=== PATIENT | male | born 1945 | race Caucasian/White ===

== ENCOUNTER 2016-05-22 10:10 | Outpatient (RCR) | payer MEDICARE, OTHER ==
--- OUTSIDE RECORDS SUMMARY | 2016-03-20 09:48 | XMS REPORT | Continuity of Care Document ---
Author Author [facility] Organization [facility] Address Unknown Phone Unavailable Care Team Providers Care Candy Feeder Name Role Phone CARLY NUÑEZ DO PCP Insurance Providers Payer Name Policy Number Subscriber Name Relationship Wps Medicare [id number] Soham Meza 18 Self / Same As Patient [employer] [id number] Soham Meza 18 Self / Same As Patient Advance Directives Directive Response Recorded Date/Time Advance Directives Yes 09/20/15 9:58am Health Care Power of Supervisor Compressed Yeast Y - Janelle Meza 09/20/15 9:58am Organ Donor Yes 09/20/15 9:58am Problems No problem information available. Medications Current Home Medications Medication Dose Units Route Directions Days/Qty Instructions Start Date Cholecalciferol (Vitamin D3) 4,000 Unit 4,000 Unit Oral Daily Furosemide (Lasix) 20 Mg 20 Mg Oral Daily 07/07/12 Omeprazole 40 Mg 40 Mg Oral Bedtime 07/07/12 Chromium Amino Acid Chelate 400 Mcg 400 Mcg Oral Daily 07/07/12 [Vitamin C 1000MG] 1,000 Mg Oral Daily 12/26/12 Potassium Chloride 10 Meq 10 Meq Oral Daily 12/26/12 Budesonide/Formoterol Fumarate 10.2 Gm 2 Puff Inhalation Twice A Day 12/26/12 Cyanocobalamin (Vitamin B 12 Injecting) 1,000 Mcg/Ml 1,000 Mcg Injection Monthly 12/26/12 [place]-3/Dha/Epa/Fish Oil 1 Each 4,200 Mg Oral Daily TAKES 3 (1400MG) CAPSULES EVERY MORNING 12/26/12 Testosterone Cypionate 200 Mg/1 Ml 200 Mg Intramusc Monthly One The 12/26/12 Anastrozole 1 Mg 0.5 Mg Oral The TAKES 1/2 (1MG) TABLET WITH TESTOSTERONE INJECTION MONTHLY AROUND THE 1ST OF THE MONTH 12/26/12 [Sea-[place] 1000MCG] 1,000 Mcg Oral Daily 12/26/12 [Xolair] Injection Once Monthly FOR ASTHMA 12/26/12 Metformin Hcl 1,000 Mg 1,000 Mg Oral Twice A Day 03/05/14 [Garlic 3000MG] 3,000 Mg Oral Daily 03/05/14 Gabapentin 300 Mg 300 Mg Oral Bedtime 03/05/14 Benazepril Hcl 40 Mg 40 Mg Oral Bedtime 03/05/14 Terazosin Hcl 10 Mg 10 Mg Oral Bedtime 03/05/14 Metoprolol Succinate 50 Mg 50 Mg Oral Daily 03/05/14 Amlodipine Besylate 10 Mg 10 Mg Oral Daily 03/05/14 Donepezil Hcl 10 Mg 10 Mg Oral Daily 03/05/14 Glimepiride 2 Mg 2 Mg Oral Daily 03/05/14 Montelukast Sodium 10 Mg 10 Mg Oral Daily 03/05/14 Atorvastatin Calcium 20 Mg 10 Mg Oral Daily @ 1200 TAKES 1/2 (20MG) TABLET 03/05/14 Losartan Potassium 100 Mg 100 Mg Oral Daily @ 1200 03/05/14 Hydrochlorothiazide 25 Mg 25 Mg Oral Daily @ 1200 03/05/14 Cyclobenzaprine Hcl (Flexeril) 10 Mg 10 Mg Oral Bedtime as needed for Muscle Spasms 03/05/14 [Coconut Oil 1000MG] 1,000 Mg Oral Daily 03/05/14 Albuterol 8.5 Gm 2 Puff Inhalation Every 6 Hours as needed for Shortness Of Breath 03/05/14 Tramadol Hcl 50 Mg 50 Mg Oral Every 8HRS as needed for Pain 07/07/14 Cetirizine Hcl 10 Mg 10 Mg Oral Daily 07/07/14 Oxycodone Hcl/Acetaminophen 1 Tab 1-2 Tab Oral Every 4HRS as needed for Pain 60 07/22/14 Past Home Medications Medication Directions Ordered Status Amlodipine Besylate (Norvasc 10 Mg) 10 Mg Tablet, 10 Mg Oral Daily 07/07/12 Discontinued Benazepril Hcl 40 Mg Tablet, 40 Mg Oral Every Evening 07/07/12 Discontinued Nebivolol Hcl 20 Mg Tablet, 20 Mg Oral Daily 07/07/12 Discontinued Aspirin 81 Mg Tabec, 81 Mg Oral Daily 07/07/12 Discontinued Donepezil Hcl 10 Mg Tablet, 10 Mg Oral Daily 07/07/12 Discontinued Terazosin Hcl 10 Mg Capsule, 10 Mg Oral Every Evening 07/07/12 Discontinued Metformin Hcl (Glucophage) 1,000 Mg Tablet, 1000 Mg Oral Twice A Day Discontinued Ascorbic Acid 500 Mg Tablet, 500 Mg Oral Three Times A Day 07/07/12 Discontinued Garlic 5,000 Mcg Tablet, 3000 Mcg Oral Daily 07/07/12 Discontinued [Kdur] , 10 Mcg Oral Daily 07/07/12 Discontinued Acetaminophen 500 Mg Tablet, 500 Mg Oral As Needed 07/07/12 Discontinued [Arimidex] , 0.5 Mg Oral Month 07/07/12 Discontinued Budesonide/Formoterol Fumarate 10.2 Gm Hfa.aer.ad, 10.2 Gm Inhalation Twice A Day 07/07/12 Discontinued Atorvastatin Calcium 20 Mg Tablet, 20 Mg Oral Daily @ 1200 07/07/12 Discontinued Telmisartan 80 Mg Tablet, 1 Each Oral Daily 07/07/12 Discontinued Hydrochlorothiazide 25 Mg Tab, 25 Mg Oral Daily @ 1200 07/07/12 Discontinued [Vitamin B-12] , 07/07/12 Discontinued [place]-3/[place]-6/[place]-9 Fatty Acids (Lovaza) 1 Each Capsule, 1 Each Oral Daily 07/07/12 Discontinued [Cetrizine] , 10 Mg Oral Daily 07/07/12 Discontinued Glimepiride 2 Mg Tab, 2 Mg Oral Daily 07/07/12 Discontinued Gabapentin 300 Mg Cap, 300 Mg Oral Bedtime 07/07/12 Discontinued Losartan Potassium 100 Mg Tablet, 100 Mg Oral Daily @ 1200 07/07/12 Discontinued [Garlic 3000MCG] , 3000 Mcg Oral Daily 12/26/12 Discontinued Cetirizine Hcl (Zyrtec) 10 Mg Tablet, 10 Mg Oral Daily 12/26/12 Discontinued Montelukast Sodium 10 Mg Tablet, 10 Mg Oral Daily 12/26/12 Discontinued Celecoxib 200 Mg Capsule, 200 Mg Oral Daily @ 1200 12/26/12 Discontinued Magnesium Oxide 400 Mg Capsule, 400 Mg Oral Daily 12/26/12 Discontinued Celecoxib 200 Mg Capsule, 200 Mg Oral Daily @ 1200 03/05/14 Discontinued Fluticasone Propionate 16 Gm Naspr, 2 Sprays Nasal Daily as needed for Allergies 03/05/14 Discontinued Loratadine 10 Mg Tablet, 5 Mg Oral Daily 03/05/14 Discontinued Cefprozil 500 Mg Tablet, 1 Each Oral Twice A Day 03/08/14 Discontinued Azithromycin 250 Mg Tablet, 1 Tab Oral Daily 03/08/14 Discontinued Guaifenesin 600 Mg Tab, 600 Mg Oral Twice A Day 03/08/14 Discontinued Social History Social History Problem Response Recorded Date/Time Alcohol Use Denies Use 07/19/2014 11:07am Recreational Drug Use No 07/19/2014 11:07am Do you dip or chew tobacco? No 08/23/2015 10:20am Hospital Discharge Instructions No hospital discharge instructions. Plan of Care Discharge Date 11/03/15 6:10am Prescriptions See Medication Section Functional Status No functional status results. Allergies, Adverse Reactions, Alerts Allergen Type Severity Reaction Status Last Updated adhesive ([id number]) Allergy Unknown Active 07/07/14 pravastatin ([id number]) Adverse Reaction Unknown weakness Active 07/07/14 telmisartan ([id number]) Adverse Reaction Mild diarrhea Active 07/07/12 Immunizations Name Given Type Date of Pneumonia Vaccine 01/19/12 Historical Date of Influenza Vaccine 03/20/14 Historical Tetanus Booster (TDap) Unknown Historical Vital Signs Acute Vital Signs Vital Response Date/Time Temperature (Fahrenheit) 98.9 degrees F (97.6 - 99.5) 10/25/2015 10:23am Temperature (Calculated Celsius) 37.16721 degrees C (36.4 - 37.5) 10/25/2015 10:23am Temperature Source Temporal 10/25/2015 10:23am Pulse Rate (adult) 86 bpm (60 - 90) 10/25/2015 10:23am Respiratory Rate 16 bpm (12 - 24) 10/25/2015 10:23am Blood Pressure 141/88 mm Hg 10/25/2015 10:23am Pain Pain Intensity 0 10/25/2015 10:23am Height (Feet) 5 feet 10/25/2015 10:23am Height (Inches) 7.00 inches 10/25/2015 10:23am Height (Calculated Centimeters) 170.441758 cm 10/25/2015 10:23am Weight (Pounds) 244 pounds 10/25/2015 10:23am Weight (Ounces) 14.9 oz 10/25/2015 10:23am Weight (Calculated Grams) 079664.947 gm 10/25/2015 10:23am Weight (Calculated Kilograms) 111.789327 kilograms 10/25/2015 10:23am Results No known relevant diagnostic tests, laboratory data and/or discharge summary. Procedures No known history of procedures. Encounters Encounter Location Arrival/Admit Date Discharge/Depart Date Attending Provider Departed Clinic [facility] 11/02/15 8:13pm 11/03/15 6: 10am MANAV CORDOBA MD Registered Recurring [facility] 10/25/15 9:27am DAVIDE CASTRO DO
[2016-03-20 09:54] VITALS: BP 134/85
[2016-03-20] MEDS: OMALIZUMAB SUB-Q 150 MG (XOLAIR) VIAL SQ SCH (10:37)
[2016-04-24] MEDS: OMALIZUMAB SUB-Q 150 MG (XOLAIR) VIAL SQ SCH (12:13)
[2016-04-24 16:08] VITALS: BP 133/88
[~2016-05-22] VITALS: Ht 170.2 cm; Wt 111.1 kg
[~2016-05-22 10:10] MED LIST: AC500T PO; ALBU8.5H2 IH; AMLO10TA PO; AMLO10TA2 PO; AMLO10TA82 PO; ANAS1TAB44 PO; ANAS1TAB7 PO; ASCO10006 PO; ASCO500T20 PO; ASP81TEC PO; ASPI-586 PO; ATOR20TA66 PO; ATR20T PO; AZTH250C PO; BNZ40T PO; BUDE10.2 IH; BUDE10.22 IH; BUDE6HFA IH; CART1TAB4 PO; CEFP500T4 PO; CELE200C PO; CETI10TA17 PO; CETI10TA57 PO; CHOL40002 PO; CHRO400T10 PO; CLCX200C PO; CNC1KV INJ; COCONUT OIL 1000 MG PO; CYAN100053 IJ; CYCL10TA9 PO; DNPZ10T PO; DOCO1CAP3 PO; DONE10TA41 PO; ESCI10TA55 PO; FLUT16SP22 NS; FURO20TA4 PO; GABA-488 PO; GARL5000 PO; GARLIC PO; GBPN300C PO; GFN600TCR PO; GLIM2TAB PO; GLMP2T PO; HCT25T PO; HYDR25TA4 PO; INDO50CA PO; KCL10CCR PO; LORA10TA7 PO; LOSA100T16 PO; LOSA100T28 PO; LOSA100T7 PO; MAGN400C PO; METF-380 PO; METF1000 PO; METO-272 PO; MNTL10T PO; MONT10TA24 PO; NEBI20TA2 PO; OMAL150V SQ; OMEG-9 PO; OMEG1CAP58 PO; OMEP40CA36 PO; OXYC-272 PO; POTA10CA43 PO; ROSU5TAB PO; TELM80TA3 PO; TERA10CA15 PO; TERA10CA3 PO; TEST200V21 INJ; TEST200V3 IM; TRAM50TA2 PO; VITAMIN C 1000MG PO; XOLAIR INJ; [UNRECOGNIZED DRUG - CODE] PO; [UNRECOGNIZED DRUG - OTHER] PO; arimidex PO; cetrizine PO; kdur PO; vitamin b-12
[2016-05-22] MEDS: OMALIZUMAB SUB-Q 150 MG (XOLAIR) VIAL SQ SCH (10:40)
[2016-05-22 11:00] VITALS: BP 137/78
== END 2016-06-18 | disposition home or self-care (01) ==
LOC: SDC 10:10
PROVIDERS: ATTEND Internal Medicine Critical Care Medicine
DX: J45.40 Moderate persistent asthma, uncomplicated (principal); R06.00 Dyspnea, unspecified; I10 Essential (primary) hypertension; E78.5 Hyperlipidemia, unspecified; I65.29 Occlusion and stenosis of unspecified carotid artery; E66.9 Obesity, unspecified
CPT/HCPCS: 96372

== ENCOUNTER → 2016-05-25 | Outpatient (CLI) | payer MEDICARE, OTHER ==
--- OUTSIDE RECORDS SUMMARY | 2016-05-25 11:53 | XMS REPORT | Continuity of Care Document ---
Author Author [facility] Organization [facility] Address Unknown Phone Unavailable Care Team Providers Care Internal Review And Audit Compliance Name Role Phone CARLY NUÑEZ DO PCP Insurance Providers Payer Name Policy Number Subscriber Name Relationship Wps Medicare [id number] Soham Meza 18 Self / Same As Patient [employer] [id number] Soham Meza 18 Self / Same As Patient Advance Directives Directive Response Recorded Date/Time Advance Directives Yes 09/20/15 9:58am Health Care Power of Nursing Home Assistant Administrator Y - Janelle Meza 09/20/15 9:58am Organ [...] 1,000 Mcg/Ml 1,000 Mcg Injection Monthly 12/26/12 [place]-3/Dha/Epa/Fish Oil 1 Each 4,200 Mg Oral Daily [...] 07/07/12 Discontinued [Vitamin B-12] , 07/07/12 Discontinued [place]-3/[place]-6/[place]-9 Fatty Acids (Lovaza) 1 Each Capsule, 1 [...] Type Severity Reaction Status Last Updated adhesive ([id number]) Allergy Unknown Active 07/07/14 pravastatin ([id number]) Adverse Reaction Unknown weakness Active 07/07/14 telmisartan ([id number]) Adverse Reaction Mild diarrhea Active 07/07/12 Immunizations Name Given Type Date of Pneumonia Vaccine 01/19/12 Historical Date of Influenza Vaccine 03/20/14 Historical Tetanus Booster (TDap) Unknown Historical Vital Signs Acute Vital Signs Vital Response Date/Time Temperature (Fahrenheit) 98.9 degrees F (97.6 - 99.5) 10/25/2015 10:23am Temperature (Calculated Celsius) 37.67166 degrees C (36.4 - 37.5) 10/25/2015 10:23am Temperature Source Temporal 10/25/2015 10:23am Pulse Rate (adult) 86 bpm (60 - 90) 10/25/2015 10:23am Respiratory Rate 16 bpm (12 - 24) 10/25/2015 10:23am Blood Pressure 141/88 mm Hg 10/25/2015 10:23am Pain Pain Intensity 0 10/25/2015 10:23am Height (Feet) 5 feet 10/25/2015 10:23am Height (Inches) 7.00 inches 10/25/2015 10:23am Height (Calculated Centimeters) 170.811357 cm 10/25/2015 10:23am Weight (Pounds) 244 pounds 10/25/2015 10:23am Weight (Ounces) 14.9 oz 10/25/2015 10:23am Weight (Calculated Grams) 045165.947 gm 10/25/2015 10:23am Weight (Calculated Kilograms) 111.164487 kilograms 10/25/2015 10:23am Results No known relevant diagnostic tests, laboratory data and/or discharge summary. Procedures No known history of procedures. Encounters Encounter Location Arrival/Admit Date Discharge/Depart Date Attending Provider Departed Clinic [facility] 11/02/15 8:13pm 11/03/15 6: 10am MANAV CORDOBA MD Registered Recurring [facility] 10/25/15 9:27am DAVIDE CASTRO DO
--- NOTE | 2016-05-25 12:44 | Diagnostic Imaging Report ---
EXAMINATION: Bilateral lower extremity duplex venous ultrasound. TECHNIQUE: DVT protocol. Multiple sonographic images with color Doppler and waveform interrogation were performed of the lower extremity veins, bilaterally, with compression and augmentation maneuvers. INDICATION: Pulmonary embolism. FINDINGS: The lower extremity veins from the common femoral veins to below the knee veins were examined with normal color-flow, compressibility and normal waveform demonstrated. The great saphenous vein bilaterally is patent. IMPRESSION: No evidence of DVT in either lower extremity. Dictated by: Dictated on workstation # [id number]
[2016-05-25 12:49] LABS: BASOPHILS % (AUTO) 1 % (0-10); EOSINOPHILS # (AUTO) 0.2 10^3/uL (0.0-0.3); EOSINOPHILS % (AUTO) 3 % (0-10); LYMPHOCYTES % (AUTO) 30 % (12-44); MEAN CORPUSCULAR HEMOGLOBIN 29 PG (25-34); MEAN CORPUSCULAR HGB CONC 34 G/DL (32-36); MEAN CORPUSCULAR VOLUME 86 FL (80-99); MEAN PLATELET VOLUME 9.4 FL (7.4-10.4); MONOCYTES # (AUTO) 0.6 X 10^3 (0.0-1.0); MONOCYTES % (AUTO) 9 % (0-12); NEUTROPHILS # (AUTO) 3.8 X 10^3 (1.8-7.8); NEUTROPHILS % (AUTO) 58 % (42-75); PLATELET COUNT 201 10^3/uL (130-400); RED BLOOD COUNT 5.52 10^6/uL (4.35-5.85); RED CELL DISTRIBUTION WIDTH 14.5 % (10.0-14.5); WHITE BLOOD COUNT 6.5 10^3/uL (4.3-11.0)
[2016-05-25 13:11] LABS: ALANINE AMINOTRANSFERASE 29 U/L (0-55); ALBUMIN 4.2 G/DL (3.2-4.5); ANION GAP 13 MMOL/L (5-14); ASPARTATE AMINO TRANSFERASE 20 U/L (5-34); BILIRUBIN,TOTAL 0.3 MG/DL (0.1-1.0); BLOOD UREA NITROGEN 19 MG/DL (7-18); BUN/CREATININE RATIO 16; CALCIUM 9.3 MG/DL (8.5-10.1); CARBON DIOXIDE 24 MMOL/L (21-32); CHLORIDE 102 MMOL/L (98-107); CREATININE SERUM 1.16 MG/DL (0.60-1.30); GFR ESTIMATED > 60; GLUCOSE 179 MG/DL (70-105); POTASSIUM 3.5 MMOL/L (3.6-5.0); SODIUM 139 MMOL/L (135-145); TOTAL PROTEIN 7.3 G/DL (6.4-8.2)
== END ==
LOC: RAD 11:50
PROVIDERS: ATTEND Nurse Practitioner Family
DX: I26.99 Other pulmonary embolism without acute cor pulmonale (principal)
CPT/HCPCS: 36415; 80053; 85025; 93970

== ENCOUNTER → 2016-05-25 | Outpatient (CLI) | payer MEDICARE, OTHER ==
[~2016-05-25] MED LIST changes: +CATHETER FLUSH 10 ML SYR IV PRN; +IOHEXOL 350 MG/ML 150 ML (OMNIPAQUE 350) VIAL IV ONE; +NS 100 ML (IVPB) BAG IV ONE
--- OUTSIDE RECORDS SUMMARY | 2016-05-25 08:02 | XMS REPORT | Continuity of Care Document ---
Author Author [facility] Organization [facility] Address Unknown Phone Unavailable Care Team Providers Care School Bus Technician Name Role Phone CARLY NUÑEZ DO PCP Insurance Providers Payer Name Policy Number Subscriber Name Relationship Wps Medicare [id number] Soham Meza 18 Self / Same As Patient [employer] [id number] Soham Meza 18 Self / Same As Patient Advance Directives Directive Response Recorded Date/Time Advance Directives Yes 09/20/15 9:58am Health Care Power of Supervisor Frame Sample And Pattern Y - Janelle Meza 09/20/15 9:58am Organ [...] 1,000 Mcg/Ml 1,000 Mcg Injection Monthly 12/26/12 [place]-3/Dha/Epa/Fish Oil 1 Each 4,200 Mg Oral Daily [...] 07/07/12 Discontinued [Vitamin B-12] , 07/07/12 Discontinued [place]-3/[place]-6/[place]-9 Fatty Acids (Lovaza) 1 Each Capsule, 1 [...] Type Severity Reaction Status Last Updated adhesive ([id number]) Allergy Unknown Active 07/07/14 pravastatin ([id number]) Adverse Reaction Unknown weakness Active 07/07/14 telmisartan ([id number]) Adverse Reaction Mild diarrhea Active 07/07/12 Immunizations Name Given Type Date of Pneumonia Vaccine 01/19/12 Historical Date of Influenza Vaccine 03/20/14 Historical Tetanus Booster (TDap) Unknown Historical Vital Signs Acute Vital Signs Vital Response Date/Time Temperature (Fahrenheit) 98.9 degrees F (97.6 - 99.5) 10/25/2015 10:23am Temperature (Calculated Celsius) 37.03412 degrees C (36.4 - 37.5) 10/25/2015 10:23am Temperature Source Temporal 10/25/2015 10:23am Pulse Rate (adult) 86 bpm (60 - 90) 10/25/2015 10:23am Respiratory Rate 16 bpm (12 - 24) 10/25/2015 10:23am Blood Pressure 141/88 mm Hg 10/25/2015 10:23am Pain Pain Intensity 0 10/25/2015 10:23am Height (Feet) 5 feet 10/25/2015 10:23am Height (Inches) 7.00 inches 10/25/2015 10:23am Height (Calculated Centimeters) 170.020096 cm 10/25/2015 10:23am Weight (Pounds) 244 pounds 10/25/2015 10:23am Weight (Ounces) 14.9 oz 10/25/2015 10:23am Weight (Calculated Grams) 376262.947 gm 10/25/2015 10:23am Weight (Calculated Kilograms) 111.012221 kilograms 10/25/2015 10:23am Results No known relevant diagnostic tests, laboratory data and/or discharge summary. Procedures No known history of procedures. Encounters Encounter Location Arrival/Admit Date Discharge/Depart Date Attending Provider Departed Clinic [facility] 11/02/15 8:13pm 11/03/15 6: 10am MANAV CORDOBA MD Registered Recurring [facility] 10/25/15 9:27am DAVIDE CASTRO DO
[2016-05-25 08:39] LABS: BLOOD UREA NITROGEN 20 MG/DL (7-18); BUN/CREATININE RATIO 19; CREATININE SERUM 1.07 MG/DL (0.60-1.30); GFR ESTIMATED > 60
--- NOTE | 2016-05-25 12:48 | Diagnostic Imaging Report ---
PROCEDURE: CT angiography of the chest with contrast. TECHNIQUE: Multiple contiguous axial images were obtained through the chest after uneventful bolus administration of intravenous contrast. Reconstructed CTA MIP acquisitions were also performed. INDICATION: Asthma. 125 mL of Omnipaque 350 is administered intravenously. FINDINGS: Pulmonary arteries are well opacified. There are emboli seen within the left lower lobe lobar branch point and multiple segmental branches mostly nonocclusive. The posterior segmental branch of the right lower lobe also demonstrates a PE. The other branches in the right lung are spared. The heart size is mildly enlarged. No pericardial effusion. The thoracic aorta is normal in caliber. No aortic dissection. The lungs demonstrate minimal atelectasis, more prominent in the bases with no significant consolidation or lung mass seen otherwise. No suspicious nodule. No mediastinal mass. There is a nonspecific 1 cm right paratracheal lymph node and nonspecific 1.3 cm right hilar mildly enlarged lymph node. No axillary lymphadenopathy. No pericardial or pleural effusion. The sections of the upper abdomen demonstrate mild diffuse hepatic steatosis. There is partially visualized simple-appearing cyst in the right kidney. The osseous structures demonstrate degenerative changes in the thoracic spine. IMPRESSION: Relatively low burden of pulmonary embolism involving mostly the segmental branches of the left lower lobe and the posterior segment of the right lower lobe arteries. The findings on this exam were discussed with Dr. Hewitt by Dr. Brandt at time of dictation by phone. Dictated by: Dictated on workstation # [id number]
--- NOTE | 2016-05-25 14:10 | Diagnostic Imaging Report ---
PROCEDURE: CT neck soft tissue with contrast. TECHNIQUE: Multiple contiguous axial images were obtained through the neck after the administration of contrast. INDICATION: Globus sensation. 50 mL of Omnipaque 350 is administered intravenously. FINDINGS: The parotid and submandibular glands are symmetric. The thyroid gland demonstrates a nonspecific hypodense nodule measuring 1.2 cm in the left lobe. There is asymmetric fullness in the lingual and oropharyngeal tonsils on the left side. There is no soft tissue mass evident in the larynx. The vascular enhancement in the jugular veins and carotid arteries appears grossly unremarkable. There is no significantly enlarged lymph node or soft tissue mass along the cervical chain bilaterally. The visualized portions of the paranasal sinuses and orbits appear grossly unremarkable. IMPRESSION: There is asymmetric soft tissue fullness in the left side of the oropharynx. Clinical examination is recommended to rule out a mass. Dictated by: Dictated on workstation # [id number]
== END ==
LOC: RAD 07:58
PROVIDERS: ATTEND Nurse Practitioner Family
DX: R06.00 Dyspnea, unspecified (principal); J45.909 Unspecified asthma, uncomplicated; G47.34 Idiopathic sleep related nonobstructive alveolar hypoventilation; F45.8 Other somatoform disorders; R13.19 Other dysphagia
CPT/HCPCS: 36415; 70491; 71275; 82565; 84520

== ENCOUNTER → 2016-06-26 | Outpatient (CLI) | payer MEDICARE, OTHER ==
[~2016-06-26] MED LIST changes: -CATHETER FLUSH 10 ML SYR IV PRN; -IOHEXOL 350 MG/ML 150 ML (OMNIPAQUE 350) VIAL IV ONE; -NS 100 ML (IVPB) BAG IV ONE
--- OUTSIDE RECORDS SUMMARY | 2016-06-26 08:52 | XMS REPORT | Continuity of Care Document ---
Author Author [facility] Organization [facility] Address Unknown Phone Unavailable Care Team Providers Care Conventions Reservationist Name Role Phone CARLY NUÑEZ DO PCP Insurance Providers Payer Name Policy Number Subscriber Name Relationship Wps Medicare [id number] Soham Meza 18 Self / Same As Patient [employer] [id number] Soham Meza 18 Self / Same As Patient Advance Directives Directive Response Recorded Date/Time Advance Directives Yes 09/20/15 9:58am Health Care Power of Ultrasound Tester Y - Janelle Meza 09/20/15 9:58am Organ [...] 1,000 Mcg/Ml 1,000 Mcg Injection Monthly 12/26/12 [place]-3/Dha/Epa/Fish Oil 1 Each 4,200 Mg Oral Daily [...] 07/07/12 Discontinued [Vitamin B-12] , 07/07/12 Discontinued [place]-3/[place]-6/[place]-9 Fatty Acids (Lovaza) 1 Each Capsule, 1 [...] Type Severity Reaction Status Last Updated adhesive ([id number]) Allergy Unknown Active 07/07/14 pravastatin ([id number]) Adverse Reaction Unknown weakness Active 07/07/14 telmisartan ([id number]) Adverse Reaction Mild diarrhea Active 07/07/12 Immunizations Name Given Type Date of Pneumonia Vaccine 01/19/12 Historical Date of Influenza Vaccine 03/20/14 Historical Tetanus Booster (TDap) Unknown Historical Vital Signs Acute Vital Signs Vital Response Date/Time Temperature (Fahrenheit) 98.9 degrees F (97.6 - 99.5) 10/25/2015 10:23am Temperature (Calculated Celsius) 37.96792 degrees C (36.4 - 37.5) 10/25/2015 10:23am Temperature Source Temporal 10/25/2015 10:23am Pulse Rate (adult) 86 bpm (60 - 90) 10/25/2015 10:23am Respiratory Rate 16 bpm (12 - 24) 10/25/2015 10:23am Blood Pressure 141/88 mm Hg 10/25/2015 10:23am Pain Pain Intensity 0 10/25/2015 10:23am Height (Feet) 5 feet 10/25/2015 10:23am Height (Inches) 7.00 inches 10/25/2015 10:23am Height (Calculated Centimeters) 170.653475 cm 10/25/2015 10:23am Weight (Pounds) 244 pounds 10/25/2015 10:23am Weight (Ounces) 14.9 oz 10/25/2015 10:23am Weight (Calculated Grams) 404219.947 gm 10/25/2015 10:23am Weight (Calculated Kilograms) 111.123238 kilograms 10/25/2015 10:23am Results No known relevant diagnostic tests, laboratory data and/or discharge summary. Procedures No known history of procedures. Encounters Encounter Location Arrival/Admit Date Discharge/Depart Date Attending Provider Departed Clinic [facility] 11/02/15 8:13pm 11/03/15 6: 10am MANAV CORDOBA MD Registered Recurring [facility] 10/25/15 9:27am DAVIDE CASTRO DO
--- NOTE | 2016-06-28 09:03 | ECHOCARDIOGRAPHY REPORT ---
PROCEDURE PHYSICIAN: RAMIRO CRUZ DATE OF PROCEDURE: 06/26/2016 TWO DIMENSIONAL ECHOCARDIOGRAM REPORT PRIMARY PHYSICIAN: OTHER PHYSICIAN: REFERRING PHYSICIAN: Dr. Gutierrez ORDERING PHYSICIAN: INDICATION FOR THE PROCEDURE: Carotid stenosis. MEASUREMENTS DERIVED VALUES LV DIAMETER (LAX) NORMALS NORMALS Diastolic 4.8 (3.6-5.2) Eject. Fract. 60% (60%+/-6%) Systolic (2.3-3.9) Diastolic Vol. % Shortening (0.22-0.42) Systolic Vol. Aortic Root IVS THICKNESS Diastolic 1.2 (0.6-1.1) LVPW THICKNESS Diastolic 1.2 (0.6-1.1) LA DIAMETER Systolic 4.2 (2.1-3.7) FINDINGS: 1. Technical quality is good. 2. The left ventricle is normal in size with mild to moderate left ventricular hypertrophy noted diffusely. Systolic function appeared to be normal. Estimated ejection fraction 60%. Diastolic dysfunction is suggested by Doppler. 3. The left atrium is dilated. No clot or thrombus were seen within the left atrium. 4. The right atrium and right ventricle are normal in size. No clot or thrombus were seen within the right side. 5. Mitral valve is normal in morphology with mild mitral regurgitation noted by color Doppler flow. No mitral valve prolapse. No mitral valve stenosis. 6. Aortic valve is trileaflet with normal opening and closing pattern. No significant aortic stenosis or regurgitation was seen. 7. Tricuspid valve is normal in morphology with mild tricuspid regurgitation noted by color Doppler flow. Doppler across tricuspid valve estimated pulmonary artery pressure of 20+ right atrial pressure. 8. Pulmonic valve is functioning normally. 9. No pericardial effusion. IN CONCLUSION: 1. Mild to moderate left ventricular hypertrophy noted diffusely. Systolic function is normal. Estimated ejection fraction 60%. Diastolic dysfunction is suggested by Doppler. 2. Left atrial dilatation. 3. Mild mitral and tricuspid regurgitation. 4. Estimated pulmonary artery pressure of 30 mmHg. Job ID: [id number] Dictated Date: 06/27/2016 16:48:05 Event Set Up Specialist Date: 06/28/2016 09:00:34 / tierra
== END ==
LOC: CARD 08:48
PROVIDERS: ATTEND Physician Assistant
DX: I65.23 Occlusion and stenosis of bilateral carotid arteries (principal); I11.0 Hypertensive heart disease with heart failure; E78.2 Mixed hyperlipidemia; I51.7 Cardiomegaly
CPT/HCPCS: 93306

== ENCOUNTER 2016-09-18 10:52 | Outpatient (RCR) | payer MEDICARE, OTHER ==
--- OUTSIDE RECORDS SUMMARY | 2016-06-25 08:03 | XMS REPORT | Continuity of Care Document ---
Author Author [facility] Organization [facility] Address Unknown Phone Unavailable Care Team Providers Care Sas Statistical Programmer Name Role Phone CARLY NUÑEZ DO PCP Insurance Providers Payer Name Policy Number Subscriber Name Relationship Wps Medicare [id number] Soham Meza 18 Self / Same As Patient [employer] [id number] Soham Meza 18 Self / Same As Patient Advance Directives Directive Response Recorded Date/Time Advance Directives Yes 09/20/15 9:58am Health Care Power of Tree Killer Y - Janelle Meza 09/20/15 9:58am Organ [...] 1,000 Mcg/Ml 1,000 Mcg Injection Monthly 12/26/12 [place]-3/Dha/Epa/Fish Oil 1 Each 4,200 Mg Oral Daily [...] 07/07/12 Discontinued [Vitamin B-12] , 07/07/12 Discontinued [place]-3/Echo-6/Echo-9 Fatty Acids (Lovaza) 1 Each Capsule, 1 [...] Type Severity Reaction Status Last Updated adhesive ([id number]) Allergy Unknown Active 07/07/14 pravastatin ([id number]) Adverse Reaction Unknown weakness Active 07/07/14 telmisartan ([id number]) Adverse Reaction Mild diarrhea Active 07/07/12 Immunizations Name Given Type Date of Pneumonia Vaccine 01/19/12 Historical Date of Influenza Vaccine 03/20/14 Historical Tetanus Booster (TDap) Unknown Historical Vital Signs Acute Vital Signs Vital Response Date/Time Temperature (Fahrenheit) 98.9 degrees F (97.6 - 99.5) 10/25/2015 10:23am Temperature (Calculated Celsius) 37.32336 degrees C (36.4 - 37.5) 10/25/2015 10:23am Temperature Source Temporal 10/25/2015 10:23am Pulse Rate (adult) 86 bpm (60 - 90) 10/25/2015 10:23am Respiratory Rate 16 bpm (12 - 24) 10/25/2015 10:23am Blood Pressure 141/88 mm Hg 10/25/2015 10:23am Pain Pain Intensity 0 10/25/2015 10:23am Height (Feet) 5 feet 10/25/2015 10:23am Height (Inches) 7.00 inches 10/25/2015 10:23am Height (Calculated Centimeters) 170.594490 cm 10/25/2015 10:23am Weight (Pounds) 244 pounds 10/25/2015 10:23am Weight (Ounces) 14.9 oz 10/25/2015 10:23am Weight (Calculated Grams) 881349.947 gm 10/25/2015 10:23am Weight (Calculated Kilograms) 111.155574 kilograms 10/25/2015 10:23am Results No known relevant diagnostic tests, laboratory data and/or discharge summary. Procedures No known history of procedures. Encounters Encounter Location Arrival/Admit Date Discharge/Depart Date Attending Provider Departed Clinic [facility] 11/02/15 8:13pm 11/03/15 6: 10am MANAV CORDOBA MD Registered Recurring [facility] 10/25/15 9:27am DAVIDE CASTRO DO
[2016-06-25] MEDS: OMALIZUMAB SUB-Q 150 MG (XOLAIR) VIAL SQ SCH (08:40)
[2016-06-25 10:23] VITALS: BP 111/84
[2016-07-24] MEDS: OMALIZUMAB SUB-Q 150 MG (XOLAIR) VIAL SQ SCH (10:33)
[2016-07-24 10:42] VITALS: BP 121/74
--- NOTE | 2016-07-24 17:42 | Physician Query-Final Dx ---
MANOLO LAST 07/24/16 1741: Clinic Account Progress/Dx Physician Query: Please give diagnosis J45.998, other asthma is not a covered dx for Xolair. Does patient have: 1. J45.40 moderate persistant asthma 2. J45.50 severe persistant asthma 3. Neither of the above, and Xolair will remain noncovered Date of Service Jul 24, 2016 at 09:46 DAVIDE CASTRO DO 08/22/16 1208: Clinic Account Progress/Dx DIAGNOSIS: Diagnosis moderate persistent asthma MANOLO LAST Jul 24, 2016 17:41 DAVIDE CASTRO DO Aug 22, 2016 12:08
[2016-08-21 10:15] VITALS: BP 139/75
[2016-08-21] MEDS: OMALIZUMAB SUB-Q 150 MG (XOLAIR) VIAL SQ SCH (10:16)
[~2016-09-18] VITALS: Ht 170.2 cm; Wt 111.1 kg
[2016-09-18] MEDS: OMALIZUMAB SUB-Q 150 MG (XOLAIR) VIAL SQ SCH (11:30)
[2016-09-18 12:11] VITALS: BP 121/71
== END 2016-09-23 | disposition still patient (30) ==
LOC: SDC 10:52
PROVIDERS: ATTEND Internal Medicine Critical Care Medicine
DX: J45.40 Moderate persistent asthma, uncomplicated (principal); E66.9 Obesity, unspecified; Z68.38 Body mass index [BMI] 38.0-38.9, adult
CPT/HCPCS: 96372

== ENCOUNTER 2016-09-19 20:30 | Outpatient (CLI) | payer MEDICARE, OTHER | END 2016-09-20 06:15 | disposition home or self-care (01) | LOC: SLEEP 20:30 | PROVIDERS: ATTEND Internal Medicine Critical Care Medicine | DX: G47.33 Obstructive sleep apnea (adult) (pediatric) (principal) | CPT/HCPCS: 95811 ==

== ENCOUNTER → 2016-09-20 | Outpatient (CLI) | payer MEDICARE, OTHER | LOC: RT 07:09 | PROVIDERS: ATTEND Nurse Practitioner Family | DX: J45.909 Unspecified asthma, uncomplicated (principal); I26.99 Other pulmonary embolism without acute cor pulmonale ==

== ENCOUNTER → 2016-09-20 | Outpatient (CLI) | payer MEDICARE, OTHER ==
[~2016-09-20] MED LIST changes: +CATHETER FLUSH 10 ML SYR IV PRN; +IOHEXOL 350 MG/ML 150 ML (OMNIPAQUE 350) VIAL IV ONE; +NS 100 ML (IVPB) BAG IV ONE
[2016-09-20 09:17] LABS: BLOOD UREA NITROGEN 18 MG/DL (7-18); BUN/CREATININE RATIO 15; CREATININE SERUM 1.17 MG/DL (0.60-1.30); GFR ESTIMATED > 60
--- NOTE | 2016-09-20 10:54 | Diagnostic Imaging Report ---
PROCEDURE: CT angiography of the chest with contrast. TECHNIQUE: Multiple contiguous axial images were obtained through the chest after uneventful bolus administration of intravenous contrast. Reconstructed CTA MIP acquisitions were also performed. INDICATION: Hypoxia. FINDINGS: The pulmonary arterial branches are widely patent. No filling defect or PE. The thoracic aorta is patent and nonaneurysmal. The pleura and pericardium are unremarkable. Trace atelectatic changes are present. No effusion or pneumothorax. A large exophytic cyst off the upper pole of the right kidney is oriented posterolaterally and incompletely visualized; however, it measures at least 9.2 cm in diameter. IMPRESSION: Negative for PE or acute aortic pathology. Zones of partial atelectasis. No thoracic effusion. Partial visualization of a large right renal cortical cyst. Dictated by: Dictated on workstation # [id number]
== END ==
LOC: RAD 08:43
PROVIDERS: ATTEND Nurse Practitioner Family
DX: J98.11 Atelectasis (principal); N28.1 Cyst of kidney, acquired; R09.02 Hypoxemia; R06.00 Dyspnea, unspecified
CPT/HCPCS: 36415; 71275; 82565; 84520

== ENCOUNTER → 2016-11-27 | Outpatient (CLI) | payer MEDICARE, OTHER ==
[~2016-11-27] MED LIST changes: +BARIUM SUSPENSION 105% (LIQUID POLIBAR PLUS) 240 ML/DOSE PO ONE; +BARIUM SUSPENSION 60% (LIQUID EZ PAQUE) 240 ML DOSE PO ONE; -CATHETER FLUSH 10 ML SYR IV PRN; -IOHEXOL 350 MG/ML 150 ML (OMNIPAQUE 350) VIAL IV ONE; -NS 100 ML (IVPB) BAG IV ONE
--- NOTE | 2016-11-27 12:44 | Diagnostic Imaging Report ---
EXAMINATION: Barium swallow double-contrast. INDICATION: Dysphagia Fluoroscopy time: One minute and 28 seconds TECHNIQUE: Central Supply Nurse image of the chest was performed. Subsequently, the patient was given gas forming granules for oral ingestion followed by thick and thin barium to drink. Swallowing through the esophagus was observed with fluoroscopy and overhead images, as well as multiple spot images in the upright and prone positions, were taken. FINDINGS: Central Supply Nurse image of the chest demonstrate mild cardiomegaly and minimal right basilar atelectasis or scarring. No significant reflux is seen during the study. Occasional tertiary contractions are from seen with the otherwise no significant motility dysfunction seen. The esophagus is normal in caliber and contour. There is no mucosal abnormality, diverticulum or filling defect to suggest a mass. There is a small sliding hiatal hernia demonstrated. IMPRESSION: Tiny sliding hiatal hernia. Dictated by: Dictated on workstation # [id number]
== END ==
LOC: RAD 10:33
PROVIDERS: ATTEND Otolaryngology Otolaryngology/Facial Plastic Surgery
DX: K44.9 Diaphragmatic hernia without obstruction or gangrene (principal); K21.9 Gastro-esophageal reflux disease without esophagitis; R13.10 Dysphagia, unspecified
CPT/HCPCS: 74220

== ENCOUNTER → 2016-11-29 | Outpatient (CLI) | payer MEDICARE, OTHER ==
[~2016-11-29] MED LIST changes: -BARIUM SUSPENSION 105% (LIQUID POLIBAR PLUS) 240 ML/DOSE PO ONE; -BARIUM SUSPENSION 60% (LIQUID EZ PAQUE) 240 ML DOSE PO ONE; +CATHETER FLUSH 10 ML SYR IV PRN; +IOHEXOL 350 MG/ML 100 ML (OMNIPAQUE 350) VIAL IV ONE; +NS 100 ML (IVPB) BAG IV ONE
[2016-11-29 08:41] LABS: CREATININE SERUM 1.22 MG/DL (0.60-1.30)
--- NOTE | 2016-11-29 10:07 | Diagnostic Imaging Report ---
CLINICAL INDICATION: Patient with fullness at base of tongue and reflux. EXAM: CT scan of the neck soft tissue performed with 75 cc of Omnipaque 350 IV contrast. Coronal and reformatted images are created. COMPARISON: CT scan of the neck soft tissue with IV contrast dated 05/25/2016. Barium esophagram/swallow study dated 11/27/2016. FINDINGS: Dental streak artifact obscures portions of the oral cavity and tongue limiting evaluation. There is stable appearance of bony asymmetry of the posterior nasal septum and pterygoid regions. There is also stable slight asymmetry of the nasopharyngeal soft tissue at the left side more prominent than the right with no definite measurable mass seen. There is stable prominence of the soft palate and stable asymmetry of the oropharyngeal soft tissue at the left side more prominent than the right. Again, there is no measurable mass seen. Stable roughly 12 mm low-density nodule in the left thyroid gland. Otherwise, thyroid gland is are unremarkable. The bilateral salivary glands are stable and unremarkable. There is no significant neck lymphadenopathy. The neck vascular structures are grossly unremarkable. The remainder of the neck soft tissue structures show no significant abnormality. Visualized upper lung irby are clear. There is interval development of a small amount of fluid in the right mastoid region. The paranasal sinuses and remainder of the temporal bone structures are unremarkable. There is degenerative disease of the cervical spine. IMPRESSION: 1: There is relatively stable appearance of the neck soft tissue with no definite developing mass or lymphadenopathy. 2: There is stable asymmetry of the nasopharyngeal and oropharyngeal soft tissue with the left side more prominent than the right. There is no measurable mass seen. Direct visualization would better evaluate. If there is continued concern for neck soft tissue abnormality, then MRI of the neck soft tissue with and without IV contrast may help better evaluate. 3: Interval development of small amount of fluid in the right mastoid region. Dictated by: Dictated on workstation # [id number]
== END ==
LOC: RAD 08:08
PROVIDERS: ATTEND Otolaryngology Otolaryngology/Facial Plastic Surgery
DX: J39.2 Other diseases of pharynx (principal); H74.90 Unspecified disorder of middle ear and mastoid, unspecified ear; R13.10 Dysphagia, unspecified; K21.9 Gastro-esophageal reflux disease without esophagitis
CPT/HCPCS: 36415; 70491; 82565; 84520

== ENCOUNTER 2016-12-18 11:38 | Outpatient (RCR) | payer MEDICARE, OTHER ==
[2016-10-23] MEDS: OMALIZUMAB SUB-Q 150 MG (XOLAIR) VIAL SQ SCH (11:35)
[2016-10-23 11:45] VITALS: BP 143/86
[2016-11-27] MEDS: OMALIZUMAB SUB-Q 150 MG (XOLAIR) VIAL SQ SCH (13:18)
[2016-11-27 13:49] VITALS: BP 135/77
[~2016-12-18] VITALS: Ht 170.2 cm; Wt 111.1 kg
[~2016-12-18 11:38] MED LIST changes: -CATHETER FLUSH 10 ML SYR IV PRN; -IOHEXOL 350 MG/ML 100 ML (OMNIPAQUE 350) VIAL IV ONE; -NS 100 ML (IVPB) BAG IV ONE
[2016-12-18] MEDS: OMALIZUMAB SUB-Q 150 MG (XOLAIR) VIAL SQ SCH (12:25)
[2016-12-18 12:28] VITALS: BP 137/77
== END 2017-01-21 | disposition home or self-care (01) ==
LOC: SDC 11:38
PROVIDERS: ATTEND Internal Medicine Critical Care Medicine
DX: J45.998 Other asthma (principal); E66.9 Obesity, unspecified; Z68.38 Body mass index [BMI] 38.0-38.9, adult
CPT/HCPCS: 96372

== ENCOUNTER 2017-01-22 11:18 | Outpatient (RCR) | payer MEDICARE, OTHER ==
[~2017-01-22] VITALS: Ht 170.2 cm; Wt 111.1 kg
[2017-01-22] MEDS ORDERED: OMALIZUMAB SUB-Q 150 MG (XOLAIR) VIAL SQ SCH (11:45)
[2017-01-22 12:37] VITALS: BP 130/72
== END 2017-02-16 | disposition home or self-care (01) ==
LOC: SDC 11:18
PROVIDERS: ATTEND Nurse Practitioner Family
DX: J45.998 Other asthma (principal); E66.9 Obesity, unspecified; Z68.38 Body mass index [BMI] 38.0-38.9, adult
CPT/HCPCS: 96372

== ENCOUNTER 2017-03-14 21:00 | Outpatient (CLI) | payer MEDICARE, OTHER | END 2017-03-15 06:05 | disposition home or self-care (01) | LOC: SLEEP 21:00 | PROVIDERS: ATTEND Nurse Practitioner Family | DX: G47.33 Obstructive sleep apnea (adult) (pediatric) (principal); G47.34 Idiopathic sleep related nonobstructive alveolar hypoventilation | CPT/HCPCS: 95811 ==

== ENCOUNTER → 2017-04-15 | Outpatient (CLI) | payer MEDICARE, OTHER ==
[~2017-04-15] MED LIST changes: +IOHEXOL 350 MG/ML 100 ML (OMNIPAQUE 350) VIAL IV ONE; +METO-370 PO; +NS 100 ML (IVPB) BAG IV ONE
[2017-04-15 10:27] LABS: CREATININE SERUM 1.33 MG/DL (0.60-1.30)
--- NOTE | 2017-04-15 18:01 | Diagnostic Imaging Report ---
PROCEDURE: CT neck soft tissue with contrast. TECHNIQUE: Multiple contiguous axial images were obtained through the neck after the administration of contrast. INDICATION: Soft tissue growth along the base of the tongue. FINDINGS: There is soft tissue fullness seen in the oropharynx more prominent on the left side. This is similar compared to 11/29/2016 exam. No measurable discrete mass however is identified. Please note that there is beam hardening artifacts from left shoulder replacement and from dental fillings which partially degrades the evaluation of this exam. Also, the nasopharynx and the adenoids area appear to be slightly thickened without significant change. The parotid glands appear symmetric. The submandibular glands appear symmetric. There is a 1.3 cm thyroid nodule in the left lobe similar to 11/29/2016. The lung apices demonstrate no significant abnormality. No cervical chain lymphadenopathy of significance is identified. The osseous structures demonstrate degenerative changes in the mid cervical spine. The visualized portions of the paranasal sinuses appear grossly unremarkable. IMPRESSION: Continued soft tissue fullness within the oropharynx without discrete mass identified. There are beam hardening artifacts from left shoulder prosthesis and dental fillings as described which could obscure subtle abnormality. Correlate clinically and with MRI of the neck if there is high index of suspicion. Dictated by: Dictated on workstation # [id number]
== END ==
LOC: RAD 09:55
PROVIDERS: ATTEND Otolaryngology Otolaryngology/Facial Plastic Surgery
DX: M79.89 Other specified soft tissue disorders (principal); K21.9 Gastro-esophageal reflux disease without esophagitis; R13.19 Other dysphagia
CPT/HCPCS: 36415; 70491; 82565; 84520

== ENCOUNTER 2017-04-23 12:25 | Outpatient (RCR) | payer MEDICARE, OTHER ==
[2017-02-19] MEDS: OMALIZUMAB SUB-Q 150 MG (XOLAIR) VIAL SQ SCH (11:20)
[2017-02-19 11:26] VITALS: BP 130/89
[2017-03-21] MEDS: OMALIZUMAB SUB-Q 150 MG (XOLAIR) VIAL SQ SCH (11:48)
[2017-03-21 12:59] VITALS: BP 140/78
[~2017-04-23] VITALS: Ht 170.2 cm; Wt 111.1 kg
[~2017-04-23 12:25] MED LIST changes: -IOHEXOL 350 MG/ML 100 ML (OMNIPAQUE 350) VIAL IV ONE; -NS 100 ML (IVPB) BAG IV ONE
[2017-04-23] MEDS: OMALIZUMAB SUB-Q 150 MG (XOLAIR) VIAL SQ SCH (13:28)
[2017-04-23 13:29] VITALS: BP 165/80
== END 2017-05-20 | disposition home or self-care (01) ==
LOC: SDC 12:25
PROVIDERS: ATTEND Nurse Practitioner Family
DX: J45.998 Other asthma (principal); J45.40 Moderate persistent asthma, uncomplicated; E66.9 Obesity, unspecified; Z68.38 Body mass index [BMI] 38.0-38.9, adult
CPT/HCPCS: 96372

== ENCOUNTER 2017-07-23 11:06 | Outpatient (RCR) | payer MEDICARE, OTHER ==
[2017-05-21] MEDS: OMALIZUMAB SUB-Q 150 MG (XOLAIR) VIAL SQ SCH (14:05)
[2017-05-21 14:10] VITALS: BP 149/89
[2017-06-25 11:55] VITALS: BP 139/94
[2017-06-25] MEDS: OMALIZUMAB SUB-Q 150 MG (XOLAIR) VIAL SQ SCH (11:55)
[~2017-07-23] VITALS: Ht 170.2 cm; Wt 111.1 kg
[2017-07-23] MEDS: OMALIZUMAB SUB-Q 150 MG (XOLAIR) VIAL SQ SCH (11:40)
[2017-07-23 12:00] VITALS: BP 135/90
== END 2017-08-19 | disposition home or self-care (01) ==
LOC: SDC 11:06
PROVIDERS: ATTEND Nurse Practitioner Family
DX: J45.998 Other asthma (principal); J45.40 Moderate persistent asthma, uncomplicated; E66.9 Obesity, unspecified; Z68.38 Body mass index [BMI] 38.0-38.9, adult
CPT/HCPCS: 96372

== ENCOUNTER 2017-07-23 13:00 | Outpatient (RCR) | payer MEDICARE, OTHER | END 2017-07-23 13:50 | disposition home or self-care (01) | LOC: SDC 13:00 | PROVIDERS: ATTEND Nurse Practitioner Family | DX: J45.909 Unspecified asthma, uncomplicated (principal); R06.00 Dyspnea, unspecified | CPT/HCPCS: 96372 ==

== ENCOUNTER 2017-10-22 12:05 | Outpatient (RCR) | payer MEDICARE, OTHER ==
[2017-08-20] MEDS: OMALIZUMAB SUB-Q 150 MG (XOLAIR) VIAL SQ SCH (13:27)
[2017-08-20 13:35] VITALS: BP 135/74
[2017-09-17 09:45] VITALS: BP 111/67
[2017-09-17] MEDS: OMALIZUMAB SUB-Q 150 MG (XOLAIR) VIAL SQ SCH (10:12)
[~2017-10-22] VITALS: Ht 170.2 cm; Wt 111.1 kg
[~2017-10-22 12:05] MED LIST changes: +BENA40TA5 PO; -INDO50CA PO; +INDO50CA11 PO; +METF10002 PO
[2017-10-22] MEDS: OMALIZUMAB SUB-Q 150 MG (XOLAIR) VIAL SQ SCH (12:30)
[2017-10-22 12:35] VITALS: BP 116/72
[2017-11-12] MEDS ORDERED: PRAM0.12 PO ×2 (13:24)
[2017-11-12] MEDS ORDERED: TRAM50TA2 PO ×2 (13:25)
== END 2017-11-18 | disposition home or self-care (01) ==
LOC: SDC 12:05
PROVIDERS: ATTEND Internal Medicine Critical Care Medicine
DX: J45.909 Unspecified asthma, uncomplicated (principal); R06.00 Dyspnea, unspecified
CPT/HCPCS: 96372

== ENCOUNTER 2017-11-15 06:30 | Day surgery (SDC) | payer MEDICARE, OTHER ==
[~2017-11-15] VITALS: Ht 170.2 cm; Wt 112.5 kg
[~2017-11-15 06:30] MED LIST changes: +PRAM0.12 PO
[2017-11-15] MEDS ORDERED: FAMOTIDINE 20MG/2ML IV (PEPCID) IV ONE (07:00)
[2017-11-15] MEDS ORDERED: ONDANSETRON 4 MG/2 ML (SDV) Z0FRAN IV ONE (07:00)
[2017-11-15] MEDS ORDERED: LACTATED RINGERS 1,000 ML IV PRN (07:20)
[2017-11-15 07:25] VITALS: BP 130/81
[2017-11-15] MEDS ORDERED: LIDOCAINE/EPI 1%-1:200,000 (XYLOCAINE) 10 ML VIAL ONE (07:58)
[2017-11-15] MEDS ORDERED: SEVOFLURANE (ULTANE) 15 ML INHAL SOLN ONE ×4 (08:02→09:55)
[2017-11-15] MEDS ORDERED: ONDANSETRON 4 MG/2 ML (SDV) Z0FRAN ONE (08:02)
[2017-11-15] MEDS ORDERED: DEXAMETHASONE 10 MG/ML (DECADRON) 1 ML VIAL ONE ×2 (08:02→08:06)
[2017-11-15] MEDS ORDERED: LIDOCAINE PF 2% 5 ML (XYLOCAINE) VIAL ONE (08:02)
[2017-11-15] MEDS ORDERED: LIDOCAINE JELLY 2% (XYLOCAINE) 5 ML TUBE ONE (08:02)
[2017-11-15] MEDS ORDERED: proPOfol 200 MG/20 ML (DIPRIVAN) VIAL IV ONE (08:02)
[2017-11-15] MEDS ORDERED: MIDAZOLAM 2 MG/2 ML (VERSED) VIAL ONE (08:02)
[2017-11-15] MEDS ORDERED: fentaNYL INJECTION 100 MCG/2 ML AMP ONE (08:02)
[2017-11-15] MEDS ORDERED: SUCCINYLCHOLINE INJ 100 MG/5 ML SYR ONE (08:02)
--- NOTE | 2017-11-15 08:32 | Progress Note-Pre Operative ---
Pre-Operative Progress Note H&P Reviewed The H&P was reviewed, patient examined and no changes noted. Date Seen by Provider: Nov 15, 2017 Time Seen by Provider: 08:00 Date H&P Reviewed: Nov 15, 2017 Time H&P Reviewed: 08:00 Pre-Operative Diagnosis: Left Pharyngeal Mass MANAV CORDOBA MD Nov 15, 2017 8:32 am
[2017-11-15] MEDS ORDERED: ATROPINE 0.4 MG/ML 20 ML VIAL ONE (09:02)
[2017-11-15] MEDS ORDERED: ROCURONIUM 10 MG/ML 5 ML SYRINGE IV ONE (09:03)
--- NOTE | 2017-11-15 09:24 | Progress Note-Post Operative ---
Post-Operative Progess Note Surgeon (s)/Bridge Repairer (s) Surgeon MANAV CORDOBA MD Bridge Repairer n/a Pre-Operative Diagnosis Left Pharyngeal Mass Post-Operative Diagnosis same Post-Op Procedure Note Date of Procedure: Nov 15, 2017 Name of Procedure Performed: Direct Laryngoscopy with Biopsies of Base of Tongue and valleculae on left side Description & Findings Description and Findings: n/a Anesthesia Type get Estimated Blood Loss minimal Packing none. Specimen(s) collected/removed multiple biopsies-for frozen-diag deferred to permanents MANAV CORDOBA MD Nov 15, 2017 9:24 am
[2017-11-15] MEDS ORDERED: ACETAMINOPHEN 325 MG TABLET PO PRN (09:30)
[2017-11-15] MEDS ORDERED: HYDROcodone/APAP 5 MG/325 MG (LORTAB) TAB PO PRN (09:30)
[2017-11-15] MEDS ORDERED: PROMETHAZINE INJ 25 MG/ML (PHENERGAN) AMP IV PRN (09:30)
[2017-11-15] MEDS ORDERED: ONDANSETRON 4 MG/2 ML (SDV) Z0FRAN IVP PRN (09:45)
[2017-11-15] MEDS ORDERED: MEPERIDINE (DEMEROL) INJ 50 MG/ML IVP PRN (09:45)
[2017-11-15] MEDS ORDERED: morphine INJ 10 MG/ML 1ML (SYR OR VIAL) IVP PRN (09:45)
[2017-11-15 10:35] VITALS: BP 149/86
--- NOTE | 2017-11-15 10:47 | Anesthesia-General Post-Op ---
General Patient Condition Mental Status/LOC: Same as Preop Cardiovascular: Satisfactory Nausea/Vomiting: Absent Respiratory: Satisfactory Pain: Controlled Complications: Absent Post Op Complications Complications None Follow Up Care/Instructions Patient Instructions None needed. Anesthesia/Patient Condition Patient Condition Patient is doing well, no complaints, stable vital signs, no apparent adverse anesthesia problems. No complications reported per nursing. NERISSA MORENO CRNA Nov 15, 2017 10:47
[2017-11-15 11:05] VITALS: BP 151/87
[2017-11-15 11:35] VITALS: BP 142/81
[2017-11-15 11:45] VITALS: BP 142/81
== END 2017-11-15 11:45 | disposition home or self-care (01) ==
LOC: SDC 06:30
PROVIDERS: ATTEND Otolaryngology Otolaryngology/Facial Plastic Surgery
DX: K13.29 Other disturbances of oral epithelium, including tongue (principal); J39.2 Other diseases of pharynx; E11.40 Type 2 diabetes mellitus with diabetic neuropathy, unspecified; I10 Essential (primary) hypertension; J44.9 Chronic obstructive pulmonary disease, unspecified; J45.909 Unspecified asthma, uncomplicated; G47.33 Obstructive sleep apnea (adult) (pediatric); E66.01 Morbid (severe) obesity due to excess calories; Z68.39 Body mass index [BMI] 39.0-39.9, adult; Z79.82 Long term (current) use of aspirin; Z79.84 Long term (current) use of oral hypoglycemic drugs; Z79.899 Other long term (current) drug therapy
CPT/HCPCS: 82962; 88305; 88331

== ENCOUNTER 2018-01-21 10:31 | Outpatient (RCR) | payer MEDICARE, OTHER ==
[2017-11-19 10:05] VITALS: BP 122/76
[2017-11-19] MEDS: OMALIZUMAB SUB-Q 150 MG (XOLAIR) VIAL SQ SCH (10:43)
[2017-12-24] MEDS: OMALIZUMAB SUB-Q 150 MG (XOLAIR) VIAL SQ SCH (10:25)
[2017-12-24 10:30] VITALS: BP 121/73
[~2018-01-21] VITALS: Ht 170.2 cm; Wt 112.5 kg
[~2018-01-21 10:31] MED LIST changes: -AMLO10TA2 PO; +AMLO10TA6 PO; -LOSA100T28 PO; +LOSA100T8 PO; +METF-399 PO; -METF10002 PO
[2018-01-21] MEDS: OMALIZUMAB SUB-Q 150 MG (XOLAIR) VIAL SQ SCH (10:59)
[2018-01-21 11:00] VITALS: BP 138/65
[2018-01-22] MEDS ORDERED: RESTFUL LEGS PO (07:39)
[2018-01-22] MEDS ORDERED: OMAL150V SQ (15:21)
[2018-01-23] MEDS ORDERED: TICA90TA PO (07:30)
== END 2018-02-17 | disposition home or self-care (01) ==
LOC: SDC 10:31
PROVIDERS: ATTEND Internal Medicine Critical Care Medicine
DX: J45.909 Unspecified asthma, uncomplicated (principal); R06.00 Dyspnea, unspecified
CPT/HCPCS: 96372

== ENCOUNTER 2018-01-22 06:38 | Day surgery (SDC) | payer MEDICARE, OTHER ==
[~2018-01-22] VITALS: Ht 170.2 cm; Wt 111.1 kg
[2018-01-22] VITALS (13 sets, daily range): BP systolic 108–139; BP diastolic 60–78
--- OUTSIDE RECORDS SUMMARY | 2018-01-22 06:42 | XMS REPORT | Clinical Summary ---
Author Author [facility] Organization [facility] Address Unknown Phone Unavailable Care Team Providers Care Casing Blower Name Role Phone Alexander Gutierrez MD PCP Source Comments Some departments are not documenting in the electronic medical record. If you do not see the information that you expected, contact Release of Information in the Health Information Management department at [phone] for further assistance in locating additional records.[facility] Allergies No Known Allergies Current Medications Prescription Sig. Disp. Refills Start End Date Status Date amLODIPine (NORVASC) 10 Take 1 tablet by mouth 3 12/01/19 Active mg tablet daily. 18 anastrozole (ARIMIDEX) 1 Take 1 tablet by mouth Active mg tablet daily. ascorbic acid(+) 1,000 mg Take 1 tablet by mouth as Active tablet Needed. aspirin-calcium carbonate Take 1 tablet by mouth Active 81 mg-300 mg calcium(777 daily. mg) tab rosuvastatin (CRESTOR) 5 Take 1 tablet by mouth 0 11/13/19 Active mg tablet daily. 18 benazepril (LOTENSIN) 40 Take 1 tablet by mouth 4 11/24/19 Active mg tablet daily. 18 budesonide/formoterol Inhale 2 puffs by mouth Active (SYMBICORT HFA) 160/4.5 into the lungs twice mcg inhalation daily. cetirizine (ZYRTEC) 10 mg Take 1 tablet by mouth Active tablet daily. cholecalciferol (vitamin Take 1 tablet by mouth Active D3) 4,000 unit cap daily. chromic chloride Take 1 Dose by mouth Active (CHROMIUM) daily. Cyanocobalamin 1,000 Injection once a month Active mcg/15 mL liqd cyclobenzaprine Take 10 mg by mouth every 05/04/20 Active (FLEXERIL) 10 mg tablet 8 hours as needed. 13 donepezil (ARICEPT) 10 mg Take 10 mg by mouth. Active tablet escitalopram oxalate TK 1 T PO DAILY 2 11/24/19 Active (LEXAPRO) 10 mg tablet 18 furosemide (LASIX) 20 mg TK 1 T PO DAILY 1 11/24/19 Active tablet 18 glimepiride (AMARYL) 2 mg TK 1 T PO ONCE D 3 09/03/19 Active tablet 18 hydroCHLOROthiazide TK 1 T PO DAILY 2 08/30/19 Active (HYDRODIURIL) 25 mg 18 tablet losartan(+) (COZAAR) 100 TK 1 T PO DAILY 1 09/04/19 Active mg tablet 18 metFORMIN (GLUCOPHAGE) TAKE 1 TABLET BY MOUTH 3 10/18/19 Active 1,000 mg tablet BID 18 metoprolol XL (TOPROL XL) TK 1 T PO DAILY 3 11/24/19 Active 50 mg extended release 18 tablet OMALIZUMAB SC Inject 300 mg under the Active skin. omeprazole DR(+) TK 1 C PO DAILY 3 11/24/19 Active (PRILOSEC) 40 mg capsule 18 potassium chloride TK 1 T PO DAILY 2 08/28/19 Active (K-DUR) 10 mEq tablet 18 pramipexole (MIRAPEX) TK 1 T PO HS Q DAY 1 11/13/19 Active 0.125 mg tablet 18 terazosin(+) (HYTRIN) 10 TK 1 C PO DAILY 1 11/24/19 Active mg capsule 18 testosterone cypionate INJECT 1ML IM Q MONTH 1 09/04/19 Active (DEPO-TESTOSTERONE) 200 18 mg/mL injection traMADol (ULTRAM) 50 mg 1 10/18/19 Active tablet 18 Active Problems Problem Noted Date Lingual tonsil hypertrophy 12/16/2017 Oropharyngeal dysphagia 12/16/2017 Encounters Date Type Specialty Care Team Description 12/16/2017 Office Visit Otolaryngology Geeta Recinos MD Lingual tonsil hypertrophy; Oropharyngeal dysphagia 12/14/2017 Telephone Oncology Geeta Recinos MD Navigation Assessment 12/13/2017 Ancillary Radiology Outpatient, Radiologist Diagnosis unknown Orders 11/04/2017 Hospital Radiology Encounter 10/28/2017 Hospital Radiology Encounter from Last 3 Months Family History Medical History Relation Name Comments Allergy-severe Father Blood Clots Father Dizziness Father Heart Attack Father High Cholesterol Father Hypertension Father Stroke Father Diabetes Mother High Cholesterol Mother Hypertension Mother Relation Name Status Comments Father (Age 86) Mother (Age 94) Social History Tobacco Use Types Packs/Day Years Used Date Never Smoker Smokeless Tobacco: Never Used Sex Assigned at Date Recorded Not on file Last Filed Vital Signs Vital Sign Reading Time Taken Blood Pressure 112/71 12/16/2017 9:03 AM CDT Pulse 65 12/16/2017 9:03 AM CDT Temperature - - Respiratory Rate 18 12/16/2017 9:03 AM CDT Oxygen Saturation - - Inhaled Oxygen - - Concentration Weight 111.2 kg (245 lb 3.2 oz) 12/16/2017 9:03 AM CDT Height 170.2 cm (5' 7") 12/16/2017 9:03 AM CDT Body Mass Index 38.4 12/16/2017 9:03 AM CDT Plan of Treatment Health Maintenance Due Date Last Done Comments PHYSICAL (COMPREHENSIVE) 1952 EXAM PERTUSSIS VACCINE 1955 TETANUS VACCINE 1961 COLORECTAL CANCER 1994 SCREENING SHINGLES RECOMBINANT 1994 VACCINE (1 of 2) PNEUMONIA (PCV13/PPSV23) 2009 VACCINES (1 of 2 - PCV13) INFLUENZA VACCINE 02/17/2018 Results * MRI NECK EXTERNAL IMAGING (11/04/2017) Narrative Performed At This order has been auto finalized and does not contain a result. * CT NECK EXTERNAL IMAGING (10/28/2017) Narrative Performed At This order has been auto finalized and does not contain a result. from Last 3 Months
--- OUTSIDE RECORDS SUMMARY | 2018-01-22 06:43 | XMS REPORT | Encounter Summary ---
Author Author [facility] Organization [facility] Address Unknown Phone Unavailable Care Team Providers Care Molding Supervisor Name Role Phone Alexander Gutierrez MD PCP Encounter Details Date Type Department Care Team Description 12/13/2017 Ancillary Rad Outpatient, Radiologist Diagnosis unknown Orders [address] [place] [address] Social History Tobacco Use Types Packs/Day Years Used Date Never Assessed Sex Assigned at Date Recorded Not on file as of this encounter Plan of Treatment Not on fileas of this encounter Results * MRI NECK EXTERNAL IMAGING (11/04/2017) Narrative Performed At This order has been auto finalized and does not contain a result. * CT NECK EXTERNAL IMAGING (10/28/2017) Narrative Performed At This order has been auto finalized and does not contain a result. * GENERAL RAD CHEST EXTERNAL IMAGING (04/15/2017 12:15 AM) Narrative Performed At This order has been auto finalized and does not contain a result. * CT NECK EXTERNAL IMAGING (04/15/2017) Narrative Performed At This order has been auto finalized and does not contain a result. * CT NECK EXTERNAL IMAGING (11/29/2016) Narrative Performed At This order has been auto finalized and does not contain a result. in this encounter Visit Diagnoses Diagnosis Diagnosis unknown Other unknown and unspecified cause of morbidity or mortality
--- OUTSIDE RECORDS SUMMARY | 2018-01-22 06:43 | XMS REPORT | Encounter Summary ---
Author Author [facility] Organization [facility] Address Unknown Phone Unavailable Care Team Providers Care Any Commodity Buyer Name Role Phone PCP Unavailable Encounter Details Date Type Department Care Team Description 11/04/2017 Hospital [facility] Encounter Hospital Radiology [facility] [address] [place] [address] Social History Tobacco Use Types Packs/Day Years Used Date Never Assessed Sex Assigned at Date Recorded Not on file as of this encounter Medications at Time of Discharge Medication Sig. Disp. Refills Start Date End Date cyclobenzaprine Take 10 mg by mouth every 05/04/2013 (FLEXERIL) 10 mg tablet 8 hours as needed. glimepiride (AMARYL) 2 mg TK 1 T PO ONCE D 3 09/02/2017 tablet hydroCHLOROthiazide TK 1 T PO DAILY 2 08/29/2017 (HYDRODIURIL) 25 mg tablet losartan(+) (COZAAR) 100 TK 1 T PO DAILY 1 09/03/2017 mg tablet metFORMIN (GLUCOPHAGE) TAKE 1 TABLET BY MOUTH 3 10/17/2017 1,000 mg tablet BID potassium chloride TK 1 T PO DAILY 2 08/27/2017 (K-DUR) 10 mEq tablet testosterone cypionate INJECT 1ML IM Q MONTH 1 09/03/2017 (DEPO-TESTOSTERONE) 200 mg/mL injection traMADol (ULTRAM) 50 mg 1 10/17/2017 tablet as of this encounter Plan of Treatment Not on fileas of this encounter Results * MRI NECK EXTERNAL IMAGING (11/04/2017) Narrative Performed At This order has been auto finalized and does not contain a result. in this encounter Visit Diagnoses Diagnosis Diagnosis unknown Other unknown and unspecified cause of morbidity or mortality
--- OUTSIDE RECORDS SUMMARY | 2018-01-22 06:43 | XMS REPORT | Encounter Summary ---
Author Author [facility] Organization [facility] Address Unknown Phone Unavailable Care Team Providers Care Seaman Officer Name Role Phone Alexander Gutierrez MD PCP Reason for Visit * Reason Comments Mass * Consult, Test & Treat (Routine) Status Reason Specialty Diagnoses / Referred By Referred To Procedures Contact Contact No Auth Needed Otolaryngology Diagnoses Mihai Harrington Shnayder, Lisa, MD NEW, neck MD hector [address] seeking [address] [facility] [address] opinion, cwa [address] [place], [place] [address] rocedures [id number] Phone: NEW PATIENT [phone] Encounter Details Date Type Department Care Team Description 12/16/2017 Office Visit [facility] Geeta Recinos MD Lingual tonsil Physicians - ENT [address] hypertrophy; Ortho and Medical [address] Oropharyngeal dysphagia [address] [place] [address] [phone] [place] [address] Social History Tobacco Use Types Packs/Day Years Used Date Never Smoker Smokeless Tobacco: Never Used Sex Assigned at Date Recorded Not on file as of this encounter Last Filed Vital Signs Vital Sign Reading [...] Mass Index 38.4 12/16/2017 9:03 AM CDT in this encounter Progress Notes * Geeta Recinos MD - 12/16/2017 9:00 AM CDT Formatting of this note may be different from the original. Date of Service: 12/16/2017 Subjective: Soham Meza is a 72 y.o. male. History of Present Illness Chief Complaint Patient presents with Mass History of Present Illness: Soham Meza is a 72 y.o. year old male evaluated on 12/16/2017, in the Otolaryngology-Head and Neck Surgery Clinic at the [facility]. The patient was referred by Dr. Harrington for evaluation of neck mass. He has been following with Dr. Harrington for several years regarding globus sensation and pharyngeal fullness which has been observed and monitored by several scans. CT neck in October shown to have a soft tissue mass in the left pharyngeal mucosal space. MRI done showed thickening of the pharynx and hypopharynx concerning for primary malignancy of the pharynx. He underwent DL biopsy at the end of October, of the left base of tongue left vallecula and left tongue which is negative for malignancy. He is here for second opinion. He reports that belching causes him to have some discomfort/pressure. He wears BIPAP at night which causes his throat to dry out and increases his sore throat. He denies dysphagia or odynophagia with PO, choking with PO, otalgia, hemoptysis , hoarseness, masses or lesions in the oral cavity, neck masses, unintentional weight loss. He was previously on xarelto for a PE (Jan 2016). He has never smoked. 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 His has a past surgical history that includes adenoidectomy and tonsillectomy. Past Family/Social History His family history includes Allergy-severe in his father; Blood Clots in his father; Diabetes in his mother; Dizziness in his father; Heart Attack in his father; High Cholesterol in his father and mother; Hypertension in his father and mother; Stroke in his father. He reports that he has never smoked. He has never used smokeless tobacco. Medications/Allergies/Immunizations His current medication(s) include: Current Outpatient Prescriptions Medication Sig Dispense Refill amLODIPine (NORVASC) 10 mg tablet Take 1 tablet by mouth daily. 3 anastrozole (ARIMIDEX) 1 mg tablet Take 1 tablet by mouth daily. ascorbic acid(+) 1,000 mg tablet Take 1 tablet by mouth as Needed. aspirin-calcium carbonate 81 mg-300 mg calcium(777 mg) tab Take 1 tablet by mouth daily. benazepril (LOTENSIN) 40 mg tablet Take 1 tablet by mouth daily. 4 budesonide/formoterol (SYMBICORT HFA) 160/4.5 mcg inhalation Inhale 2 puffs by mouth into the lungs twice daily. cetirizine (ZYRTEC) 10 mg tablet Take 1 tablet by mouth daily. cholecalciferol (vitamin D3) 4,000 unit cap Take 1 tablet by mouth daily. chromic chloride (CHROMIUM) Take 1 Dose by mouth daily. Cyanocobalamin 1,000 mcg/15 mL liqd Injection once a month cyclobenzaprine (FLEXERIL) 10 mg tablet Take 10 mg by mouth every 8 hours as needed. donepezil (ARICEPT) 10 mg tablet Take 10 mg by mouth. escitalopram oxalate (LEXAPRO) 10 mg tablet TK 1 T PO DAILY 2 furosemide (LASIX) 20 mg tablet TK 1 T PO DAILY 1 glimepiride (AMARYL) 2 mg tablet TK 1 T PO ONCE D 3 hydroCHLOROthiazide (HYDRODIURIL) 25 mg tablet TK 1 T PO DAILY 2 losartan(+) (COZAAR) 100 mg tablet TK 1 T PO DAILY 1 metFORMIN (GLUCOPHAGE) 1,000 mg tablet TAKE 1 TABLET BY MOUTH BID 3 metoprolol XL (TOPROL XL) 50 mg extended release tablet TK 1 T PO DAILY 3 OMALIZUMAB SC Inject 300 mg under the skin. omeprazole DR(+) (PRILOSEC) 40 mg capsule TK 1 C PO DAILY 3 potassium chloride (K-DUR) 10 mEq tablet TK 1 T PO DAILY 2 pramipexole (MIRAPEX) 0.125 mg tablet TK 1 T PO HS Q DAY 1 rosuvastatin (CRESTOR) 5 mg tablet Take 1 tablet by mouth daily. 0 terazosin(+) (HYTRIN) 10 mg capsule TK 1 C PO DAILY 1 testosterone cypionate (DEPO-TESTOSTERONE) 200 mg/mL injection INJECT 1ML IM Q MONTH 1 traMADol (ULTRAM) 50 mg tablet 1 No current facility-administered medications for this visit. Allergies: Patient has no known allergies. Review of Systems Constitutional: Positive for diaphoresis and fatigue. HENT: Positive for congestion, ear discharge, ear pain, hearing loss, postnasal drip, rhinorrhea, sore throat, tinnitus, trouble swallowing and voice change. Eyes: Positive for photophobia and visual disturbance. Respiratory: Positive for apnea and shortness of breath. Cardiovascular: Positive for leg swelling. Gastrointestinal: Positive for abdominal pain, constipation and diarrhea. Genitourinary: Positive for frequency. Musculoskeletal: Positive for arthralgias, back pain, gait problem, joint swelling, myalgias, neck pain and neck stiffness. Neurological: Positive for dizziness, weakness, numbness and headaches. Hematological: Bruises/bleeds easily. Psychiatric/Behavioral: Positive for sleep disturbance. The patient is nervous/ anxious. Objective: amLODIPine (NORVASC) 10 mg tablet Take 1 tablet by mouth daily. anastrozole (ARIMIDEX) 1 mg tablet Take 1 tablet by mouth daily. ascorbic acid(+) 1,000 mg tablet Take 1 tablet by mouth as Needed. aspirin-calcium carbonate 81 mg-300 mg calcium(777 mg) tab Take 1 tablet by mouth daily. benazepril (LOTENSIN) 40 mg tablet Take 1 tablet by mouth daily. budesonide/formoterol (SYMBICORT HFA) 160/4.5 mcg inhalation Inhale 2 puffs by mouth into the lungs twice daily. cetirizine (ZYRTEC) 10 mg tablet Take 1 tablet by mouth daily. cholecalciferol (vitamin D3) 4,000 unit cap Take 1 tablet by mouth daily. chromic chloride (CHROMIUM) Take 1 Dose by mouth daily. Cyanocobalamin 1,000 mcg/15 mL liqd Injection once a month cyclobenzaprine (FLEXERIL) 10 mg tablet Take 10 mg by mouth every 8 hours as needed. donepezil (ARICEPT) 10 mg tablet Take 10 mg by mouth. escitalopram oxalate (LEXAPRO) 10 mg tablet TK 1 T PO DAILY furosemide (LASIX) 20 mg tablet TK 1 T PO DAILY glimepiride (AMARYL) 2 mg tablet TK 1 T PO ONCE D hydroCHLOROthiazide (HYDRODIURIL) 25 mg tablet TK 1 T PO DAILY losartan(+) (COZAAR) 100 mg tablet TK 1 T PO DAILY metFORMIN (GLUCOPHAGE) 1,000 mg tablet TAKE 1 TABLET BY MOUTH BID metoprolol XL (TOPROL XL) 50 mg extended release tablet TK 1 T PO DAILY OMALIZUMAB SC Inject 300 mg under the skin. omeprazole DR(+) (PRILOSEC) 40 mg capsule TK 1 C PO DAILY potassium chloride (K-DUR) 10 mEq tablet TK 1 T PO DAILY pramipexole (MIRAPEX) 0.125 mg tablet TK 1 T PO HS Q DAY rosuvastatin (CRESTOR) 5 mg tablet Take 1 tablet by mouth daily. terazosin(+) (HYTRIN) 10 mg capsule TK 1 C PO DAILY testosterone cypionate (DEPO-TESTOSTERONE) 200 mg/mL injection INJECT 1ML IM Q MONTH traMADol (ULTRAM) 50 mg tablet Vitals: 12/16/17 0903 BP: 112/71 Pulse: 65 Resp: 18 Weight: 111.2 kg (245 lb 3.2 oz) Height: 170.2 cm (67") Body mass index is 38.4 kg/m. Physical Exam Vital Signs: BP 112/71 (BP Source: Arm, Right Upper, Patient Position: Sitting ) | Pulse 65 | Resp 18 | Ht 170.2 cm (67") | Wt 111.2 kg (245 lb 3.2 oz) | BMI 38.40 kg/m General: Well-developed, well-nourished, obese Communication and Voice: Clear pitch and clarity Hearing: Hearing adequate for verbal communication bilaterally Inspection: Normocephalic and atraumatic without mass or lesion Palpation: Facial skeleton intact without bony stepoffs Parotid Glands: No mass or tenderness Facial Strength: Facial motility symmetric and full bilaterally Pinna: External ear intact and fully developed. Hearing aids in place External canal: Canal is patent with intact skin.Left with cerumen Tympanic Membrane: Clear and mobile on right. Unable to visualize left. External nose: No scar or anatomic deformity Internal Nose: Septum intact and midline. No edema, polyp, or rhinorrhea. Bilateral inferior turbinate hypertrophy TMJ: No pain to palpation with full mobility Oral cavity, Lips, Teeth, and Gums: Mucosa and teeth intact and viable, No lesions, masses or ulcers. Prominent base of tongue. Oropharynx: No erythema or exudate, no masses or ulcerations, absent tonsils Nasopharynx: No mass or lesion with intact mucosa Hypopharynx: No masses or ulcerations, normal mucosa without pooling of secretions Larynx: Normal supraglottic and glottic structures without masses or ulcerations, normal vocal fold mobility Neck, Trachea, Lymphatics: Midline trachea without mass or lesion, no lymphadenopathy Thyroid: No mass or nodularity Eyes: No nystagmus with equal extraocular motion bilaterally Neuro/Psych/Balance: Patient oriented and appropriate in interaction; Appropriate mood and affect; Gait is intact with no imbalance; Cranial nerves I -XII are intact Respiratory effort: Equal inspiration and expiration without stridor Peripheral Vascular: Warm extremities with equal pulses Procedure: Flexible fiberoptic nasopharyngoscopy/laryngoscopy: Indications: Need for detailed exam, hyperactive gag reflex, inadequate mirror visualization. Surgeon: Geeta Recinos MD Procedure note/findings: After informed discussion of the risks, benefits, and alternatives after indications as noted above, a fiberoptic nasopharyngoscopy and laryngoscopy was recommended for above indications, and the patient consented to this. Nasal cavities were topically anesthetized and decongested with 4% lidocaine solution mixed with Afrin after which a flexible scope was easily advanced without difficulty into the left and right nasal cavities as well as into the nasopharynx. Nasal cavities were intact without gross mass or lesion. Nasopharynx, similarly, revealed no mass lesion or granularity. There was no ulceration. There was no gross asymmetry. Fossa of Rosenmueller was intact bilaterally. The eustachian tube orifices were intact bilaterally and patent. Posterior and lateral nasal pharyngeal villalobos were intact and symmetric without ulceration, mass, or granularity. Scope was now advanced distally. Visible oropharynx including lateral villalobos and tongue base was clear without lesion. Very prominent lingual tonsils, L more prominent than right. But no ulceration or lesions. Larynx and hypopharynx were examined. Larynx was intact with normal true vocal cord mobility bilaterally. No discrete masses or lesions in any location. Hypopharynx was clear without asymmetry. Airway was patent. The scope was then withdrawn and removed. He tolerated this well. PATHOLOGY REVIEW: 11/15/17 Surgical pathology: A. Tongue, left base: Lymphoid tissue with mild reactive lymphoid hyperplasia B. Vallecula, left : mild edema, no evidence of malignancy C. Tongue, left : Lymphoid tissue with mild reactive lymphoid hyperplasia, overlying squamous mucosa with reactive changes. D. Vallecula, left: Fragments of reactive appearing squamous mucosa, minor salivary gland tissue and skeletal muscle, abundant bacteria , no malignancy identified. RADIOLOGIC REVIEW: 10/28/17 CT Neck: IMPRESSION: Soft tissue mass in the left pharyngeal mucosal space. 11/04/17 MRI: IMPRESSION: Diffuse soft tissue thickening pharynx/hypopharynx reproduced from the CT Scan, same location. 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 Mild narrowing of the left parasagittal airway. Thickening of the uvula. Minimal flattening of the left true VC. Assessment and Plan: IMPRESSION: My impression is that Mr. Meza has no signs of obvious oropharyngeal masses or lesions. He does have prominent lingual tonsils, left > right however these have no suspicious signs PLAN: - No intervention at this time. Recommend he continue to follow up with Dr. Harrington. If he becomes symptomatic from an airway standpoint, could offer lingual tonsillectomy' - f/u prn ATTESTATION I personally performed the haines portions of the E/M visit, discussed case with resident and concur with resident documentation of history, physical exam, assessment, and treatment plan unless otherwise noted. HPI: A pleasant 72 y/o M with multiple medical co-morbidities, with a long history of dysphagia. CT neck in 2017 and recently described a left oropharyngeal soft tissue mass. Recent DL/biopsy by Dr. Harrington negative for malignancy. Exam including flexible laryngoscopy: a prominent left tongue base lingual tonsil. No suspicious masses or lesions. Assessment: Lingual tonsil hypertrophy Plan: I recommend observation, continue following with Dr. Harrington. May need a repeat CT or biopsy if symptoms get worse Will see him here as needed Staff name: Geeta Recinos MD Date: 12/16/2017 in this encounter Plan of Treatment Not on fileas of this encounter Visit Diagnoses Diagnosis Lingual tonsil hypertrophy Hypertrophy of tonsils alone Oropharyngeal dysphagia Dysphagia, oropharyngeal phase
--- OUTSIDE RECORDS SUMMARY | 2018-01-22 06:43 | XMS REPORT | Encounter Summary ---
Author Author [facility] Organization [facility] Address Unknown Phone Unavailable Care Team Providers Care Brazer Crawler Torch Name Role Phone PCP Unavailable Reason for Visit * Reason Comments Navigation Assessment Encounter Details Date Type Department Care Team Description 12/14/2017 Telephone [facility] Geeta Recinos MD Navigation Assessment [facility] Exam [address] [facility] [address] [place] [address] [place] [address] [phone] Social History Tobacco Use Types Packs/Day Years Used Date Never Assessed Sex Assigned at Date Recorded Not on file as of this encounter Miscellaneous Notes * Telephone Encounter - Georgina Rodriguez RN - 12/14/2017 7:07 PM CDT Navigation Intake Assessment Document Patient Name: Soham Meza : 1945 Insurance: Medicare Appointment Info: December [address] Recinos Diagnosis & Reason for Visit: Neck mass Physician Info: Referring Physician: Dr Mihai Harrington, ENT Contact Name & Number: Kamilla [phone] Location of Films: PACS Location of Pathology: Biopsy negative for malignancy. History of Present Illness: 72 year old male who had been followed since May 2016 with serial scans of the neck due to a globous sensation. He denies dysphagia or throat pain. No sign of wt loss. PE by Dr Harrington unremarkable except that pt has a large tongue with difficulty visualizing throat. 10/28/17 CT Neck: IMPRESSION: Soft tissue mass in the left pharyngeal mucosal space. 11/04/17 MRI: IMPRESSION: Diffuse soft tissue thickening pharynx/ hypopharynx reproduced from the CT Scan, same location. 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 Mild narrowing of the left parasagittal airway. Thickening of the uvula. Minimal flattening of the left true VC. 11/15/17 Surgical pathology: A. Tongue, left base: Lymphoid tissue with mild reactive lymphoid hyperplasia B. Vallecula, left : mild edema, no evidence of malignancy C. Tongue, left : Lymphoid tissue with mild reactive lymphoid hyperplasia, overlying squamous mucosa with reactive changes. D. Vallecula, left: Fragments of reactive appearing squamous mucosa, minor salivary gland tissue and skeletal muscle, abundant bacteria, no malignancy identified. Prior Treatment (XRT, Surgery, Chemotherapy): None Comments: PMH: DM2, HTN, Recent PE recently discontinued blood thinners, Severe allergies with monthly injection of Xolair, CPAP at hs, O2 prn, CVA 1997 NEEDS Assessment: Genetic Counseling: Not Applicable Nutrition: Denies difficulty swallowing or chewing. No wt loss. Social Work/Financial: Recently . unexpectantly in May. Pt [place]. Daughter in law assists with medical details. Daughter in law will accompany to initial consultation. Spiritual & Emotional: No needs identified Physical: Occassionally uses cane. O2 PRN. Communication: Hard of hearing. Wears hearing aids bilaterally. Oncofertility - Females age 40 and under; Males age 50 and under : Not applicable in this encounter Plan of Treatment Not on fileas of this encounter Visit Diagnoses Not on filein this encounter
--- OUTSIDE RECORDS SUMMARY | 2018-01-22 06:43 | XMS REPORT | Encounter Summary ---
Author Author [facility] Organization [facility] Address Unknown Phone Unavailable Care Team Providers Care Bowling Pin Setters Installer Name Role Phone PCP Unavailable Encounter Details Date Type Department Care Team Description 10/28/2017 Hospital [facility] Encounter Hospital Radiology [facility] [address] [place] [address] Social History Tobacco Use Types [...] on fileas of this encounter Results * CT NECK EXTERNAL IMAGING (10/28/2017) Narrative Performed At This order has been auto finalized and does not contain a result. in this encounter Visit Diagnoses Diagnosis Diagnosis unknown Other unknown and unspecified cause of morbidity or mortality
[2018-01-22] MEDS ORDERED: LIDOCAINE 1% INJ 20 ML 20 ML VIAL ONE (06:49)
--- OUTSIDE RECORDS SUMMARY | 2018-01-22 06:49 | XMS REPORT | Continuity of Care Document ---
Author Author [facility] Organization [facility] Address Unknown Phone Unavailable Allergies Active Description Code Type Severity Reaction Onset Reported/Identified Relationship to Patient Clinical Status Yes telmisartan [id number] Drug Allergy Mild diarrhea 01/26/2016 Yes adhesive [id number] Drug Allergy Unknown N/A 01/26/2016 Yes fish oil [id number] Drug Allergy Unknown N/A 01/26/2016 Yes pravastatin [id number] Drug Allergy Unknown weakness 01/26/2016 Medications There is no data. Problems Date Dx Coded Attending Type Code Diagnosis Diagnosed By 09/26/2011 Ot 327.23 OBSTRUCTIVE SLEEP APNEA (ADULT) (PEDIATR 03/17/2013 BRIAN SANTAMARIA, WAYNE Pardo Ot 493.00 EXTRINSIC ASTHMA, NOS 05/12/2013 BRIAN SANTAMARIA, WAYNE Pardo Ot 493.00 EXTRINSIC ASTHMA, NOS 03/08/2014 CARLY NUÑEZ DO Ot 038.9 SEPTICEMIA NOS 03/08/2014 CARLY NUÑEZ DO Ot 250.00 DIAB BINH WO COMPL, TYPE II OR UNSPEC TY 03/08/2014 CARLY NUÑEZ DO Ot 266.2 B-COMPLEX DEFIC NEC 03/08/2014 CARLY NUÑEZ DO Ot 268.9 VITAMIN D DEFICIENCY NOS 03/08/2014 CARLY NUÑEZ DO Ot 272.4 HYPERLIPIDEMIA NEC/NOS 03/08/2014 CARLY NUÑEZ DO Ot 278.01 MORBID OBESITY 03/08/2014 CARLY NUÑEZ DO Ot 327.23 OBSTRUCTIVE SLEEP APNEA (ADULT) (PEDIATR 03/08/2014 CARLY NUÑEZ DO Ot 401.9 HYPERTENSION NOS 03/08/2014 CARLY NUÑEZ DO Ot 429.3 CARDIOMEGALY 03/08/2014 CARLY NUÑEZ DO Ot 433.10 CAROTID ARTERY OCCLUSION W O CEREBRAL IN 03/08/2014 CARLY NUÑEZ DO Ot 486 PNEUMONIA, ORGANISM NOS 03/08/2014 CARLY NUÑEZ DO Ot 491.21 OBSTR CHRONIC BRONCHITIS, W (ACUTE) EXAC 03/08/2014 CARLY NUÑEZ DO Ot 721.3 LUMBOSACRAL SPONDYLOSIS 03/08/2014 CARLY NUÑEZ DO Ot 787.91 DIARRHEA 03/08/2014 CARLY NUÑEZ DO Ot 799.02 HYPOXEMIA 03/08/2014 CARLY NUÑEZ DO Ot 995.91 SEPSIS 03/08/2014 CARLY NUÑEZ DO Ot E930.9 ADV EFF ANTIBIOTIC NOS 03/08/2014 CARLY NUÑEZ DO Ot V85.38 BODY MASS INDEX 38.0-38.9, ADULT 06/11/2014 Ot 397.0 06/11/2014 Ot 401.9 06/11/2014 Ot 424.0 06/11/2014 Ot 429.3 06/11/2014 Ot 723.1 06/11/2014 Ot 401.9 06/11/2014 Ot 786.05 06/11/2014 Ot 397.0 06/11/2014 Ot 401.9 06/11/2014 Ot 424.0 06/11/2014 Ot 429.3 06/11/2014 Ot 272.4 06/11/2014 Ot 401.9 06/11/2014 Ot 426.9 06/11/2014 Ot 250.00 06/11/2014 Ot 268.9 06/11/2014 Ot 272.4 06/11/2014 Ot 401.9 06/11/2014 Ot 401.0 06/11/2014 Ot 786.09 06/11/2014 Ot 397.0 06/11/2014 Ot 401.0 06/11/2014 Ot 424.0 06/11/2014 Ot 429.3 06/11/2014 Ot 786.09 06/11/2014 Ot 401.0 06/11/2014 JOJO ZUÑIGA MD Ot 562.10 06/11/2014 JOJO ZUÑIGA MD Ot V76.51 06/11/2014 JOJO ZUÑIGA MD Ot V72.84 06/11/2014 Ot 493.00 06/11/2014 Ot 493.00 06/11/2014 ABDOUL OAKLEY MD Ot 722.10 06/11/2014 ABDOUL OAKLEY MD Ot 722.52 06/11/2014 ABDOUL OAKLEY MD Ot V45.4 07/07/2014 Ot 493.00 07/07/2014 Ot 493.00 07/14/2014 RAMIRO CRUZ MD Ot 272.4 07/14/2014 RAMIRO CRUZ MD Ot 397.0 07/14/2014 RAMIRO CRUZ MD Ot 401.9 07/14/2014 RAMIRO CRUZ MD Ot 424.0 07/14/2014 RAMIRO CRUZ MD Ot 429.3 07/14/2014 RAMIRO CRUZ MD Ot 433.10 07/14/2014 RAMIRO CRUZ MD Ot 272.4 07/14/2014 RAMIRO CRUZ MD Ot 401.9 07/14/2014 RAMIRO CRUZ MD Ot 429.3 07/14/2014 RAMIRO CRUZ MD Ot 433.10 07/22/2014 ABDOUL OAKLEY MD Ot 250.00 DIAB BINH WO COMPL, TYPE II OR UNSPEC TY 07/22/2014 ABDOUL OAKLEY MD Ot 266.2 B-COMPLEX DEFIC NEC 07/22/2014 ABDUOL OAKLEY MD Ot 268.9 VITAMIN D DEFICIENCY NOS 07/22/2014 ABDOUL OAKLEY MD Ot 272.4 HYPERLIPIDEMIA NEC/NOS 07/22/2014 ABDOUL OAKLEY MD Ot 278.01 MORBID OBESITY 07/22/2014 ABDOUL OAKLEY MD Ot 327.23 OBSTRUCTIVE SLEEP APNEA (ADULT) (PEDIATR 07/22/2014 ABDOUL OAKLEY MD Ot 401.9 HYPERTENSION NOS 07/22/2014 ABDOUL OAKLEY MD Ot 429.3 CARDIOMEGALY 07/22/2014 ABDOUL OAKLEY MD Ot 433.10 CAROTID ARTERY OCCLUSION W O CEREBRAL IN 07/22/2014 ABDOUL OAKLEY MD Ot 433.30 MULT BILTRAL ARTERY OCCLUSION WO CEREBRA 07/22/2014 ABDOUL OAKLEY MD Ot 496 CHR AIRWAY OBSTRUCT NEC 07/22/2014 ABDOUL OAKLEY MD Ot 715.90 OSTEOARTHROS NOS-UNSPEC 07/22/2014 ABDOUL OAKLEY MD Ot 722.52 LUMB/LUMBOSAC DISC DEGEN 07/22/2014 ABDOUL OAKLEY MD Ot 722.83 POSTLAMINECT SYND-LUMBAR 07/22/2014 ABDOUL OAKLEY MD Ot 738.4 ACQ SPONDYLOLISTHESIS 07/22/2014 ADIN SANTAMARIA, ABDOUL Rodriguez Ot V85.38 BODY MASS INDEX 38.0-38.9, ADULT 10/05/2014 MATTHEW DO, DAVIDE M Ot 272.4 10/05/2014 MATTHEW DO, DAVIDE M Ot 401.9 10/05/2014 MATTHEW DO, DAVIDE M Ot 433.10 10/05/2014 MATTHEW DO, DAVIDE M Ot 786.09 11/01/2014 MATTHEW DO, DAVIDE M Ot 272.4 11/01/2014 MATTHEW DO, DAVIDE M Ot 401.9 11/01/2014 MATTHEW DO, DAVIDE M Ot 433.10 11/01/2014 MATTHEW DO, DAVIDE M Ot 786.09 11/17/2014 MATTHEW DO, DAVIDE M Ot 272.4 11/17/2014 MATTHEW DO, DAVIDE M Ot 401.9 11/17/2014 MATTHEW DO, DAVIDE M Ot 433.10 11/17/2014 MATTHEW DO, DAVIDE M Ot 786.09 11/17/2014 MATTHEW DO, DAVIDE M Ot 272.4 11/17/2014 MATTHEW DO, DAVIDE M Ot 401.9 11/17/2014 MATTHEW DO, DAVIDE M Ot 433.10 11/17/2014 MATTHEW DO, DAVIDE M Ot 786.09 11/17/2014 MATTHEW DO, DAVIDE M Ot 272.4 11/17/2014 MATTHEW DO, DAVIDE M Ot 401.9 11/17/2014 MATTHEW DO, DAVIDE M Ot 433.10 11/17/2014 MATTHEW DO, DAVIDE M Ot 786.09 12/21/2014 MATTHEW DO, DAVIDE M Ot 272.4 12/21/2014 MATTHEW DO, DAVIDE M Ot 401.9 12/21/2014 MATTHEW DO, DAVIDE M Ot 433.10 12/21/2014 MATTHEW DO, DAVIDE M Ot 786.09 12/21/2014 MATTHEW DO, DAVIDE M Ot 272.4 12/21/2014 MATTHEW DO, DAVIDE M Ot 401.9 12/21/2014 MATTHEW DO, DAVIDE M Ot 433.10 12/21/2014 MATTHEW DO, DAVIDE M Ot 786.09 01/02/2015 MATTHEW DO, DAVIDE M Ot 272.4 HYPERLIPIDEMIA NEC/NOS 01/02/2015 MATTHEW DO, DAVIDE M Ot 401.9 HYPERTENSION NOS 01/02/2015 MATTHEW DO, DAVIDE M Ot 433.10 CAROTID ARTERY OCCLUSION W O CEREBRAL IN 01/02/2015 MATTHEW DO DAVIDE M Ot 786.09 RESPIRATORY ABNORM NEC 01/10/2015 MATTHEW DO, DAVIDE M Ot 272.4 01/10/2015 MATTHEW DO, DAVIDE M Ot 401.9 01/10/2015 MATTHEW JOSEPH DAVIDE M Ot 433.10 01/10/2015 MATTHEW DO DAVIDE M Ot 786.09 01/10/2015 MATTHEW DO, DAVIDE M Ot 272.4 01/10/2015 MATTHEW DO DAVIDE M Ot 401.9 01/10/2015 MATTHEW JOSEPH DAVIDE M Ot 433.10 01/10/2015 MATTHEW JOSEPH DAVIDE M Ot 786.09 01/11/2015 MATTHEW DO DAVIDE M Ot 272.4 01/11/2015 MATTHEW JOSEPH DAVIDE M Ot 401.9 01/11/2015 MATTHEW JOSEPH DAVIDE M Ot 433.10 01/11/2015 MATTHEW JOSEPH DAVIDE M Ot 786.09 01/18/2015 MATTHEW DO DAVIDE M Ot 272.4 01/18/2015 MATTHEW DO DAVIDE M Ot 401.9 01/18/2015 MATTHEW JOSEPH DAVIDE M Ot 433.10 01/18/2015 MATTHEW JOSEPH, DAVIDE M Ot 786.09 02/16/2015 MATTHEW DO DAVIDE M Ot 272.4 HYPERLIPIDEMIA NEC/NOS 02/16/2015 DAVIDE CASTRO DO M Ot 401.9 HYPERTENSION NOS 02/16/2015 DAVIDE CASTRO DO M Ot 433.10 CAROTID ARTERY OCCLUSION W O CEREBRAL IN 02/16/2015 MATTHEW JOSEPH DAVIDE M Ot 786.09 RESPIRATORY ABNORM NEC 02/22/2015 MATTHEW DO, DAVIDE M Ot 272.4 02/22/2015 MATTHEW JOSEPH DAVIDE M Ot 401.9 02/22/2015 MATTHEW DO DAVIDE M Ot 433.10 02/22/2015 MATTHEW DO DAVIDE M Ot 786.09 02/23/2015 ABDOUL OAKLEY MD Ot V45.4 02/23/2015 ABDOUL OAKLEY MD Ot V67.09 03/17/2015 RYAN CASTRO DOSON M Ot 272.4 03/17/2015 DAVIDE CASTRO DO Ot 401.9 03/17/2015 DAVIDE CASTRO DO Ot 433.10 03/17/2015 MATTHEWDAVIDE LOTT DO Ot 786.09 03/22/2015 DAVIDE CASTRO DO Ot E78.5 03/22/2015 DAVIDE CASTRO DO Ot I10 03/22/2015 DAVIDE CASTRO DO Ot I65.29 03/22/2015 MATTHEW DAVIDE JOSEPH Ot R06.00 04/11/2015 MATTHEW DAVIDE JOSEPH Ot E78.5 04/11/2015 DAVIDE CASTRO DO Ot I10 04/11/2015 MATTHEWDAVIDE LOTT DO Ot I65.29 04/11/2015 MATTHEW DAVIDE JOSEPH Ot R06.00 04/19/2015 MATTHEW DAVIDE JOSEPH Ot E78.5 04/19/2015 MATTHEW DAVIDE JOSEPH Ot I10 04/19/2015 MATTHEW DAVIDE JOSEPH Ot I65.29 04/19/2015 MATTHEW DAVIDE JOSEPH Ot R06.00 05/23/2015 MATTHEW DAVIDE JOSEPH Ot E78.5 HYPERLIPIDEMIA, UNSPECIFIED 05/23/2015 MATTHEW JOSEPHDAVIDE Ot I10 ESSENTIAL (PRIMARY) HYPERTENSION 05/23/2015 MATTHEW JOSEPH DAVIDE Huber Ot I65.29 OCCLUSION AND STENOSIS OF UNSPECIFIED CA 05/23/2015 MATTHEW JOSEPH DAVIDE Huber Ot J45.909 UNSPECIFIED ASTHMA, UNCOMPLICATED 05/23/2015 MATTHEW JOSEPH DAVIDE Huber Ot R06.00 DYSPNEA, UNSPECIFIED 05/24/2015 Ot 723.1 05/24/2015 Ot 401.9 05/24/2015 Ot 786.05 05/24/2015 Ot 397.0 05/24/2015 Ot 401.9 05/24/2015 Ot 424.0 05/24/2015 Ot 429.3 05/24/2015 Ot 272.4 05/24/2015 Ot 401.9 05/24/2015 Ot 426.9 05/24/2015 Ot 250.00 05/24/2015 Ot 268.9 05/24/2015 Ot 272.4 05/24/2015 Ot 401.9 05/24/2015 Ot 401.0 05/24/2015 Ot 786.09 05/24/2015 Ot 397.0 05/24/2015 Ot 401.0 05/24/2015 Ot 424.0 05/24/2015 Ot 429.3 05/24/2015 Ot 786.09 05/24/2015 Ot 401.0 05/24/2015 YOGESH SANTAMARIA, JOJO Leon Ot 562.10 05/24/2015 YOGESH SANTAMARIA, JOJO Leon Ot V76.51 05/24/2015 JOJO ZUÑIGA MD Ot V72.84 05/24/2015 Ot 493.00 05/24/2015 Ot 493.00 05/24/2015 ADIN SANTAMARIA, ABDOUL Rodriguez Ot 722.10 05/24/2015 ADIN SANTAMARIA, ABDOUL Rodriguez Ot 722.52 05/24/2015 ADIN SANTAMARIA, ABDOUL Rodriguez Ot V45.4 05/24/2015 NANCY SANTAMARIA, RAMIRO J Ot 272.4 05/24/2015 NANCY SANTAMARIA, RAMIRO J Ot 401.9 05/24/2015 NANCY SANTAMARIA, RAMIRO Rodriguez Ot 429.3 05/24/2015 NANCY SANTAMARIA, RAMIRO Rodriguez Ot 433.10 05/24/2015 NANCY SANTAMARIA, RAMIRO J Ot 272.4 05/24/2015 NANCY SANTAMARIA, RAMIRO J Ot 397.0 05/24/2015 NANCY SANTAMARIA, RAMIRO J Ot 401.9 05/24/2015 NANCY SANTAMARIA, RAMIRO J Ot 424.0 05/24/2015 NANCY SANTAMARIA, RAMIRO J Ot 429.3 05/24/2015 NANCY SANTAMARIA, RAMIRO J Ot 433.10 05/24/2015 ADIN SANTAMARIA, ABDOUL Rodriguez Ot 724.02 05/24/2015 ADIN SANTAMARIA, ABDOUL Rodriguez Ot V72.63 05/24/2015 ADIN SANTAMARIA, ABDOUL Rodriguez Ot V72.81 05/24/2015 ADIN SANTAMARIA, ABDOUL Rodriguez Ot V74.8 05/24/2015 ADIN SANTAMARIA, ABDOUL Rodriguez Ot V45.4 05/24/2015 ADIN SANTAMARIA, ABDOUL Rodriguez Ot V67.09 05/24/2015 DAVIDE CASTRO DO Ot E78.5 05/24/2015 DAVIDE CASTRO DO Ot I10 05/24/2015 DAVIDE CASTRO DO Ot I65.29 05/24/2015 DAVIDE CASTRO DO Ot R06.00 05/24/2015 MATTHEW DO, DAVIDE M Ot E78.5 05/24/2015 MATTHEW DO, DAVIDE M Ot I10 05/24/2015 MATTHEW DO, DAVIDE M Ot I65.29 05/24/2015 MATTHEW DO, DAVIDE M Ot R06.00 05/24/2015 MATTHEW DO, DAVIDE M Ot E78.5 05/24/2015 MATTHEW DO, DAVIDE M Ot I10 05/24/2015 MATTHEW DO, DAVIDE M Ot I65.29 05/24/2015 MATTHEW DO, DAVIDE M Ot R06.00 05/25/2015 MATTHEW DO, DAVIDE M Ot 272.4 05/25/2015 MATTHEW DO, DAVIDE M Ot 401.9 05/25/2015 MATTHEW DO, DAVIDE M Ot 433.10 05/25/2015 MATTHEW DO, DAVIDE M Ot 786.09 05/25/2015 MATTHEW DO, DAVIDE M Ot E78.5 05/25/2015 MATTHEW DO, DAVIDE M Ot I10 05/25/2015 MATTHEW DO, DAVIDE M Ot I65.29 05/25/2015 MATTHEW DO, DAVIDE M Ot R06.00 05/27/2015 MATTHEW DO, DAVIDE M Ot E78.5 05/27/2015 MATTHEW DO, DAVIDE M Ot I10 05/27/2015 MATTHEW DO, DAVIDE M Ot I65.29 05/27/2015 MATTHEW DO, DAVIDE M Ot R06.00 05/27/2015 MATTHEW DO, DAVIDE M Ot E78.5 05/27/2015 MATTHEW DO, DAVIDE M Ot I10 05/27/2015 MATTHEW DO, DAVIDE M Ot I65.29 05/27/2015 MATTHEW DO, DAVIDE M Ot R06.00 06/01/2015 MATTHEW DO, DAVIDE M Ot E78.5 06/01/2015 MATTHEW DO, DAVIDE M Ot I10 06/01/2015 MATTHEW DO, DAVIDE M Ot I65.29 06/01/2015 MATTHEW DO, DAVIDE M Ot R06.00 06/21/2015 MATTHEW DO, DAVIDE M Ot E78.5 06/21/2015 MATTHEW DO, DAVIDE M Ot I10 06/21/2015 DAVIDE CASTRO DO Ot I65.29 06/21/2015 DAVIDE CASTRO DO Ot R06.00 07/15/2015 DAVIDE CASTRO DO Ot E78.5 07/15/2015 DAVIDE CASTRO DO Ot I10 07/15/2015 DAVIDE CASTRO DO Ot I65.29 07/15/2015 DAVIDE CASTRO DO Ot R06.00 07/15/2015 DAVIDE CASTRO DO Ot E78.5 07/15/2015 DAVIDE CASTRO DO Ot I10 07/15/2015 DAVIDE CASTRO DO Ot I65.29 07/15/2015 DAVIDE CASTRO DO Ot R06.00 07/19/2015 DAVIDE CASTRO DO Ot E78.5 07/19/2015 DAVIDE CASTRO DO Ot I10 07/19/2015 DAVIDE CASTRO DO Ot I65.29 07/19/2015 DAVIDE CASTRO DO Ot R06.00 07/19/2015 DAVIDE CASTRO DO Ot E78.5 07/19/2015 DAVIDE CASTRO DO Ot I10 07/19/2015 ADVIDE CASTRO DO Ot I65.29 07/19/2015 DAVIDE CASTRO DO Ot R06.00 08/22/2015 DAVIDE CASTRO DO Ot E78.5 HYPERLIPIDEMIA, UNSPECIFIED 08/22/2015 DAVIDE CASTRO DO Ot I10 ESSENTIAL (PRIMARY) HYPERTENSION 08/22/2015 DAVIDE CASTRO DO Ot I65.29 OCCLUSION AND STENOSIS OF UNSPECIFIED CA 08/22/2015 DAVIDE CASTRO DO Ot J45.909 UNSPECIFIED ASTHMA, UNCOMPLICATED 08/22/2015 DAVIDE CASTRO DO Ot R06.00 DYSPNEA, UNSPECIFIED 08/23/2015 DAVIDE CASTRO DO Ot E78.5 08/23/2015 DAVIDE CASTRO DO Ot I10 08/23/2015 DAVIDE CASTRO DO Ot I65.29 08/23/2015 DAVIDE CASTRO DO Ot R06.00 08/23/2015 DAVIDE CASTRO DO Ot E78.5 08/23/2015 DAVIDE CASTRO DO Ot I10 08/23/2015 MATTHEW DO, DAVIDE M Ot I65.29 08/23/2015 MATTHEW DO, DAVIDE M Ot R06.00 08/23/2015 MATTHEW DO, DAVIDE M Ot E78.5 08/23/2015 MATTHEW DO, DAVIDE M Ot I10 08/23/2015 MATTHEW DO, DAVIDE M Ot I65.29 08/23/2015 MATTHEW DO, DAVIDE M Ot R06.00 08/23/2015 MATTHEW DO, DAVIDE M Ot E78.5 08/23/2015 MATTHEW DO, DAVIDE M Ot I10 08/23/2015 MATTHEW DO, DAVIDE M Ot I65.29 08/23/2015 MATTHEW DO, DAVIDE M Ot R06.00 08/24/2015 MATTHEW DO, DAVIDE M Ot E78.5 08/24/2015 MATTHEW DO, DAVIDE M Ot I10 08/24/2015 MATTHEW DO, DAVIDE M Ot I65.29 08/24/2015 MATTHEW DO, DAVIDE M Ot R06.00 09/20/2015 MATTHEW DO, DAVIDE M Ot E78.5 HYPERLIPIDEMIA, UNSPECIFIED 09/20/2015 MATTHEW DO, DAVIDE M Ot I10 ESSENTIAL (PRIMARY) HYPERTENSION 09/20/2015 MATTHEW DO, DAVIDE M Ot I65.29 OCCLUSION AND STENOSIS OF UNSPECIFIED CA 09/20/2015 MATTHEW DO, DAVIDE M Ot R06.00 DYSPNEA, UNSPECIFIED 10/10/2015 MATTHEW DO, DAVIDE M Ot E78.5 HYPERLIPIDEMIA, UNSPECIFIED 10/10/2015 MATTHEW DO, DAVIDE M Ot I10 ESSENTIAL (PRIMARY) HYPERTENSION 10/10/2015 MATTHEW DO, DAVIDE M Ot I65.29 OCCLUSION AND STENOSIS OF UNSPECIFIED CA 10/10/2015 MATTHEW DO, DAVIDE M Ot R06.00 DYSPNEA, UNSPECIFIED 10/25/2015 MATTHEW DO, DAVIDE M Ot E78.5 HYPERLIPIDEMIA, UNSPECIFIED 10/25/2015 MATTHEW DO, DAVIDE M Ot I10 ESSENTIAL (PRIMARY) HYPERTENSION 10/25/2015 MATTHEW DO, DAVIDE M Ot I65.29 OCCLUSION AND STENOSIS OF UNSPECIFIED CA 10/25/2015 MATTHEW DO DAVIDE M Ot R06.00 DYSPNEA, UNSPECIFIED 11/03/2015 BERYL SANTAMARIA, MANAV Cortez Ot G47.33 OBSTRUCTIVE SLEEP APNEA (ADULT) (PEDIATR 11/15/2015 MATTHEW DODAVIDE M Ot E78.5 HYPERLIPIDEMIA, UNSPECIFIED 11/15/2015 MATTHEW DODAVIDE M Ot I10 ESSENTIAL (PRIMARY) HYPERTENSION 11/15/2015 MATTHEW DODAVIDE M Ot I65.29 OCCLUSION AND STENOSIS OF UNSPECIFIED CA 11/15/2015 DAVIDE CASTRO DO M Ot R06.00 DYSPNEA, UNSPECIFIED 11/16/2015 BERYL SANTAMARIA, MANAV Cortez Ot G47.33 OBSTRUCTIVE SLEEP APNEA (ADULT) (PEDIATR 11/18/2015 MATTHEW DODAVIDE M Ot E78.5 HYPERLIPIDEMIA, UNSPECIFIED 11/18/2015 MATTHEW DORYANDAVIDE M Ot I10 ESSENTIAL (PRIMARY) HYPERTENSION 11/18/2015 MATTHEW DODAVIDE M Ot I65.29 OCCLUSION AND STENOSIS OF UNSPECIFIED CA 11/18/2015 MATTHEW DODAVIDE M Ot R06.00 DYSPNEA, UNSPECIFIED 11/18/2015 DAVIDE CASTRO DO M Ot E78.5 HYPERLIPIDEMIA, UNSPECIFIED 11/18/2015 MATTHEW DORYANDAVIDE M Ot I10 ESSENTIAL (PRIMARY) HYPERTENSION 11/18/2015 MATTHEW DORYANDAVIDE M Ot I65.29 OCCLUSION AND STENOSIS OF UNSPECIFIED CA 11/18/2015 MATTHEW DODAVIDE M Ot R06.00 DYSPNEA, UNSPECIFIED 11/21/2015 MATTHEW DODAVIDE M Ot E78.5 HYPERLIPIDEMIA, UNSPECIFIED 11/21/2015 MATTHEW DORYANDAVIDE M Ot I10 ESSENTIAL (PRIMARY) HYPERTENSION 11/21/2015 DAVIDE CASTRO DO M Ot I65.29 OCCLUSION AND STENOSIS OF UNSPECIFIED CA 11/21/2015 DAVIDE CASTRO DO M Ot J45.909 UNSPECIFIED ASTHMA, UNCOMPLICATED 11/21/2015 MATTHEW DORYANDAVIDE M Ot R06.00 DYSPNEA, UNSPECIFIED 11/24/2015 MATTHEW DODAVIDE M Ot E78.5 HYPERLIPIDEMIA, UNSPECIFIED 11/24/2015 MATTHEW DORYANDAVIDE M Ot I10 ESSENTIAL (PRIMARY) HYPERTENSION 11/24/2015 RYAN CASTRO DOSON M Ot I65.29 OCCLUSION AND STENOSIS OF UNSPECIFIED CA 11/24/2015 DAVIDE CASTRO DO M Ot R06.00 DYSPNEA, UNSPECIFIED 11/27/2015 DAVIDE CASTRO DO M Ot E78.5 HYPERLIPIDEMIA, UNSPECIFIED 11/27/2015 DAVIDE CASTRO DO M Ot I10 ESSENTIAL (PRIMARY) HYPERTENSION 11/27/2015 DAVIDE CASTRO DO M Ot I65.29 OCCLUSION AND STENOSIS OF UNSPECIFIED CA 11/27/2015 DAVIDE CASTRO DO M Ot R06.00 DYSPNEA, UNSPECIFIED 11/30/2015 DAVIDE CASTRO DO M Ot E78.5 HYPERLIPIDEMIA, UNSPECIFIED 11/30/2015 DAVIDE CASTRO DO M Ot I10 ESSENTIAL (PRIMARY) HYPERTENSION 11/30/2015 DAVIDE CASTRO DO M Ot I65.29 OCCLUSION AND STENOSIS OF UNSPECIFIED CA 11/30/2015 DAVIDE CASTRO DO M Ot J45.909 UNSPECIFIED ASTHMA, UNCOMPLICATED 11/30/2015 DAVIDE CASTRO DO Ot R06.00 DYSPNEA, UNSPECIFIED 11/30/2015 DAVIDE CASTRO DO M Ot E78.5 HYPERLIPIDEMIA, UNSPECIFIED 11/30/2015 DAVIDE CASTRO DO M Ot I10 ESSENTIAL (PRIMARY) HYPERTENSION 11/30/2015 DAVIDE CASTRO DO Ot I65.29 OCCLUSION AND STENOSIS OF UNSPECIFIED CA 11/30/2015 DAVIDE CASTRO DO M Ot J45.909 UNSPECIFIED ASTHMA, UNCOMPLICATED 11/30/2015 DAVIDE CASTRO DO Ot R06.00 DYSPNEA, UNSPECIFIED 11/30/2015 DAVIDE CASTRO DO M Ot E78.5 HYPERLIPIDEMIA, UNSPECIFIED 11/30/2015 DAVIDE CASTRO DO M Ot I10 ESSENTIAL (PRIMARY) HYPERTENSION 11/30/2015 DAVIDE CASTRO DO M Ot I65.29 OCCLUSION AND STENOSIS OF UNSPECIFIED CA 11/30/2015 DAVIDE CASTRO DO M Ot J45.909 UNSPECIFIED ASTHMA, UNCOMPLICATED 11/30/2015 DAVIDE CASTRO DO M Ot R06.00 DYSPNEA, UNSPECIFIED 12/19/2015 DAVIDE CASTRO DO M Ot E78.5 HYPERLIPIDEMIA, UNSPECIFIED 12/19/2015 DAVIDE CASTRO DO M Ot I10 ESSENTIAL (PRIMARY) HYPERTENSION 12/19/2015 DAVIDE CASTRO DO M Ot I65.29 OCCLUSION AND STENOSIS OF UNSPECIFIED CA 12/19/2015 DAVIDE CASTRO DO M Ot R06.00 DYSPNEA, UNSPECIFIED 12/19/2015 DAVIDE CASTRO DO M Ot E78.5 HYPERLIPIDEMIA, UNSPECIFIED 12/19/2015 MATTHEW DODAVIDE Ot I10 ESSENTIAL (PRIMARY) HYPERTENSION 12/19/2015 DAVIDE CASTRO DO Ot I65.29 OCCLUSION AND STENOSIS OF UNSPECIFIED CA 12/19/2015 DAVIDE CASTRO DO Ot R06.00 DYSPNEA, UNSPECIFIED 12/19/2015 DAVIDE CASTRO DO Ot E78.5 HYPERLIPIDEMIA, UNSPECIFIED 12/19/2015 DAVIDE CASTRO DO Ot I10 ESSENTIAL (PRIMARY) HYPERTENSION 12/19/2015 DAVIDE CASTRO DO Ot I65.29 OCCLUSION AND STENOSIS OF UNSPECIFIED CA 12/19/2015 DAVIDE CASTRO DO Ot R06.00 DYSPNEA, UNSPECIFIED 12/19/2015 DAVIDE CASTRO DO Ot E78.5 HYPERLIPIDEMIA, UNSPECIFIED 12/19/2015 DAVIDE CASTRO DO Ot I10 ESSENTIAL (PRIMARY) HYPERTENSION 12/19/2015 DAVIDE CASTRO DO Ot I65.29 OCCLUSION AND STENOSIS OF UNSPECIFIED CA 12/19/2015 DAVIDE CASTRO DO Ot R06.00 DYSPNEA, UNSPECIFIED 12/20/2015 DAVIDE CASTRO DO Ot E78.5 HYPERLIPIDEMIA, UNSPECIFIED 12/20/2015 DAVIDE CASTRO DO Ot I10 ESSENTIAL (PRIMARY) HYPERTENSION 12/20/2015 DAVIDE CASTRO DO Ot I65.29 OCCLUSION AND STENOSIS OF UNSPECIFIED CA 12/20/2015 DAVIDE CASTRO DO Ot R06.00 DYSPNEA, UNSPECIFIED 01/05/2016 DAVIDE CASTRO DO Ot E78.5 HYPERLIPIDEMIA, UNSPECIFIED 01/05/2016 DAVIDE CASTRO DO Ot I10 ESSENTIAL (PRIMARY) HYPERTENSION 01/05/2016 DAVIDE CASTRO DO Ot I65.29 OCCLUSION AND STENOSIS OF UNSPECIFIED CA 01/05/2016 DAVIDE CASTRO DO Ot R06.00 DYSPNEA, UNSPECIFIED 01/11/2016 Ot 397.0 TRICUSPID VALVE DISEASE 01/11/2016 Ot 401.9 HYPERTENSION NOS 01/11/2016 Ot 424.0 MITRAL VALVE DISORDER 01/11/2016 Ot 429.3 CARDIOMEGALY 01/11/2016 Ot 272.4 HYPERLIPIDEMIA NEC/NOS 01/11/2016 Ot 401.9 HYPERTENSION NOS 01/11/2016 Ot 426.9 CONDUCTION DISORDER NOS 01/11/2016 Ot 250.00 DIAB BINH WO COMPL, TYPE II OR UNSPEC TY 01/11/2016 Ot 268.9 VITAMIN D DEFICIENCY NOS 01/11/2016 Ot 272.4 HYPERLIPIDEMIA NEC/NOS 01/11/2016 Ot 401.9 HYPERTENSION NOS 01/11/2016 Ot 401.0 MALIGNANT HYPERTENSION 01/11/2016 Ot 786.09 RESPIRATORY ABNORM NEC 01/11/2016 Ot 397.0 TRICUSPID VALVE DISEASE 01/11/2016 Ot 401.0 MALIGNANT HYPERTENSION 01/11/2016 Ot 424.0 MITRAL VALVE DISORDER 01/11/2016 Ot 429.3 CARDIOMEGALY 01/11/2016 Ot 786.09 RESPIRATORY ABNORM NEC 01/11/2016 Ot 401.0 MALIGNANT HYPERTENSION 01/11/2016 YOGESH SANTAMARIA, JOJO Leon Ot 562.10 DIVERTICULOSIS COLON (W/O MENT OF HEMORR 01/11/2016 YOGESH SANTAMARIA, JOJO Leon Ot V76.51 SCREEN MAL NEOP-COLON 01/11/2016 JOJO ZUÑIGA MD Ot V72.84 EXAM PRE-OPERATIVE NOS 01/11/2016 Ot 493.00 EXTRINSIC ASTHMA, NOS 01/11/2016 Ot 493.00 EXTRINSIC ASTHMA, NOS 01/11/2016 ADIN SANTAMARIA, ABDOUL Rodriguez Ot 722.10 LUMBAR DISC DISPLACEMENT 01/11/2016 ADIN SANTAMARIA, ABDOUL Rodriguez Ot 722.52 LUMB/LUMBOSAC DISC DEGEN 01/11/2016 ABDOUL OAKLEY MD Ot V45.4 ARTHRODESIS STATUS 01/11/2016 RAMIRO CRUZ MD Ot 272.4 HYPERLIPIDEMIA NEC/NOS 01/11/2016 RAMIRO CRUZ MD Ot 401.9 HYPERTENSION NOS 01/11/2016 RAMIRO CRUZ MD Ot 429.3 CARDIOMEGALY 01/11/2016 RAMIRO CRUZ MD Ot 433.10 CAROTID ARTERY OCCLUSION W O CEREBRAL IN 01/11/2016 RAMIRO CRUZ MD Ot 272.4 HYPERLIPIDEMIA NEC/NOS 01/11/2016 RAMIRO CRUZ MD Ot 397.0 TRICUSPID VALVE DISEASE 01/11/2016 RAMIRO CRUZ MD Ot 401.9 HYPERTENSION NOS 01/11/2016 RAMIRO CRUZ MD Ot 424.0 MITRAL VALVE DISORDER 01/11/2016 RAMIRO CRUZ MD Ot 429.3 CARDIOMEGALY 01/11/2016 RAMIRO CRUZ MD Ot 433.10 CAROTID ARTERY OCCLUSION W O CEREBRAL IN 01/11/2016 ABDOUL OAKLEY MD Ot 724.02 SPINAL STENOSIS, LUMBAR REG, W/OUT NEURO 01/11/2016 ABDOUL OAKLEY MD Ot V72.63 PRE-PROCEDURAL LABORATORY EXAMINATION 01/11/2016 ABDOUL OAKLEY MD Ot V72.81 [id number]-YZH-[id number] CARDIOVASCULAR 01/11/2016 ABDOUL OAKLEY MD Ot V74.8 SCREEN-BACTERIAL DIS NEC 01/11/2016 ABDOUL OAKLEY MD, Ot V45.4 ARTHRODESIS STATUS 01/11/2016 ABDOUL OAKLEY MD, Ot V67.09 SURGERY FOLLOW-UP, OTHER SURGERY 01/11/2016 DAVIDE CASTRO DO Ot E78.5 HYPERLIPIDEMIA, UNSPECIFIED 01/11/2016 DAVIDE CASTRO DO Ot I10 ESSENTIAL (PRIMARY) HYPERTENSION 01/11/2016 DAVIDE CASTRO DO Ot I65.29 OCCLUSION AND STENOSIS OF UNSPECIFIED CA 01/11/2016 DAVIDE CASTRO DO Ot R06.00 DYSPNEA, UNSPECIFIED 01/11/2016 JEWELL ARAUZ MD Ot I10 ESSENTIAL (PRIMARY) HYPERTENSION 01/11/2016 JEWELL ARAUZ MD Ot M19.012 PRIMARY OSTEOARTHRITIS, LEFT SHOULDER 01/11/2016 JEWELL ARAUZ MD Ot Z01.810 ENCOUNTER FOR PREPROCEDURAL CARDIOVASCUL 01/11/2016 JEWELL ARAUZ MD Ot Z01.811 ENCOUNTER FOR PREPROCEDURAL RESPIRATORY 01/11/2016 JEWELL ARAUZ MD Ot Z01.812 ENCOUNTER FOR PREPROCEDURAL LABORATORY E 01/11/2016 JEWELL ARAUZ MD Ot Z11.2 ENCOUNTER FOR SCREENING FOR OTHER BACTER 01/12/2016 JEWELL ARAUZ MD Ot Z01.812 ENCOUNTER FOR PREPROCEDURAL LABORATORY E 01/13/2016 JEWELL ARAUZ MD Ot I10 ESSENTIAL (PRIMARY) HYPERTENSION 01/13/2016 JEWELL ARAUZ MD Ot M19.012 PRIMARY OSTEOARTHRITIS, LEFT SHOULDER 01/13/2016 JEWELL ARAUZ MD Ot Z01.810 ENCOUNTER FOR PREPROCEDURAL CARDIOVASCUL 01/13/2016 JEWELL ARAUZ MD Ot Z01.811 ENCOUNTER FOR PREPROCEDURAL RESPIRATORY 01/13/2016 JEWELL ARAUZ MD T Ot Z01.812 ENCOUNTER FOR PREPROCEDURAL LABORATORY E 01/13/2016 JEWELL ARAUZ MD Ot Z11.2 ENCOUNTER FOR SCREENING FOR OTHER BACTER 01/24/2016 DAVIDE CASTRO DO, Ot E78.5 HYPERLIPIDEMIA, UNSPECIFIED 01/24/2016 DAVIDE CASTRO DO Ot I10 ESSENTIAL (PRIMARY) HYPERTENSION 01/24/2016 DAVIDE CASTRO DO Ot I65.29 OCCLUSION AND STENOSIS OF UNSPECIFIED CA 01/24/2016 DAVIDE CASTRO DO Ot R06.00 DYSPNEA, UNSPECIFIED 01/26/2016 Ot 493.00 EXTRINSIC ASTHMA, NOS 01/26/2016 Ot 493.00 EXTRINSIC ASTHMA, NOS 01/26/2016 Ot 493.00 EXTRINSIC ASTHMA, NOS 01/26/2016 Ot 493.00 EXTRINSIC ASTHMA, NOS 01/28/2016 JEWELL ARAUZ MD Ot E11.9 TYPE 2 DIABETES MELLITUS WITHOUT COMPLIC 01/28/2016 JEWELL ARAUZ MD Ot E66.01 MORBID (SEVERE) OBESITY DUE TO EXCESS CA 01/28/2016 JEWELL ARAUZ MD Ot G47.33 OBSTRUCTIVE SLEEP APNEA (ADULT) (PEDIATR 01/28/2016 REGLA SANTAMARIA, JEWELL Gal[place] Ot I10 ESSENTIAL (PRIMARY) HYPERTENSION 01/28/2016 JEWELL ARAUZ MD Ot I73.9 PERIPHERAL VASCULAR DISEASE, UNSPECIFIED 01/28/2016 JEWELL ARAUZ MD Ot J44.9 CHRONIC OBSTRUCTIVE PULMONARY DISEASE, U 01/28/2016 JEWELL ARAUZ MD Ot K21.9 GASTRO-ESOPHAGEAL REFLUX DISEASE WITHOUT 01/28/2016 JEWELL ARAUZ MD Ot M19.012 PRIMARY OSTEOARTHRITIS, LEFT SHOULDER 01/28/2016 REGLA SANTAMARIA, JEWELL [place] Ot Z68.38 BODY MASS INDEX (BMI) 38.0-38.9, ADULT 02/07/2016 DAVIDE CASTRO DO Ot E78.5 HYPERLIPIDEMIA, UNSPECIFIED 02/07/2016 DAVIDE CASTRO DO Ot I10 ESSENTIAL (PRIMARY) HYPERTENSION 02/07/2016 DAVIDE CASTRO DO Ot I65.29 OCCLUSION AND STENOSIS OF UNSPECIFIED CA 02/07/2016 DAVIDE CASTRO DO Ot R06.00 DYSPNEA, UNSPECIFIED 02/09/2016 DAVIDE CASTRO DO, Ot E78.5 HYPERLIPIDEMIA, UNSPECIFIED 02/09/2016 RYAN CASTRO DOSON M Ot I10 ESSENTIAL (PRIMARY) HYPERTENSION 02/09/2016 MATTHEW DORYANDAVIDE M Ot I65.29 OCCLUSION AND STENOSIS OF UNSPECIFIED CA 02/09/2016 MATTHEW DORYANDAVIDE M Ot R06.00 DYSPNEA, UNSPECIFIED 02/21/2016 MATTHEW DODAVIDE M Ot E78.5 HYPERLIPIDEMIA, UNSPECIFIED 02/21/2016 MATTHEW DORYANDAVIDE M Ot I10 ESSENTIAL (PRIMARY) HYPERTENSION 02/21/2016 MATTHEW DORYANDAVIDE M Ot I65.29 OCCLUSION AND STENOSIS OF UNSPECIFIED CA 02/21/2016 MATTHEW DORYANDAVIDE M Ot R06.00 DYSPNEA, UNSPECIFIED 02/21/2016 MATTHEW DORYANDAVIDE M Ot E78.5 HYPERLIPIDEMIA, UNSPECIFIED 02/21/2016 MATTHEW DORYANDAVIDE M Ot I10 ESSENTIAL (PRIMARY) HYPERTENSION 02/21/2016 MATTHEW DORYANDAVIDE M Ot I65.29 OCCLUSION AND STENOSIS OF UNSPECIFIED CA 02/21/2016 MATTHEW DORYANDAVIDE M Ot R06.00 DYSPNEA, UNSPECIFIED 02/21/2016 MATTHEW DORYANDAVIDE M Ot E78.5 HYPERLIPIDEMIA, UNSPECIFIED 02/21/2016 MATTHEW DO DAVIDE M Ot I10 ESSENTIAL (PRIMARY) HYPERTENSION 02/21/2016 MATTHEW DORYANDAVIDE M Ot I65.29 OCCLUSION AND STENOSIS OF UNSPECIFIED CA 02/21/2016 MATTHEW DORYANDAVIDE M Ot R06.00 DYSPNEA, UNSPECIFIED 03/18/2016 MATTHEW DORYANDAVIDE M Ot E78.5 HYPERLIPIDEMIA, UNSPECIFIED 03/18/2016 MATTHEW DORYANDAVIDE M Ot I10 ESSENTIAL (PRIMARY) HYPERTENSION 03/18/2016 MATTHEW DORYANDAVIDE M Ot I65.29 OCCLUSION AND STENOSIS OF UNSPECIFIED CA 03/18/2016 MATTHEW DO, DAVIDE M Ot R06.00 DYSPNEA, UNSPECIFIED 03/19/2016 MATTHEW DORYANADVIDE M Ot E78.5 HYPERLIPIDEMIA, UNSPECIFIED 03/19/2016 MATTHEW DO, DAVIDE M Ot I10 ESSENTIAL (PRIMARY) HYPERTENSION 03/19/2016 MATTHEW DORYANDAVIDE M Ot I65.29 OCCLUSION AND STENOSIS OF UNSPECIFIED CA 03/19/2016 MATTHEW DORYANDAVIDE M Ot R06.00 DYSPNEA, UNSPECIFIED 03/20/2016 MATTHEW DO, DAVIDE M Ot E78.5 HYPERLIPIDEMIA, UNSPECIFIED 03/20/2016 MATTHEW DODAVIDE M Ot I10 ESSENTIAL (PRIMARY) HYPERTENSION 03/20/2016 MATTHEW DODAVIDE Ot I65.29 OCCLUSION AND STENOSIS OF UNSPECIFIED CA 03/20/2016 MATTHEW DODAVIDE M Ot R06.00 DYSPNEA, UNSPECIFIED 03/20/2016 DAVIDE CASTRO DO Ot E78.5 HYPERLIPIDEMIA, UNSPECIFIED 03/20/2016 DAVIDE CASTRO DO M Ot I10 ESSENTIAL (PRIMARY) HYPERTENSION 03/20/2016 MATTHEW DODAVIDE M Ot I65.29 OCCLUSION AND STENOSIS OF UNSPECIFIED CA 03/20/2016 MATTHEW DODAVIDE M Ot R06.00 DYSPNEA, UNSPECIFIED 03/20/2016 MATTHEW DODAVIDE Ot E78.5 HYPERLIPIDEMIA, UNSPECIFIED 03/20/2016 MATTHEW DODAVIDE M Ot I10 ESSENTIAL (PRIMARY) HYPERTENSION 03/20/2016 DAVIDE CASTRO DO M Ot I65.29 OCCLUSION AND STENOSIS OF UNSPECIFIED CA 03/20/2016 MATTHEW DODAVIDE M Ot R06.00 DYSPNEA, UNSPECIFIED 03/21/2016 DAVIDE CASTRO DO Ot E78.5 HYPERLIPIDEMIA, UNSPECIFIED 03/21/2016 DAVIDE CASTRO DO M Ot I10 ESSENTIAL (PRIMARY) HYPERTENSION 03/21/2016 DAVIDE CASTRO DO M Ot I65.29 OCCLUSION AND STENOSIS OF UNSPECIFIED CA 03/21/2016 MATTHEW DODAVIDE M Ot R06.00 DYSPNEA, UNSPECIFIED 04/24/2016 DAVIDE CASTRO DO Ot E78.5 HYPERLIPIDEMIA, UNSPECIFIED 04/24/2016 DAVIDE CASTRO DO M Ot I10 ESSENTIAL (PRIMARY) HYPERTENSION 04/24/2016 DAVIDE CASTRO DO Ot I65.29 OCCLUSION AND STENOSIS OF UNSPECIFIED CA 04/24/2016 MATTHEW DODAVIDE Ot R06.00 DYSPNEA, UNSPECIFIED 05/01/2016 CARLY NUÑEZ DO Ot R06.09 OTHER FORMS OF DYSPNEA 05/01/2016 CARLY NUÑEZ DO Ot R06.09 OTHER FORMS OF DYSPNEA 05/17/2016 DAVIDE CASTRO DO Ot E78.5 HYPERLIPIDEMIA, UNSPECIFIED 05/17/2016 DAVIDE CASTRO DO Ot I10 ESSENTIAL (PRIMARY) HYPERTENSION 05/17/2016 DAVIDE CASTRO DO Ot I65.29 OCCLUSION AND STENOSIS OF UNSPECIFIED CA 05/17/2016 MATTHEW DODAVIDE Ot R06.00 DYSPNEA, UNSPECIFIED 05/21/2016 SHAWNA BRO APRN Ot R06.00 DYSPNEA, UNSPECIFIED 05/22/2016 DAVIDE CASTRO DO Ot E78.5 HYPERLIPIDEMIA, UNSPECIFIED 05/22/2016 DAVIDE CASTRO DO Ot I10 ESSENTIAL (PRIMARY) HYPERTENSION 05/22/2016 DAVIDE CASTRO DO Ot I65.29 OCCLUSION AND STENOSIS OF UNSPECIFIED CA 05/22/2016 DAVIDE CASTRO DO Ot R06.00 DYSPNEA, UNSPECIFIED 05/29/2016 CARLY NUÑEZ DO Ot R06.09 OTHER FORMS OF DYSPNEA 05/29/2016 SHAWNA BRO APRN Ot I26.99 OTHER PULMONARY EMBOLISM WITHOUT ACUTE C 05/29/2016 SHAWNA BRO APRN Ot I26.99 OTHER PULMONARY EMBOLISM WITHOUT ACUTE C 06/11/2016 SHAWNA BRO APRN Ot R06.00 DYSPNEA, UNSPECIFIED 06/18/2016 DAVIDE CASTRO DO Ot E66.9 OBESITY, UNSPECIFIED 06/18/2016 DAVIDE CASTRO DO Ot E78.5 HYPERLIPIDEMIA, UNSPECIFIED 06/18/2016 DAVIDE CASTRO DO Ot I10 ESSENTIAL (PRIMARY) HYPERTENSION 06/18/2016 DAVIDE CASTRO DO Ot I65.29 OCCLUSION AND STENOSIS OF UNSPECIFIED CA 06/18/2016 DAVIDE CASTRO DO Ot J45.40 MODERATE PERSISTENT ASTHMA, UNCOMPLICATE 06/18/2016 DAVIDE CASTRO DO Ot R06.00 DYSPNEA, UNSPECIFIED 06/19/2016 DAVIDE CASTRO DO Ot E78.5 HYPERLIPIDEMIA, UNSPECIFIED 06/19/2016 DAVIDE CASTRO DO Ot I10 ESSENTIAL (PRIMARY) HYPERTENSION 06/19/2016 DAVIDE CASTRO DO Ot I65.29 OCCLUSION AND STENOSIS OF UNSPECIFIED CA 06/19/2016 MATTHEW DODAVIDE Ot R06.00 DYSPNEA, UNSPECIFIED 06/25/2016 SHAWNA BRO APRN Ot I26.99 OTHER PULMONARY EMBOLISM WITHOUT ACUTE C 06/27/2016 TIMOTHY OLVERA Ot E78.2 MIXED HYPERLIPIDEMIA 06/27/2016 TIMOTHY OLVERA Ot I11.0 HYPERTENSIVE HEART DISEASE WITH HEART FA 06/27/2016 TIMOTHY OLVERA Ot I51.7 CARDIOMEGALY 06/27/2016 TIMOTHY OLVERA Ot 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 07/05/2016 ANDRIA, JAY J CERTIFIED MIDWIFE Ot F45.8 OTHER SOMATOFORM DISORDERS 07/05/2016 ANDRIA, JAY J CERTIFIED MIDWIFE Ot G47.34 IDIO SLEEP RELATED NONOBSTRUCTIVE ALVEOL 07/05/2016 ANDRIA, JAY J CERTIFIED MIDWIFE Ot J45.909 UNSPECIFIED ASTHMA, UNCOMPLICATED 07/05/2016 ANDRIA, JAY J CERTIFIED MIDWIFE Ot R06.00 DYSPNEA, UNSPECIFIED 07/05/2016 ANDRIA, JAY J CERTIFIED MIDWIFE Ot R13.19 OTHER DYSPHAGIA 07/08/2016 ANDRIA, JAY J CERTIFIED MIDWIFE Ot F45.8 OTHER SOMATOFORM DISORDERS 07/08/2016 ANDRIA, JAY J CERTIFIED MIDWIFE Ot G47.34 IDIO SLEEP RELATED NONOBSTRUCTIVE ALVEOL 07/08/2016 ANDRIA, JAY J CERTIFIED MIDWIFE Ot J45.909 UNSPECIFIED ASTHMA, UNCOMPLICATED 07/08/2016 ANDRIA, JAY J CERTIFIED MIDWIFE Ot R06.00 DYSPNEA, UNSPECIFIED 07/08/2016 ANDRIA, JAY J CERTIFIED MIDWIFE Ot R13.19 OTHER DYSPHAGIA 07/09/2016 ANDRIA, JAY J CERTIFIED MIDWIFE Ot F45.8 OTHER SOMATOFORM DISORDERS 07/09/2016 ANDRIA, JAY J CERTIFIED MIDWIFE Ot G47.34 IDIO SLEEP RELATED NONOBSTRUCTIVE ALVEOL 07/09/2016 ANDRIA, JAY J CERTIFIED MIDWIFE Ot J45.909 UNSPECIFIED ASTHMA, UNCOMPLICATED 07/09/2016 ANDRIA, JAY J CERTIFIED MIDWIFE Ot R06.00 DYSPNEA, UNSPECIFIED 07/09/2016 ANDRIA, JAY J CERTIFIED MIDWIFE Ot R13.19 OTHER DYSPHAGIA 07/17/2016 TIMOTHY OLVERA Ot E78.2 MIXED HYPERLIPIDEMIA 07/17/2016 TIMOTHY OLVERA Ot I11.0 HYPERTENSIVE HEART DISEASE WITH HEART FA 07/17/2016 TIMOTHY OLVERA Ot I51.7 CARDIOMEGALY 07/17/2016 TIMOTHY OLVERA Ot 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 07/24/2016 DAVIDE CASTRO DO Ot E66.9 OBESITY, UNSPECIFIED 07/24/2016 DAVIDE CASTRO DO Ot J45.998 OTHER ASTHMA 07/24/2016 DAVIDE CASTRO DO Ot Z68.38 BODY MASS INDEX (BMI) 38.0-38.9, ADULT 07/24/2016 DAVIDE CASTRO DO Ot E66.9 OBESITY, UNSPECIFIED 07/24/2016 DAVIDE CASTRO DO Ot J45.998 OTHER ASTHMA 07/24/2016 DAVIDE CASTRO DO Ot Z68.38 BODY MASS INDEX (BMI) 38.0-38.9, ADULT 07/24/2016 DAVIDE CASTRO DO Ot E66.9 OBESITY, UNSPECIFIED 07/24/2016 DAVIDE CASTRO DO Ot E78.5 HYPERLIPIDEMIA, UNSPECIFIED 07/24/2016 DAVIDE CASTRO DO Ot I10 ESSENTIAL (PRIMARY) HYPERTENSION 07/24/2016 DAVIDE CASTRO DO Ot I65.29 OCCLUSION AND STENOSIS OF UNSPECIFIED CA 07/24/2016 DAVIDE CASTRO DO Ot J45.998 OTHER ASTHMA 07/24/2016 DAVIDE CASTRO DO Ot R06.00 DYSPNEA, UNSPECIFIED 08/21/2016 DAVIDE CASTRO DO Ot E66.9 OBESITY, UNSPECIFIED 08/21/2016 DAVIDE CASTRO DO Ot J45.998 OTHER ASTHMA 08/21/2016 DAVIDE CASTRO DO Ot Z68.38 BODY MASS INDEX (BMI) 38.0-38.9, ADULT 08/21/2016 DAVIDE CASTRO DO Ot E66.9 OBESITY, UNSPECIFIED 08/21/2016 DAVIDE CASTRO DO Ot J45.998 OTHER ASTHMA 08/21/2016 DAVIDE CASTRO DO Ot Z68.38 BODY MASS INDEX (BMI) 38.0-38.9, ADULT 09/18/2016 DAVIDE CASTRO DO Ot E66.9 OBESITY, UNSPECIFIED 09/18/2016 DAVIDE CASTRO DO Ot J45.40 MODERATE PERSISTENT ASTHMA, UNCOMPLICATE 09/18/2016 DAVIDE CASTRO DO Ot Z68.38 BODY MASS INDEX (BMI) 38.0-38.9, ADULT 09/18/2016 DAVIDE CASTRO DO Ot E66.9 OBESITY, UNSPECIFIED 09/18/2016 DAVIDE CASTRO DO Ot J45.40 MODERATE PERSISTENT ASTHMA, UNCOMPLICATE 09/18/2016 DAVIDE CASTRO DO Ot Z68.38 BODY MASS INDEX (BMI) 38.0-38.9, ADULT 09/18/2016 DAVIDE CASTRO DO Ot G47.33 OBSTRUCTIVE SLEEP APNEA (ADULT) (PEDIATR 09/20/2016 DAVIDE CASTRO DO Ot G47.33 OBSTRUCTIVE SLEEP APNEA (ADULT) (PEDIATR 09/20/2016 DAVIDE CASTRO DO Ot E66.9 OBESITY, UNSPECIFIED 09/20/2016 DAVIDE CASTRO DO Ot J45.40 MODERATE PERSISTENT ASTHMA, UNCOMPLICATE 09/20/2016 DAVIDE CASTRO DO Ot Z68.38 BODY MASS INDEX (BMI) 38.0-38.9, ADULT 09/20/2016 SHAWNA BRO APRN Ot J98.11 ATELECTASIS 09/20/2016 SHAWNA BRO APRN Ot N28.1 CYST OF KIDNEY, ACQUIRED 09/20/2016 SHAWNA BRO INTELLIGENCE AGENT Ot R06.00 DYSPNEA, UNSPECIFIED 09/20/2016 SHAWNA BRO INTELLIGENCE AGENT Ot R09.02 HYPOXEMIA 09/20/2016 SHAWNA BRO INTELLIGENCE AGENT Ot I26.99 OTHER PULMONARY EMBOLISM WITHOUT ACUTE C 09/20/2016 SHAWNA BRO APRN Ot J45.909 UNSPECIFIED ASTHMA, UNCOMPLICATED 09/21/2016 SHAWNA BRO INTELLIGENCE AGENT Ot J98.11 ATELECTASIS 09/21/2016 SHAWNA BRO INTELLIGENCE AGENT Ot N28.1 CYST OF KIDNEY, ACQUIRED 09/21/2016 SHAWNA BRO APRN Ot R06.00 DYSPNEA, UNSPECIFIED 09/21/2016 SHAWNA BRO INTELLIGENCE AGENT Ot R09.02 HYPOXEMIA 09/23/2016 DAVIDE CASTRO DO Ot E66.9 OBESITY, UNSPECIFIED 09/23/2016 DAVIDE CASTRO DO Ot J45.40 MODERATE PERSISTENT ASTHMA, UNCOMPLICATE 09/23/2016 DAVIDE CASTRO DO Ot Z68.38 BODY MASS INDEX (BMI) 38.0-38.9, ADULT 09/24/2016 SHAWNA BRO APRN Ot J98.11 ATELECTASIS 09/24/2016 SHAWNA BRO APRN Ot N28.1 CYST OF KIDNEY, ACQUIRED 09/24/2016 SHAWNA BRO APRN Ot R06.00 DYSPNEA, UNSPECIFIED 09/24/2016 SHAWNA BRO APRN Ot R09.02 HYPOXEMIA 09/24/2016 DAVIDE CASTRO DO Ot E66.9 OBESITY, UNSPECIFIED 09/24/2016 DAVIDE CASTRO DO Ot J45.40 MODERATE PERSISTENT ASTHMA, UNCOMPLICATE 09/24/2016 DAVIDE CASTRO DO Ot Z68.38 BODY MASS INDEX (BMI) 38.0-38.9, ADULT 09/25/2016 DAVIDE CASTRO DO Ot E66.9 OBESITY, UNSPECIFIED 09/25/2016 DAVIDE CASTRO DO Ot J45.40 MODERATE PERSISTENT ASTHMA, UNCOMPLICATE 09/25/2016 DAVIDE CASTRO DO Ot Z68.38 BODY MASS INDEX (BMI) 38.0-38.9, ADULT 10/12/2016 SHAWNA BRO APRN Ot J98.11 ATELECTASIS 10/12/2016 SHAWNA BRO APRN Ot N28.1 CYST OF KIDNEY, ACQUIRED 10/12/2016 SHAWNA BRO APRN Ot R06.00 DYSPNEA, UNSPECIFIED 10/12/2016 SHAWNA BRO APRN Ot R09.02 HYPOXEMIA 10/23/2016 DAVIDE CASTRO DO M Ot E66.9 OBESITY, UNSPECIFIED 10/23/2016 DAVIDE CASTRO DO Ot J45.40 MODERATE PERSISTENT ASTHMA, UNCOMPLICATE 10/23/2016 DAVIDE CASTRO DO M Ot Z68.38 BODY MASS INDEX (BMI) 38.0-38.9, ADULT 10/23/2016 DAVIDE CASTRO DO M Ot E66.9 OBESITY, UNSPECIFIED 10/23/2016 DAVIDE CASTRO DO M Ot J45.40 MODERATE PERSISTENT ASTHMA, UNCOMPLICATE 10/23/2016 DAVIDE CASTRO DO Ot Z68.38 BODY MASS INDEX (BMI) 38.0-38.9, ADULT 10/23/2016 DAVIDE CASTRO DO Ot E66.9 OBESITY, UNSPECIFIED 10/23/2016 DAVIDE CASTRO DO Ot J45.40 MODERATE PERSISTENT ASTHMA, UNCOMPLICATE 10/23/2016 DAVIDE CASTRO DO Ot Z68.38 BODY MASS INDEX (BMI) 38.0-38.9, ADULT 11/23/2016 DAVIDE CASTRO DO Ot E66.9 OBESITY, UNSPECIFIED 11/23/2016 DAVIDE CASTRO DO Ot J45.998 OTHER ASTHMA 11/23/2016 DAVIDE CASTRO DO Ot Z68.38 BODY MASS INDEX (BMI) 38.0-38.9, ADULT 11/27/2016 DAVIDE CASTRO DO Ot E66.9 OBESITY, UNSPECIFIED 11/27/2016 DAVIDE CASTRO DO Ot J45.998 OTHER ASTHMA 11/27/2016 DAVIDE CASTRO DO Ot Z68.38 BODY MASS INDEX (BMI) 38.0-38.9, ADULT 11/27/2016 DAVIDE CASTRO DO Ot E66.9 OBESITY, UNSPECIFIED 11/27/2016 DAVIDE CASTRO DO Ot J45.998 OTHER ASTHMA 11/27/2016 DAVIDE CASTOR DO Ot Z68.38 BODY MASS INDEX (BMI) 38.0-38.9, ADULT 11/30/2016 MANAV CORDOBA MD Ot 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, 11/30/2016 MANAV CORDOBA MD Ot J39.2 OTHER DISEASES OF PHARYNX 11/30/2016 MANAV CORDOBA MD Ot K21.9 GASTRO-ESOPHAGEAL REFLUX DISEASE WITHOUT 11/30/2016 MANAV CORDOBA MD Ot R13.10 DYSPHAGIA, UNSPECIFIED 12/11/2016 DAVIDE CASTRO DO Ot E66.9 OBESITY, UNSPECIFIED 12/11/2016 DAVIDE CASTRO DO Ot J45.998 OTHER ASTHMA 12/11/2016 DAVIDE CASTRO DO Ot Z68.38 BODY MASS INDEX (BMI) 38.0-38.9, ADULT 12/18/2016 MANAV CORDOBA MD Ot K21.9 GASTRO-ESOPHAGEAL REFLUX DISEASE WITHOUT 12/18/2016 MANAV CORDOBA MD Ot K44.9 DIAPHRAGMATIC HERNIA WITHOUT OBSTRUCTION 12/18/2016 MANAV CORDOBA MD Ot R13.10 DYSPHAGIA, UNSPECIFIED 12/18/2016 DAVIDE CASTRO DO Ot E66.9 OBESITY, UNSPECIFIED 12/18/2016 DAVIDE CASTRO DO Ot J45.998 OTHER ASTHMA 12/18/2016 DAVIDE CASTRO DO Ot Z68.38 BODY MASS INDEX (BMI) 38.0-38.9, ADULT 12/18/2016 DAVIDE CASTRO DO Ot E66.9 OBESITY, UNSPECIFIED 12/18/2016 DAVIDE CASTRO DO, Ot J45.998 OTHER ASTHMA 12/18/2016 DAVIDE CASTRO DO, Ot Z68.38 BODY MASS INDEX (BMI) 38.0-38.9, ADULT 12/21/2016 MANAV CORDOBA MD Ot 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, 12/21/2016 MANAV CORDOBA MD Ot J39.2 OTHER DISEASES OF PHARYNX 12/21/2016 MANAV CORDOBA MD Ot K21.9 GASTRO-ESOPHAGEAL REFLUX DISEASE WITHOUT 12/21/2016 MANAV CORDOBA MD Ot R13.10 DYSPHAGIA, UNSPECIFIED 01/21/2017 DAVIDE CASTRO DO Ot E66.9 OBESITY, UNSPECIFIED 01/21/2017 DAVIDE CASTRO DO Ot J45.40 MODERATE PERSISTENT ASTHMA, UNCOMPLICATE 01/21/2017 DAVIDE CASTRO DO Ot J45.998 OTHER ASTHMA 01/21/2017 DAVIDE CASTRO DO Ot Z68.38 BODY MASS INDEX (BMI) 38.0-38.9, ADULT 01/22/2017 SHAWNA BRO APRN Ot E66.9 OBESITY, UNSPECIFIED 01/22/2017 SHAWNA BRO INTELLIGENCE AGENT Ot J45.998 OTHER ASTHMA 01/22/2017 SHAWNA BRO INTELLIGENCE AGENT Ot Z68.38 BODY MASS INDEX (BMI) 38.0-38.9, ADULT 01/22/2017 SHAWNA BRO INTELLIGENCE AGENT Ot E66.9 OBESITY, UNSPECIFIED 01/22/2017 SHAWNA BRO INTELLIGENCE AGENT Ot J45.998 OTHER ASTHMA 01/22/2017 SHAWNA BRO INTELLIGENCE AGENT Ot Z68.38 BODY MASS INDEX (BMI) 38.0-38.9, ADULT 01/23/2017 DIEUDONNE, SHAWNA E INTELLIGENCE AGENT Ot E66.9 OBESITY, UNSPECIFIED 01/23/2017 DIEUDONNE, SHAWNA E INTELLIGENCE AGENT Ot J45.998 OTHER ASTHMA 01/23/2017 DIEUDONNE, SHAWNA E INTELLIGENCE AGENT Ot Z68.38 BODY MASS INDEX (BMI) 38.0-38.9, ADULT 02/16/2017 DIEUDONNE, SHAWNA E INTELLIGENCE AGENT Ot E66.9 OBESITY, UNSPECIFIED 02/16/2017 DIEUDONNE, SHAWNA E INTELLIGENCE AGENT Ot J45.40 MODERATE PERSISTENT ASTHMA, UNCOMPLICATE 02/16/2017 DIEUDONNE, SHAWNA E INTELLIGENCE AGENT Ot J45.998 OTHER ASTHMA 02/16/2017 DIEUDONNE, SHAWNA E INTELLIGENCE AGENT Ot Z68.38 BODY MASS INDEX (BMI) 38.0-38.9, ADULT 02/18/2017 DIEUDONNE, SHAWNA E INTELLIGENCE AGENT Ot E66.9 OBESITY, UNSPECIFIED 02/18/2017 DIEUDONNE, SHAWNA E INTELLIGENCE AGENT Ot J45.998 OTHER ASTHMA 02/18/2017 DIEUDONNE, SHAWNA E INTELLIGENCE AGENT Ot Z68.38 BODY MASS INDEX (BMI) 38.0-38.9, ADULT 02/19/2017 DIEUDONNE, SHAWNA E INTELLIGENCE AGENT Ot E66.9 OBESITY, UNSPECIFIED 02/19/2017 DIEUDONNE, SHAWNA E INTELLIGENCE AGENT Ot J45.998 OTHER ASTHMA 02/19/2017 DIEUDONNE, SHAWNA E INTELLIGENCE AGENT Ot Z68.38 BODY MASS INDEX (BMI) 38.0-38.9, ADULT 02/19/2017 DIEUDONNE, SHAWNA E INTELLIGENCE AGENT Ot E66.9 OBESITY, UNSPECIFIED 02/19/2017 DIEUDONNE, SHAWNA E INTELLIGENCE AGENT Ot J45.998 OTHER ASTHMA 02/19/2017 DIEUDONNE, SHAWNA E INTELLIGENCE AGENT Ot Z68.38 BODY MASS INDEX (BMI) 38.0-38.9, ADULT 02/20/2017 DIEUDONNE, SHAWNA E INTELLIGENCE AGENT Ot E66.9 OBESITY, UNSPECIFIED 02/20/2017 DIEUDONNE, SHAWNA E INTELLIGENCE AGENT Ot J45.998 OTHER ASTHMA 02/20/2017 DIEUDONNE, SHAWNA E INTELLIGENCE AGENT Ot Z68.38 BODY MASS INDEX (BMI) 38.0-38.9, ADULT 02/21/2017 DAVIDE CASTRO DO Ot E66.9 OBESITY, UNSPECIFIED 02/21/2017 DAVIDE CASTRO DO Ot J45.909 UNSPECIFIED ASTHMA, UNCOMPLICATED 02/21/2017 DAVIDE CASTRO DO Ot Z68.38 BODY MASS INDEX (BMI) 38.0-38.9, ADULT 03/05/2017 TIFFANIE BROINE Bg INTELLIGENCE AGENT Ot G47.33 OBSTRUCTIVE SLEEP APNEA (ADULT) (PEDIATR 03/13/2017 TIFFANIE BROINE E INTELLIGENCE AGENT Ot G47.33 OBSTRUCTIVE SLEEP APNEA (ADULT) (PEDIATR 03/15/2017 DIEUDONNE, SHAWNA E INTELLIGENCE AGENT Ot G47.33 OBSTRUCTIVE SLEEP APNEA (ADULT) (PEDIATR 03/15/2017 DIEUDONNETIFFANIE CORCORANINE E INTELLIGENCE AGENT Ot G47.34 IDIO SLEEP RELATED NONOBSTRUCTIVE ALVEOL 03/21/2017 SHAWNA BRO INTELLIGENCE AGENT Ot E66.9 OBESITY, UNSPECIFIED 03/21/2017 TIFFANIE BROINE Bg INTELLIGENCE AGENT Ot J45.998 OTHER ASTHMA 03/21/2017 TIFFANIE BROINE Bg INTELLIGENCE AGENT Ot Z68.38 BODY MASS INDEX (BMI) 38.0-38.9, ADULT 03/21/2017 SHAWNA BRO INTELLIGENCE AGENT Ot E66.9 OBESITY, UNSPECIFIED 03/21/2017 DIEUDONNETIFFANIE CORCORANINE Bg INTELLIGENCE AGENT Ot J45.998 OTHER ASTHMA 03/21/2017 SHAWNA BRO INTELLIGENCE AGENT Ot Z68.38 BODY MASS INDEX (BMI) 38.0-38.9, ADULT 04/16/2017 SHAWNA BRO INTELLIGENCE AGENT Ot E66.9 OBESITY, UNSPECIFIED 04/16/2017 SHAWNA BRO INTELLIGENCE AGENT Ot J45.40 MODERATE PERSISTENT ASTHMA, UNCOMPLICATE 04/16/2017 TIFFANIE BROINE Bg INTELLIGENCE AGENT Ot J45.998 OTHER ASTHMA 04/16/2017 TIFFANIE BROINE Bg INTELLIGENCE AGENT Ot Z68.38 BODY MASS INDEX (BMI) 38.0-38.9, ADULT 04/22/2017 SHAWNA BRO INTELLIGENCE AGENT Ot E66.9 OBESITY, UNSPECIFIED 04/22/2017 TIFFANIE BROINE Bg INTELLIGENCE AGENT Ot J45.40 MODERATE PERSISTENT ASTHMA, UNCOMPLICATE 04/22/2017 TIFFANIE BROINE Bg INTELLIGENCE AGENT Ot J45.998 OTHER ASTHMA 04/22/2017 SHAWNA BRO INTELLIGENCE AGENT Ot Z68.38 BODY MASS INDEX (BMI) 38.0-38.9, ADULT 04/23/2017 SHAWNA BRO INTELLIGENCE AGENT Ot E66.9 OBESITY, UNSPECIFIED 04/23/2017 SHAWNA BRO INTELLIGENCE AGENT Ot J45.40 MODERATE PERSISTENT ASTHMA, UNCOMPLICATE 04/23/2017 TIFFANIE BROINE Bg INTELLIGENCE AGENT Ot J45.998 OTHER ASTHMA 04/23/2017 SHAWNA BRO INTELLIGENCE AGENT Ot Z68.38 BODY MASS INDEX (BMI) 38.0-38.9, ADULT 05/07/2017 BERYL SANTAMARIA, MANAV P Ot K21.9 GASTRO-ESOPHAGEAL REFLUX DISEASE WITHOUT 05/07/2017 BERYL SANTAMARIA, MANAV Cortez Ot M79.89 OTHER SPECIFIED SOFT TISSUE DISORDERS 05/07/2017 BERYL SANTAMARIA, MANAV Cortez Ot R13.19 OTHER DYSPHAGIA 05/20/2017 SHAWNA BRO INTELLIGENCE AGENT Ot E66.9 OBESITY, UNSPECIFIED 05/20/2017 SHAWNA BRO INTELLIGENCE AGENT Ot J45.40 MODERATE PERSISTENT ASTHMA, UNCOMPLICATE 05/20/2017 TIFAFNIE BROINE Bg INTELLIGENCE AGENT Ot J45.998 OTHER ASTHMA 05/20/2017 SHAWNA BRO INTELLIGENCE AGENT Ot Z68.38 BODY MASS INDEX (BMI) 38.0-38.9, ADULT 05/21/2017 SHAWNA BRO INTELLIGENCE AGENT Ot E66.9 OBESITY, UNSPECIFIED 05/21/2017 TIFFANIE BROINE Bg INTELLIGENCE AGENT Ot J45.40 MODERATE PERSISTENT ASTHMA, UNCOMPLICATE 05/21/2017 SHAWNA BRO INTELLIGENCE AGENT Ot J45.998 OTHER ASTHMA 05/21/2017 SHAWNA BRO INTELLIGENCE AGENT Ot Z68.38 BODY MASS INDEX (BMI) 38.0-38.9, ADULT 05/21/2017 TIFFANIE BROINE Bg INTELLIGENCE AGENT Ot E66.9 OBESITY, UNSPECIFIED 05/21/2017 TIFFANIE BROINE Bg INTELLIGENCE AGENT Ot J45.40 MODERATE PERSISTENT ASTHMA, UNCOMPLICATE 05/21/2017 TIFFANIE BROINE Bg INTELLIGENCE AGENT Ot J45.998 OTHER ASTHMA 05/21/2017 TIFFANIE BROINE Bg INTELLIGENCE AGENT Ot Z68.38 BODY MASS INDEX (BMI) 38.0-38.9, ADULT 05/21/2017 SHAWNA BRO INTELLIGENCE AGENT Ot E66.9 OBESITY, UNSPECIFIED 05/21/2017 DIEUDONNE, SHAWNA E INTELLIGENCE AGENT Ot J45.40 MODERATE PERSISTENT ASTHMA, UNCOMPLICATE 05/21/2017 DIEUDONNE, SHAWNA E INTELLIGENCE AGENT Ot J45.998 OTHER ASTHMA 05/21/2017 DIEUDONNE, SHAWNA E INTELLIGENCE AGENT Ot Z68.38 BODY MASS INDEX (BMI) 38.0-38.9, ADULT 05/22/2017 DIEUDONNE, SHAWNA E INTELLIGENCE AGENT Ot E66.9 OBESITY, UNSPECIFIED 05/22/2017 DIEUDONNE, SHAWNA E INTELLIGENCE AGENT Ot J45.40 MODERATE PERSISTENT ASTHMA, UNCOMPLICATE 05/22/2017 DIEUDONNE, SHAWNA E INTELLIGENCE AGENT Ot J45.998 OTHER ASTHMA 05/22/2017 DIEUDONNE, SHAWNA E INTELLIGENCE AGENT Ot Z68.38 BODY MASS INDEX (BMI) 38.0-38.9, ADULT 05/27/2017 DIEUDONNE, SHAWNA E INTELLIGENCE AGENT Ot E66.9 OBESITY, UNSPECIFIED 05/27/2017 DIEUDONNE, SHAWNA E INTELLIGENCE AGENT Ot J45.40 MODERATE PERSISTENT ASTHMA, UNCOMPLICATE 05/27/2017 DIEUDONNE, SHAWNA E INTELLIGENCE AGENT Ot J45.998 OTHER ASTHMA 05/27/2017 DIEUDONNE, SHAWNA E INTELLIGENCE AGENT Ot Z68.38 BODY MASS INDEX (BMI) 38.0-38.9, ADULT 06/25/2017 DIEUDONNE, SHAWNA E INTELLIGENCE AGENT Ot E66.9 OBESITY, UNSPECIFIED 06/25/2017 DIEUDONNE, SHAWNA E INTELLIGENCE AGENT Ot J45.40 MODERATE PERSISTENT ASTHMA, UNCOMPLICATE 06/25/2017 DIEUDONNETIFFANIESHAWNA E INTELLIGENCE AGENT Ot J45.998 OTHER ASTHMA 06/25/2017 DIEUDONNE, SHAWNA E INTELLIGENCE AGENT Ot Z68.38 BODY MASS INDEX (BMI) 38.0-38.9, ADULT 06/25/2017 DIEUDONNE, SHAWNA E INTELLIGENCE AGENT Ot E66.9 OBESITY, UNSPECIFIED 06/25/2017 DIEUDONNE, SHAWNA E INTELLIGENCE AGENT Ot J45.40 MODERATE PERSISTENT ASTHMA, UNCOMPLICATE 06/25/2017 DIEUDONNE, SHAWNA E INTELLIGENCE AGENT Ot J45.998 OTHER ASTHMA 06/25/2017 DIEUDONNE, SHAWNA E INTELLIGENCE AGENT Ot Z68.38 BODY MASS INDEX (BMI) 38.0-38.9, ADULT 06/25/2017 DIEUDONNE, SHAWNA E INTELLIGENCE AGENT Ot E66.9 OBESITY, UNSPECIFIED 06/25/2017 SHAWNA BRO APRN Ot J45.40 MODERATE PERSISTENT ASTHMA, UNCOMPLICATE 06/25/2017 SHAWNA BRO APRN Ot J45.998 OTHER ASTHMA 06/25/2017 SHAWNA BRO APRN Ot Z68.38 BODY MASS INDEX (BMI) 38.0-38.9, ADULT 06/25/2017 Ot 272.4 HYPERLIPIDEMIA NEC/NOS 06/25/2017 Ot 401.9 HYPERTENSION NOS 06/25/2017 Ot 426.9 CONDUCTION DISORDER NOS 06/25/2017 Ot 250.00 DIAB BINH WO COMPL, TYPE II OR UNSPEC TY 06/25/2017 Ot 268.9 VITAMIN D DEFICIENCY NOS 06/25/2017 Ot 272.4 HYPERLIPIDEMIA NEC/NOS 06/25/2017 Ot 401.9 HYPERTENSION NOS 06/25/2017 Ot 401.0 MALIGNANT HYPERTENSION 06/25/2017 Ot 786.09 RESPIRATORY ABNORM NEC 06/25/2017 Ot 397.0 TRICUSPID VALVE DISEASE 06/25/2017 Ot 401.0 MALIGNANT HYPERTENSION 06/25/2017 Ot 424.0 MITRAL VALVE DISORDER 06/25/2017 Ot 429.3 CARDIOMEGALY 06/25/2017 Ot 786.09 RESPIRATORY ABNORM NEC 06/25/2017 Ot 401.0 MALIGNANT HYPERTENSION 06/25/2017 YOGESH SANTAMARIA, JOJO Leon Ot 562.10 DIVERTICULOSIS COLON (W/O MENT OF HEMORR 06/25/2017 JOJO ZUÑIGA MD Ot V76.51 SCREEN MAL NEOP-COLON 06/25/2017 JOJO ZUÑIGA MD Ot V72.84 EXAM PRE-OPERATIVE NOS 06/25/2017 Ot 493.00 EXTRINSIC ASTHMA, NOS 06/25/2017 Ot 493.00 EXTRINSIC ASTHMA, NOS 06/25/2017 ADIN SANTAMARIA, ABDOUL Rodriguez Ot 722.10 LUMBAR DISC DISPLACEMENT 06/25/2017 ABDOUL OAKLEY MD Ot 722.52 LUMB/LUMBOSAC DISC DEGEN 06/25/2017 ABDOUL OAKLEY MD Ot V45.4 ARTHRODESIS STATUS 06/25/2017 RAMIRO CRUZ MD Ot 272.4 HYPERLIPIDEMIA NEC/NOS 06/25/2017 RAMIRO CRUZ MD Ot 401.9 HYPERTENSION NOS 06/25/2017 RAMIRO CRUZ MD Ot 429.3 CARDIOMEGALY 06/25/2017 RAMIRO CRUZ MD Ot 433.10 CAROTID ARTERY OCCLUSION W O CEREBRAL IN 06/25/2017 RAMIRO CRUZ MD Ot 272.4 HYPERLIPIDEMIA NEC/NOS 06/25/2017 RAMIRO CRUZ MD Ot 397.0 TRICUSPID VALVE DISEASE 06/25/2017 RAMIRO CRUZ MD Ot 401.9 HYPERTENSION NOS 06/25/2017 RAMIRO CRUZ MD Ot 424.0 MITRAL VALVE DISORDER 06/25/2017 RAMIRO CRUZ MD Ot 429.3 CARDIOMEGALY 06/25/2017 RAMIRO CRUZ MD Ot 433.10 CAROTID ARTERY OCCLUSION W O CEREBRAL IN 06/25/2017 ABDOUL OAKLEY MD, Ot 724.02 SPINAL STENOSIS, LUMBAR REG, W/OUT NEURO 06/25/2017 ABDOUL OAKLEY MD, Ot V72.63 PRE-PROCEDURAL LABORATORY EXAMINATION 06/25/2017 ABDOUL OAKLEY MD, Ot V72.81 [id number] CARDIOVASCULAR 06/25/2017 ABDOUL OAKLEY MD, Ot V74.8 SCREEN-BACTERIAL DIS NEC 06/25/2017 ABDOUL OAKLEY MD, Ot V45.4 ARTHRODESIS STATUS 06/25/2017 ABDOUL OAKLEY MD, Ot V67.09 SURGERY FOLLOW-UP, OTHER SURGERY 06/25/2017 CARLY NUÑEZ DO Ot R06.09 OTHER FORMS OF DYSPNEA 06/25/2017 JAY AYERS CERTIFIED MIDWIFE Ot F45.8 OTHER SOMATOFORM DISORDERS 06/25/2017 ANDRIA JAY Jennifer CERTIFIED MIDWIFE Ot G47.34 IDIO SLEEP RELATED NONOBSTRUCTIVE ALVEOL 06/25/2017 ANDRIA JAY Jennifer CERTIFIED MIDWIFE Ot J45.909 UNSPECIFIED ASTHMA, UNCOMPLICATED 06/25/2017 ANDRIA JAY Jennifer CERTIFIED MIDWIFE Ot R06.00 DYSPNEA, UNSPECIFIED 06/25/2017 ANDRIA JAY Jennifer CERTIFIED MIDWIFE Ot R13.19 OTHER DYSPHAGIA 06/25/2017 SHAWNA BRO APRN Ot R06.00 DYSPNEA, UNSPECIFIED 06/25/2017 SHAWNA BRO APRN Ot I26.99 OTHER PULMONARY EMBOLISM WITHOUT ACUTE C 06/25/2017 DAVIDE CASTRO DO Ot E78.5 HYPERLIPIDEMIA, UNSPECIFIED 06/25/2017 DAVIDE CASTRO DO Ot I10 ESSENTIAL (PRIMARY) HYPERTENSION 06/25/2017 DAVIDE CASTRO DO Ot I65.29 OCCLUSION AND STENOSIS OF UNSPECIFIED CA 06/25/2017 DAVIDE CASTRO DO Ot R06.00 DYSPNEA, UNSPECIFIED 06/25/2017 TIMOTHY OLVERA Ot E78.2 MIXED HYPERLIPIDEMIA 06/25/2017 TIMOTHY OLVERA Ot I11.0 HYPERTENSIVE HEART DISEASE WITH HEART FA 06/25/2017 TIMOTHY OLVERA Ot I51.7 CARDIOMEGALY 06/25/2017 TIMOTHY OLVERA Ot 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 06/25/2017 SHAWNA BRO APRN Ot I26.99 OTHER PULMONARY EMBOLISM WITHOUT ACUTE C 06/25/2017 SHAWNA BRO APRN Ot J45.909 UNSPECIFIED ASTHMA, UNCOMPLICATED 06/25/2017 SHAWNA BRO APRN Ot J98.11 ATELECTASIS 06/25/2017 SHAWNA BRO APRN Ot N28.1 CYST OF KIDNEY, ACQUIRED 06/25/2017 SHAWNA BRO APRN Ot R06.00 DYSPNEA, UNSPECIFIED 06/25/2017 SHAWNA BRO APRN Ot R09.02 HYPOXEMIA 06/25/2017 MANAV CORDOBA MD Ot 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, 06/25/2017 MANAV CORDOBA MD Ot J39.2 OTHER DISEASES OF PHARYNX 06/25/2017 MANAV CORDOBA MD Ot K21.9 GASTRO-ESOPHAGEAL REFLUX DISEASE WITHOUT 06/25/2017 MANAV CORDOBA MD Ot R13.10 DYSPHAGIA, UNSPECIFIED 06/25/2017 MANAV CORDOBA MD Ot K21.9 GASTRO-ESOPHAGEAL REFLUX DISEASE WITHOUT 06/25/2017 MANAV CORDOBA MD Ot K44.9 DIAPHRAGMATIC HERNIA WITHOUT OBSTRUCTION 06/25/2017 MANAV CORDOBA MD Ot R13.10 DYSPHAGIA, UNSPECIFIED 06/25/2017 MANAV CORDOBA MD Ot K21.9 GASTRO-ESOPHAGEAL REFLUX DISEASE WITHOUT 06/25/2017 MANAV CORDOBA MD Ot M79.89 OTHER SPECIFIED SOFT TISSUE DISORDERS 06/25/2017 MANAV CORDOBA MD Ot R13.19 OTHER DYSPHAGIA 06/25/2017 SHAWNA BRO APRN Ot E66.9 OBESITY, UNSPECIFIED 06/25/2017 DIEUDONNETIFFANIE CORCORANINE Bg INTELLIGENCE AGENT Ot J45.40 MODERATE PERSISTENT ASTHMA, UNCOMPLICATE 06/25/2017 DIEUDONNETIFFANIE CORCORANINE E INTELLIGENCE AGENT Ot J45.998 OTHER ASTHMA 06/25/2017 DIEUDONNE, SHAWNA E INTELLIGENCE AGENT Ot Z68.38 BODY MASS INDEX (BMI) 38.0-38.9, ADULT 07/12/2017 DIEUDONNETIFFANIE CORCORANINE E INTELLIGENCE AGENT Ot E66.9 OBESITY, UNSPECIFIED 07/12/2017 DIEUDONNETIFFANIE CORCORANINE E INTELLIGENCE AGENT Ot J45.40 MODERATE PERSISTENT ASTHMA, UNCOMPLICATE 07/12/2017 DIEUDONNE, SHAWNA E INTELLIGENCE AGENT Ot J45.998 OTHER ASTHMA 07/12/2017 DIEUDONNETIFFANIE CORCORANINE E INTELLIGENCE AGENT Ot Z68.38 BODY MASS INDEX (BMI) 38.0-38.9, ADULT 07/23/2017 DIEUDONNETIFFANIE CORCORANINE E INTELLIGENCE AGENT Ot E66.9 OBESITY, UNSPECIFIED 07/23/2017 DIEUDONNETIFFANIE CORCORANINE Bg INTELLIGENCE AGENT Ot J45.40 MODERATE PERSISTENT ASTHMA, UNCOMPLICATE 07/23/2017 TIFFANIE BROINE E INTELLIGENCE AGENT Ot J45.998 OTHER ASTHMA 07/23/2017 DIEUDONNETIFFANIE CORCORANINE E INTELLIGENCE AGENT Ot Z68.38 BODY MASS INDEX (BMI) 38.0-38.9, ADULT 07/23/2017 TIFFANIE BROINE Bg INTELLIGENCE AGENT Ot J45.909 UNSPECIFIED ASTHMA, UNCOMPLICATED 07/23/2017 TIFFANIE BROINE E INTELLIGENCE AGENT Ot R06.00 DYSPNEA, UNSPECIFIED 07/23/2017 TIFFANIE BROINE Bg INTELLIGENCE AGENT Ot E66.9 OBESITY, UNSPECIFIED 07/23/2017 TIFFANIE BROINE E INTELLIGENCE AGENT Ot J45.40 MODERATE PERSISTENT ASTHMA, UNCOMPLICATE 07/23/2017 DIEUDONNETIFFANIE CORCORANINE E INTELLIGENCE AGENT Ot J45.998 OTHER ASTHMA 07/23/2017 DIEUDONNETIFFANIE CORCORANINE E INTELLIGENCE AGENT Ot Z68.38 BODY MASS INDEX (BMI) 38.0-38.9, ADULT 08/19/2017 TIFFANIE BROINE E INTELLIGENCE AGENT Ot E66.9 OBESITY, UNSPECIFIED 08/19/2017 DIEUDONNETIFFANIE CORCORANINE E INTELLIGENCE AGENT Ot J45.40 MODERATE PERSISTENT ASTHMA, UNCOMPLICATE 08/19/2017 TIFFANIE BROINE E INTELLIGENCE AGENT Ot J45.998 OTHER ASTHMA 08/19/2017 SHAWNA BRO INTELLIGENCE AGENT Ot Z68.38 BODY MASS INDEX (BMI) 38.0-38.9, ADULT 08/20/2017 SHAWNA BRO INTELLIGENCE AGENT Ot E66.9 OBESITY, UNSPECIFIED 08/20/2017 TIFFANIE BROINE Bg INTELLIGENCE AGENT Ot J45.40 MODERATE PERSISTENT ASTHMA, UNCOMPLICATE 08/20/2017 DIEUDONNETIFFANIE CORCORANINE Bg INTELLIGENCE AGENT Ot J45.998 OTHER ASTHMA 08/20/2017 TIFFANIE BROINE Bg INTELLIGENCE AGENT Ot Z68.38 BODY MASS INDEX (BMI) 38.0-38.9, ADULT 08/25/2017 DIEUDONNESHAWNA CORCORAN INTELLIGENCE AGENT Ot E66.9 OBESITY, UNSPECIFIED 08/25/2017 DIEUDONNESHAWNA CORCORAN INTELLIGENCE AGENT Ot J45.40 MODERATE PERSISTENT ASTHMA, UNCOMPLICATE 08/25/2017 DIEUDONNETIFFANIE CORCORANINE Bg INTELLIGENCE AGENT Ot J45.998 OTHER ASTHMA 08/25/2017 TIFFANIE BROINE Bg INTELLIGENCE AGENT Ot Z68.38 BODY MASS INDEX (BMI) 38.0-38.9, ADULT 09/17/2017 DAVIDE CASTRO DO Ot J45.909 UNSPECIFIED ASTHMA, UNCOMPLICATED 09/17/2017 DAVIDE CASTRO DO Ot R06.00 DYSPNEA, UNSPECIFIED 09/17/2017 DAVIDE CASTRO DO Ot J45.909 UNSPECIFIED ASTHMA, UNCOMPLICATED 09/17/2017 DAVIDE CASTRO DO M Ot R06.00 DYSPNEA, UNSPECIFIED 09/17/2017 DAVIDE CASTRO DO M Ot J45.909 UNSPECIFIED ASTHMA, UNCOMPLICATED 09/17/2017 DAVIDE CASTRO DO Ot R06.00 DYSPNEA, UNSPECIFIED 10/11/2017 DAVIDE CASTRO DO M Ot J45.909 UNSPECIFIED ASTHMA, UNCOMPLICATED 10/11/2017 DAVIDE CASTRO DO M Ot R06.00 DYSPNEA, UNSPECIFIED 10/22/2017 DAVIDE CASTRO DO Ot J45.909 UNSPECIFIED ASTHMA, UNCOMPLICATED 10/22/2017 DAVIDE CASTRO DO M Ot R06.00 DYSPNEA, UNSPECIFIED 10/25/2017 DAVIDE CASTRO DO Ot J45.909 UNSPECIFIED ASTHMA, UNCOMPLICATED 10/25/2017 DAVIDE CASTRO DO Ot R06.00 DYSPNEA, UNSPECIFIED 11/12/2017 MANAV CORDOBA MD Ot Z01.818 ENCOUNTER FOR OTHER PREPROCEDURAL EXAMIN 11/12/2017 MANAV CORDOBA MD, Ot Z01.818 ENCOUNTER FOR OTHER PREPROCEDURAL EXAMIN 11/13/2017 DAVIDE CASTRO DO, Ot J45.909 UNSPECIFIED ASTHMA, UNCOMPLICATED 11/13/2017 DAVIDE CASTRO DO, Ot R06.00 DYSPNEA, UNSPECIFIED 11/15/2017 MANAV CORDOBA MD Ot E11.40 TYPE 2 DIABETES MELLITUS WITH DIABETIC N 11/15/2017 MANAV CORDOBA MD Ot E66.01 MORBID (SEVERE) OBESITY DUE TO EXCESS CA 11/15/2017 MANAV CORDOBA MD Ot G47.33 OBSTRUCTIVE SLEEP APNEA (ADULT) (PEDIATR 11/15/2017 MANAV CORDOBA MD Ot I10 ESSENTIAL (PRIMARY) HYPERTENSION 11/15/2017 MANAV CORDOBA MD Ot J39.2 OTHER DISEASES OF PHARYNX 11/15/2017 MANAV CORDOBA MD Ot J44.9 CHRONIC OBSTRUCTIVE PULMONARY DISEASE, U 11/15/2017 MANAV CORDOBA MD, Ot J45.909 UNSPECIFIED ASTHMA, UNCOMPLICATED 11/15/2017 MANAV CORDOBA MD Ot K13.29 OTHER DISTURBANCES OF ORAL EPITHELIUM, I 11/15/2017 MANAV CORDOBA MD Ot Z68.39 BODY MASS INDEX (BMI) 39.0-39.9, ADULT 11/15/2017 MANAV CORDOBA MD Ot Z79.82 [facility] (CURRENT) USE OF ASPIRIN 11/15/2017 MANAV CORDOBA MD Ot Z79.84 HAND SIGN WRITER (CURRENT) USE OF ORAL HYPOGLYC 11/15/2017 MANAV CORDOBA MD Ot Z79.899 OTHER [facility] (CURRENT) DRUG THERAPY 11/18/2017 DAVIDE CASTRO DO Ot J45.909 UNSPECIFIED ASTHMA, UNCOMPLICATED 11/18/2017 DAVIDE CASTRO DO Ot R06.00 DYSPNEA, UNSPECIFIED 11/19/2017 DAVIDE CASTRO DO, Ot J45.909 UNSPECIFIED ASTHMA, UNCOMPLICATED 11/19/2017 DAVIDE CASTRO DO Ot R06.00 DYSPNEA, UNSPECIFIED 11/19/2017 DAVIDE CASTRO DO, Ot J45.909 UNSPECIFIED ASTHMA, UNCOMPLICATED 11/19/2017 DAVIDE CASTRO DO Ot R06.00 DYSPNEA, UNSPECIFIED 11/19/2017 DAVIDE CASTRO DO, Ot J45.909 UNSPECIFIED ASTHMA, UNCOMPLICATED 11/19/2017 DAVIDE CASTRO DO Ot R06.00 DYSPNEA, UNSPECIFIED 11/19/2017 MANAV CORDOBA MD Ot E11.40 TYPE 2 DIABETES MELLITUS WITH DIABETIC N 11/19/2017 MANAV CORDOBA MD Ot E66.01 MORBID (SEVERE) OBESITY DUE TO EXCESS CA 11/19/2017 MANAV CORDOBA MD Ot G47.33 OBSTRUCTIVE SLEEP APNEA (ADULT) (PEDIATR 11/19/2017 MANAV CORDOBA MD Ot I10 ESSENTIAL (PRIMARY) HYPERTENSION 11/19/2017 MANAV CORDOBA MD Ot J39.2 OTHER DISEASES OF PHARYNX 11/19/2017 MANAV CORDOBA MD Ot J44.9 CHRONIC OBSTRUCTIVE PULMONARY DISEASE, U 11/19/2017 MANAV CORDOBA MD Ot J45.909 UNSPECIFIED ASTHMA, UNCOMPLICATED 11/19/2017 MANAV CORDOBA MD Ot K13.29 OTHER DISTURBANCES OF ORAL EPITHELIUM, I 11/19/2017 MANAV CORDOBA MD Ot Z68.39 BODY MASS INDEX (BMI) 39.0-39.9, ADULT 11/19/2017 MANAV CORDOBA MD Ot Z79.82 [facility] (CURRENT) USE OF ASPIRIN 11/19/2017 MANAV CORDOBA MD Ot Z79.84 [facility] (CURRENT) USE OF ORAL HYPOGLYC 11/19/2017 MANAV CORDOBA MD Ot Z79.899 OTHER HAND SIGN WRITER (CURRENT) DRUG THERAPY 11/19/2017 DAVIDE CASTRO DO, Ot J45.909 UNSPECIFIED ASTHMA, UNCOMPLICATED 11/19/2017 DAVIDE CASTRO DO Ot R06.00 DYSPNEA, UNSPECIFIED 11/21/2017 DAVIDE CASTRO DO, Ot J45.909 UNSPECIFIED ASTHMA, UNCOMPLICATED 11/21/2017 DAVIDE CASTRO DO, Ot R06.00 DYSPNEA, UNSPECIFIED 11/27/2017 MANAV CORDOBA MD Ot E11.40 TYPE 2 DIABETES MELLITUS WITH DIABETIC N 11/27/2017 MANAV CORDOBA MD Ot E66.01 MORBID (SEVERE) OBESITY DUE TO EXCESS CA 11/27/2017 MANAV CORDOBA MD Ot G47.33 OBSTRUCTIVE SLEEP APNEA (ADULT) (PEDIATR 11/27/2017 MANAV CORDOBA MD Ot I10 ESSENTIAL (PRIMARY) HYPERTENSION 11/27/2017 MANAV CORDOBA MD Ot J39.2 OTHER DISEASES OF PHARYNX 11/27/2017 MANAV CORDOBA MD, Ot J44.9 CHRONIC OBSTRUCTIVE PULMONARY DISEASE, U 11/27/2017 MANAV CORDOBA MD, Ot J45.909 UNSPECIFIED ASTHMA, UNCOMPLICATED 11/27/2017 MANAV CORDOBA MD Ot K13.29 OTHER DISTURBANCES OF ORAL EPITHELIUM, I 11/27/2017 MANAV CORDOBA MD, Ot Z68.39 BODY MASS INDEX (BMI) 39.0-39.9, ADULT 11/27/2017 MANAV CORDOBA MD, Ot Z79.82 HAND SIGN WRITER (CURRENT) USE OF ASPIRIN 11/27/2017 MANAV CRODOBA MD, Ot Z79.84 [facility] (CURRENT) USE OF ORAL HYPOGLYC 11/27/2017 MANAV CORDOBA MD, Ot Z79.899 OTHER HAND SIGN WRITER (CURRENT) DRUG THERAPY 01/07/2018 Ot 401.0 MALIGNANT HYPERTENSION 01/07/2018 JOJO ZUÑIGA MD Ot 562.10 DIVERTICULOSIS COLON (W/O MENT OF HEMORR 01/07/2018 JOJO ZUÑIGA MD Ot V76.51 SCREEN MAL NEOP-COLON 01/07/2018 JOJO ZUÑIGA MD Ot V72.84 EXAM PRE-OPERATIVE NOS 01/07/2018 Ot 493.00 EXTRINSIC ASTHMA, NOS 01/07/2018 Ot 493.00 EXTRINSIC ASTHMA, NOS 01/07/2018 ABDOUL OAKLEY MD Ot 722.10 LUMBAR DISC DISPLACEMENT 01/07/2018 ABDOUL OAKLEY MD Ot 722.52 LUMB/LUMBOSAC DISC DEGEN 01/07/2018 ABDOUL OAKLEY MD Ot V45.4 ARTHRODESIS STATUS 01/07/2018 RAMIRO CRUZ MD Ot 272.4 HYPERLIPIDEMIA NEC/NOS 01/07/2018 RAMIRO CRUZ MD Ot 401.9 HYPERTENSION NOS 01/07/2018 RAMIRO CRUZ MD Ot 429.3 CARDIOMEGALY 01/07/2018 RAMIRO CRUZ MD Ot 433.10 CAROTID ARTERY OCCLUSION W O CEREBRAL IN 01/07/2018 RAMIRO CRUZ MD Ot 272.4 HYPERLIPIDEMIA NEC/NOS 01/07/2018 RAMIRO CRUZ MD Ot 397.0 TRICUSPID VALVE DISEASE 01/07/2018 RAMIRO CRUZ MD Ot 401.9 HYPERTENSION NOS 01/07/2018 RAMIRO CRUZ MD Ot 424.0 MITRAL VALVE DISORDER 01/07/2018 RAMIRO CRUZ MD Ot 429.3 CARDIOMEGALY 01/07/2018 RAMIRO CRUZ MD Ot 433.10 CAROTID ARTERY OCCLUSION W O CEREBRAL IN 01/07/2018 ABDOUL OAKLEY MD Ot 724.02 SPINAL STENOSIS, LUMBAR REG, W/OUT NEURO 01/07/2018 ABDOUL OAKLEY MD Ot V72.63 PRE-PROCEDURAL LABORATORY EXAMINATION 01/07/2018 ABDOUL OAKLEY MD Ot V72.81 HAGS-PBA-[id number] CARDIOVASCULAR 01/07/2018 ABDOUL OAKLEY MD, Ot V74.8 SCREEN-BACTERIAL DIS NEC 01/07/2018 ABDOUL OAKLEY MD, Ot V45.4 ARTHRODESIS STATUS 01/07/2018 ABDOUL OAKLEY MD, Ot V67.09 SURGERY FOLLOW-UP, OTHER SURGERY 01/07/2018 CARLY NUÑEZ DO Ot R06.09 OTHER FORMS OF DYSPNEA 01/07/2018 ANDRIA, JAY J CERTIFIED MIDWIFE Ot F45.8 OTHER SOMATOFORM DISORDERS 01/07/2018 ANDRIA, JAY J CERTIFIED MIDWIFE Ot G47.34 IDIO SLEEP RELATED NONOBSTRUCTIVE ALVEOL 01/07/2018 ANDRIA, JAY J CERTIFIED MIDWIFE Ot J45.909 UNSPECIFIED ASTHMA, UNCOMPLICATED 01/07/2018 ANDRIA, JAY J CERTIFIED MIDWIFE Ot R06.00 DYSPNEA, UNSPECIFIED 01/07/2018 ANDRIA, JAY J CERTIFIED MIDWIFE Ot R13.19 OTHER DYSPHAGIA 01/07/2018 SHAWNA BRO APRN Ot R06.00 DYSPNEA, UNSPECIFIED 01/07/2018 SHAWNA BRO APRN Ot I26.99 OTHER PULMONARY EMBOLISM WITHOUT ACUTE C 01/07/2018 DAVIDE CASTRO DO Ot E78.5 HYPERLIPIDEMIA, UNSPECIFIED 01/07/2018 DAVIDE CASTRO DO Ot I10 ESSENTIAL (PRIMARY) HYPERTENSION 01/07/2018 DAVIDE CASTRO DO Ot I65.29 OCCLUSION AND STENOSIS OF UNSPECIFIED CA 01/07/2018 DAVIDE CASTRO DO Ot R06.00 DYSPNEA, UNSPECIFIED 01/07/2018 TIMOTHY OLVERA Ot E78.2 MIXED HYPERLIPIDEMIA 01/07/2018 TIMOTHY OLVERA Ot I11.0 HYPERTENSIVE HEART DISEASE WITH HEART FA 01/07/2018 TIMOTHY OLVERA Ot I51.7 CARDIOMEGALY 01/07/2018 TIMOTHY OLVERA Ot 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 01/07/2018 SHAWNA BRO APRN Ot I26.99 OTHER PULMONARY EMBOLISM WITHOUT ACUTE C 01/07/2018 SHAWNA BRO APRN Ot J45.909 UNSPECIFIED ASTHMA, UNCOMPLICATED 01/07/2018 SHAWNA BRO APRN Ot J98.11 ATELECTASIS 01/07/2018 SHAWNA BRO APRN Ot N28.1 CYST OF KIDNEY, ACQUIRED 01/07/2018 SHAWNA BRO APRN Ot R06.00 DYSPNEA, UNSPECIFIED 01/07/2018 SHAWNA BRO APRN Ot R09.02 HYPOXEMIA 01/07/2018 MANAV CORDOBA MD Ot 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, 01/07/2018 MANAV CORDOBA MD Ot J39.2 OTHER DISEASES OF PHARYNX 01/07/2018 MANAV CORDOBA MD Ot K21.9 GASTRO-ESOPHAGEAL REFLUX DISEASE WITHOUT 01/07/2018 MANAV CORDOBA MD Ot R13.10 DYSPHAGIA, UNSPECIFIED 01/07/2018 MANAV CORDOBA MD Ot K21.9 GASTRO-ESOPHAGEAL REFLUX DISEASE WITHOUT 01/07/2018 MANAV CORDOBA MD Ot K44.9 DIAPHRAGMATIC HERNIA WITHOUT OBSTRUCTION 01/07/2018 MANAV CORDOBA MD Ot R13.10 DYSPHAGIA, UNSPECIFIED 01/07/2018 MANAV CORDOBA MD Ot K21.9 GASTRO-ESOPHAGEAL REFLUX DISEASE WITHOUT 01/07/2018 MANAV CORDOBA MD Ot M79.89 OTHER SPECIFIED SOFT TISSUE DISORDERS 01/07/2018 MANAV CORDOBA MD Ot R13.19 OTHER DYSPHAGIA 01/07/2018 SHAWNA BRO APRN Ot E66.9 OBESITY, UNSPECIFIED 01/07/2018 SHAWNA BRO APRN Ot J45.40 MODERATE PERSISTENT ASTHMA, UNCOMPLICATE 01/07/2018 SHAWNA BRO APRN Ot J45.998 OTHER ASTHMA 01/07/2018 SHAWNA BRO INTELLIGENCE AGENT Ot Z68.38 BODY MASS INDEX (BMI) 38.0-38.9, ADULT 01/07/2018 DAVIDE CASTRO DO Ot J45.909 UNSPECIFIED ASTHMA, UNCOMPLICATED 01/07/2018 DAVIDE CASTRO DO Ot R06.00 DYSPNEA, UNSPECIFIED Procedures Code Description Performed By Performed On 77.79 EXCISE BONE FOR GFT NEC 07/19/2014 78.69 REMOVE INT FIX DEVIC NEC 07/19/2014 81.08 LUMBAR LUMBOSACRAL FUSION OF ANTERIOR 07/19/2014 81.38 REFUSION OF LUMBAR LUMBOSACRAL SPINE, 07/19/2014 81.62 FUSION/REFUS OF 2-3 VERTEBRAE 07/19/2014 84.51 INSERTION OF INTERBODY SPINAL FUSION DEV 07/19/2014 [id number] REPLACE L SHOULDER JT W SYNTH SUB, HUMER 01/26/2016 [id number] REPLACE L SHOULDER JT W SYNTH SUB, GLENO 01/26/2016 Results Test Result Range Complete blood count (CBC) with automated white blood cell (WBC) differential - 01/11/16 12:30 Blood leukocytes automated count (number/volume) 6.8 10*3/uL 4.3-11.0 Blood erythrocytes automated count (number/volume) 5.39 10*6/uL 4.35-5.85 Venous blood hemoglobin measurement (mass/volume) 16.1 g/dL 13.3-17.7 Blood hematocrit (volume fraction) 47 % 40-54 Automated erythrocyte mean corpuscular volume 86 [foz_us] 80-99 Automated erythrocyte mean corpuscular hemoglobin (mass per erythrocyte) 30 pg 25-34 Automated erythrocyte mean corpuscular hemoglobin concentration measurement ( mass/volume) 35 g/dL 32-36 Automated erythrocyte distribution width ratio 13.7 % 10.0-14.5 Automated blood platelet count (count/volume) 202 10*3/uL 130-400 Automated blood platelet mean volume measurement 9.2 [foz_us] 7.4-10.4 Automated blood neutrophils/100 leukocytes 62 % 42-75 Automated blood lymphocytes/100 leukocytes 28 % 12-44 Blood monocytes/100 leukocytes 8 % 0-12 Automated blood eosinophils/100 leukocytes 2 % 0-10 Automated blood basophils/100 leukocytes 0 % 0-10 Blood neutrophils automated count (number/volume) 4.2 10*3 1.8-7.8 Blood lymphocytes automated count (number/volume) 1.9 10*3 1.0-4.0 Blood monocytes automated count (number/volume) 0.6 10*3 0.0-1.0 Automated eosinophil count 0.1 10*3/uL 0.0-0.3 Automated blood basophil count (count/volume) 0.0 10*3/uL 0.0-0.1 Complete urinalysis with reflex to culture - 01/11/16 12:30 Urine color determination YELLOW NRG Urine clarity determination CLEAR NRG Urine pH measurement by test strip 6 5-9 Specific gravity of urine by test strip 1.020 1.016- 1.022 Urine protein assay by test strip, semi-quantitative 2+ NEGATIVE Urine glucose detection by automated test strip NEGATIVE NEGATIVE Erythrocytes detection in urine sediment by light microscopy NEGATIVE NEGATIVE Urine ketones detection by automated test strip NEGATIVE NEGATIVE Urine nitrite detection by test strip NEGATIVE NEGATIVE Urine total bilirubin detection by test strip NEGATIVE NEGATIVE Urine urobilinogen measurement by automated test strip (mass/volume) 1 mg/dL NORMAL Urine leukocyte esterase detection by dipstick 1+ NEGATIVE Automated urine sediment erythrocyte count by microscopy (number/high power field) NONE NRG Automated urine sediment leukocyte count by microscopy (number/high power field ) [HPF] NRG Bacteria detection in urine sediment by light microscopy TRACE NRG Crystals detection in urine sediment by light microscopy NONE NRG Casts detection in urine sediment by light microscopy NONE NRG Mucus detection in urine sediment by light microscopy MODERATE NRG Complete urinalysis with reflex to culture NO NRG PT panel in platelet poor plasma by coagulation assay - 01/11/16 12:30 Prothrombin time (PT) in platelet poor plasma by coagulation assay 12.8 s 12.2-14.7 INR in platelet poor plasma or blood by coagulation assay 1.0 0.8-1.4 Whole blood basic metabolic panel - 01/11/16 12:30 Serum or plasma sodium measurement (moles/volume) 137 mmol/L 135-145 Serum or plasma potassium measurement (moles/volume) 3.6 mmol/L 3.6-5.0 Serum or plasma chloride measurement (moles/volume) 101 mmol/L 98-107 Carbon dioxide 27 mmol/L 21-32 Serum or plasma anion gap determination (moles/volume) 9 mmol/L 5-14 Serum or plasma urea nitrogen measurement (mass/volume) 24 mg/dL 7-18 Serum or plasma creatinine measurement (mass/volume) 1.07 mg/dL 0.60-1.30 Serum or plasma urea nitrogen/creatinine mass ratio 22 NRG Serum or plasma creatinine measurement with calculation of estimated glomerular filtration rate > NRG Serum or plasma glucose measurement (mass/volume) 109 mg/dL 70-105 Serum or plasma calcium measurement (mass/volume) 9.4 mg/dL 8.5-10.1 Blood type T Indirect antibody screen panel - 01/11/16 12:30 ABO+Rh group OP NRG Blood group antibody screen NEGATIVE NRG Methicillin resistant Staphylococcus aureus (MRSA) screening culture - 12:30 Methicillin resistant Staphylococcus aureus (MRSA) screening culture NEG NRG Blood type T Indirect antibody screen panel - 01/26/16 11:28 ABO+Rh group OP NRG Transfusion band number [id number] NRG Blood group antibody screen NEGATIVE NRG Whole blood hemoglobin and hematocrit panel - 01/27/16 05:59 Venous blood hemoglobin measurement (mass/volume) 15.1 g/dL 13.3-17.7 Blood hematocrit (volume fraction) 44 % 40-54 Whole blood basic metabolic panel - 01/27/16 05:59 Serum or plasma sodium measurement (moles/volume) 137 mmol/L 135-145 Serum or plasma potassium measurement (moles/volume) 3.5 mmol/L 3.6-5.0 Serum or plasma chloride measurement (moles/volume) 100 mmol/L 98-107 Carbon dioxide 22 mmol/L 21-32 Serum or plasma anion gap determination (moles/volume) 15 mmol/L 5-14 Serum or plasma urea nitrogen measurement (mass/volume) 13 mg/dL 7-18 Serum or plasma creatinine measurement (mass/volume) 1.21 mg/dL 0.60-1.30 Serum or plasma urea nitrogen/creatinine mass ratio 11 NRG Serum or plasma creatinine measurement with calculation of estimated glomerular filtration rate 59 NRG Serum or plasma glucose measurement (mass/volume) 184 mg/dL 70-105 Serum or plasma calcium measurement (mass/volume) 8.6 mg/dL 8.5-10.1 Capillary blood glucose measurement by glucometer (mass/volume) - 01/27/16 17: 02 Capillary blood glucose measurement by glucometer (mass/volume) 160 mg/dL 70-110 Capillary blood glucose measurement by glucometer (mass/volume) - 01/28/16 05: 20 Capillary blood glucose measurement by glucometer (mass/volume) 160 mg/dL 70-110 Arterial blood gas measurement - 05/18/16 11:38 Blood pCO2 40 mm[Hg] 35-45 Blood pO2 68 mm[Hg] 79-93 Arterial blood bicarbonate measurement (moles/volume) 28 mmol/L 23-27 Arterial blood base excess by calculation 3.6 mmol/L -2.5 -2.5 Arterial blood oxygen saturation measurement 96 % 94-100 * Inhaled oxygen flow rate ROOM AIR NRG Arterial blood pH measurement with patient temperature correction 7.46 7.37-7.43 Arterial blood carbon dioxide, total measurement (moles/volume) 28.8 mmol/L 21.0-31.0 Body site LT RADIAL NRG Assessment of wrist artery patency prior to arterial puncture YES- POS NRG Setting of ventilation mode NO NRG Measurement of body temperature 98.3 NRG [id number] - 05/25/16 08:20 Serum or plasma urea nitrogen measurement (mass/volume) 20 mg/dL 7-18 Serum or plasma creatinine measurement (mass/volume) 1.07 mg/dL 0.60-1.30 Serum or plasma urea nitrogen/creatinine mass ratio 19 NRG Serum or plasma creatinine measurement with calculation of estimated glomerular filtration rate > NRG Complete blood count (CBC) with automated white blood cell (WBC) differential - 05/25/16 12:40 Blood leukocytes automated count (number/volume) 6.5 10*3/uL 4.3-11.0 Blood erythrocytes automated count (number/volume) 5.52 10*6/uL 4.35-5.85 Venous blood hemoglobin measurement (mass/volume) 15.9 g/dL 13.3-17.7 Blood hematocrit (volume fraction) 47 % 40-54 Automated erythrocyte mean corpuscular volume 86 [foz_us] 80-99 Automated erythrocyte mean corpuscular hemoglobin (mass per erythrocyte) 29 pg 25-34 Automated erythrocyte mean corpuscular hemoglobin concentration measurement ( mass/volume) 34 g/dL 32-36 Automated erythrocyte distribution width ratio 14.5 % 10.0-14.5 Automated blood platelet count (count/volume) 201 10*3/uL 130-400 Automated blood platelet mean volume measurement 9.4 [foz_us] 7.4-10.4 Automated blood neutrophils/100 leukocytes 58 % 42-75 Automated blood lymphocytes/100 leukocytes 30 % 12-44 Blood monocytes/100 leukocytes 9 % 0-12 Automated blood eosinophils/100 leukocytes 3 % 0-10 Automated blood basophils/100 leukocytes 1 % 0-10 Blood neutrophils automated count (number/volume) 3.8 10*3 1.8-7.8 Blood lymphocytes automated count (number/volume) 2.0 10*3 1.0-4.0 Blood monocytes automated count (number/volume) 0.6 10*3 0.0-1.0 Automated eosinophil count 0.2 10*3/uL 0.0-0.3 Automated blood basophil count (count/volume) 0.0 10*3/uL 0.0-0.1 Comprehensive metabolic panel - 05/25/16 12:40 Serum or plasma sodium measurement (moles/volume) 139 mmol/L 135-145 Serum or plasma potassium measurement (moles/volume) 3.5 mmol/L 3.6-5.0 Serum or plasma chloride measurement (moles/volume) 102 mmol/L 98-107 Carbon dioxide 24 mmol/L 21-32 Serum or plasma anion gap determination (moles/volume) 13 mmol/L 5-14 Serum or plasma urea nitrogen measurement (mass/volume) 19 mg/dL 7-18 Serum or plasma creatinine measurement (mass/volume) 1.16 mg/dL 0.60-1.30 Serum or plasma urea nitrogen/creatinine mass ratio 16 NRG Serum or plasma creatinine measurement with calculation of estimated glomerular filtration rate > NRG Serum or plasma glucose measurement (mass/volume) 179 mg/dL 70-105 Serum or plasma calcium measurement (mass/volume) 9.3 mg/dL 8.5-10.1 Serum or plasma total bilirubin measurement (mass/volume) 0.3 mg/dL 0.1-1.0 Serum or plasma alkaline phosphatase measurement (enzymatic activity/volume) 80 U/L 40-136 Serum or plasma aspartate aminotransferase measurement (enzymatic activity/ volume) 20 U/L 5-34 Serum or plasma alanine aminotransferase measurement (enzymatic activity/volume ) 29 U/L 0-55 Serum or plasma protein measurement (mass/volume) 7.3 g/dL 6.4-8.2 Serum or plasma albumin measurement (mass/volume) 4.2 g/dL 3.2-4.5 [id number] - 09/20/16 08:53 Serum or plasma urea nitrogen measurement (mass/volume) 18 mg/dL 7-18 Serum or plasma creatinine measurement (mass/volume) 1.17 mg/dL 0.60-1.30 Serum or plasma urea nitrogen/creatinine mass ratio 15 NRG Serum or plasma creatinine measurement with calculation of estimated glomerular filtration rate > NRG [id number] - 11/29/16 08:21 Serum or plasma urea nitrogen measurement (mass/volume) 19 mg/dL 7-18 Serum or plasma creatinine measurement (mass/volume) 1.22 mg/dL 0.60-1.30 Serum or plasma urea nitrogen/creatinine mass ratio 16 NRG Serum or plasma creatinine measurement with calculation of estimated glomerular filtration rate 58 NRG [id number] - 04/15/17 10:05 Serum or plasma urea nitrogen measurement (mass/volume) 19 mg/dL 7-18 Serum or plasma creatinine measurement (mass/volume) 1.33 mg/dL 0.60-1.30 Serum or plasma urea nitrogen/creatinine mass ratio 14 NRG Serum or plasma creatinine measurement with calculation of estimated glomerular filtration rate 53 NRG Methicillin resistant Staphylococcus aureus (MRSA) screening culture - 12:41 Methicillin resistant Staphylococcus aureus (MRSA) screening culture NEG NRG Capillary blood glucose measurement by glucometer (mass/volume) - 11/15/17 07: 04 Capillary blood glucose measurement by glucometer (mass/volume) 133 mg/dL 70-110 Encounters ACCT No. Visit Date/Time Discharge Status Pt. Type Provider Facility Loc./Unit Complaint [id number] 01/20/2014 15:04:21 01/20/2014 23:59:59 CLS Outpatient Diego Ortega [id number] 11/19/2017 09:59:00 11/19/2017 23:59:59 CLS Outpatient DAVIDE CASTRO DO [facility] [id number] ASTHMA, R06.00 DYSPNEA [id number] 10/22/2017 12:05:00 11/18/2017 00:01:00 DIS Outpatient DAVIDE CASTRO DO [facility] [id number] ASTHMA, R06.00 DYSPNEA [id number] 11/15/2017 06:30:00 11/15/2017 11:45:00 DIS Outpatient BERYL SANTAMARIA, MANAV [facility] LEFT PHARYNGEAL MASS PER MRI [id number] 11/12/2017 12:19:00 11/12/2017 13:15:00 DIS Outpatient MANAV CORDOBA MD [facility] PREOP LEFT PHARANGEAL MASS [id number] 08/20/2017 13:00:00 08/20/2017 23:59:59 CLS Preadmit SHAWNA BRO APRN [facility] ASTHMA,DYSPNEA,HTN [id number] 07/23/2017 11:06:00 08/19/2017 00:01:00 DIS Outpatient SHAWNA BRO APRN [facility] ASTHMA,DYSPNEA,HTN [id number] 07/23/2017 13:00:00 07/23/2017 13:50:00 DIS Outpatient SHAWNA BRO APRN [facility] [id number] 04/23/2017 12:25:00 05/20/2017 00:01:00 DIS Outpatient SHAWNA BRO APRN [facility] ASTHMA,DYSPNEA,HTN [id number] 04/15/2017 09:55:00 04/15/2017 23:59:59 CLS Outpatient MANAV CORDOBA MD [facility] RAD K21.9,R13.19 [id number] 03/14/2017 21:00:00 03/15/2017 06:05:00 DIS Outpatient SHAWNA BRO APRN [facility] SLEEP NOCTURNAL HYPOXWMIA, FAUSTINO G47.33 [id number] 01/22/2017 11:18:00 02/16/2017 00:01:00 DIS Outpatient SHAWNA BRO APRN [facility] ASTHMA,DYSPNEA,HTN [id number] 12/18/2016 11:38:00 01/21/2017 00:01:00 DIS Outpatient DAVIDE CASTRO DO [facility] ASTHMA,DYSPNEA,HTN [id number] 11/29/2016 08:08:00 11/29/2016 23:59:59 CLS Outpatient MANAV CORDOBA MD [facility] RAD DYSPHAGIA,REFLUX, FULLNESS @ BASE OF TONGUE [id number] 11/27/2016 10:33:00 11/27/2016 23:59:59 CLS Outpatient MANAV CORDOBA MD [facility] RAD DYSPHAGIA [id number] 09/18/2016 10:52:00 09/23/2016 00:01:00 DIS Outpatient DAVIDE CATSRO DO [facility] ASTHMA,DYSPNEA,HTN [id number] 09/20/2016 08:43:00 09/20/2016 23:59:59 CLS Outpatient SHAWNA BRO APRN [facility] RAD R09.02 HYPOXIA [id number] 09/20/2016 07:09:00 09/20/2016 23:59:59 CLS Outpatient SHAWNA BRO APRN [facility] RT R06.00 J45.909 I26.99 [id number] 09/19/2016 20:30:00 09/20/2016 06:15:00 DIS Outpatient DAVIDE CASTRO DO [facility] SLEEP DYSPNEA [id number] 06/26/2016 08:48:00 06/26/2016 23:59:59 CLS Outpatient TIMOTHY OLVERA [facility] CARD CAROTID ARTERY STENOSIS [id number] 06/19/2016 13:30:00 06/19/2016 23:59:59 CLS Preadmit DAVIDE CASTRO DO [facility] ASTHMA,DYSPNEA,HTN [id number] 05/22/2016 10:10:00 06/18/2016 00:01:00 DIS Outpatient DAVIDE CASTRO DO [facility] ASTHMA,DYSPNEA,HTN [id number] 05/28/2016 11:00:00 05/28/2016 23:59:59 CLS Preadmit JAY AYERS [facility] RAD DSYPHAGIA OTHER [id number] 05/25/2016 11:50:00 05/25/2016 23:59:59 CLS Outpatient SHAWNA BRO APRN [facility] RAD ACUTE PULMONARY EMBOLISM [id number] 05/25/2016 07:58:00 05/25/2016 23:59:59 CLS Outpatient JAY AYERS CERTIFIED MIDWIFE [facility] RAD GLOBUS SENSATION [id number] 05/18/2016 10:58:00 05/18/2016 23:59:59 CLS Outpatient DIEUDONNESHAWNA CORCORAN APRN [facility] RT DYSPNEA [id number] 04/30/2016 06:50:00 04/30/2016 23:59:59 CLS Outpatient CARLY NUÑEZ DO [facility] CARD EXERTIONAL DYSPNEA [id number] 02/21/2016 11:05:00 03/18/2016 00:01:00 DIS Outpatient DAVIDE CASTRO DO [facility] ASTHMA,DYSPNEA,HTN [id number] 01/26/2016 11:09:00 01/28/2016 13:02:00 DIS Inpatient JEWELL ARAUZ MD [facility] 4TH LEFT SHOULDER SOA [id number] 01/11/2016 11:28:00 01/11/2016 14:30:00 DIS Outpatient JEWELL ARAUZ MD [facility] PREOP LEFT SHOULDER SOA [id number] 11/18/2015 11:05:00 11/21/2015 00:01:00 DIS Outpatient DAVIDE CASTRO DO [facility] ASTHMA,DYSPNEA,HTN [id number] 11/02/2015 20:13:00 11/03/2015 06:10:00 DIS Outpatient MANAV CORDOBA MD [facility] SLEEP OBSERVED APNEAS, NOCTURNAL HYPOXEMIA [id number] 07/19/2015 09:22:00 08/22/2015 00:01:00 DIS Outpatient DAVIDE CASTRO DO [facility] ASTHMA,DYSPNEA,HTN [id number] 04/19/2015 08:54:00 05/23/2015 00:01:00 DIS Outpatient DAVIDE CASTRO DO [facility] ASTHMA,DYSPNEA,HTN [id number] 01/18/2015 09:04:00 02/16/2015 00:01:00 DIS Outpatient DAVIDE CASTRO DO [facility] ASTHMA,DYSPNEA,HTN [id number] 02/01/2015 10:17:00 02/01/2015 23:59:59 CLS Outpatient ABDOUL OAKLEY MD [facility] RAD STATUS POST LUMBAR FUSION [id number] 12/21/2014 11:37:00 01/02/2015 00:01:00 DIS Outpatient DAVIDE CASRTO DO [facility] ASTHMA,DYSPNEA,HTN [id number] 07/19/2014 10:30:00 07/19/2014 23:59:59 CLS Inpatient ABDOUL OAKLEY MD [facility] SURGICAL STENOSIS [id number] 07/05/2014 12:00:00 07/05/2014 23:59:59 CLS Outpatient ABDOUL OAKLEY MD [facility] PREOP STENOSIS [id number] 06/22/2014 10:36:00 06/22/2014 23:59:59 CLS Outpatient RAMIRO CRUZ MD [facility] CARD HTN,HLP,LVH, [id number] 06/11/2014 10:39:00 06/11/2014 23:59:59 CLS Outpatient RAMIRO CRUZ MD [facility] CARD HTN,HLP,LVH, [id number] 03/05/2014 10:12:00 03/08/2014 10:50:00 DIS Inpatient CARLY NUÑEZ DO [facility] CSD PNUMONIA [id number] 10/13/2013 13:42:00 10/13/2013 23:59:59 CLS Outpatient ABDOUL OAKLEY MD [facility] RAD LUMBAR DDD [id number] 02/11/2013 10:50:00 05/12/2013 00:01:00 DIS Outpatient WAYNE TORRES MD [facility] ASTHMA [id number] 01/15/2013 10:30:00 03/17/2013 00:01:00 DIS Outpatient WAYNE TORRES MD [facility] ONC [id number] 12/26/2012 08:06:00 12/26/2012 23:59:59 CLS Outpatient JOJO ZUÑIGA MD [facility] SDC SCREENING [id number] 12/18/2012 07:15:00 12/18/2012 23:59:59 CLS Outpatient JOJO ZUÑIGA MD [facility] PREOP SCREENING [id number] 01/07/2018 15:50:00 Document Registration [id number] 01/07/2018 15:50:00 Document Registration [id number] 01/07/2018 15:49:00 Document Registration [id number] 05/13/2013 10:00:00 Document Registration [id number] 03/18/2013 00:00:00 Document Registration [id number] 07/23/2012 08:50:00 Document Registration [id number] 07/08/2012 11:54:00 Document Registration [id number] 07/03/2012 07:04:00 Document Registration [id number] 06/02/2012 14:15:00 Document Registration [id number] 04/14/2012 10:09:00 Document Registration [id number] 09/25/2011 21:20:00 Document Registration [id number] 12/18/2010 08:47:00 Document Registration [id number] 07/19/2010 07:14:00 Document Registration [id number] 03/27/2010 07:20:00 Document Registration [id number] 04/05/2009 13:11:00 Document Registration [id number] 02/22/2015 13:34:28 ACT Document Registration
[2018-01-22] MEDS ORDERED: HEParin 1000 UNIT/ML (10ML VIAL) FOR BOLUS ONE (06:50)
[2018-01-22 07:19] LABS: HEMOGLOBIN 14.5 G/DL (13.3-17.7); MEAN PLATELET VOLUME 8.8 FL (7.4-10.4); RED BLOOD COUNT 4.67 10^6/uL (4.35-5.85); RED CELL DISTRIBUTION WIDTH 13.4 % (10.0-14.5); WHITE BLOOD COUNT 7.1 10^3/uL (4.3-11.0)
[2018-01-22 07:22] LABS: BILIRUBIN,URINE NEGATIVE (NEGATIVE); CLARITY,URINE CLEAR; COLOR,URINE YELLOW; GLUCOSE, URINE (UA) NEGATIVE (NEGATIVE); KETONES,URINE NEGATIVE (NEGATIVE); LEUKOCYTE ESTERASE ,URINE 1+ (NEGATIVE); NITRITE,URINE NEGATIVE (NEGATIVE); PH,URINE 6 (5-9); PROTEIN,URINE 1+ (NEGATIVE); UROBILINOGEN,URINE NORMAL (NORMAL)
--- NOTE | 2018-01-22 07:22 | Diagnostic Imaging Report ---
INDICATION: Preop heart catheter. COMPARISON: 11/12/2017. FINDINGS: There is again noted bilateral basilar atelectasis consistent with Pickwickian appearance. There are no acute infiltrates. Heart is mildly enlarged. There is no pulmonary edema. The upper lungs are clear. IMPRESSION: Persistent basilar atelectasis without acute change. Dictated by: Dictated on workstation # [id number]
[2018-01-22 07:30] LABS: PROTHROMBIN TIME PATIENT 13.6 SEC (12.2-14.7)
[2018-01-22 07:36] LABS: BACTERIA,URINE NEGATIVE /HPF; SQUAMOUS EPITHELIAL CELL,UR RARE /HPF; WBC,URINE RARE /HPF
[2018-01-22 07:39] LABS: ALBUMIN 4.2 GM/DL (3.2-4.5); BILIRUBIN,TOTAL 0.6 MG/DL (0.1-1.0); CALCIUM 9.3 MG/DL (8.5-10.1); CREATININE SERUM 1.5 MG/DL (0.60-1.30); POTASSIUM 3.4 MMOL/L (3.6-5.0); TOTAL PROTEIN 7.4 GM/DL (6.4-8.2)
[2018-01-22] MEDS ORDERED: RESTFUL LEGS PO (07:39)
[2018-01-22] MEDS ORDERED: MIDAZOLAM 5 MG/5 ML (VERSED) VIAL ONE (08:06)
[2018-01-22] MEDS ORDERED: fentaNYL INJECTION 100 MCG/2 ML AMP ONE (08:06)
--- NOTE | 2018-01-22 08:24 | Cardiac Procedure Note-CS/ASA ---
Pre-Procedure Note Pre-Op Procedure Note H&P Reviewed The H&P was reviewed, patient examined and no changes noted. Date H&P Reviewed: Jan 22, 2018 Time H&P Reviewed: 08:24 Conscious Sedation Pre-Proced Time Reviewed: 08:24 ASA Class: 3 Airway Mallampati Classification: ([place] appropriate class) I. II. III, IV Lungs Heart ASA score ASA 1: a normal healthy patient ASA 2: a patient with a mild systemic disease (mid diabetes, controlled hypertension, obesity x ASA 3: a patient with a severe systemic disease that limits activity (angina , COPD, prior Myocardial infarction) ASA 4: a patient with an incapacitating disease that is a constant threat to life (CHF, renal failure) ASA 5: a moribund patient not expected to survive 24 hrs. (ruptured aneurysm) ASA 6: a declared brain patient whose organs are being harvested. For emergent operations, add the letter E after the classification Grade 3 Sedation Plan: Analgesia, Amnesia, Plan communicated to team members, Discussed options with patient/fam, Discussed risks with patient/fam Note The patient is an appropriate candidate to undergo the planned procedure, sedation, and anesthesia. The patient immediately re-assessed prior to indication. RAMIRO CRUZ MD Jan 22, 2018 08:24
[2018-01-22] MEDS ORDERED: NITRO DRIP 25000 MCG/D5W 250 ML IV ONE (08:40)
[2018-01-22] MEDS ORDERED: EPTIFIBATIDE BOLUS 20 ML IV ONE (08:52)
[2018-01-22] MEDS ORDERED: ASPIRIN 325 MG (5 GR) TABLET ONE (09:18)
[2018-01-22] MEDS ORDERED: TICAGRELOR 90 MG TABLET (BRILINTA) PO ONE (09:18)
[2018-01-22] MEDS ORDERED: ANASTROZOLE 1 MG PO SCH (09:30)
[2018-01-22] MEDS ORDERED: NON-FORMULARY MEDICATION 1 EA EA (Testosterone Cypionate 200 MG) INJ SCH (09:30)
[2018-01-22] MEDS ORDERED: [UNRECOGNIZED DRUG - OTHER] PO PRN (09:30)
[2018-01-22] MEDS ORDERED: PATIENT MAY USE OWN MEDS, ALL PO SCH (09:30)
--- NOTE | 2018-01-22 09:33 | Cardiac Cath Report ---
Cardiac Cath Report Physician (s)/Set Up And Charger (s) Physician RAMIRO CRUZ MD Pre-Procedure Diagnosis Pre-Procedure Diagnosis: Coronary artery disease Post-Procedure Note Procedure Start Date: Jan 22, 2018 Name of Procedure: Left heart catheterization Stent to the LAD Findings/Procedure Note PROCEDURE NOTE: After explaining the procedure to the patient, all pros and cons were explained , all questions were answered. The patient signed the consent and then he was placed on the cardiac catheterization laboratory. Groin was prepped SL fashion local anesthesia was used. Sheath placed in the right femoral artery. Alejandra right and left catheter were used to access the coronary system. Long J-wire was used, has tortuous iliac artery, pigtail catheter was not used, JR catheter was advanced to the left ventricular cavity, no left ventriculogram was done, pressure was measured, pullback LV to aorta was done. Patient has severe stenosis at the proximal LAD. Given 6000 units of heparin, double bolus Integrilin. I tried and Voda 3.5 guide without success in intubating the left main, used Voda 4.0 guide, BMW wire was advanced to the distal LAD, I proceeded with primary stenting using Xience Estrella 3 x 15 expanded under 14 karlene to 3.07, angiogram showed excellent results. Patient has mid LAD 50 percent stenosis that appeared to be nonobstructive disease. At the end of the procedure the sheath was removed. Closure device failed to deploy at the right groin, ACT was 200, manual pressure applied FINDINGS: Hemodynamics LV 107/7, end-diastolic pressure of 7 Aorta 114/49 mean of 72 ANATOMY: Left Main is heavily calcified with 40-50 percent ostial left main stenosis Left Anterior Descending calcified proximally, severe stenosis at the proximal portion with successful primary stenting using Xience Estrella 3 x 15 expanded to 3.07 with excellent results, mid LAD has 50 percent stenosis at a trifurcation point, decision to treat it medically Left Circumflex is moderate in size with moderate stenosis distally nonobstructive disease Right Coronory Artery is dominant artery, small to moderate in size with mild disease LV Gram was not done, pressure was measured Aorta angiogram was not done, there are tortuosity noted in the abdominal aorta and iliac artery that will be addressed at a later point CONCLUSION: 1. Severe stenosis at the proximal LAD successful primary stenting using Estrella 315 expanded to 3.07 2. Mild to moderate stenosis in the mid LAD at a trifurcation point that will be treated conservatively and monitor closely 3. Heavily calcified left main with ostial 40-50 percent stenosis 4. Mild to moderate disease in the circumflex artery, mild disease in the right coronary artery 5. Normal left ventricular end-diastolic pressure 6. Tortuous abdominal aorta and iliac artery, did not do angiogram to limit the contrast exposure DISCUSSION AND RECOMMENDATION: Continue to maximize medical therapy and monitor closely Anesthesia Type: Conscious Sedation Estimated blood loss (mL): 25 ml Contrast Amount: 209 ml Total Radiation Dose: 1683 mGy Post-Procedure Diagnosis Post-operative diagnosis: Coronary artery disease Malignant hypertension Hyperlipidemia Peripheral arterial disease RAMIRO CRUZ MD Jan 22, 2018 09:33
[2018-01-22] MEDS ORDERED: NON-FORMULARY MEDICATION 1 EA EA (Hydrochlorothiazide 25 MG) PO SCH (12:00)
[2018-01-22] MEDS ORDERED: LOSARTAN 100 MG (COZAAR) TABLET PO SCH ×2 (12:00→16:15)
[2018-01-22] MEDS: NS IV 1000 ML 1,000 ML IV SCH ×5 (13:15→23:27)
[2018-01-22] MEDS ORDERED: HYDROCHLOROTHIAZIDE 25 MG (HCTZ) TAB PO SCH ×2 (15:00→16:15)
[2018-01-22] MEDS ORDERED: OMAL150V SQ (15:21)
[2018-01-22] MEDS ORDERED: PATIENT MAY USE OWN MEDS, ALL MC SCH (15:30)
[2018-01-22] MEDS ORDERED: TERAZOSIN 10 MG CAPSULE PO SCH (18:30)
[2018-01-22] MEDS ORDERED: NON-FORMULARY MEDICATION 1 EA EA (Benazepril HCl 40 MG) PO SCH (18:30)
[2018-01-22] MEDS ORDERED: lisINopril 40 MG (PRINIVIL) TABLET PO SCH (18:30)
[2018-01-22] MEDS ORDERED: BENAZEPRIL 40 MG TABLET PO SCH (18:30)
[2018-01-22] MEDS ORDERED: TERAZOSIN 5 MG (HYTRIN) CAPSULE PO SCH (18:30)
[2018-01-22] MEDS ORDERED: NON-FORMULARY MEDICATION 1 EA EA (Terazosin HCl 10 MG) PO SCH (18:30)
[2018-01-22] MEDS: TICAGRELOR 90 MG TABLET (BRILINTA) PO SCH (19:59)
[2018-01-22] MEDS ORDERED: RT-ADVAIR HFA 115/21 MCG PER PUFF IH SCH (20:00)
[2018-01-22] MEDS ORDERED: NON-FORMULARY MEDICATION 1 EA EA (Omeprazole 40 MG) PO SCH (21:00)
[2018-01-22] MEDS ORDERED: PRAMIPEXOLE 0.125 MG (MIRAPEX) TABLET PO SCH (21:00)
[2018-01-22] MEDS ORDERED: PANTOPRAZOLE 40 MG (PROTONIX) TAB PO SCH (21:00)
[2018-01-22] MEDS ORDERED: NON-FORMULARY MEDICATION 1 EA EA (Budesonide/Formoterol Fumarate (Symbicort 160-4.5 Mcg In IH SCH (21:00)
[2018-01-22] MEDS ORDERED: OMEPRAZOLE 40 MG CAPSULE PO SCH (21:00)
[2018-01-23 00:08] VITALS: BP 118/66
[2018-01-23 04:45] VITALS: BP 123/60
[2018-01-23 05:38] LABS: HEMOGLOBIN 13.4 G/DL (13.3-17.7); RED BLOOD COUNT 4.29 10^6/uL (4.35-5.85); RED CELL DISTRIBUTION WIDTH 13.2 % (10.0-14.5); WHITE BLOOD COUNT 7.7 10^3/uL (4.3-11.0)
[2018-01-23 05:58] LABS: CREATININE SERUM 1.35 MG/DL (0.60-1.30); POTASSIUM 3.3 MMOL/L (3.6-5.0)
[2018-01-23] MEDS: NS IV 1000 ML 1,000 ML IV SCH (06:45)
[2018-01-23] MEDS ORDERED: KCL 10 MEQ TAB (MICRO K) PO SCH (07:00)
[2018-01-23] MEDS ORDERED: GLIMEPIRIDE 2 MG (AMARYL) TAB PO SCH (07:00)
[2018-01-23 07:29] VITALS: BP 135/77
[2018-01-23] MEDS ORDERED: TICA90TA PO (07:30)
--- NOTE | 2018-01-23 07:31 | Discharge Inst-Post CATH ---
Discharge Inst-CATH Post Cardiac Cath D/C Inst Follow Up/Plan Hold metformin for [address] Corona's office in 2-4 weeks CARDIAC CATH DISCHARGE INSTRUCTIONS *Hold Metformin for 48 hours post heart cath. ACTIVITY * Go Home directly and rest. * Limit activity of the leg (or wrist if it was used) for 7 days including aerobics, swimming, jogging, bicycling, etc. * Restrict stair-climbing for 7 days if possible, if not, climb up with your non -cath leg, then bring together on the same step. * Avoid lifting, pushing, pulling or excessive movement of the affected extremity for 7 days. * Customary sexual activity may be resumed after 2 days-use caution not to use a position that strains or causes pain to the affected extremity. * No driving for 24 hours. * NO SMOKING. * Avoid straining for bowel movements for 7 days. * Gentle walking on level ground is allowed. * Returning to work will depend on the type of procedure and the results. Your doctor will discuss this with you. CALL YOUR DOCTOR FOR ANY OF THE FOLLOWING: *If bleeding from the puncture site occurs- Apply gentle pressure to site with clean cloth and call your doctor or EMS. * If a knot or lump forms under the skin, increases in size, or causes pain. * If bruising appears to be worsening or moving further down your leg instead of disappearing. * Temperature above 101 F. CARE OF YOUR GROIN INCISION; * Bruising or purple discoloration of the skin near the puncture site is common. * You may shower only, no bathtub bathing for 5 days. Be careful to avoid slipping as your leg may feel stiff. * If a closure device was used on your femoral artery, please see the attached guide regarding care of the device and your leg. * REMOVE the dressing from your groin the next day after your procedure in the shower. CARE OF YOUR WRIST INCISION; * Bruising or purple discoloration of the skin near the puncture site is common. * You may shower. * DO NOT submerge wrist. * Remove dressing in 24 hours. RAMIRO CORONA MD Jan 23, 2018 07:31
--- NOTE | 2018-01-23 07:34 | Cardiology Progress Note ---
Subjective Date Seen by Provider: Jan 23, 2018 Time Seen by Provider: 07:32 Subjective/Events-last exam Patient is laying down in bed, having bruising on his right groin, denied any chest pain or shortness of breath. Review of Systems General: No Chills, No Night Sweats, No Fatigue, No Malaise, No Appetite, No Other HEENT: No Head Aches, No Visual Changes, No Eye Pain, No Ear Pain, No Dysphasia , No Sinus Congestion, No Post Nasal Drip, No Sore Throat, No Other Pulmonary: No Dyspnea, No Cough, No Pleuritic Chest Pain, No Other Cardiovascular: No: Chest Pain, Palpitations, Orthopnea, Paroxysmal Noc. Dyspnea, Edema, Lt Headedness, Other Objective-Cardiology Exam Last Set of Vital Signs Vital Signs 01/23/18 07:29 Temp 98.2 Pulse 80 Resp 18 B/P (MAP) 135/77 (96) Pulse Ox 94 O2 Delivery Nasal Cannula O2 Flow Rate 2.00 Capillary Refill : Less Than 3 Seconds I&O Intake and Output 01/23/18 00:00 Intake Total 2000 ml Output Total 1400 ml Balance 600 ml Intake Oral 1000 ml IV Total 1000 ml Output Urine Total 1400 ml # Bowel Movements 2 General: Alert, Oriented X3, Cooperative HEENT: Atraumatic, PERRLA Neck: Supple, No JVD, No Thyromegaly Lungs: Clear to Auscultation, Normal Air Movement Heart: Regular Rate, Normal S1, Normal S2, No Murmurs Abdomen: Normal Bowel Sounds, Soft, No Tenderness, No Hepatosplenomegaly, No Masses Extremities: No Clubbing, No Cyanosis, No Edema, Normal Pulses, No Tenderness/ Swelling Skin: No Rashes, No Breakdown, No Significant Lesion Neuro: Normal Gait, Normal Speech, Strength at 5/5 X4 Ext, Normal Tone, Sensation Intact Psych/Mental Status: Mental Status NL, Mood NL Results Lab Laboratory Tests 01/23/18 05:20 A/P-Cardiology Admission Diagnosis Coronary artery disease Hypertension Hyperlipidemia Diabetes mellitus Assessment/Plan Chest pain nonspecific etiology, no further episodes were reported Coronary artery disease status post cardiac catheterization and stenting 1. Severe stenosis at the proximal LAD successful primary stenting using Estrella 315 expanded to 3.07 2. Mild to moderate stenosis in the mid LAD at a trifurcation point that will be treated conservatively and monitor closely 3. Heavily calcified left main with ostial 40-50 percent stenosis 4. Mild to moderate disease in the circumflex artery, mild disease in the right coronary artery 5. Normal left ventricular end-diastolic pressure 6. Tortuous abdominal aorta and iliac artery, did not do angiogram to limit the contrast exposure Hypertension, restart home medication and monitor next Hyperlipidemia, monitor lipid Diabetes mellitus, hold metformin for 48 hours RMAIRO CRUZ MD Jan 23, 2018 07:33
[2018-01-23] MEDS: TICAGRELOR 90 MG TABLET (BRILINTA) PO SCH (08:41)
[2018-01-23] MEDS ORDERED: FUROSEMIDE 20 MG (LASIX) TAB PO SCH ×2 (09:00)
[2018-01-23] MEDS ORDERED: ROSUVASTATIN 5 MG (CRESTOR) TABLET PO SCH ×2 (09:00)
[2018-01-23] MEDS ORDERED: ASPIRIN E.C. 81 MG (ECOTRIN) TAB PO SCH (09:00)
[2018-01-23] MEDS ORDERED: ESCITALOPRAM 10 MG TAB PO SCH (09:00)
[2018-01-23] MEDS ORDERED: MONTELUKAST 10 MG (SINGULAIR) TAB PO SCH ×2 (09:00)
[2018-01-23] MEDS ORDERED: NON-FORMULARY MEDICATION 1 EA EA (Amlodipine Besylate 10 MG) PO SCH (09:00)
[2018-01-23] MEDS ORDERED: DONEPEZIL 10 MG (ARICEPT) TAB PO SCH ×2 (09:00)
[2018-01-23] MEDS ORDERED: NON-FORMULARY MEDICATION 1 EA EA (Donepezil HCl 10 MG) PO SCH (09:00)
[2018-01-23] MEDS ORDERED: meTOproloL SUCCINATE 50 MG (TOPROL XL) TAB PO SCH (09:00)
[2018-01-23] MEDS ORDERED: NON-FORMULARY MEDICATION 1 EA EA (Escitalopram Oxalate 10 MG) PO SCH (09:00)
[2018-01-23] MEDS ORDERED: NON-FORMULARY MEDICATION 1 EA EA (Potassium Chloride 10 MEQ) PO SCH (09:00)
[2018-01-23] MEDS ORDERED: amLODIPine 10 MG (NORVASC) TAB PO SCH ×2 (09:00)
== END 2018-01-23 11:20 | disposition home or self-care (01) ==
LOC: CATH 06:38 → SURG 09:55 → 4TH 13:52 → CATH 01-23 11:20
PROVIDERS: ATTEND Internal Medicine Cardiovascular Disease
DX: I25.10 Atherosclerotic heart disease of native coronary artery without angina pectoris (principal); I10 Essential (primary) hypertension; E78.5 Hyperlipidemia, unspecified; I73.9 Peripheral vascular disease, unspecified; I44.4 Left anterior fascicular block; I65.23 Occlusion and stenosis of bilateral carotid arteries; E11.9 Type 2 diabetes mellitus without complications; J44.9 Chronic obstructive pulmonary disease, unspecified; G47.33 Obstructive sleep apnea (adult) (pediatric); R06.09 Other forms of dyspnea; R60.0 Localized edema; E66.01 Morbid (severe) obesity due to excess calories; Z68.38 Body mass index [BMI] 38.0-38.9, adult; Z86.711 Personal history of pulmonary embolism; Z79.01 Long term (current) use of anticoagulants; Z79.82 Long term (current) use of aspirin; Z79.84 Long term (current) use of oral hypoglycemic drugs
CPT/HCPCS: 36415; 71045; 80048; 80053; 80061; 81000; 85027; 85610; 85730; 87081; 93005; 93458

== ENCOUNTER → 2018-03-10 | Outpatient (CLI) | payer MEDICARE, OTHER ==
[~2018-03-10] MED LIST changes: +RESTFUL LEGS PO; +TICA90TA PO
--- NOTE | 2018-03-10 12:38 | Diagnostic Imaging Report ---
PROCEDURE: US DOPPLER ABD/COMPLETE TECHNIQUE: Multiple real-time grayscale images were obtained over the kidneys in various projections. Duplex evaluation of renal arteries was also attempted. INDICATION: Renal insufficiency. FINDINGS: The right kidney measures 11.8 x 5.6 x 6.2 cm and the left kidney measures 11.3 x 4.8 x 4.2 cm. Cortical thickness and echogenicity is normal. There is a large cyst involving the upper pole of the right kidney measuring approximately 9 cm in diameter. No calculi or hydronephrosis is seen. Renal Doppler was attempted. Study is compromised due to overlying bowel gas. The proximal and mid right renal artery cannot be visualized. The distal right renal artery is unremarkable. The proximal left renal artery was not visualized. Mid and distal left renal artery are unremarkable. Waveforms are unremarkable. IMPRESSION: 1. Large simple right renal cyst. 2. No evidence of renal calculi or hydronephrosis. 3. Limited Doppler of the renal arteries, described above. No definite findings to suggest renal artery stenosis are seen. Dictated by: Dictated on workstation # [id number]
== END ==
LOC: RAD 08:56
PROVIDERS: ATTEND Urology
DX: N28.1 Cyst of kidney, acquired (principal)
CPT/HCPCS: 93975

== ENCOUNTER 2018-04-22 11:20 | Outpatient (RCR) | payer MEDICARE, OTHER ==
[2018-02-18] MEDS: OMALIZUMAB SUB-Q 150 MG (XOLAIR) VIAL SQ SCH (10:36)
[2018-02-18 10:37] VITALS: BP 119/72
[2018-03-25 10:05] VITALS: BP 107/66
[2018-03-25] MEDS: OMALIZUMAB SUB-Q 150 MG (XOLAIR) VIAL SQ SCH (11:05)
[~2018-04-22] VITALS: Ht 170.2 cm; Wt 111.1 kg
[2018-04-22] MEDS: OMALIZUMAB SUB-Q 150 MG (XOLAIR) VIAL SQ SCH (12:06)
[2018-04-22 12:15] VITALS: BP 124/72
== END 2018-05-19 | disposition home or self-care (01) ==
LOC: SDC 11:20
PROVIDERS: ATTEND Internal Medicine Critical Care Medicine
DX: J45.909 Unspecified asthma, uncomplicated (principal); R06.00 Dyspnea, unspecified
CPT/HCPCS: 96372

== ENCOUNTER → 2018-08-19 | Outpatient (RCR) | payer MEDICARE, OTHER ==
[2018-05-21 10:25] VITALS: BP 130/64
[2018-05-21] MEDS: OMALIZUMAB SUB-Q 150 MG (XOLAIR) VIAL SQ SCH (11:51)
[2018-06-24 11:15] VITALS: BP 135/76
[2018-06-24] MEDS: OMALIZUMAB SUB-Q 150 MG (XOLAIR) VIAL SQ SCH (11:17)
[2018-07-22] MEDS: OMALIZUMAB SUB-Q 150 MG (XOLAIR) VIAL SQ SCH (11:10)
[2018-07-22 11:15] VITALS: BP 130/69
[~2018-08-19] VITALS: Ht 170.2 cm; Wt 112.5 kg
[~2018-08-19] MED LIST changes: -AMLO10TA6 PO; +AMLO10TA7 PO; +LOSA100T57 PO; -LOSA100T8 PO; +OMALIZUMAB SUB-Q 150 MG (XOLAIR) VIAL SQ SCH
[2018-08-19 11:50] VITALS: BP 121/73
== END | disposition home or self-care (01) ==
LOC: SDC 05-21 10:20
PROVIDERS: ATTEND Nurse Practitioner Family
DX: J45.909 Unspecified asthma, uncomplicated (principal); R06.00 Dyspnea, unspecified
CPT/HCPCS: 96372

== ENCOUNTER → 2018-08-20 | Outpatient (CLI) | payer MEDICARE, OTHER ==
[~2018-08-20] MED LIST changes: +CATHETER FLUSH 10 ML SYR IV PRN; -OMALIZUMAB SUB-Q 150 MG (XOLAIR) VIAL SQ SCH; +REGADENOSON 0.4 MG/5 ML SYR (LEXISCAN) IV ONE
[2018-08-20 12:54] VITALS: BP 154/78
[2018-08-20 12:59] VITALS: BP 160/87
--- NOTE | 2018-08-20 15:19 | STRESS TEST ---
DATE OF SERVICE: 08/20/2018 LEXISCAN MYOVIEW STRESS TEST REPORT REFERRING PHYSICIAN: Dr. Gutierrez. Baseline heart rate is 63. Baseline blood pressure 154/78. Baseline EKG is sinus rhythm with no ischemic changes. In summary, the patient was injected with 10.96 mCi of technetium-99 Myoview and the resting images were obtained. Then, the patient received 0.4 mg of Lexiscan followed by 30.3 mCi of technetium-99 Myoview. Throughout the test, there were no EKG changes. The resting and stress images were reviewed and compared in the short axis, horizontal long axis, and vertical long axis views. Review of the images showed diaphragmatic attenuation with typical male pattern. There is no significant ischemia or infarction was seen. SSS is 4, SDS is 4, TID value 1.02. On the gated images, the left ventricle appeared to be normal size with normal contractility. Calculated ejection fraction 73%. CONCLUSION: 1. The patient tolerated Lexiscan well. 2. Diaphragmatic attenuation affecting the quality of the images with no significant ischemia or infarction on SPECT images. 3. Normal left ventricular size with normal contractility. Calculated ejection fraction 73%. Job ID: [id number] DocumentID: [id number] Dictated Date: 08/20/2018 14:59:54 Senior Applications Developer Date: 08/20/2018 15:19:05 Dictated By: RAMIRO CRUZ MD
== END ==
LOC: CARD 10:27
PROVIDERS: ATTEND Internal Medicine Cardiovascular Disease
DX: I25.10 Atherosclerotic heart disease of native coronary artery without angina pectoris (principal); I10 Essential (primary) hypertension; I44.4 Left anterior fascicular block; E78.5 Hyperlipidemia, unspecified; R06.09 Other forms of dyspnea
CPT/HCPCS: 78452; 93017

== ENCOUNTER 2018-11-18 10:12 | Outpatient (RCR) | payer MEDICARE, OTHER ==
[2018-09-23 10:50] VITALS: BP 138/77
[2018-09-23] MEDS: OMALIZUMAB SUB-Q 150 MG (XOLAIR) VIAL SQ SCH (11:15)
[2018-10-21 10:55] VITALS: BP 149/83
[2018-10-21] MEDS: OMALIZUMAB SUB-Q 150 MG (XOLAIR) VIAL SQ SCH (10:55)
[~2018-11-18] VITALS: Ht 170.2 cm; Wt 112.5 kg
[2018-11-18 10:10] VITALS: BP 130/77
[~2018-11-18 10:12] MED LIST changes: -CATHETER FLUSH 10 ML SYR IV PRN; -REGADENOSON 0.4 MG/5 ML SYR (LEXISCAN) IV ONE
[2018-11-18] MEDS: OMALIZUMAB SUB-Q 150 MG (XOLAIR) VIAL SQ SCH (10:45)
== END 2018-12-22 | disposition home or self-care (01) ==
LOC: SDC 10:12
PROVIDERS: ATTEND Nurse Practitioner Family
DX: J45.909 Unspecified asthma, uncomplicated (principal); R06.00 Dyspnea, unspecified
CPT/HCPCS: 96372

== ENCOUNTER 2019-02-17 12:02 | Outpatient (RCR) | payer MEDICARE, OTHER ==
[2018-12-23 11:45] VITALS: BP 141/84
[2018-12-23] MEDS: OMALIZUMAB SUB-Q 150 MG (XOLAIR) VIAL SQ SCH (12:05)
[2019-01-20] MEDS: OMALIZUMAB SUB-Q 150 MG (XOLAIR) VIAL SQ SCH (11:52)
[2019-01-20 11:57] VITALS: BP 159/95
[~2019-02-17] VITALS: Ht 170.2 cm; Wt 112.7 kg
[2019-02-17 12:02] VITALS: BP 132/81
[2019-02-17] MEDS ORDERED: OMALIZUMAB SUB-Q 150 MG (XOLAIR) VIAL SQ SCH (12:55)
[2019-02-17] MEDS: OMALIZUMAB SUB-Q 150 MG (XOLAIR) VIAL SQ SCH (13:15)
== END 2019-03-23 | disposition home or self-care (01) ==
LOC: SDC 12:02
PROVIDERS: ATTEND Internal Medicine Critical Care Medicine
DX: J45.909 Unspecified asthma, uncomplicated (principal)
CPT/HCPCS: 96372

== ENCOUNTER 2019-05-26 11:31 | Outpatient (RCR) | payer MEDICARE, OTHER ==
[2019-03-24] MEDS: OMALIZUMAB SUB-Q 150 MG (XOLAIR) VIAL SQ SCH (11:02)
[2019-03-24 11:05] VITALS: BP 136/84
[2019-04-21 10:55] VITALS: BP 148/85
[2019-04-21] MEDS: OMALIZUMAB SUB-Q 150 MG (XOLAIR) VIAL SQ SCH (11:11)
[~2019-05-26] VITALS: Ht 177.8 cm; Wt 112.7 kg
[2019-05-26 11:30] VITALS: BP 147/95
[~2019-05-26 11:31] MED LIST changes: +GLIM2TAB2 PO; -INDO50CA11 PO; +INDO50CA82 PO; -METO-370 PO; +METO50TA7 PO; +OMEP40CA27 PO; +TRM50T PO
[2019-05-26] MEDS: OMALIZUMAB SUB-Q 150 MG (XOLAIR) VIAL SQ SCH (12:00)
[2019-05-28] MEDS ORDERED: SCOPOLAMINE 1.5 MG (TRANSDERM-SCOP) PATCH ONE (06:42)
[2019-05-28] MEDS ORDERED: ONDANSETRON 4 MG/2 ML (SDV) Z0FRAN ONE (06:42)
== END 2019-06-22 | disposition home or self-care (01) ==
LOC: SDC 11:31
PROVIDERS: ATTEND Nurse Practitioner Family
DX: J45.909 Unspecified asthma, uncomplicated (principal)
CPT/HCPCS: 96372

== ENCOUNTER 2019-07-21 11:14 | Outpatient (RCR) | payer MEDICARE ==
[2019-06-23 11:25] VITALS: BP 160/87
[2019-07-21 11:13] VITALS: BP 147/87
[~2019-07-21 11:14] MED LIST changes: -GLIM2TAB2 PO; +GLIM2TAB4 PO; +MONT10TA26 PO; +OMALIZUMAB SUB-Q 150 MG (XOLAIR) VIAL SQ SCH
[2019-07-21] MEDS ORDERED: OMALIZUMAB SUB-Q 150 MG (XOLAIR) VIAL SQ SCH (11:30)
== END 2019-09-21 | disposition home or self-care (01) ==
LOC: SDC 11:14
PROVIDERS: ATTEND Nurse Practitioner Family
DX: J45.909 Unspecified asthma, uncomplicated (principal)
CPT/HCPCS: 96372

== ENCOUNTER → 2020-10-20 | Outpatient (CLI) | payer MEDICARE ==
[~2020-10-20] MED LIST changes: +AMLO-251 PO; -AMLO10TA7 PO; +ASCO100024 PO; -ASCO10006 PO; +CLOP75TA28; +EMPA10TA; +ESCI-2 PO; -ESCI10TA55 PO; -MONT10TA26 PO; +MONT10TA32 PO; -OMALIZUMAB SUB-Q 150 MG (XOLAIR) VIAL SQ SCH; +PANT40TA52; +POTA20TA15
== END ==
LOC: CARD 13:00
PROVIDERS: ATTEND Internal Medicine Cardiovascular Disease
DX: I11.9 Hypertensive heart disease without heart failure (principal); I34.0 Nonrheumatic mitral (valve) insufficiency; I25.10 Atherosclerotic heart disease of native coronary artery without angina pectoris
CPT/HCPCS: 93306

== ENCOUNTER → 2021-11-01 | Outpatient (CLI) | payer MEDICARE ==
[~2021-11-01] MED LIST changes: -BENA40TA5 PO; +BENA40TA84 PO; +CATHETER FLUSH 10 ML SYR IVP PRN; +CYCL10TA25 PO; +MONT-40 PO; -MONT10TA32 PO; -OMEP40CA27 PO; +OMEP40CA6 PO; +POTA-179; -POTA20TA15; +REGADENOSON 0.4 MG/5 ML SYR (LEXISCAN) IV ONE
[2021-11-01 09:32] VITALS: BP 195/95
--- NOTE | 2021-11-06 08:23 | Cardiology Stress Test Report ---
Stress Test Report Date of Procedure/Referring: Date of Procedure: Nov 01, 2021 PCP Carly Gutierrez DO Admitting Physician Admitting Physician: Attending Physician: Suzy Lebron Indications: HTN Baseline Heart Rate: 76 Baseline Blood Pressure: Blood Pressure Systolic: 195 Blood Pressure Diastolic: 95 Baseline Vitals Vital Signs Date Time Temp Pulse Resp B/P (MAP) Pulse Ox O2 Delivery O2 Flow Rate FiO2 11/01/21 09:32 69 195/95 (128) 97 Baseline EKG: Baseline EKG: NSR Summary After explaining the procedure to the patient, he signed a consent and then brought to the stress nuclear laboratory. Patient received 0.4 mg Lexiscan for stress test, ECG, heart rate and blood pressure were monitored continuously. Resting and stress dose of radio tracer were injected, imaging was acquired and reviewed in short axis, horizontal long axis and vertical long axis views. TID: 1.02 SSS: 4 SDS: 2 EF: 69 1. Patient tolerated Lexiscan well 2. Baseline hypertension persisted during test 3. No significant ischemia or infarction on SPECT images 4. Normal left ventricular size, ejection fraction 69% Copy Copies To 1: CARLY GUTIERREZ BASHAR J MD Nov 06, 2021 08:23
== END ==
LOC: CARD 08:00
PROVIDERS: ATTEND Physician Assistant
DX: I10 Essential (primary) hypertension (principal); I25.10 Atherosclerotic heart disease of native coronary artery without angina pectoris
CPT/HCPCS: 78452; 93017

== ENCOUNTER → 2022-05-03 | Outpatient (CLI) | payer MEDICARE ==
[~2022-05-03] MED LIST changes: -CATHETER FLUSH 10 ML SYR IVP PRN; -REGADENOSON 0.4 MG/5 ML SYR (LEXISCAN) IV ONE
== END ==
LOC: CARD 13:30
PROVIDERS: ATTEND Internal Medicine Cardiovascular Disease
DX: I25.10 Atherosclerotic heart disease of native coronary artery without angina pectoris (principal); I11.9 Hypertensive heart disease without heart failure
CPT/HCPCS: 93306

== ENCOUNTER 2023-01-19 07:08 | Inpatient (IN) | payer MEDICARE ==
[~2023-01-19] VITALS: Ht 170 cm; Wt 110.0 kg
[~2023-01-19 07:08] MED LIST changes: -CLOP75TA28; +CLOP75TA28 PO; -LOSA100T57 PO; +LOSA100T58 PO; -PANT40TA52; +PANT40TA52 PO; -POTA-179; +POTA-179 PO; -POTA10CA43 PO; +POTA10CA84 PO
--- NOTE | 2023-01-19 07:30 | ED General ---
General Chief Complaint: Trauma-Non Activation Stated Complaint: HEADACHE,FALLS,NAUSEA Nursing Triage Note: see triage History of Present Illness Date Seen by Provider: Jan 19, 2023 Time Seen by Provider: 07:09 Initial Comments 77-year-old male with PMH of HTN/DM/COPD, and is supposed to be on home oxygen and CPAP but patient does not use it/non-smoker, is accompanied by his branch mechanic who knows the patient well and has been with him, and sees him every day for the past 7 years. Patient is here with complaints of generalized weakness, recurrent falls for the past week. Patient also started getting a headache today and feeling nauseous. Patient has a cane at home but he never uses it. Patient is able to drive and drove himself to the's [facility] [employer] home today and said he needs help going to the ER because he was not feeling well. Patient had a couple falls yesterday evening but denies head strike or loss of consciousness. Patient has not taken his morning medications today. Denies fever and chills, URI symptoms, cough, shortness of breath, chest pain, diarrhea, vomiting, dizziness. Allergies and Home Medications Allergies Coded Allergies: adhesive (Verified Allergy, Unknown, 01/26/16) fish oil (Verified Allergy, Unknown, 01/26/16) telmisartan (Verified Adverse Reaction, Mild, diarrhea, 01/26/16) pravastatin (Verified Adverse Reaction, Unknown, weakness, 01/26/16) Patient Home Medication List Home Medication List Reviewed: Yes Amlodipine Besylate (Amlodipine Besylate) 10 Mg Tablet, 10 MG PO DAILY, (Reported) Entered as Reported by: PAULINE STRANGE on 01/26/16 1242 Anastrozole (Anastrozole) 1 Mg Tablet, 0.5 MG PO MONTHLY, (Reported) Entered as Reported by: PAULINE STRANGE on 01/26/16 1249 Aspirin (Aspir 81) 81 Mg Tablet.dr, 81 MG PO DAILY, (Reported) Entered as Reported by: JI DIAZ on 01/11/16 1204 Benazepril HCl (Benazepril HCl) 40 Mg Tab, 40 MG PO DAILY@1830, (Reported) Entered as Reported by: PAULINE STRANGE on 01/26/16 1242 Budesonide/Formoterol Fumarate (Symbicort 160-4.5 Mcg Inhaler) 10.2 Gm Hfa.aer.ad, 2 PUFF IH BID, (Reported) Entered as Reported by: PAULINE STRANGE on 01/26/16 124 Cartilage/Collagen/Bor/Hyalur (Move Free Ultra Tablet) 1 Each Tablet, 1 TAB PO DAILY, (Reported) Entered as Reported by: JI DIAZ on 01/11/16 1204 Clopidogrel Bisulfate (Clopidogrel) 75 Mg Tablet, (Reported) Entered as Reported by: CANDELARIO OLIVEIRA on 01/03/20 1105 Cyanocobalamin (Cyanocobalamin Injection) 1,000 Mcg/Ml Inj, 1,000 MCG INJ MONTHLY, (Reported) Entered as Reported by: PAULINE STRANGE on 01/26/16 124 Donepezil HCl (Donepezil HCl) 10 Mg Tablet, 10 MG PO DAILY, (Reported) Entered as Reported by: PAULINE STRANGE on 01/26/16 124 Empagliflozin (Jardiance) 10 Mg Tablet, (Reported) Entered as Reported by: CANDELARIO OLIVEIRA on 01/03/20 1105 Escitalopram Oxalate (Escitalopram Oxalate) 10 Mg Tablet, 10 MG PO DAILY, (Reported) Entered as Reported by: JI DIAZ on 01/11/16 1204 Furosemide (Furosemide) 20 Mg Tablet, 20 MG PO DAILY, (Reported) Entered as Reported by: PAULINE STRANGE on 01/26/16 124 Glimepiride (Glimepiride) 2 Mg Tablet, 2 MG PO DAILY, (Reported) Entered as Reported by: PAULINE STRANGE on 01/26/16 124 Losartan Potassium (Losartan Potassium) 100 Mg Tablet, 100 MG PO DAILY@1200, (Reported) Entered as Reported by: PAULINE STRANGE on 01/26/16 124 Metoprolol Succinate (Metoprolol Succinate) 50 Mg Tab.er.24h, 50 MG PO DAILY, (Reported) Entered as Reported by: PAULINE STRANGE on 01/26/16 124 Montelukast Sodium (Montelukast Sodium) 10 Mg Tablet, 10 MG PO DAILY, (Reported) Entered as Reported by: PAULINE STRANGE on 01/26/16 124 Omalizumab (Xolair) 150 Mg Susi, SQ MONTHLY, (Reported) Entered as Reported by: AMANDEEP LINARES on 01/22/18 1521 Omeprazole (Omeprazole) 40 Mg Capsule.dr, 40 MG PO HS, (Reported) Entered as Reported by: PAULINE STRANGE on 01/26/16 1242 Pantoprazole Sodium (Pantoprazole Sodium) 40 Mg Tablet.dr, (Reported) Entered as Reported by: CANDELARIO OLIVEIRA on 01/03/20 1105 Potassium Chloride (Potassium Chloride) 20 Meq Tab.er.prt, (Reported) Entered as Reported by: CANDELARIO OLIVEIRA on 01/03/20 1105 Pramipexole (Mirapex) 0.125 Mg Tablet, 0.125 MG PO HS, (Reported) Entered as Reported by: MAHI TRISTAN on 11/12/17 1324 Rosuvastatin Calcium (Crestor) 5 Mg Tablet, 5 MG PO DAILY, (Reported) Entered as Reported by: JI DIAZ on 01/11/16 1204 Terazosin HCl (Terazosin HCl) 10 Mg Capsule, 10 MG PO DAILY@1830, (Reported) Entered as Reported by: PAULINE STRANGE on 01/26/16 1242 Testosterone Cypionate (Testosterone Cypionate) 200 Mg/1 Ml Vial, 200 MG INJ MONTHLY, (Reported) Entered as Reported by: PAULINE STRANGE on 01/26/16 1242 Tramadol HCl (Tramadol HCl) 50 Mg Tablet, 50 MG PO QID PRN for PAIN-MILD TO MODERATE, (Reported) Entered as Reported by: MAHI TRISTAN on 11/12/17 1325 [Restful Legs] , 1 TAB PO PRN PRN for RESTLESS LEGS, (Reported) Entered as Reported by: JILLIAN LONG on 01/22/18 0739 Review of Systems Review of Systems Constitutional: malaise EENTM: no symptoms reported Respiratory: no symptoms reported Cardiovascular: no symptoms reported Gastrointestinal: no symptoms reported Genitourinary: no symptoms reported Musculoskeletal: no symptoms reported Skin: no symptoms reported Psychiatric/Neurological: Headache Hematologic/Lymphatic: No Symptoms Reported Immunological/Allergic: no symptoms reported Past Mgqikrr-Dzsguw-Ebzxyx Hx Patient Social History Tobacco Use?: No Substance use?: No Alcohol Use?: No Pt feels they are or have been: No Immunizations Up To Date Tetanus Booster (TDap): Unknown Seasonal Allergies Seasonal Allergies: Yes Past Medical History Surgery/Hospitalization HX: DM Surgeries: Yes (BACK x4, RIGHT CARPAL AND CUBITAL TUNNEL, KNEE SCOPE, LUMBAR SPINE, ) Adenoidectomy, Tonsillectomy Respiratory: Yes ("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") Asthma, Sleep Apnea, COPD Currently Using CPAP: Yes Cardiac: Yes High Cholesterol, Hypertension Neurological: Yes Neuropathy, TIA Reproductive Disorders: No Sexually Transmitted Disease: No HIV/AIDS: No Benign Prostatic Hyperpl Gastrointestinal: Yes Gastroesophageal Reflux Musculoskeletal: Yes (STENOSIS, OSTEOARTHRITIS) Arthritis, Chronic Back Pain Endocrine: Yes Diabetes, Non-Insulin dep HEENT: Yes Loss of Vision: Bilateral Hearing Impairment: Hard of Hearing, Bilateral Hearing Aide Cancer: No Psychosocial: No Integumentary: No Blood Disorders: No Adverse Reaction/Blood Tranf: No Family Medical History Cardiovascular disease 19 FATHER 19 MOTHER Dementia 19 MOTHER FH: pulmonary embolism 19 FATHER Hypertension 19 FATHER 19 MOTHER Kidney disease 19 FATHER Prostate cancer 19 FATHER Physical Exam Vital Signs Vital Signs - First Documented 01/19/23 07:15 Temp 37.2 Pulse 115 Resp 20 B/P (MAP) 187/112 (137) Pulse Ox 94 O2 Delivery Nasal Cannula Capillary Refill : Height, Weight, BMI Height: 5'7.00" Weight: 248lbs. 0.0oz. 112.873889ar; 37.00 BMI Method: General Appearance: No Apparent Distress, Obese, Other (Generalized weakness, tired) HEENT: Normal ENT Inspection Neck: Full Range of Motion, Normal Inspection, Non Tender, Supple Respiratory: Chest Non Tender, Lungs Clear, Normal Breath Sounds, No Accessory Muscle Use Cardiovascular: No Edema, No Murmur, Tachycardia Gastrointestinal: Normal Bowel Sounds, No Organomegaly, Non Tender, Soft Back: No CVA Tenderness Extremity: Normal Range of Motion Neurologic/Psychiatric: Alert, Oriented x3, No Motor/Sensory Deficits, Normal Mood/Affect, uniform designer II-XII Norm as Tested Skin: Normal Color Focused Exam Lactate Level 01/19/23 07:24: Lactic Acid Level 2.67*H Lactic Acid Level Laboratory Tests Test 01/19/23 07:24 Lactic Acid Level 2.67 MMOL/L (0.50-2.00) *H Progress/Results/Core Measures Suspected Sepsis SIRS Temperature: Pulse: Respiratory Rate: Laboratory Tests 01/19/23 07:24: White Blood Count 11.7H Blood Pressure / Mean: 01/19/23 07:24: Lactic Acid Level 2.67*H Laboratory Tests 01/19/23 07:24: Creatinine 1.27, INR Comment 0.9, Platelet Count 249, Total Bilirubin 0.5 Results/Orders Lab Results Laboratory Tests Test 01/19/23 07:14 01/19/23 07:24 01/19/23 07:37 01/19/23 08:00 Range/Units Glucometer 163 H 70-110 MG/DL White Blood Count 11.7 H 4.3-11.0 10^3/uL Red Blood Count 5.83 H 4.30-5.52 10^6/uL Hemoglobin 16.4 13.3-17.7 g/dL Hematocrit 50 40-54 % Mean Corpuscular Volume 85 80-99 fL Mean Corpuscular Hemoglobin 28 25-34 pg Mean Corpuscular Hemoglobin Concent 33 32-36 g/dL Red Cell Distribution Width 15.0 H 10.0-14.5 % Platelet Count 249 130-400 10^3/uL Mean Platelet Volume 9.1 9.0-12.2 fL Immature Granulocyte % (Auto) 1 % Neutrophils (%) (Auto) 78 H 42-75 % Lymphocytes (%) (Auto) 14 12-44 % Monocytes (%) (Auto) 5 0-12 % Eosinophils (%) (Auto) 1 0-10 % Basophils (%) (Auto) 1 0-10 % Neutrophils # (Auto) 9.2 H 1.8-7.8 10^3/uL Lymphocytes # (Auto) 1.6 1.0-4.0 10^3/uL Monocytes # (Auto) 0.6 0.0-1.0 10^3/uL Eosinophils # (Auto) 0.1 0.0-0.3 10^3/uL Basophils # (Auto) 0.1 0.0-0.1 10^3/uL Immature Granulocyte # (Auto) 0.1 0.0-0.1 10^3/uL Prothrombin Time 12.9 12.2-14.7 SEC INR Comment 0.9 0.8-1.4 Activated Partial Thromboplast Time 29 24-35 SEC Sodium Level 136 135-145 MMOL/L Potassium Level 3.5 L 3.6-5.0 MMOL/L Chloride Level 98 98-107 MMOL/L Carbon Dioxide Level 24 21-32 MMOL/L Anion Gap 14 5-14 MMOL/L Blood Urea Nitrogen 15 7-18 MG/DL Creatinine 1.27 0.60-1.30 MG/DL Estimat Glomerular Filtration Rate 58 BUN/Creatinine Ratio 12 Glucose Level 176 H 70-105 MG/DL Lactic Acid Level 2.67 *H 0.50-2.00 MMOL/L Calcium Level 9.7 8.5-10.1 MG/DL Corrected Calcium 9.5 8.5-10.1 MG/DL Magnesium Level 1.0 *L 1.6-2.4 MG/DL Total Bilirubin 0.5 0.1-1.0 MG/DL Aspartate Amino Transf (AST/SGOT) 22 5-34 U/L Alanine Aminotransferase (ALT/SGPT) 23 0-55 U/L Alkaline Phosphatase 85 40-136 U/L Troponin I < 0.30 <0.30 NG/ML Pro-B-Type Natriuretic Peptide 711.2 H <450.0 PG/ML Total Protein 7.5 6.4-8.2 GM/DL Albumin 4.2 3.2-4.5 GM/DL Influenza Type A (RT-PCR) Not Detected Not Detecte Influenza Type B (RT-PCR) Not Detected Not Detecte SARS-CoV-2 RNA (RT-PCR) Not Detected Not Detecte Urine Color YELLOW Urine Clarity CLEAR Urine pH 7.0 5-9 Urine Specific [place] 1.020 1.016-1.022 Urine Protein 2+ H NEGATIVE Urine Glucose (UA) NEGATIVE NEGATIVE Urine Ketones NEGATIVE NEGATIVE Urine Nitrite NEGATIVE NEGATIVE Urine Bilirubin NEGATIVE NEGATIVE Urine Urobilinogen 0.2 < = 1.0 MG/DL Urine Leukocyte Esterase NEGATIVE NEGATIVE Urine RBC (Auto) TRACE-I H NEGATIVE Urine RBC 2-5 H /HPF Urine WBC 5-10 H /HPF Urine Crystals NONE /LPF Urine Bacteria FEW H /HPF Urine Casts NONE /LPF Urine Mucus NEGATIVE /LPF Urine Culture Indicated YES My Orders Orders - MIRZA OWENS MD Continuous Ekg Monitoring (01/19/23 07:27) Ekg Tracing (01/19/23 07:27) Ct Head Wo (01/19/23 07:28) Chest 1 View Ap/Pa Only (01/19/23 07:28) Cbc With Automated Diff (01/19/23 07:28) Comprehensive Metabolic Panel (01/19/23 07:28) Lactic Acid Analyzer (01/19/23 07:28) Magnesium (01/19/23 07:28) Protime With Inr (01/19/23 07:28) Partial Thromboplastin Time (01/19/23 07:28) Ua Culture If Indicated (01/19/23 07:28) Influenza A And B By Pcr (01/19/23 07:28) Probnp Fs (01/19/23 07:28) Troponin I Fs (01/19/23 07:28) Covid 19 Inhouse Test (01/19/23 07:28) Straight Cath (Urinary) (01/19/23 07:53) Magnesium 1 Gm/100 Ml Ivpb (Magnesium 1 (01/19/23 08:15) Urine Culture (01/19/23 08:00) Labetalol Injection (Sdv) (Labetalol Inj (01/19/23 08:15) 1/2 Ns Iv Solution 1000 Ml (1/2 Ns Iv So (01/19/23 08:14) Potassium Cl 10meq/50ml Ivpb (Kcl 10 Meq (01/19/23 08:14) Labetalol Injection (Sdv) (Labetalol Inj (01/19/23 09:30) Hydralazine Injection (Hydralazine Injec (01/19/23 10:15) Insulin Aspart (Per Unit) (Insulin Aspar (01/19/23 10:30) Metoprolol Succinate (Xl) Tab (Metoprolo (01/19/23 10:30) Amlodipine Tablet (Amlodipine Tablet) (01/19/23 10:45) Furosemide Tablet (Furosemide Tablet) (01/19/23 10:45) Medications Given in ED Current Medications Medications Dose Ordered Sig/Nancy Route Start Time Stop Time Status Last Admin Dose Admin Amlodipine Besylate 10 mg ONCE ONCE PO 01/19/23 10:45 01/19/23 10:57 DC 01/19/23 11:09 10 MG Furosemide 20 mg ONCE ONCE PO 01/19/23 10:45 01/19/23 10:57 DC 01/19/23 11:09 20 MG Hydralazine HCl 10 mg ONCE ONCE IV 01/19/23 10:15 01/19/23 10:16 DC 01/19/23 10:19 10 MG Insulin Aspart 15 unit ONCE ONCE SC 01/19/23 10:30 01/19/23 10:31 DC 01/19/23 11:09 15 UNIT Labetalol HCl 20 mg ONCE ONCE IV 01/19/23 08:15 01/19/23 08:19 DC 01/19/23 08:29 20 MG Labetalol HCl 40 mg ONCE ONCE IV 01/19/23 09:30 01/19/23 09:31 DC 01/19/23 09:31 40 MG Magnesium Sulfate/ Dextrose 100 ml @ 100 mls/hr ONCE ONCE IV 01/19/23 08:15 01/19/23 09:14 DC 01/19/23 08:17 100 MLS/HR Vital Signs/I&O 01/19/23 07:15 Temp 37.2 Pulse 115 Resp 20 B/P (MAP) 187/112 (137) Pulse Ox 94 O2 Delivery Nasal Cannula Capillary Refill : Progress Note : Progress Note 1. GENERALIZED WEAKNESS: - CT HEAD: no acute findings - CXR:normal - CBC: WBC is 11.3, mildly elevated - Troponin undetected, and EKG non-ischemic -Nurse walked the patient in the hallway, and although he appears to be much better than when he first came to the ER, patient is still appearing tired, and his family is not comfortable with him going back home since he lives alone and does not really tell anyone if he is not well. -Discussed with hospitalist, Dr. Moreau, and accepted for admission to step down. (A) DEHYDRATION: - Lactic acid is elevated at 2.67, likely due to dehydration. Sepsis ruled out for now since WBC is only borderline and pt is afebrile, and obvious possible sources of infection such as urine and chest x-ray are normal. - 1/2 NS 500ml/hr for 1 L (B) HYPOMAGNESEMIA: - s. Mg is 1.0 - iv Magnesium 1gm iv given in ER - iv Potassium 20mEq iv in ER as well. 2. HEADACHE DUE TO HYPERTENSIVE URGENCY: - BP: 212/ 175 improved to 180/113 after several medications listed below - Labetalol 20mg iv in ER given twice total, Hydralazine 10mg iv. Then home medications of Amlodipine 10mg and Metoprolol succinate 50mg also given in ER. - Headache has improved after medications. - Pt did not take his morning medications. Diagnostic Imaging Diagonstic Imaging: Xray, CT Plain Films/CT/US/NM/MRI: chest, head Comments [facility] [employer] [place], [place] NAME: VANESSA YADAV [facility] REC#: [id number] PT STATUS: REG ER : 1945 PHYSICIAN: MIRZA OWENS MD ADMIT DATE: 01/19/23/ER FS Draft Date of Exam:01/19/23 CT HEAD WO EXAMINATION: CT head without contrast. TECHNIQUE: Multiple contiguous axial images were obtained through the brain without the use of intravenous contrast. All CT scans use one or more of the following dose optimizing techniques: automated exposure control, MA and/or KvP adjustment based on patient size and exam type or iterative reconstruction. HISTORY: Weakness and headache COMPARISON: None available. FINDINGS: Mild diffuse cerebral volume loss with proportional enlargement of the ventricles and sulci. Mild hypodensities throughout the supratentorial white matter of both cerebral hemispheres. No acute intracranial hemorrhage or abnormal extra-axial fluid collections are present. Calcification of the intracranial ICAs. No hyperdense vessel. The calvarium is intact. The mastoid air cells are clear. The visualized paranasal sinuses are clear. The orbits are normal. IMPRESSION: 1. No acute intracranial abnormality. 2. Chronic microangiopathy and volume loss. Dictated on workstation # [id number] Dict: 01/19/23 0757 Trans: 01/19/23 0800 ALANA [id number] Interpreted by: HANH METZ DO Electronically signed by: [facility] [employer] [place], [place] NAME: VANESSA YADAV [facility] REC#: [id number] PT STATUS: REG ER : 1945 PHYSICIAN: MIRZA OWENS MD ADMIT DATE: 01/19/23/ER FS Signed Date of Exam:01/19/23 CHEST 1 VIEW AP/PA ONLY Indication: Weakness, shortness of breath Portable chest 7:32 AM Heart size and pulmonary vascularity are normal. Lungs are clear. There are no effusions or pneumothoraces. IMPRESSION: Negative chest Dictated by: Dictated on workstation # [id number] Dict: 01/19/23 0756 Trans: 01/19/23 0757 TC [id number] Interpreted by: TURNER METZ MD Electronically signed by: TURNER METZ MD 01/19/23 0757 Departure Impression Primary Impression: Generalized weakness Additional Impressions: Hypomagnesemia Dehydration Hypertensive urgency Disposition: 30 STILL A PATIENT Condition: Stable Admissions Decision to Admit Reason: Admit from ER (General) Decision to Admit/Date: Jan 19, 2023 Time/Decision to Admit Time: 10:00 Transfer Method of Transfer: EMS Departure-Patient Inst. Referrals: CARLY NUÑEZ DO (PCP/Family) Primary Care Physician MIRZA OWENS MD Jan 19, 2023 07:30
[2023-01-19 07:33] LABS: BASOPHILS # (AUTO) 0.1 10^3/uL (0.0-0.1); BASOPHILS % (AUTO) 1 % (0-10); EOSINOPHILS # (AUTO) 0.1 10^3/uL (0.0-0.3); EOSINOPHILS % (AUTO) 1 % (0-10); HEMATOCRIT 50 % (40-54); HEMOGLOBIN 16.4 g/dL (13.3-17.7); LYMPHOCYTES # (AUTO) 1.6 10^3/uL (1.0-4.0); LYMPHOCYTES % (AUTO) 14 % (12-44); MEAN CORPUSCULAR HEMOGLOBIN 28 pg (25-34); MEAN CORPUSCULAR HGB CONC 33 g/dL (32-36); MEAN CORPUSCULAR VOLUME 85 fL (80-99); MEAN PLATELET VOLUME 9.1 fL (9.0-12.2); MONOCYTES # (AUTO) 0.6 10^3/uL (0.0-1.0); MONOCYTES % (AUTO) 5 % (0-12); NEUTROPHILS # (AUTO) 9.2 10^3/uL (1.8-7.8); NEUTROPHILS % (AUTO) 78 % (42-75); PLATELET COUNT 249 10^3/uL (130-400); WHITE BLOOD COUNT 11.7 10^3/uL (4.3-11.0)
[2023-01-19 07:50] LABS: INR 0.9 (0.8-1.4); PROTHROMBIN TIME PATIENT 12.9 SEC (12.2-14.7)
--- NOTE | 2023-01-19 07:58 | Diagnostic Imaging Report ---
Indication: Weakness, shortness of breath Portable chest 7:32 AM Heart size and pulmonary vascularity are normal. Lungs are clear. There are no effusions or pneumothoraces. IMPRESSION: Negative chest Dictated by: Dictated on workstation # [id number]
[2023-01-19 08:01] LABS: CARBON DIOXIDE 24 MMOL/L (21-32); CHLORIDE 98 MMOL/L (98-107); POTASSIUM 3.5 MMOL/L (3.6-5.0); SODIUM 136 MMOL/L (135-145)
--- NOTE | 2023-01-19 08:01 | Diagnostic Imaging Report ---
EXAMINATION: CT head without contrast. TECHNIQUE: Multiple contiguous axial images were obtained through the brain without the use of intravenous contrast. All CT scans use one or more of the following dose optimizing techniques: automated exposure control, MA and/or KvP adjustment based on patient size and exam type or iterative reconstruction. HISTORY: Weakness and headache COMPARISON: None available. FINDINGS: Mild diffuse cerebral volume loss with proportional enlargement of the ventricles and sulci. Mild hypodensities throughout the supratentorial white matter of both cerebral hemispheres. No acute intracranial hemorrhage or abnormal extra-axial fluid collections are present. Calcification of the intracranial ICAs. No hyperdense vessel. The calvarium is intact. The mastoid air cells are clear. The visualized paranasal sinuses are clear. The orbits are normal. IMPRESSION: 1. No acute intracranial abnormality. 2. Chronic microangiopathy and volume loss. Dictated by: Dictated on workstation # [id number]
[2023-01-19 08:02] LABS: ALANINE AMINOTRANSFERASE 23 U/L (0-55); ALBUMIN 4.2 GM/DL (3.2-4.5); ALKALINE PHOSPHATASE 85 U/L (40-136); BILIRUBIN,TOTAL 0.5 MG/DL (0.1-1.0); BUN/CREATININE RATIO 12; CALCIUM 9.7 MG/DL (8.5-10.1); CREATININE SERUM 1.27 MG/DL (0.60-1.30); GFR ESTIMATED 58; GLUCOSE 176 MG/DL (70-105); TOTAL PROTEIN 7.5 GM/DL (6.4-8.2)
[2023-01-19 08:06] LABS: BILIRUBIN,URINE NEGATIVE (NEGATIVE); CLARITY,URINE CLEAR; COLOR,URINE YELLOW; GLUCOSE, URINE (UA) NEGATIVE (NEGATIVE); KETONES,URINE NEGATIVE (NEGATIVE); LEUKOCYTE ESTERASE ,URINE NEGATIVE (NEGATIVE); NITRITE,URINE NEGATIVE (NEGATIVE); PROTEIN,URINE 2+ (NEGATIVE)
[2023-01-19 08:09] LABS: BACTERIA,URINE FEW /HPF
[2023-01-19] MEDS ORDERED: 1/2 NS IV SOLUTION 1000 ML 1,000 ML IV STA (08:14)
[2023-01-19] MEDS ORDERED: POTASSIUM CL 10MEQ/50ML IVPB 50 ML IV STA (08:14)
[2023-01-19] MEDS ORDERED: LABETALOL 5 mg/ml 4 ML SINGLE DOSE SYRINGE IV ONE ×2 (08:15→09:30)
[2023-01-19] MEDS ORDERED: MAGNESIUM 1 GM/100 ML IVPB 100 ML IV ONE (08:15)
[2023-01-19] MEDS ORDERED: hydrALAZINE INJECTION 20 MG/ML VIAL IV ONE (10:15)
[2023-01-19] MEDS ORDERED: inSUlin ASPART 1 UNIT/0.01 ML (PER UNIT) SC ONE ×2 (10:30)
[2023-01-19] MEDS ORDERED: amLODIPine 10 MG TABLET PO ONE (10:45)
[2023-01-19] MEDS ORDERED: FUROSEMIDE 20 MG TABLET PO ONE (10:45)
[2023-01-19] MEDS ORDERED: LACTATED RINGERS 1,000 ML 1,000 ML IV SCH (13:00)
[2023-01-19] MEDS ORDERED: BISACODYL 10 MG SUPPOSITORY PR PRN (13:00)
[2023-01-19] MEDS ORDERED: ONDANSETRON INJECTION 4 MG/2 ML (SDV) IV PRN (13:00)
[2023-01-19] MEDS ORDERED: ONDANSETRON 4 MG ORAL DISSOLVE TABLET PO PRN (13:00)
[2023-01-19] MEDS ORDERED: ANTACID SUSPENSION 30 ML UDC PO PRN (13:00)
[2023-01-19] MEDS ORDERED: MELATONIN 3 MG TABLET PO PRN (13:00)
[2023-01-19] MEDS ORDERED: LACTULOSE SYRUP 10GM/15ML 30ML UDC PO PRN (13:00)
--- NOTE | 2023-01-19 13:38 | Tele-ICU Consult ---
Progress Note 77 y/o male with hx of COPD, HTN, DM presents to ED with weakness and falls and SINGH BP 187/112 CT head neg WBC: 11.2 Glu 163 IMP: hypertensive urgency with SINGH PLAN: ICU admision BP control with cardene drip if necessary Focused Exam Lactate Level 01/19/23 07:24: Lactic Acid Level 2.67*H Height, Weight, BMI Height: 5'7.00" Weight: 248lbs. 0.0oz. 112.858295mr; 38.00 BMI Method: Labs Laboratory Tests 01/19/23 07:24 Results Results/Procedures Labs Laboratory Tests 01/19/23 07:24 Patient resulted labs reviewed. Results Labs Labs Laboratory Tests 01/19/23 07:14: Glucometer 163H 01/19/23 07:24: White Blood Count 11.7H, Red Blood Count 5.83H, Hemoglobin 16.4, Hematocrit 50, Mean Corpuscular Volume 85, Mean Corpuscular Hemoglobin 28, Mean Corpuscular Hemoglobin Concent 33, Red Cell Distribution Width 15.0H, Platelet Count 249, Mean Platelet Volume 9.1, Immature Granulocyte % (Auto) 1, Neutrophils (%) (Auto) 78H, Lymphocytes (%) (Auto) 14, Monocytes (%) (Auto) 5, Eosinophils (%) (Auto) 1, Basophils (%) (Auto) 1, Neutrophils # (Auto) 9.2H, Lymphocytes # (Auto) 1.6, Monocytes # (Auto) 0.6, Eosinophils # (Auto) 0.1, Basophils # (Auto) 0.1, Immature Granulocyte # (Auto) 0.1, Prothrombin Time 12.9, INR Comment 0.9, Activated Partial Thromboplast Time 29, Sodium Level 136, Potassium Level 3.5L, Chloride Level 98, Carbon Dioxide Level 24, Anion Gap 14, Blood Urea Nitrogen 15, Creatinine 1.27, Estimat Glomerular Filtration Rate 58, BUN/Creatinine Ratio 12, Glucose Level 176H, Lactic Acid Level 2.67*H, Calcium Level 9.7, Corrected Calcium 9.5, Magnesium Level 1.0*L, Total Bilirubin 0.5, Aspartate Amino Transf (AST/SGOT) 22, Alanine Aminotransferase (ALT/SGPT) 23, Alkaline Phosphatase 85, Troponin I < 0.30, Pro-B-Type Natriuretic Peptide 711.2H, Total Protein 7.5, Albumin 4.2 01/19/23 07:37: Influenza Type A (RT-PCR) Not Detected, Influenza Type B (RT-PCR) Not Detected, SARS-CoV-2 RNA (RT-PCR) Not Detected 01/19/23 08:00: Urine Color YELLOW, Urine Clarity CLEAR, Urine pH 7.0, Urine Specific [place] 1.020, Urine Protein 2+H, Urine Glucose (UA) NEGATIVE, Urine Ketones NEGATIVE, Urine Nitrite NEGATIVE, Urine Bilirubin NEGATIVE, Urine Urobilinogen 0.2, Urine Leukocyte Esterase NEGATIVE, Urine RBC (Auto) TRACE-IH, Urine RBC 2-5H, Urine WBC 5-10H, Urine Crystals NONE, Urine Bacteria FEWH, Urine Casts NONE, Urine Mucus NEGATIVE, Urine Culture Indicated YES SCARLETT FERRER MD Jan 19, 2023 13:38
[2023-01-19] MEDS: ENOXAPARIN 40 MG/0.4 ML SYRINGE SC SCH (13:46)
[2023-01-19] MEDS ORDERED: LIDOCAINE UROJET 2% GEL 10 ML PKG ONE ×2 (14:00→17:07)
[2023-01-19] MEDS: inSUlin ASPART 1 UNIT/0.01 ML (PER UNIT) SC SCH ×2 (16:41→21:32)
[2023-01-19] MEDS: MAGNESIUM 1 GM/100 ML IVPB 100 ML IV SCH ×4 (16:56→18:47)
[2023-01-19] MEDS ORDERED: NS IV 500 ML 500 ML IV PRN (17:00)
[2023-01-19] MEDS: PRAMIPEXOLE 0.125 MG TABLET PO SCH (17:51)
[2023-01-19] MEDS ORDERED: LIDOCAINE UROJET 2% GEL 10 ML PKG TOP ONE (19:30)
[2023-01-19] MEDS: ACETAMINOPHEN 325 MG TABLET PO PRN (19:41)
[2023-01-19] MEDS: TERAZOSIN 5 MG CAPSULE PO SCH (21:30)
[2023-01-19] MEDS: MONTELUKAST 10 MG TABLET PO SCH (21:30)
[2023-01-19] MEDS: DONEPEZIL 10 MG TABLET PO SCH (21:31)
[2023-01-19] MEDS: DOCUSATE SODIUM 100 MG CAPSULE PO SCH (21:31)
[2023-01-19] MEDS: MELATONIN 10 MG TABLET PO PRN (22:26)
[2023-01-19] MEDS ORDERED: HALOPERIDOL INJECTION 5 MG/ML VIAL ONE (22:43)
[2023-01-19] MEDS ORDERED: HALOPERIDOL INJECTION 5 MG/ML VIAL IM ONE (23:15)
[2023-01-20] MEDS: HALOPERIDOL INJECTION 5 MG/ML VIAL IM PRN ×2 (00:21→22:16)
--- NOTE | 2023-01-20 00:43 | Tele-ICU Progress Note ---
Subjective Date Seen by a Provider: Jan 20, 2023 Time Seen by a Provider: 00:42 Subjective/Events-last exam called for agitation, recently given IM Haldol, not helping, will start on IV Precedex, will avoid Ativan Sepsis Event Evaluation Height, Weight, BMI Height: 5'7.00" Weight: 248lbs. 0.0oz. 112.949811ud; 38.37 BMI Method: Focused Exam Lactate Level 01/19/23 07:24: Lactic Acid Level 2.67*H Exam Exam Patient acknowledged, consented, and participated in this virtual visit which was conducted using real time audio/video Vital Signs Date Time Temp Pulse Resp B/P (MAP) Pulse Ox O2 Delivery O2 Flow Rate FiO2 01/20/23 00:20 106 01/20/23 00:00 105 23 145/80 (101) 92 Nasal Cannula 2.00 01/19/23 23:00 116 20 152/94 (113) 90 Nasal Cannula 2.00 01/19/23 22:00 105 18 91 Nasal Cannula 2.00 01/19/23 21:00 100 20 158/96 (116) 93 Nasal Cannula 2.00 01/19/23 20:00 101 23 145/85 (105) 94 Nasal Cannula 2.00 01/19/23 20:00 Nasal Cannula 2.00 01/19/23 19:33 36.3 102 16 156/87 (110) 92 Nasal Cannula 2.00 01/19/23 19:00 101 01/19/23 16:00 Nasal Cannula 2.00 01/19/23 16:00 101 11 147/81 (108) 92 Nasal Cannula 2.00 01/19/23 13:50 Nasal Cannula 2.00 01/19/23 13:26 107 15 138/96 (110) 90 Nasal Cannula 2.00 01/19/23 13:17 112 01/19/23 11:57 115 28 161/93 95 Nasal Cannula 2.00 01/19/23 07:15 37.2 115 20 187/112 (137) 94 Nasal Cannula I & O 01/20/23 07:00 Intake Total 2300 ml Output Total 1550 ml Balance 750 ml Height & Weight Height: 5'7.00" Weight: 248lbs. 0.0oz. 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
[2023-01-20] MEDS: DexMEDEtomidine 1,000mcg/250ml 250 ML IV SCH ×2 (01:01→09:01)
[2023-01-20 04:02] LABS: BASOPHILS % (AUTO) 0 % (0-10); EOSINOPHILS % (AUTO) 0 % (0-10); HEMATOCRIT 44 % (40-54); HEMOGLOBIN 14.6 g/dL (13.3-17.7); LYMPHOCYTES # (AUTO) 1.4 10^3/uL (1.0-4.0); LYMPHOCYTES % (AUTO) 12 % (12-44); MEAN CORPUSCULAR HEMOGLOBIN 28 pg (25-34); MEAN CORPUSCULAR HGB CONC 33 g/dL (32-36); MEAN CORPUSCULAR VOLUME 84 fL (80-99); MEAN PLATELET VOLUME 9.3 fL (9.0-12.2); MONOCYTES % (AUTO) 8 % (0-12); NEUTROPHILS # (AUTO) 9.8 10^3/uL (1.8-7.8); NEUTROPHILS % (AUTO) 80 % (42-75); PLATELET COUNT 228 10^3/uL (130-400); WHITE BLOOD COUNT 12.4 10^3/uL (4.3-11.0)
[2023-01-20 04:17] LABS: CALCIUM 8.8 MG/DL (8.5-10.1); CREATININE SERUM 1.4 MG/DL (0.60-1.30); MAGNESIUM 1.8 MG/DL (1.6-2.4); POTASSIUM 3.1 MMOL/L (3.6-5.0)
[2023-01-20] MEDS: inSUlin ASPART 1 UNIT/0.01 ML (PER UNIT) SC SCH ×4 (06:18→20:57)
[2023-01-20] MEDS: POTASSIUM CL 10MEQ/50ML IVPB 50 ML IV SCH (06:25)
[2023-01-20] MEDS: POTASSIUM CHLORIDE 20 MEQ TABLET PO SCH (06:26)
[2023-01-20] MEDS: MAGNESIUM 1 GM/100 ML IVPB 100 ML IV SCH ×2 (06:26→06:38)
--- NOTE | 2023-01-20 06:26 | Tele-ICU Progress Note ---
Subjective Date Seen by a Provider: Jan 20, 2023 Time Seen by a Provider: 06:24 Subjective/Events-last exam called for low potassium and phosphate, will replace both 30 mmoles of KPO4, IV over four hours Sepsis Event Evaluation Height, Weight, BMI Height: 5'7.00" Weight: 248lbs. 0.0oz. 112.186278uv; 38.37 BMI Method: Focused Exam Lactate Level 01/19/23 07:24: Lactic Acid Level 2.67*H Exam Exam Patient acknowledged, consented, and participated in this virtual visit which was conducted using real time audio/video Vital Signs Date Time Temp Pulse Resp B/P (MAP) Pulse Ox O2 Delivery O2 Flow Rate FiO2 01/20/23 06:20 80 167/111 01/20/23 06:02 91 Nasal Cannula 2.00 01/20/23 06:00 83 24 160/97 (118) 96 Nasal Cannula 2.00 01/20/23 05:00 80 25 160/95 (116) 91 Nasal Cannula 2.00 01/20/23 05:00 80 162/106 01/20/23 05:00 80 160/95 01/20/23 04:15 84 148/109 01/20/23 04:00 90 17 139/72 (94) 93 Nasal Cannula 2.00 01/20/23 04:00 96 Nasal Cannula 3.00 01/20/23 03:31 112 139/72 01/20/23 03:01 101 138/89 01/20/23 03:00 101 25 138/89 (105) 92 Nasal Cannula 2.00 01/20/23 02:31 96 157/88 01/20/23 02:01 93 135/104 01/20/23 02:00 93 18 150/78 (102) 94 Nasal Cannula 2.00 01/20/23 01:31 93 155/82 01/20/23 01:01 115 145/80 01/20/23 01:00 112 18 155/106 (122) 92 Nasal Cannula 2.00 01/20/23 00:20 106 01/20/23 00:00 105 23 145/80 (101) 92 Nasal Cannula 2.00 01/20/23 00:00 Nasal Cannula 3.00 01/19/23 23:00 116 20 152/94 (113) 90 Nasal Cannula 2.00 01/19/23 22:00 105 18 91 Nasal Cannula 2.00 01/19/23 21:00 100 20 158/96 (116) 93 Nasal Cannula 2.00 01/19/23 20:00 101 23 145/85 (105) 94 Nasal Cannula 2.00 01/19/23 20:00 Nasal Cannula 2.00 01/19/23 19:33 36.3 102 16 156/87 (110) 92 Nasal Cannula 2.00 01/19/23 19:00 101 01/19/23 16:00 Nasal Cannula 2.00 01/19/23 16:00 101 11 147/81 (108) 92 Nasal Cannula 2.00 01/19/23 13:50 Nasal Cannula 2.00 01/19/23 13:26 107 15 138/96 (110) 90 Nasal Cannula 2.00 01/19/23 13:17 112 01/19/23 11:57 115 28 161/93 95 Nasal Cannula 2.00 01/19/23 07:15 37.2 115 20 187/112 (137) 94 Nasal Cannula I & O 01/20/23 07:00 Intake Total 2460 ml Output Total 1960 ml Balance 500 ml Height & Weight Height: 5'7.00" Weight: 248lbs. 0.0oz. 112.653537hs; 38.37 BMI Method: General Appearance: No Apparent Distress, Obese, Other (Generalized weakness, tired) HEENT: Normal ENT Inspection Neck: Full Range of Motion, Normal Inspection, Non Tender, Supple Respiratory: Chest Non Tender, Lungs Clear, Normal Breath Sounds, No Accessory Muscle Use Cardiovascular: No Edema, No Murmur, Tachycardia Capillary Refill: Less Than 3 Seconds Extremity: Normal Range of Motion Neurologic/Psychiatric: Alert, Oriented x3, No Motor/Sensory Deficits, Normal Mood/Affect, bread icer II-XII Norm as Tested Skin: Normal Color Results Lab Laboratory Tests 01/19/23 07:24 01/20/23 03:41 Assessment/Plan Assessment/Plan called for low potassium and phosphate, will replace both 30 mmoles of KPO4, IV over four hours Critical Care: Critically Ill Patient Time spent with patient (mins): 5 SCARLETT LINO MD Jan 20, 2023 06:26
[2023-01-20] MEDS ORDERED: POTASSIUM PHOSPHATE INJ 30 MM in NS (IVPB) 250 ML 250 ML IV ONE (06:30)
[2023-01-20] MEDS: inSUlin DETERMIR 1 UNIT/0.01 ML (CHARGE PER UNIT) SQ SCH (09:33)
--- NOTE | 2023-01-20 10:17 | Tele-ICU Progress Note ---
Subjective Date Seen by a Provider: Jan 20, 2023 Time Seen by a Provider: 10:17 Subjective/Events-last exam (Tele-ICU Physician , consultation as per request of PCP Service provided via interactive audio and video telecommunications E-CARE system to a patient admitted to ICU bed in [facility]. Available chart/ vitals / labs / Images reviewed H&P is from ER notes Patient's information available about PMH, Shx, Fhx allergy reviewed inEMR. ROS as per chart and RN report Now in ICU, hemodynamically stable Video assessment done using teleICU camera, rest of exam as per RN Discussed with RN. Hospital course: (01/19) 77y/o M admitted s/p falls with weakness, dehydration, hypomagnesemia & hypertensive urgency. (01/20) Upgraded to ICU for precedex gtt d/t severe agitation A/P Confusion / ? dlirium / ? ( CT head WNL 01/19 - on precedex - to wean - correnct metab abnormalities - check ABG Weaknes , recent falls - ? arrythmias ? weakness with lytes abnor / ? ortostatic / ? post circulation cva - follow closely , ? need MRI if not improving WES - start hydration - check CPK - replace lytes Reported h/o COPD FAUSTINO - ? on o2 [employer] - ?on CPAP [employer] DM - ISS Lines : peripf , (Central Line Necessity Reviewed) Orozco: + OG: Nutrition: Analgesia: Anxiety/ delirium VTE Prophylaxis: rosalind Stress Ulcer Prophylaxis: Plans in collaboration with bedside consultants and IM MDs. Discussed with RN to reach out if any questions or concerns A total of 20 minutes of critical care time was devoted to this patient today, required to treat and/or prevent further deterioration of critical care condition ( as above ) . I am remotely monitoring this patient from another state. I am unable to do the bedside exam, and history/physical and pertinent information is taken from other notes in the computer and bedside staff. . Sepsis Event Evaluation Height, Weight, BMI Height: 5'7.00" Weight: 248lbs. 0.0oz. 112.315175vf; 38.37 BMI Method: Focused Exam Lactate Level 01/19/23 07:24: Lactic Acid Level 2.67*H 01/20/23 06:32: Lactic Acid Level 1.24 Lactic Acid Level Laboratory Tests Test 01/20/23 06:32 Lactic Acid Level 1.24 MMOL/L (0.50-2.00) Exam Exam Patient acknowledged, consented, and participated in this virtual visit which was conducted using real time audio/video Vital Signs Date Time Temp Pulse Resp B/P (MAP) Pulse Ox O2 Delivery O2 Flow Rate FiO2 01/20/23 10:00 67 23 148/92 (104) 93 Nasal Cannula 6.00 01/20/23 09:01 75 119/83 01/20/23 09:00 74 19 144/101 (120) 92 Nasal Cannula 6.00 01/20/23 08:05 75 119/83 01/20/23 08:03 36.3 Nasal Cannula 6.00 01/20/23 08:00 76 33 119/83 (98) 95 Nasal Cannula 2.00 01/20/23 07:05 80 165/107 01/20/23 07:00 78 01/20/23 07:00 80 26 165/107 (132) 95 Nasal Cannula 2.00 01/20/23 06:20 80 167/111 01/20/23 06:02 91 Nasal Cannula 2.00 01/20/23 06:00 80 157/113 01/20/23 06:00 83 24 160/97 (118) 96 Nasal Cannula 2.00 01/20/23 05:30 80 168/104 01/20/23 05:00 80 25 160/95 (116) 91 Nasal Cannula 2.00 01/20/23 05:00 80 162/106 01/20/23 05:00 80 160/95 01/20/23 04:15 84 148/109 01/20/23 04:00 90 17 139/72 (94) 93 Nasal Cannula 2.00 01/20/23 04:00 96 Nasal Cannula 3.00 01/20/23 03:31 112 139/72 01/20/23 03:01 101 138/89 01/20/23 03:00 101 25 138/89 (105) 92 Nasal Cannula 2.00 01/20/23 02:31 96 157/88 01/20/23 02:01 93 135/104 01/20/23 02:00 93 18 150/78 (102) 94 Nasal Cannula 2.00 01/20/23 01:31 93 155/82 01/20/23 01:01 115 145/80 01/20/23 01:00 112 18 155/106 (122) 92 Nasal Cannula 2.00 01/20/23 00:20 106 01/20/23 00:00 105 23 145/80 (101) 92 Nasal Cannula 2.00 01/20/23 00:00 Nasal Cannula 3.00 01/19/23 23:00 116 20 152/94 (113) 90 Nasal Cannula 2.00 01/19/23 22:00 105 18 91 Nasal Cannula 2.00 01/19/23 21:00 100 20 158/96 (116) 93 Nasal Cannula 2.00 01/19/23 20:00 101 23 145/85 (105) 94 Nasal Cannula 2.00 01/19/23 20:00 Nasal Cannula 2.00 01/19/23 19:33 36.3 102 16 156/87 (110) 92 Nasal Cannula 2.00 01/19/23 19:00 101 01/19/23 16:00 Nasal Cannula 2.00 01/19/23 16:00 101 11 147/81 (108) 92 Nasal Cannula 2.00 01/19/23 13:50 Nasal Cannula 2.00 01/19/23 13:26 107 15 138/96 (110) 90 Nasal Cannula 2.00 01/19/23 13:17 112 01/19/23 11:57 115 28 161/93 95 Nasal Cannula 2.00 I & O 01/20/23 07:00 Intake Total 2460 ml Output Total 1960 ml Balance 500 ml Height & Weight Height: 5'7.00" Weight: 248lbs. 0.0oz. 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
[2023-01-20] MEDS: amLODIPine 10 MG TABLET PO SCH ×2 (10:24→11:14)
[2023-01-20] MEDS: DOCUSATE SODIUM 100 MG CAPSULE PO SCH ×2 (10:24→20:51)
[2023-01-20] MEDS: PANTOPRAZOLE 40 MG TABLET PO SCH (10:25)
[2023-01-20 10:27] LABS: ABG BASE EXCESS 4.4 MMOL/L (-2.5-2.5); ABG OXYGEN SATURATION 99 % (94-100); ABG PCO2 45 MMHG (35-45); ABG PH 7.42 (7.37-7.43); ABG PO2 113 MMHG (79-93); ABG TCO2 30.3 MMOL/L (21.0-31.0); ALLENS TEST POSITIVE; INSPIRED O2 6 L; PATIENT TEMP 36.2; VENTILATOR NO
[2023-01-20] MEDS: NS IV 1000 ML 1,000 ML IV SCH ×2 (11:15→20:51)
[2023-01-20] MEDS: cefTRIAXone INJECTION 2,000 MG in NS (IVPB) 50 ML 50 ML IV SCH (11:16)
[2023-01-20] MEDS: ENOXAPARIN 40 MG/0.4 ML SYRINGE SC SCH (13:08)
--- NOTE | 2023-01-20 14:23 | History & Physical-Hospitalist ---
SYEDA HAGAN 01/20/23 1423: History of Present Illness HPI/Chief Complaint Soham is a 77 yo M that presented with falls, headache and weakness to the ER y esterday. He has become increasingly confused and has a history of dementia. 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 He lives alone and it is unknown if he had been taking his meds prior. His neighbor reports that he has had increasing weakness in his leg and has had more difficulty getting in and out of the car the past few days. His neighbor also reports that yesterday morning he had a headche after he had been experiencing falls, not sure of what he fell on or if he lost consciousness. He denies pain, but overall doesn't feel good and feels lightheaded. He denies chest pain and shortness of breath. He denies fever. He denies nausea or vomiting. Source: family Date Seen 01/20/23 Attending Physician Alexander Gutierrez DO PCP Admitting Physician: Katelyn Frye MD Attending Physician: Katelyn Frye MD Referring Physician Date of Admission Jan 19, 2023 at 12:35 Home Medications & Allergies Home Medications Reviewed patient Home Medication Reconciliation performed by pharmacy medication reconciliations pharmacy technician instructor and/or nursing. Patients Allergies have been reviewed. Allergies Allergies Coded Allergies adhesive (Verified Allergy, Unknown, 01/26/16) fish oil (Verified Allergy, Unknown, 01/26/16) telmisartan (Verified Adverse Reaction, Mild, diarrhea, 01/26/16) pravastatin (Verified Adverse Reaction, Unknown, weakness, 01/26/16) Past Ybmazcp-Ptoccw-Fsxbbt Hx Patient Social History Tobacco Use?: No Use of E-Cig and/or Vaping dev: No Substance use?: No Alcohol Use?: No Pt feels they are or have been: No Immunizations Up To Date Date of Influenza Vaccine: Feb 15, 2017 Tetanus Booster (TDap): Unknown Date of Pneumonia Vaccine: Jan 23, 2016 Seasonal Allergies Seasonal Allergies: Yes Current Status Advance Directives: Yes Communicates: Verbally Primary Language: Hebrew Preferred Spoken Language: Hebrew Sensory deficits: Vision impairment, Hearing impairment Implanted or Applied Medical D: CPAP, Stents Past Medical History Surgeries: Adenoidectomy, Tonsillectomy Asthma, Sleep Apnea, COPD Currently Using CPAP: Yes High Cholesterol, Hypertension Neuropathy, TIA Sexually Transmitted Disease: No HIV/AIDS: No Benign Prostatic Hyperpl Gastroesophageal Reflux Arthritis, Chronic Back Pain Diabetes, Non-Insulin dep Loss of Vision: Bilateral Hearing Impairment: Hard of Hearing, Bilateral Hearing Aide Blood Disorders: No Adverse Reaction/Blood Tranf: No Family Medical History Cardiovascular disease 19 FATHER 19 MOTHER Dementia 19 MOTHER FH: pulmonary embolism 19 FATHER Hypertension 19 FATHER 19 MOTHER Kidney disease 19 FATHER Prostate cancer 19 FATHER Review of Systems Constitutional: dizziness; No fever Respiratory: No cough Cardiovascular: No chest pain Gastrointestinal: No abdominal pain, No nausea, No vomiting Psychiatric/Neurological: Headache, Weakness Physical Exam Physical Exam Vital Signs Vital Signs - First Documented 01/19/23 01/19/23 07:15 11:57 Temp 37.2 Pulse 115 Resp 20 B/P (MAP) 187/112 (137) Pulse Ox 94 O2 Delivery Nasal Cannula O2 Flow Rate 2.00 Capillary Refill : Less Than 3 Seconds Height, Weight, BMI Height: 5'7.00" Weight: 248lbs. 0.0oz. 112.282733hw; 38.37 BMI Method: General Appearance: Obese, Other (Pt is tired, confused) Respiratory: Chest Non Tender, Lungs Clear, Normal Breath Sounds, No Accessory Muscle Use Cardiovascular: Regular Rate, Rhythm, No Murmur Gastrointestinal: Normal Bowel Sounds, Non Tender, Soft Neurologic/Psychiatric: Disoriented (Confused) Skin: Normal Color, Warm/Dry Results Results/Procedures Labs Laboratory Tests 01/19/23 07:24 01/20/23 03:41 Patient resulted labs reviewed. Assessment/Plan Assessment and Plan Weakness Confusion/delirium hypokalemia/hypophosphatemia Hypertensive urgency replace electrolytes Metoprolol tartrate Continue home meds precedex as needed for severe agitation- try to wean off CXR and head CT- normal results 4 L oxygen nasal canula IV fluids Urine culture ordered- pending Ceftriaxone DM sliding scale insulin KATELYN FRYE MD 01/20/23 1652: History of Present Illness Source: patient, family, RN/MD Exam Limitations: clinical condition Time Seen by a Provider: 10:50 Past Nrrdopu-Preyjw-Vgqaib Hx Family Medical History Cardiovascular disease 19 FATHER 19 MOTHER Dementia 19 MOTHER FH: pulmonary embolism 19 FATHER Hypertension 19 FATHER 19 MOTHER Kidney disease 19 FATHER Prostate cancer 19 FATHER Physical Exam Physical Exam General Appearance: No Apparent Distress, Obese HEENT: PERRL/EOMI, Pharynx Normal Respiratory: Lungs Clear, Normal Breath Sounds Cardiovascular: No Murmur, Tachycardia Gastrointestinal: Normal Bowel Sounds, Soft Extremity: Normal Inspection, No Pedal Edema Neurologic/Psychiatric: Alert, Disoriented (Confused) Skin: Normal Color, Warm/Dry Results Results/Procedures Imaging: Reviewed Imaging Report Assessment/Plan Admission Diagnosis HTN urgency Admission Status: Inpatient Order (span 2 midnights) Reason for Inpatient Admission: Weakness Encephalopathy Assessment and Plan Presented with weakness and admitted with HTN urgency. BP improving. Encephalopathic with delirium on underlying dementia requiring Precedex. UA with possible UTI, begin Rocephin. PT/OT when able. Diagnosis/Problems Diagnosis/Problems (1) Hypertensive urgency Status: Acute (2) Generalized weakness Status: Acute (3) Hypomagnesemia Status: Acute (4) Hypokalemia Status: Acute (5) Hypophosphatemia Status: Acute (6) UTI (urinary tract infection) Status: Acute (7) Dementia Status: Chronic Qualifiers: Dementia type: unspecified type Dementia severity: moderate Dementia behavioral or psychological symptom: with agitation Qualified Codes: F03.B11 - Unspecified dementia, moderate, with agitation (8) Delirium due to another medical condition, acute, hyperactive Status: Acute (9) T2DM (type 2 diabetes mellitus) Status: Chronic (10) COPD (chronic obstructive pulmonary disease) Status: Chronic (11) RLS (restless legs syndrome) Status: Chronic (12) HLD (hyperlipidemia) Status: Chronic (13) BPH (benign prostatic hyperplasia) (14) Obesity Supervisory-Addendum Brief Verification & Attestation Participated in pt care: history, MDM, physical Personally performed: exam, history, MDM, supervision of care Care discussed with: Medical Student Procedures: n/a Results interpretation: Verified all documentation A medical student performed and documented this service in my presence. I reviewed and verified all information documented by the medical student and made modifications to such information, when appropriate. I personally performed the physical exam and medical decision making. SYEDA HAGAN Jan 20, 2023 14:23 KATELYN FRYE MD Jan 20, 2023 16:52
[2023-01-20] MEDS: hydrALAZINE INJECTION 20 MG/ML VIAL IV PRN (17:57)
[2023-01-20] MEDS: MELATONIN 10 MG TABLET PO PRN (20:50)
[2023-01-20] MEDS: DONEPEZIL 10 MG TABLET PO SCH (20:50)
[2023-01-20] MEDS: MONTELUKAST 10 MG TABLET PO SCH (20:50)
[2023-01-20] MEDS: PRAMIPEXOLE 0.125 MG TABLET PO SCH (20:51)
[2023-01-20] MEDS: TERAZOSIN 5 MG CAPSULE PO SCH (20:51)
[2023-01-20] MEDS ORDERED: LABETALOL 5 mg/ml 4 ML SINGLE DOSE SYRINGE IV ONE (21:15)
[2023-01-20] MEDS ORDERED: HALOPERIDOL INJECTION 5 MG/ML VIAL IM/IV ONE (23:00)
[2023-01-21] MEDS ORDERED: LABETALOL 5 mg/ml 4 ML SINGLE DOSE SYRINGE ONE (00:08)
[2023-01-21] MEDS: DexMEDEtomidine 1,000mcg/250ml 250 ML IV SCH ×2 (01:41→07:51)
[2023-01-21] MEDS: NS IV 1000 ML 1,000 ML IV SCH ×3 (02:22→16:51)
[2023-01-21] MEDS: hydrALAZINE INJECTION 20 MG/ML VIAL IV PRN (03:48)
[2023-01-21 05:04] LABS: BASOPHILS % (AUTO) 0 % (0-10); EOSINOPHILS # (AUTO) 0.1 10^3/uL (0.0-0.3); EOSINOPHILS % (AUTO) 1 % (0-10); HEMATOCRIT 42 % (40-54); HEMOGLOBIN 13.7 g/dL (13.3-17.7); LYMPHOCYTES # (AUTO) 1.5 10^3/uL (1.0-4.0); LYMPHOCYTES % (AUTO) 15 % (12-44); MEAN CORPUSCULAR HEMOGLOBIN 28 pg (25-34); MEAN CORPUSCULAR HGB CONC 33 g/dL (32-36); MEAN CORPUSCULAR VOLUME 86 fL (80-99); MEAN PLATELET VOLUME 9.6 fL (9.0-12.2); MONOCYTES # (AUTO) 0.9 10^3/uL (0.0-1.0); MONOCYTES % (AUTO) 9 % (0-12); NEUTROPHILS # (AUTO) 7.6 10^3/uL (1.8-7.8); NEUTROPHILS % (AUTO) 75 % (42-75); PLATELET COUNT 218 10^3/uL (130-400); WHITE BLOOD COUNT 10.1 10^3/uL (4.3-11.0)
[2023-01-21 05:18] LABS: CALCIUM 7.6 MG/DL (8.5-10.1); CREATININE SERUM 1.25 MG/DL (0.60-1.30); MAGNESIUM 1.7 MG/DL (1.6-2.4); PHOSPHORUS 4.3 MG/DL (2.3-4.7); POTASSIUM 3.5 MMOL/L (3.6-5.0)
[2023-01-21] MEDS: MAGNESIUM 1 GM/100 ML IVPB 100 ML IV SCH ×5 (05:23→09:25)
[2023-01-21] MEDS: POTASSIUM CHLORIDE 20 MEQ TABLET PO SCH (05:23)
[2023-01-21] MEDS: POTASSIUM CL 10MEQ/50ML IVPB 50 ML IV SCH ×5 (05:23→09:25)
[2023-01-21] MEDS: inSUlin ASPART 1 UNIT/0.01 ML (PER UNIT) SC SCH ×4 (05:24→20:05)
--- NOTE | 2023-01-21 08:24 | Physical Therapy Progress Note ---
Therapy Progress Note Per RN, pt remains heavily sedated at this time, and has sitter present in room due to agitation and combativeness. Will follow up later, to initiate PT evaluation. LYNDON SIMONS PT Jan 21, 2023 08:24
[2023-01-21 09:09] VITALS: BP 151/98
[2023-01-21] MEDS ORDERED: RT-Ipratropium/Albuterol NEB 3 ML VIAL INH PRN (09:15)
--- NOTE | 2023-01-21 09:59 | Progress Note - Hospitalist ---
Subjective HPI/CC On Admission Date Seen by Provider: Jan 21, 2023 Soham is a 77 yo M that presented with falls, headache and weakness to the ER yesterday. He has become increasingly confused and has a history of dementia. 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 He lives alone and it is unknown if he had been taking his meds prior. His neighbor reports that he has had increasing w eakness in his leg and has had more difficulty getting in and out of the car the past few days. His neighbor also reports that yesterday morning he had a headche after he had been experiencing falls, not sure of what he fell on or if he lost consciousness. He denies pain, but overall doesn't feel good and feels lightheaded. He denies chest pain and shortness of breath. He denies fever. He denies nausea or vomiting. Subjective/Events-last exam Pt lying in bed. No complaints. Family at bedside thinks he is doing better. Able to tell me his name and who is at bedside. Cannot tell me where he his. Does complain of SOB. Focused Exam Lactate Level 01/19/23 07:24: Lactic Acid Level 2.67*H 01/20/23 06:32: Lactic Acid Level 1.24 Objective Exam Vital Signs Vital Signs Date Time Temp Pulse Resp B/P (MAP) Pulse Ox O2 Delivery O2 Flow Rate FiO2 01/21/23 09:27 Nasal Cannula 4.00 01/21/23 09:27 94 152/87 01/21/23 09:22 96 01/21/23 09:09 36.6 01/21/23 09:00 33 Capillary Refill : Less Than 3 Seconds General Appearance: Chronically ill, Obese Respiratory: Wheezing (scant expiratory) Cardiovascular: Regular Rate, Rhythm Gastrointestinal: Normal Bowel Sounds, Soft Neurologic/Psychiatric: Alert, Other (oriented to person only) Results/Procedures Lab Laboratory Tests 01/21/23 04:25 Patient resulted labs reviewed. Imaging: Reviewed Imaging Report Assessment/Plan Assessment and Plan Assess & Plan/Chief Complaint Weakness Confusion/delirium hypokalemia/hypophosphatemia Hypertensive urgency BP improved Wean precedex PT/OT as able Replace electrolytes per protocol CXR and head CT- normal results Urine culture ordered- pending Ceftriaxone Check RVP Add risperdal Continue home dementia meds DM sliding scale insulin Critical Care Critically Ill Patient ANA PAULA EAGLE MD Jan 21, 2023 09:59
--- NOTE | 2023-01-21 10:20 | Tele-ICU Progress Note ---
Subjective Date Seen by a Provider: Jan 21, 2023 Time Seen by a Provider: 10:19 Subjective/Events-last exam (Tele-ICU Physician , Progress Note ) Service provided via interactive audio and video telecommunications E-CARE system to a patient admitted to ICU bed in [facility]. Patient is seen today due to persistent need of ICU care Available chart/ vitals / labs / Images reviewed Video assessment done using teleICU camera, rest of exam as per RN Discussed with RN Events overnight : Afebrile hemodynamically stable Respiratory - 6L I/O = neg Drips: 125 Pressors- no Hospital course: (01/19) 77y/o M admitted s/p falls with weakness, dehydration, hypomagnesemia & hypertensive urgency. (01/20) Upgraded to ICU for precedex gtt d/t severe agitation- WEANED off precedex 01/21 on CPAP last night , very agitateed again - PRECEDEX resumed A/P Confusion / ? dlirium / ? sund ( CT head WNL 01/19 - on precedex - to wean AGAIN , starting haldol Weaknes , recent falls - ? arrythmias ? weakness with lytes abnor / ? ortostatic / ? post circulation cva - follow closely , ? 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 Discussed with RN to reach out if any questions or concerns A total of 20 minutes of critical care time was devoted to this patient today, required to treat and/or prevent further deterioration of critical care condition ( as above ) . I am remotely monitoring this patient from another state. I am unable to do the bedside exam, and history/physical and pertinent information is taken from other notes in the computer and bedside staff. . Sepsis Event Evaluation Height, Weight, BMI Height: 5'7.00" Weight: 248lbs. 0.0oz. 112.568815co; 38.37 BMI Method: Focused Exam Lactate Level 01/19/23 07:24: Lactic Acid Level 2.67*H 9/3/23 06:32: Lactic Acid Level 1.24 Exam Exam Patient acknowledged, consented, and participated in this virtual visit which was conducted using real time audio/video Vital Signs Date Time Temp Pulse Resp B/P (MAP) Pulse Ox O2 Delivery O2 Flow Rate FiO2 01/21/23 10:00 92 32 153/88 (109) 97 Nasal Cannula 4.00 01/21/23 09:27 Nasal Cannula 4.00 01/21/23 09:27 94 152/87 01/21/23 09:22 96 Nasal Cannula 6.00 01/21/23 09:09 36.6 91 96 01/21/23 09:00 90 33 149/94 (112) 97 Nasal Cannula 6.00 01/21/23 08:56 91 151/98 01/21/23 08:27 88 158/96 01/21/23 08:00 83 27 154/103 (120) 96 Nasal Cannula 6.00 01/21/23 08:00 98 Nasal Cannula 6.00 01/21/23 07:55 36.6 Nasal Cannula 6.00 01/21/23 07:51 74 152/91 01/21/23 07:30 Nasal Cannula 6.00 01/21/23 07:17 36.7 01/21/23 07:00 74 28 153/91 (111) 100 Nasal Cannula 5.00 01/21/23 07:00 74 01/21/23 06:45 75 28 152/91 (113) 100 Nasal Cannula 5.00 01/21/23 06:30 75 18 161/95 (120) 100 Nasal Cannula 5.00 01/21/23 06:15 75 30 165/98 (126) 100 Nasal Cannula 5.00 01/21/23 06:00 76 30 163/97 (126) 100 Nasal Cannula 5.00 01/21/23 05:59 75 160/76 01/21/23 05:45 77 28 160/96 (119) 100 Nasal Cannula 5.00 01/21/23 05:30 77 28 158/92 (115) 100 Nasal Cannula 5.00 01/21/23 05:15 76 30 151/93 (118) 100 Nasal Cannula 5.00 01/21/23 05:00 78 31 147/89 (111) 100 Nasal Cannula 5.00 01/21/23 04:45 79 32 144/84 (104) 100 Nasal Cannula 5.00 01/21/23 04:30 79 33 144/83 (104) 100 Nasal Cannula 5.00 01/21/23 04:15 80 24 139/85 (101) 100 Nasal Cannula 5.00 01/21/23 04:15 95 Nasal Cannula 5.00 01/21/23 04:00 80 29 145/90 (107) 100 Nasal Cannula 5.00 01/21/23 03:45 77 32 180/111 (138) 100 Nasal Cannula 5.00 01/21/23 03:35 36.8 01/21/23 03:30 78 29 179/108 (135) 100 Nasal Cannula 5.00 01/21/23 03:15 79 35 178/107 (133) 100 Nasal Cannula 5.00 01/21/23 03:00 80 25 179/107 (135) 100 Nasal Cannula 5.00 01/21/23 02:45 79 22 173/107 (129) 100 Nasal Cannula 5.00 01/21/23 02:30 79 26 174/106 (130) 100 Nasal Cannula 5.00 01/21/23 02:15 80 21 172/104 (127) 100 Nasal Cannula 5.00 01/21/23 02:00 80 23 165/103 (127) 100 Nasal Cannula 5.00 01/21/23 01:45 82 25 161/101 (123) 100 Nasal Cannula 5.00 01/21/23 01:41 83 163/100 01/21/23 01:30 84 21 166/101 (123) 100 Nasal Cannula 5.00 01/21/23 01:15 84 21 165/102 (126) 99 Nasal Cannula 5.00 01/21/23 01:00 85 01/21/23 01:00 85 30 167/101 (124) 99 Nasal Cannula 5.00 01/21/23 00:45 90 27 158/98 (119) 98 Nasal Cannula 5.00 01/21/23 00:30 91 28 165/101 (124) 96 Nasal Cannula 5.00 01/21/23 00:15 97 26 178/104 (124) 96 Nasal Cannula 5.00 01/21/23 00:10 95 33 181/112 (126) 98 Nasal Cannula 5.00 01/21/23 00:00 95 33 181/118 (140) 98 Nasal Cannula 5.00 01/21/23 00:00 36.3 01/20/23 23:53 95 Nasal Cannula 5.00 01/20/23 23:45 101 24 158/103 (130) 97 Nasal Cannula 5.00 01/20/23 23:30 111 27 152/98 (107) 97 Nasal Cannula 5.00 01/20/23 23:15 80 22 150/87 (108) 97 Nasal Cannula 5.00 01/20/23 23:00 105 20 129/87 (111) 96 Nasal Cannula 5.00 01/20/23 22:45 109 20 137/83 (102) 96 Nasal Cannula 5.00 01/20/23 22:30 121 11 188/82 (93) 93 Nasal Cannula 5.00 01/20/23 22:15 130 22 119/100 (105) 94 Nasal Cannula 5.00 01/20/23 22:06 133 27 160/99 (119) Nasal Cannula 5.00 01/20/23 22:00 117 16 96/86 (91) 92 NIV CPAP 5.00 01/20/23 21:45 126 12 112/71 (80) 95 NIV CPAP 5.00 01/20/23 21:30 142 17 123/92 (98) 89 NIV CPAP 5.00 01/20/23 21:15 146 13 147/84 (90) 92 NIV CPAP 5.00 01/20/23 21:12 141 18 168/141 (160) 92 NIV CPAP 5.00 01/20/23 21:00 128 13 178/151 (165) 93 NIV CPAP 5.00 01/20/23 20:49 126 14 158/98 (119) NIV CPAP 5.00 01/20/23 20:45 125 27 94 NIV CPAP 5.00 01/20/23 20:30 134 94 NIV CPAP 5.00 01/20/23 20:17 128 19 189/125 (129) 92 NIV CPAP 5.00 01/20/23 20:15 15 10 177/112 (128) NIV CPAP 5.00 01/20/23 20:00 122 14 171/141 (153) 94 NIV CPAP 5.00 01/20/23 19:50 36.8 NIV CPAP 5.00 01/20/23 19:45 125 154/92 (96) 93 NIV CPAP 5.00 01/20/23 19:35 95 NIV CPAP 5.00 01/20/23 19:30 144 143/122 (126) 94 NIV CPAP 5.00 01/20/23 19:15 124 12 174/111 (125) 93 NIV CPAP 5.00 01/20/23 19:00 124 28 161/103 (119) 89 NIV CPAP 5.00 01/20/23 19:00 124 01/20/23 18:00 116 20 165/119 (134) 96 NIV CPAP 5.00 01/20/23 17:00 71 13 155/101 (116) 97 NIV CPAP 5.00 01/20/23 16:31 95 NIV CPAP 5.00 01/20/23 16:00 73 166/105 01/20/23 16:00 73 11 171/111 (137) 91 NIV CPAP 5.00 01/20/23 15:57 36.0 01/20/23 15:00 66 18 150/92 (116) 94 NIV CPAP 5.00 01/20/23 14:22 66 151/91 01/20/23 14:00 68 20 158/95 (117) 94 NIV CPAP 5.00 01/20/23 13:08 65 140/89 01/20/23 13:07 65 140/89 01/20/23 13:00 66 14 140/89 (109) 91 NIV CPAP 5.00 01/20/23 12:41 91 NIV CPAP 5.00 01/20/23 12:34 NIV CPAP 3.00 01/20/23 12:16 77 01/20/23 12:00 80 17 160/109 (124) Nasal Cannula 4.00 01/20/23 12:00 96 Nasal Cannula 4.00 01/20/23 11:20 36.6 01/20/23 11:00 87 17 165/97 (122) 95 Nasal Cannula 4.00 01/20/23 10:57 Nasal Cannula 4.00 I & O 01/21/23 07:00 Intake Total 1460 ml Output Total 2600 ml Balance -1140 ml Height & Weight Height: 5'7.00" Weight: 248lbs. 0.0oz. 112.855567lh; 38.37 BMI Method: General Appearance: Chronically ill, Obese HEENT: PERRL/EOMI, Pharynx Normal Neck: Full Range of Motion, Normal Inspection, Non Tender, Supple Respiratory: Wheezing (scant expiratory) Cardiovascular: Regular Rate, Rhythm Capillary Refill: Less Than 3 Seconds Extremity: Normal Inspection, No Pedal Edema Neurologic/Psychiatric: Alert, Other (oriented to person only) Skin: Normal Color, Warm/Dry Results Lab Laboratory Tests 01/20/23 03:41 01/21/23 04:25 Assessment/Plan Assessment/Plan 1 LYNNETTE CONLEY MD Jan 21, 2023 10:19
[2023-01-21] MEDS: ACETAMINOPHEN 325 MG TABLET PO PRN ×3 (10:34→19:59)
[2023-01-21] MEDS: DOCUSATE SODIUM 100 MG CAPSULE PO SCH ×2 (10:34→19:58)
[2023-01-21] MEDS: risperiDONE 0.25 MG TABLET PO SCH ×2 (10:34→19:58)
[2023-01-21] MEDS: PANTOPRAZOLE 40 MG TABLET PO SCH (10:34)
[2023-01-21] MEDS: amLODIPine 10 MG TABLET PO SCH (10:34)
[2023-01-21] MEDS: inSUlin DETERMIR 1 UNIT/0.01 ML (CHARGE PER UNIT) SQ SCH (10:35)
[2023-01-21] MEDS: cefTRIAXone INJECTION 2,000 MG in NS (IVPB) 50 ML 50 ML IV SCH (10:45)
[2023-01-21] MEDS: ENOXAPARIN 40 MG/0.4 ML SYRINGE SC SCH (12:07)
[2023-01-21] MEDS ORDERED: IBUPROFEN 600 MG TABLET PO PRN (17:15)
[2023-01-21] MEDS ORDERED: IBUPROFEN 600 MG TABLET PO ONE (17:23)
[2023-01-21] MEDS: FLUTICASONE NASAL SPRAY (120 SPRAYS) NS SCH (19:09)
[2023-01-21] MEDS: PRAMIPEXOLE 0.125 MG TABLET PO SCH (19:58)
[2023-01-21] MEDS: MONTELUKAST 10 MG TABLET PO SCH (19:58)
[2023-01-21] MEDS: TERAZOSIN 5 MG CAPSULE PO SCH (19:58)
[2023-01-21] MEDS: DONEPEZIL 10 MG TABLET PO SCH (19:58)
[2023-01-21] MEDS ORDERED: LACTATED RINGERS 1,000 ML 1,000 ML IV SCH (21:30)
[2023-01-21] MEDS ORDERED: LACTATED RINGERS 1,000 ML 1,000 ML IV ONE (21:31)
[2023-01-21] MEDS: LACTATED RINGERS 1,000 ML 1,000 ML IV SCH (22:05)
[2023-01-21 22:36] VITALS: BP 131/80
[2023-01-22] MEDS ORDERED: LACTATED RINGERS 1,000 ML 500 ML IV ONE (00:30)
[2023-01-22] MEDS: LACTATED RINGERS 1,000 ML 1,000 ML IV SCH ×3 (04:21→21:32)
[2023-01-22 05:27] LABS: BASOPHILS % (AUTO) 0 % (0-10); EOSINOPHILS % (AUTO) 0 % (0-10); HEMATOCRIT 42 % (40-54); HEMOGLOBIN 13.8 g/dL (13.3-17.7); LYMPHOCYTES # (AUTO) 0.9 10^3/uL (1.0-4.0); LYMPHOCYTES % (AUTO) 8 % (12-44); MEAN CORPUSCULAR HEMOGLOBIN 29 pg (25-34); MEAN CORPUSCULAR HGB CONC 33 g/dL (32-36); MEAN CORPUSCULAR VOLUME 87 fL (80-99); MEAN PLATELET VOLUME 9.3 fL (9.0-12.2); MONOCYTES # (AUTO) 1.1 10^3/uL (0.0-1.0); MONOCYTES % (AUTO) 10 % (0-12); NEUTROPHILS % (AUTO) 81 % (42-75); PLATELET COUNT 216 10^3/uL (130-400); WHITE BLOOD COUNT 11.1 10^3/uL (4.3-11.0)
[2023-01-22] MEDS: inSUlin ASPART 1 UNIT/0.01 ML (PER UNIT) SC SCH ×4 (05:42→21:40)
[2023-01-22] MEDS: ACETAMINOPHEN 325 MG TABLET PO PRN (05:42)
[2023-01-22 06:01] LABS: CALCIUM 7.7 MG/DL (8.5-10.1); CREATININE SERUM 1.77 MG/DL (0.60-1.30); MAGNESIUM 2.3 MG/DL (1.6-2.4); PHOSPHORUS 4.3 MG/DL (2.3-4.7); POTASSIUM 3.7 MMOL/L (3.6-5.0)
[2023-01-22] MEDS: MAGNESIUM 1 GM/100 ML IVPB 100 ML IV SCH (06:07)
[2023-01-22] MEDS: POTASSIUM CL 10MEQ/50ML IVPB 50 ML IV SCH (06:07)
[2023-01-22] MEDS: POTASSIUM CHLORIDE 20 MEQ TABLET PO SCH (06:07)
[2023-01-22] MEDS ORDERED: POTASSIUM CHLORIDE 20 MEQ TABLET PO ONE (08:00)
[2023-01-22] MEDS: risperiDONE 0.25 MG TABLET PO SCH ×2 (08:37→21:34)
[2023-01-22] MEDS: amLODIPine 10 MG TABLET PO SCH (08:37)
[2023-01-22] MEDS: inSUlin DETERMIR 1 UNIT/0.01 ML (CHARGE PER UNIT) SQ SCH (08:38)
[2023-01-22] MEDS: PANTOPRAZOLE 40 MG TABLET PO SCH (08:38)
[2023-01-22] MEDS: DOCUSATE SODIUM 100 MG CAPSULE PO SCH ×2 (08:38→21:36)
--- NOTE | 2023-01-22 09:09 | Progress Note - Hospitalist ---
Subjective HPI/CC On Admission Date Seen by Provider: Jan 22, 2023 Soham is a 77 yo M that presented with falls, headache and weakness to the ER yesterday. He has become increasingly confused and has a history of dementia. 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 He lives alone and it is unknown if he had been taking his meds prior. His neighbor reports that he has had increasing w eakness in his leg and has had more difficulty getting in and out of the car the past few days. His neighbor also reports that yesterday morning he had a headche after he had been experiencing falls, not sure of what he fell on or if he lost consciousness. He denies pain, but overall doesn't feel good and feels lightheaded. He denies chest pain and shortness of breath. He denies fever. He denies nausea or vomiting. Subjective/Events-last exam Pt doing well. No complaints. Off precedex overnight. Knows his name but still confused. Family at bedside and after prompting does remember them. Thinks it's 1923. Focused Exam Lactate Level 01/20/23 06:32: Lactic Acid Level 1.24 Objective Exam Vital Signs Vital Signs Date Time Temp Pulse Resp B/P (MAP) Pulse Ox O2 Delivery O2 Flow Rate FiO2 01/22/23 08:00 112 186/96 (126) 96 Nasal Cannula 3.00 01/22/23 07:51 36.6 01/22/23 04:15 18 Capillary Refill : Less Than 3 Seconds General Appearance: No Apparent Distress, Chronically ill, Obese Respiratory: Lungs Clear, No Respiratory Distress Cardiovascular: Regular Rate, Rhythm, No Murmur Gastrointestinal: Normal Bowel Sounds Neurologic/Psychiatric: Alert, Disoriented (knows only name) Results/Procedures Lab Laboratory Tests 01/22/23 04:15 Patient resulted labs reviewed. Imaging: Reviewed Imaging Report Assessment/Plan Assessment and Plan Assess & Plan/Chief Complaint Weakness Confusion/delirium- improving hypokalemia/hypophosphatemia Hypertensive urgency- resolved Off precedex PT/OT as able Replace electrolytes per protocol CXR and head CT- normal results Urine culture with gram pos mix Ceftriaxone Check RVP- pending Continue risperdal Continue home dementia meds DM sliding scale insulin Critical Care Critically Ill Patient ANA PAULA EAGLE MD Jan 22, 2023 09:08
[2023-01-22] MEDS: FLUTICASONE NASAL SPRAY (120 SPRAYS) NS SCH (09:31)
--- NOTE | 2023-01-22 10:25 | Tele-ICU Progress Note ---
Subjective Date Seen by a Provider: Jan 22, 2023 Time Seen by a Provider: 10:25 Subjective/Events-last exam (Tele-ICU Physician , Progress Note ) Service provided via interactive audio and video telecommunications E-CARE system to a patient admitted to ICU bed in [facility]. Patient is seen today due to persistent need of ICU care Available chart/ vitals / labs / Images reviewed Video assessment done using teleICU camera, rest of exam as per RN Discussed with RN Events overnight : Afebrile hemodynamically stable Respiratory - 6L I/O = neg Drips: 125 LR Pressors- no Hospital course: (01/19) 77y/o M admitted s/p falls with weakness, dehydration, hypomagnesemia & hypertensive urgency. (01/20) Upgraded to ICU for precedex gtt d/t severe agitation- WEANED off precedex 01/21- on CPAP last night , very agitateed again - PRECEDEX resumed 01/22- CPAP for FAUSTINO , NOT ON PRECEDEX A/P Confusion / ? dlirium / ? ( CT head WNL 01/19 - OFF precedex - AAO x2 Weaknes - general deconditions , ? muscular / conmnective - ? = as per PCP Recent falls - ? arrythmias ? weakness with lytes abnor / ? ortostatic / ? post circulation cva - follow closely , ? 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 Discussed with RN to reach out if any questions or concerns A total of 20 minutes of critical care time was devoted to this patient today, required to treat and/or prevent further deterioration of critical care condition ( as above ) . I am remotely monitoring this patient from another state. I am unable to do the bedside exam, and history/physical and pertinent information is taken from other notes in the computer and bedside staff. . Sepsis Event Evaluation Height, Weight, BMI Height: 5'7.00" Weight: 248lbs. 0.0oz. 112.497074ps; 41.00 BMI Method: Focused Exam Lactate Level 01/20/23 06:32: Lactic Acid Level 1.24 Exam Exam Patient acknowledged, consented, and participated in this virtual visit which was conducted using real time audio/video Vital Signs Date Time Temp Pulse Resp B/P (MAP) Pulse Ox O2 Delivery O2 Flow Rate FiO2 01/22/23 09:00 110 189/100 (129) 95 Nasal Cannula 3.00 01/22/23 08:00 112 186/96 (126) 96 Nasal Cannula 3.00 01/22/23 08:00 94 Nasal Cannula 3.00 01/22/23 07:51 36.6 Nasal Cannula 3.00 01/22/23 07:11 107 01/22/23 07:00 107 124/87 (99) 91 Nasal Cannula 3.00 01/22/23 06:45 109 135/82 (100) 89 Nasal Cannula 3.00 01/22/23 06:30 111 135/85 (96) 93 Nasal Cannula 3.00 01/22/23 06:15 109 135/90 (108) 96 Nasal Cannula 3.00 01/22/23 06:00 112 154/75 (101) 95 NIV CPAP 3.00 01/22/23 05:45 114 159/87 (108) 95 NIV CPAP 3.00 01/22/23 05:30 113 151/73 (94) 95 NIV CPAP 3.00 01/22/23 05:15 111 135/84 (104) 95 NIV CPAP 3.00 01/22/23 05:00 108 123/94 (109) 96 NIV CPAP 3.00 01/22/23 04:45 112 142/101 (115) 93 NIV CPAP 3.00 01/22/23 04:30 105 144/93 (110) 95 NIV CPAP 3.00 01/22/23 04:24 94 NIV CPAP 3.00 01/22/23 04:15 86 18 152/84 (103) 97 NIV CPAP 3.00 01/22/23 04:00 89 26 112/73 (85) 98 NIV CPAP 3.00 01/22/23 03:45 84 17 137/82 (96) 97 NIV CPAP 3.00 01/22/23 03:30 93 15 129/79 (96) 97 NIV CPAP 3.00 01/22/23 03:15 92 19 131/79 (98) 95 NIV CPAP 3.00 01/22/23 03:00 84 13 120/74 (109) 97 NIV CPAP 3.00 01/22/23 02:53 89 18 97 30.00 01/22/23 02:45 89 18 120/75 (95) 96 NIV CPAP 3.00 01/22/23 02:30 81 11 141/70 (96) 96 NIV CPAP 3.00 01/22/23 02:15 88 16 118/69 (83) 94 NIV CPAP 3.00 01/22/23 02:05 36.5 NIV CPAP 01/22/23 02:00 79 13 118/68 (83) 95 Nasal Cannula 3.00 01/22/23 01:45 79 13 129/75 (97) 96 Nasal Cannula 3.00 01/22/23 01:30 77 14 118/71 (84) 97 Nasal Cannula 3.00 01/22/23 01:15 79 14 118/68 (84) 96 Nasal Cannula 3.00 01/22/23 01:00 80 01/22/23 01:00 80 14 119/70 (84) 97 Nasal Cannula 3.00 01/22/23 00:45 81 13 111/64 (80) 96 Nasal Cannula 3.00 01/22/23 00:30 93 15 133/75 (81) 95 Nasal Cannula 3.00 01/22/23 00:22 94 NIV CPAP 3.00 01/22/23 00:15 101 20 128/90 (99) 95 Nasal Cannula 3.00 01/22/23 00:10 36.8 01/22/23 00:00 107 18 138/73 (94) Nasal Cannula 3.00 01/21/23 23:45 104 17 115/68 (83) 96 Nasal Cannula 3.00 01/21/23 23:30 108 18 124/79 (93) 97 Nasal Cannula 3.00 01/21/23 23:15 107 21 130/55 (77) 97 Nasal Cannula 3.00 01/21/23 23:08 109 21 120/60 (85) 96 Nasal Cannula 3.00 01/21/23 23:00 110 23 139/120 (122) 96 Nasal Cannula 3.00 01/21/23 22:45 111 19 147/74 (97) 95 Nasal Cannula 3.00 01/21/23 22:36 112 24 95 30.00 01/21/23 22:30 110 24 131/80 (98) 95 Nasal Cannula 3.00 01/21/23 22:15 110 25 139/56 (75) 96 Nasal Cannula 3.00 01/21/23 22:00 110 20 121/72 (93) 88 Nasal Cannula 3.00 01/21/23 21:45 107 23 100/76 (81) 100 Nasal Cannula 3.00 01/21/23 21:30 109 17 120/66 (75) 99 Nasal Cannula 3.00 01/21/23 21:15 102 17 103/56 (67) 94 Nasal Cannula 3.00 01/21/23 21:00 105 26 105/70 (76) 93 Nasal Cannula 3.00 01/21/23 20:45 112 23 114/92 (99) 96 Nasal Cannula 3.00 01/21/23 20:30 113 26 119/62 (90) 95 Nasal Cannula 3.00 01/21/23 20:15 108 33 124/63 (75) 95 Nasal Cannula 3.00 01/21/23 20:07 107 13 142/82 (97) 94 Nasal Cannula 3.00 01/21/23 20:00 109 28 79/42 (55) 94 Nasal Cannula 3.00 01/21/23 19:59 37.2 01/21/23 19:45 108 24 127/61 (90) 92 Nasal Cannula 3.00 01/21/23 19:43 94 Nasal Cannula 3.00 01/21/23 19:30 112 29 108/58 (70) 97 Nasal Cannula 3.00 01/21/23 19:29 37.4 01/21/23 19:15 114 21 126/66 (84) 96 Nasal Cannula 3.00 01/21/23 19:11 Nasal Cannula 3.00 01/21/23 19:00 114 01/21/23 19:00 114 36 134/84 (87) 96 Nasal Cannula 3.00 01/21/23 18:00 121 33 132/78 (96) 92 Nasal Cannula 3.00 01/21/23 17:50 37.5 01/21/23 17:26 38.0 01/21/23 17:25 38.0 01/21/23 17:00 125 14 124/117 (119) 93 Nasal Cannula 3.00 01/21/23 16:59 38.5 01/21/23 16:50 94 Nasal Cannula 3.00 01/21/23 16:14 38.1 01/21/23 16:00 112 34 141/88 (105) 91 NIV CPAP 3.00 01/21/23 15:17 37.9 01/21/23 15:16 37.9 01/21/23 15:00 118 23 142/84 (103) 94 NIV CPAP 3.00 01/21/23 14:00 110 19 124/103 (110) 100 NIV CPAP 3.00 01/21/23 13:00 92 21 130/72 (91) 97 Nasal Cannula 3.00 01/21/23 12:16 36.8 01/21/23 12:15 84 01/21/23 12:00 96 Nasal Cannula 3.00 01/21/23 12:00 84 17 118/101 (107) 97 Nasal Cannula 3.00 01/21/23 11:28 94 154/82 01/21/23 11:00 94 25 154/82 (106) 98 Nasal Cannula 3.00 01/21/23 10:47 Nasal Cannula 3.00 01/21/23 10:32 89 161/91 I & O 01/22/23 07:00 Intake Total 2940 ml Output Total 1050 ml Balance 1890 ml Height & Weight Height: 5'7.00" Weight: 248lbs. 0.0oz. 112.196928vl; 41.00 BMI Method: General Appearance: No Apparent Distress, Chronically ill, Obese HEENT: PERRL/EOMI, Pharynx Normal Neck: Full Range of Motion, Normal Inspection, Non Tender, Supple Respiratory: Lungs Clear, No Respiratory Distress Cardiovascular: Regular Rate, Rhythm, No Murmur Capillary Refill: Less Than 3 Seconds Extremity: Normal Inspection, No Pedal Edema Neurologic/Psychiatric: Alert, Disoriented (knows only name) Skin: Normal Color, Warm/Dry Results Lab Laboratory Tests 01/21/23 04:25 01/22/23 04:15 Assessment/Plan Assessment/Plan 1 LYNNETTE CONLEY MD Jan 22, 2023 10:25
[2023-01-22] MEDS: cefTRIAXone INJECTION 2,000 MG in NS (IVPB) 50 ML 50 ML IV SCH (11:40)
--- NOTE | 2023-01-22 12:48 | Physical Therapy Evaluation ---
PT Evaluation-General Medical Diagnosis Admission Date Jan 19, 2023 at 12:35 Medical Diagnosis: generalized weakness/HTN urgency Onset Date: Jan 19, 2023 Therapy Diagnosis Therapy Diagnosis: generalized weakness/impaired mobility Height/Weight Height (Feet): 5 Height (Inches): 7.00 Weight (Pounds): 248 Weight (Ounces): 0.0 Precautions Precautions/Isolations: Fall Prevention, Standard Precautions Referral Physician: John Reason for Referral: Evaluation/Treatment Medical History Pertinent Medical History: COPD, DM, HTN, OA Current History ER secondary to falls, SINGH weakness Reviewed History: Yes Social History Home: Single Level Current Living Status: Alone Prior Prior Level of Function SCALE: Activities may be completed with or without assistive devices. 9-Acvzuyikmx-gxxizfg completes the activity by him/herself with no assistance from a helper. 5-Set-up or Clean-up Assistance-helper sets up or cleans up; patient completes activity. [place] assists only prior to or following the activity. 4-Supervision or Touching Assistance-helper provides verbal cues and/or touching/steadying and/or contact guard assistance as patient completes activity. Assistance may be provided throughout the activity or intermittently. 3-Partial/Moderate Assistance-helper does LESS THAN HALF the effort. [place] lifts, holds or supports trunk or limbs, but provides less than half the effort. 2-Substantial/Maximal Assistance-helper does MORE THAN HALF the effort. [place] lifts or holds trunk or limbs and provides more than half the effort. 0-Uspehehoi-ipcaxv does ALL the effort. Patient does none of the effort to complete the activity. Or, the assistance of 2 or more helpers is required for the patient to complete the activity. If activity was not attempted, code reason: 7-Patient Refused. 9-Not Applicable-not attempted and the patient did not perform the activity before the current illness, exacerbation or injury. 10-Not Attempted due to Environmental Limitations-(lack of equipment, weather restraints, etc.). 88-Not Attempted due to Medical Conditions or Safety Concerns. Bed Mobility: 6 Transfers (B,C,W/C): 6 Gait: 6 Stairs: 6 Indoor Mobility (Ambulation): Independent Stairs: Independent Prior Devices Use: None PT Evaluation-Current Subjective Patient agrees to PT. Live sitter present. Objective Patient Orientation: Confused ROM/Strength ROM Lower Extremities bilateral LE WFL Strength Lower Extremities 3/5 grossly bilateral LE all planes Integumentary/Posture Bowel Incontinence: No Bladder Incontinence: Orozco Cath Posture trunk flexed posture Neuromuscular (Tone, Coordination, Reflexes) diminished coordination due to weakness Sensory Vision: Functional Hearing: Impaired Transfers Lying to Sitting/Side of Bed(Q: 2 Sit to Stand (QC): 3 Chair/Dea-hx-Xcztr Xfer(QC): 3 Toilet Transfer (QC): 3 Gait Mode of Locomotion: Walk Anticipated Mode of Locomotion: Walk Walk 10 feet (QC): 2 Walk 50 ft with 2 Turns(QC): 88 Gait Assistive Device: FWW Comments/Gait Description trunk flexed posture/shuffle gait sequence Balance Sitting Static: Fair Sitting Dynamic: Fair Standing Static: Fair Standing Dynamic: Poor Assessment/Needs Patient will benefit from skilled PT to address functional strength and mobility to improve current LOF to safely return to home at maximum LOF. Rehab Potential: Fair PT Contract Sheltered Workshop Supervisor Goals Alf Goals PT Alf Goals Time Frame: Feb 09, 2023 Roll Left & Right (QC): 6 Sit to Lying (QC): 6 Lying-Sitting on Side/Bed(QC): 6 Sit to Stand (QC): 6 Chair/Vjb-mj-Xicls Xfer(QC): 6 Toilet Transfer (QC): 6 Walk 10 feet (QC): 5 Walk 50ft with 2 Turns (QC): 5 Walk 150 ft (QC): 5 1 Step (curb) (QC): 4 4 Steps (QC): 4 PT Plan Problem List Problem List: Activity Tolerance, Functional Strength, Safety, Balance, Gait, Transfer, Bed Mobility Treatment/Plan Treatment Plan: Continue Plan of Care Treatment Plan: Bed Mobility, Education, Functional Activity Yudelka, Functional Strength, Gait, Safety, Therapeutic Exercise, Transfers Treatment Duration: Feb 09, 2023 Frequency: 6 times per week Estimated Hrs Per Day: .25 hour per day Time Time In: 1140 Time Out: 1153 DATE: Jan 22, 2023 Total Billed Treatment Time: 13 Total Billed Treatment 1 visit EVMod 13 min SHANEKA RODRIGUES PT Jan 22, 2023 12:48
[2023-01-22] MEDS: ENOXAPARIN 40 MG/0.4 ML SYRINGE SC SCH (13:26)
[2023-01-22 14:51] LABS: PARAINFLU 1 PCR Not Detected (Not Detected); PARAINFLU 2 PCR Not Detected (Not Detected); RSV PCR TEST Not Detected (Not Detected)
[2023-01-22] MEDS ORDERED: ATOR40TA70 PO (14:57)
[2023-01-22] MEDS ORDERED: INSU100I23 SC (14:57)
[2023-01-22] MEDS ORDERED: INSU100I32 SC (14:57)
[2023-01-22] MEDS ORDERED: PRAM0.128 PO (14:57)
[2023-01-22] MEDS ORDERED: METF-399 PO (14:57)
[2023-01-22] MEDS ORDERED: ANAS1TAB50 PO (14:57)
--- NOTE | 2023-01-22 15:21 | Occ Therapy Progress Note ---
Therapy Progress Note OT order received, OT to monitor. Patient will elevated heart rate and low 02 saturation. Will attempt 01/23/23 VIVI HELMS OT Jan 22, 2023 15:21
[2023-01-22] MEDS: hydrALAZINE INJECTION 20 MG/ML VIAL IV PRN (18:01)
[2023-01-22] MEDS: HALOPERIDOL INJECTION 5 MG/ML VIAL IM PRN (18:18)
[2023-01-22] MEDS: TERAZOSIN 5 MG CAPSULE PO SCH (21:34)
[2023-01-22] MEDS: MONTELUKAST 10 MG TABLET PO SCH (21:34)
[2023-01-22] MEDS: PRAMIPEXOLE 0.125 MG TABLET PO SCH (21:34)
[2023-01-22] MEDS: DONEPEZIL 10 MG TABLET PO SCH (21:34)
[2023-01-22 21:52] VITALS: BP 161/96
[2023-01-23 02:38] VITALS: BP 137/90
[2023-01-23] MEDS: DexMEDEtomidine 1,000mcg/250ml 250 ML IV SCH ×3 (05:04→23:55)
[2023-01-23] MEDS: LACTATED RINGERS 1,000 ML 1,000 ML IV SCH ×3 (05:39→23:55)
[2023-01-23] MEDS: NS IV 1000 ML 1,000 ML IV SCH ×2 (05:39→22:40)
[2023-01-23] MEDS: MAGNESIUM 1 GM/100 ML IVPB 100 ML IV SCH (06:00)
[2023-01-23] MEDS: POTASSIUM CL 10MEQ/50ML IVPB 50 ML IV SCH (06:00)
[2023-01-23] MEDS: POTASSIUM CHLORIDE 20 MEQ TABLET PO SCH (06:00)
[2023-01-23] MEDS: inSUlin ASPART 1 UNIT/0.01 ML (PER UNIT) SC SCH ×4 (06:00→21:00)
[2023-01-23 06:05] LABS: CALCIUM 8.2 MG/DL (8.5-10.1); CREATININE SERUM 1.25 MG/DL (0.60-1.30); PHOSPHORUS 2.6 MG/DL (2.3-4.7); POTASSIUM 4.5 MMOL/L (3.6-5.0)
[2023-01-23 06:18] LABS: BASOPHILS % (AUTO) 0 % (0-10); EOSINOPHILS # (AUTO) 0.2 10^3/uL (0.0-0.3); EOSINOPHILS % (AUTO) 2 % (0-10); HEMATOCRIT 44 % (40-54); HEMOGLOBIN 14.1 g/dL (13.3-17.7); LYMPHOCYTES # (AUTO) 1.2 10^3/uL (1.0-4.0); LYMPHOCYTES % (AUTO) 11 % (12-44); MEAN CORPUSCULAR HEMOGLOBIN 28 pg (25-34); MEAN CORPUSCULAR HGB CONC 32 g/dL (32-36); MEAN CORPUSCULAR VOLUME 88 fL (80-99); MONOCYTES # (AUTO) 0.8 10^3/uL (0.0-1.0); MONOCYTES % (AUTO) 7 % (0-12); NEUTROPHILS % (AUTO) 80 % (42-75); PLATELET COUNT 204 10^3/uL (130-400); WHITE BLOOD COUNT 11.3 10^3/uL (4.3-11.0)
--- NOTE | 2023-01-23 08:32 | Diagnostic Imaging Report ---
INDICATION: Shortness of breath Portable chest 11:04 AM Heart size and pulmonary vascularity are normal. Lungs are clear. There are no effusions or pneumothoraces. IMPRESSION: No acute abnormalities in the chest Dictated by: Dictated on workstation # [id number]
--- NOTE | 2023-01-23 08:33 | Occupational Therapy Eval ---
OT Evaluation-General/PLF Medical Diagnosis Admission Date Jan 19, 2023 at 12:35 Medical Diagnosis: generalized weakness/HTN urgency Onset Date: Jan 19, 2023 Therapy Diagnosis Therapy Diagnosis: weakness, confusion Height/Weight Height (Feet): 5 Height (Inches): 7.00 Weight (Pounds): 248 Weight (Ounces): 0.0 Precautions Precautions/Isolations: Standard Precautions Referral Physician: John Referral Reason: Activity Tolerance, Evaluation/Treatment Medical History Pertinent Medical History: COPD, DM, HTN, OA Social History Home: Single Level Current Living Status: Alone Entry Into Home: Stairs With Railing Steps Into Home: 3 Patient has a helper chicken farm helper that lives down the road ADL-Prior Level of Function SCALE: Activities may be completed with or without assistive devices. 8-Zufygzxfog-uwgjekv completes the activity by him/herself with no assistance from a helper. 5-Set-up or Clean-up Assistance-helper sets up or cleans up; patient completes activity. [place] assists only prior to or following the activity. 4-Supervision or Touching Assistance-helper provides verbal cues and/or touching/steadying and/or contact guard assistance as patient completes activity. Assistance may be provided throughout the activity or intermittently. 3-Partial/Moderate Assistance-helper does LESS THAN HALF the effort. [place] lifts, holds or supports trunk or limbs, but provides less than half the effort. 2-Substantial/Maximal Assistance-helper does MORE THAN HALF the effort. [place] lifts or holds trunk or limbs and provides more than half the effort. 4-Ahfyflxdn-qxsdav does ALL the effort. Patient does none of the effort to complete the activity. Or, the assistance of 2 or more helpers is required for the patient to complete the activity. If activity was not attempted, code reason: 7-Patient Refused. 9-Not Applicable-not attempted and the patient did not perform the activity before the current illness, exacerbation or injury. 10-Not Attempted due to Environmental Limitations-(lack of equipment, weather restraints, etc.). 88-Not Attempted due to Medical Conditions or Safety Concerns. 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 Prefers to be called ALESIA Mental Status/Objective Patient Orientation: Confused, Eyes Open (intermittently), Mumbles Attachments: Orozco Catheter, IV, Oxygen, Telemetry Current Glasses/Contacts: Yes Hearing Aids: Yes (very hard of hearing, doesn't always wear hearing aides) Hand Dominance: Right Upper Extremity ROM impaired Upper Extremity Coordination impaired Upper Extremity Strength impaired does not understand commands, lethargic and sleepy during evaluation ADL-Treatment Eating (QC): 88 Oral Hygiene (QC): 88 Shower/Bathe Self (QC): 88 Upper Body Dressing (QC): 1 Lower Body Dressing (QC): 1 On/Off Footwear (QC): 1 Toileting Hygiene (QC): 1 Education OT Patient Education: Instructions to caregiver, Progress toward Goal/Update tx plan, Purpose of tx/functional activities, Reviewed precautions, Rehab process, Safety issues Teaching Recipient: Patient Teaching Methods: Discussion Response to Teaching: Reinforcement Needed OT Custodial Goals Custodial Goals Eating (QC): 4 Oral Hygiene (QC): 4 Toileting Hygiene (QC): 4 Shower/Bathe Self (QC): 4 Upper Body Dressing (QC): 4 Lower Body Dressing (QC): 4 On/Off Footwear (QC): 4 1=Demonstrate adherence to instructed precautions during ADL tasks. 2=Patient will verbalize/demonstrate understanding of assistive devices/modifications for ADL. 3=Patient will improve strength/tolerance for activity to enable patient to perform ADL's. OT Education/Plan Problem List/Assessment Assessment: Decreased Activ Tolerance, Decreased Safety Aware, Decreased UE Strength, Dependent Transfers, Impaired Bed Mobility, Impaired Cognition, Impaired Coordination, Impaired Funct Balance, Impaired Self-Care Skills, Restricted Funct UE ROM Discharge Recommendations Plan/Recommendations: Continue POC Therapy Discharge Recommendati: Post Acute OT Treatment Plan/Plan of Care Treatment,Training & Education: Yes Patient would benefit from OT for education, treatment and training to promote independence in ADL's, mobility, safety and/or upper extremity function for ADL's. Plan of Care: ADL Retraining, Caregiver Training, Concurrent Therapy, Functional Mobility, Group Exercise/Act as Ind, UE Funct Exercise/Act Treatment Duration: Jan 28, 2023 Frequency: 3 times per week (3-5 times /wk) Estimated Hrs Per Day: .25 hour per day Agreement: Yes Rehab Potential: Fair Time Start Time: 08:23 Stop Time: 08:33 DATE: Jan 23, 2023 Total Time Billed (hr/min): 10 Billed Treatment Time EV 10 min VIVI HELMS OT Jan 23, 2023 08:32
[2023-01-23] MEDS: PANTOPRAZOLE 40 MG TABLET PO SCH (08:48)
[2023-01-23] MEDS: FLUTICASONE NASAL SPRAY (120 SPRAYS) NS SCH (08:49)
[2023-01-23] MEDS: DOCUSATE SODIUM 100 MG CAPSULE PO SCH ×2 (08:49→21:17)
[2023-01-23] MEDS: amLODIPine 10 MG TABLET PO SCH (08:49)
[2023-01-23] MEDS: risperiDONE 0.25 MG TABLET PO SCH ×2 (08:49→21:17)
--- NOTE | 2023-01-23 08:57 | Tele-ICU Progress Note ---
Subjective Date Seen by a Provider: Jan 23, 2023 Subjective/Events-last exam This virtual visit was conducted using real time audio/video. Thank you for asking us to see this patient for AMS, weakness, hypertension. Recent events: Back on Precedex overnight w agitation. PE: Appears comfortable. VSS. O2 sat 96% on 3 LPM. HEENT: No obvious masses, adenopathy or JVD. Chest: clear to auscultation. CV: RRR S1 S2 No murmur or added sounds. Abd: Non-tender. Bowel sounds Y. : Unremarkable. Orozco Y. DIE EQUIPMENT OPERATOR/psychiatric: Grossly intact. No obvious focal findings. Extremities: No edema. Capillary refill < 3 seconds. Skin: unremarkable. Results: Elevated WCC 11.3, BG 111. CXR: clear. CTH neg. Available chart/ vitals / labs / images reviewed. Video assessment done using teleICU camera, rest of exam as per RN. A/P: Respiratory insufficiency: Continue present management with O2, duonebs, Flovent, CPAP PRN, Singulair Monitor for increasing oxygenation needs and/or need for intubation. Critical Care: critically ill patient. Cont. Precedex, abx, metop., Norv., Mirapex, PPI, statin, repir., Los., SSI, Aricept Discussed with SONNY Ford. Asked RN to reach out to eICU if any questions or concerns later. Time spent with patient/coordination of care with other health professionals (mins): 20 Sepsis Event Evaluation Height, Weight, BMI Height: 5'7.00" Weight: 248lbs. 0.0oz. [id number]; 41.00 BMI Method: Exam Exam Patient acknowledged, consented, and participated in this virtual visit which was conducted using real time audio/video Vital Signs Date Time Temp Pulse Resp B/P (MAP) Pulse Ox O2 Delivery O2 Flow Rate FiO2 01/23/23 07:00 36.1 01/23/23 06:05 87 159/96 01/23/23 06:00 87 18 159/96 (117) 100 NIV Bilevel 30.00 01/23/23 05:36 90 158/90 01/23/23 05:15 84 25 180/99 (126) NIV Bilevel 30.00 01/23/23 05:04 87 158/90 01/23/23 05:00 90 17 158/90 (112) NIV Bilevel 30.00 01/23/23 04:00 97 16 154/96 (112) 97 NIV Bilevel 30.00 01/23/23 04:00 98 NIV Bilevel 30 01/23/23 03:00 92 23 146/93 (106) 93 NIV Bilevel 30.00 01/23/23 02:38 97 14 96 30.00 01/23/23 02:00 102 14 141/82 (91) 100 NIV Bilevel 30.00 01/23/23 01:00 96 18 131/74 (90) 98 NIV Bilevel 30.00 01/23/23 01:00 96 01/23/23 01:00 96 134/74 01/23/23 00:00 104 9 159/99 (116) 98 NIV Bilevel 30.00 01/23/23 00:00 96 NIV Bilevel 30 01/22/23 23:00 109 20 160/100 (121) 98 NIV Bilevel 30.00 01/22/23 22:30 123 154/93 01/22/23 22:00 112 21 171/97 (121) 97 NIV Bilevel 30.00 01/22/23 21:52 112 19 96 30.00 01/22/23 21:30 NIV Bilevel 30.00 01/22/23 21:00 120 19 159/80 (109) 93 NIV Bilevel 30.00 01/22/23 20:26 36.8 NIV Bilevel 30.00 01/22/23 20:00 124 25 167/100 (117) 94 NIV Bilevel 30.00 01/22/23 20:00 96 Nasal Cannula 3.00 01/22/23 19:00 122 01/22/23 19:00 129 29 165/90 (102) 93 NIV Bilevel 30.00 01/22/23 18:00 131 20 173/95 (121) 93 NIV Bilevel 30.00 01/22/23 17:00 110 20 174/98 (123) 96 NIV Bilevel 30.00 01/22/23 16:00 94 Nasal Cannula 3.00 01/22/23 16:00 114 23 172/100 (124) 95 NIV Bilevel 30.00 01/22/23 15:57 37.2 NIV Bilevel 30.00 01/22/23 15:38 98 Nasal Cannula 3.00 01/22/23 15:00 121 163/89 (113) 92 Nasal Cannula 3.00 01/22/23 14:00 120 174/105 (128) 98 Nasal Cannula 3.00 01/22/23 13:00 116 128/68 (88) 95 Nasal Cannula 3.00 01/22/23 12:07 136 01/22/23 12:00 134 128/72 (90) 96 Nasal Cannula 3.00 01/22/23 12:00 94 Nasal Cannula 3.00 01/22/23 11:44 36.8 Nasal Cannula 3.00 01/22/23 11:00 116 167/89 (115) 100 Nasal Cannula 3.00 01/22/23 10:00 117 137/89 (105) 95 Nasal Cannula 3.00 01/22/23 09:00 110 189/100 (129) 95 Nasal Cannula 3.00 I & O 01/23/23 07:00 Intake Total 2910 ml Output Total 4100 ml Balance -1190 ml Height & Weight Height: 5'7.00" Weight: 248lbs. 0.0oz. 112.002254qu; 41.00 BMI Method: General Appearance: No Apparent Distress, Chronically ill, Obese HEENT: PERRL/EOMI, Pharynx Normal Neck: Full Range of Motion, Normal Inspection, Non Tender, Supple Respiratory: Lungs Clear, No Respiratory Distress Cardiovascular: Regular Rate, Rhythm, No Murmur Capillary Refill: Less Than 3 Seconds Extremity: Normal Inspection, No Pedal Edema Neurologic/Psychiatric: Alert, Disoriented (knows only name) Skin: Normal Color, Warm/Dry Results Lab Laboratory Tests 01/22/23 04:15 01/23/23 04:40 01/23/23 06:05 Assessment/Plan Assessment/Plan See free text. Critical Care: Critically Ill Patient NILO JACKSON MD Jan 23, 2023 08:57
[2023-01-23] MEDS: inSUlin DETERMIR 1 UNIT/0.01 ML (CHARGE PER UNIT) SQ SCH (09:03)
--- NOTE | 2023-01-23 09:05 | Speech Therapy Progress Note ---
Therapy Progress Note Speech pathology attempted the clinical bedside swallowing evaluation at 0848. At this time, the patient remains too lethargic for safe participation in P.O. trials. The patient required consistent verbal prompting for alertness, returning to sleep following one half teaspoon of thin liquid. Increased level of alertness is recommended prior to continuing P.O. intake as the patient's risk for aspiration are elevated with his current level of lethargy. ST to re-attempt the evaluation on 01/24/23 or earlier as able. Thank you for the consultation. JI HDEZ Jan 23, 2023 09:05
--- NOTE | 2023-01-23 10:31 | Consultation-Cardiology ---
HPI-Cardiology Cardiology Consultation Date of Consultation 01/23/23 Date of Admission Time Seen by Provider: 10:25 Indication: Hypertensive urgency HPI Patient is a 77 y/o male with history of CAD, COPD, malignant HTN, CKD, COPD. Presented to the ER with complaints of increased weakness and falls for the past week. Patient is confused at this time, so most of HPI is obtained through review of medical records. Denies any chest pain. Patient has private branch exchange service advisor that sees him daily and reports some increased confusion as well. Reports he possibly fell and hit his head but unsure if LOC. 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 Smoking Status: Never a Smoker Recent Hopitalizations: No Alcohol Use?: No Immunizations Up To Date Tetanus Booster (TDap): Unknown Date of Pneumonia Vaccine: Jan 23, 2016 Date of Influenza Vaccine: Feb 15, 2017 Past Medical History CAD, HTN, HLP, CKD, COPD Family Medical History Significant Family History: No Pertinent Family Hx Family History: Cardiovascular disease 19 FATHER 19 MOTHER Dementia 19 MOTHER FH: pulmonary embolism 19 FATHER Hypertension 19 FATHER 19 MOTHER Kidney disease 19 FATHER Prostate cancer 19 FATHER Review of Systems-General Review of Systems Constitutional: see HPI, dizziness; No fever EENTM: no symptoms reported Respiratory: no symptoms reported, see HPI; No cough Cardiovascular: see HPI; No chest pain Gastrointestinal: see HPI; No abdominal pain, No nausea, No vomiting Genitourinary: no symptoms reported Musculoskeletal: no symptoms reported Skin: no symptoms reported Psychiatric/Neurological: Headache, Weakness Reviewed Test Results Reviewed Test Results Lab Laboratory Tests 01/22/23 10:48: Glucometer 164H 01/22/23 15:50: Glucometer 189H 01/22/23 20:55: Glucometer 189H 01/23/23 04:40: Sodium Level 137, Potassium Level 4.5, Chloride Level 108H, Carbon Dioxide Level 20L, Anion Gap 9, Blood Urea Nitrogen 13, Creatinine 1.25, Estimat Glomerular Filtration Rate 59, BUN/Creatinine Ratio 10, Glucose Level 111H, Calcium Level 8.2L, Phosphorus Level 2.6, Magnesium Level 2.0 01/23/23 06:05: White Blood Count 11.3H, Red Blood Count 5.00, Hemoglobin 14.1, Hematocrit 44, Mean Corpuscular Volume 88, Mean Corpuscular Hemoglobin 28, Mean Corpuscular Hemoglobin Concent 32, Red Cell Distribution Width 15.0H, Platelet Count 204, Mean Platelet Volume 9.0, Immature Granulocyte % (Auto) 1, Neutrophils (%) (Auto) 80H, Lymphocytes (%) (Auto) 11L, Monocytes (%) (Auto) 7, Eosinophils (%) (Auto) 2, Basophils (%) (Auto) 0, Neutrophils # (Auto) 9.0H, Lymphocytes # ( Auto) 1.2, Monocytes # (Auto) 0.8, Eosinophils # (Auto) 0.2, Basophils # (Auto) 0.0, Immature Granulocyte # (Auto) 0.1 Microbiology 01/19/23 MRSA Screen - Final, Complete MRSA not isolated 01/19/23 Urine Culture - Final, Complete Gram Pos Mixed Bacterial Ashly See Comments ECG Impression ECG Initial ECG Rhythm: Normal Sinus Physical Exam Physical Exam Vital Signs Vital Signs - First Documented 01/19/23 01/19/23 01/23/23 07:15 11:57 00:00 Temp 37.2 Pulse 115 Resp 20 B/P (MAP) 187/112 (137) Pulse Ox 94 O2 Delivery Nasal Cannula O2 Flow Rate 2.00 FiO2 30 Capillary Refill : Less Than 3 Seconds Height, Weight, BMI Height: 5'7.00" Weight: 248lbs. 0.0oz. 112.317578dr; 41.00 BMI Method: General Appearance: No Apparent Distress, Chronically ill, Obese HEENT: PERRL/EOMI, Pharynx Normal Neck: Full Range of Motion, Normal Inspection, Non Tender, Supple Respiratory: Lungs Clear, No Respiratory Distress Cardiovascular: Regular Rate, Rhythm, No Murmur Gastrointestinal: Normal Bowel Sounds Back: No CVA Tenderness Extremity: Normal Inspection, No Pedal Edema Neurologic/Psychiatric: Alert, Disoriented (knows only name) Skin: Normal Color, Warm/Dry A/P-Cardiology Admission Diagnosis Weakness/confusion CAD Hypertensive urgency CKD Assessment/Plan Weakness and Confusion/delirium- oriented to person. CXR and CT head WNL Patient is maintained on BiPAP, most probably hypoxemia/hypoventilation syndrome Reported some weakness, seen by primary care physician about 2 weeks ago and there was suspicion of a small CVA Managed by medical team at this point Hypertensive urgency, history of Malignant HTN, has been maintained on amlodipine 10 mg daily, furosemide 20 mg daily, Toprol-XL 50 mg daily as outpatient. Using IV hydralazine PRN. CT angiogram of the abdomen in July 2012 showed mild plaque along the origin of the renal artery with no significant stenosis. followed by [facility]. Restart and monitor blood pressure UTI, Urine culture with gram pos mix. On Ceftriaxone, management per hospitalist Coronary artery disease Left heart catheterization on January 22, 2018 revealing severe stenosis at the proximal LAD successful primary stenting using Estrella 315mm. Mild to moderate stenosis in the mid LAD at a trifurcation point that will be treated conservatively and monitor closely. Heavily calcified left main with ostial 40- 50 percent stenosis. Mild to moderate disease in the circumflex artery, mild disease in the right coronary artery. -Stress test done October 2021 no significant ischemia SSS 4, SDS 2, EF 69% Maintained on aspirin. Chronic kidney disease stage IV, followed and managed by [facility], losartan was discontinued in the past. Continue to monitor renal function. Left ventricular hypertrophy 2D echo done in April 2022 with mild LVH, ejection fraction 50 to 55%, grade 1 diastolic dysfunction, PA pressure 30 to 35 mmHg. 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 Maintained on Xarelto in the past, currently off of the medication. Bilateral lower extremity venous duplex was negative. No prior history of PE. Mild bilateral carotid stenosis, last ultrasound was done in April 2022, continue to monitor Diabetes mellitus Hyperlipidemia, has been followed by Dr. Gutierrez as outpatient. COPD, obstructive sleep apnea, using C pap. Morbid obesity Peripheral edema, chronic, no change from baseline. Continue to monitor. Thank you for allowing us to participate in the management of Mr. Meza. This is Suzy Allison PA-C, as a scribe for Dr. Corona. Patient was seen at bedside, I interviewed and examined the patient, discussed with Suzy the management plan and agree with the current scribed note Patient was on BiPAP, I removed the BiPAP and visited with him, he is slightly confused but generalized weakness, reported that he was told that he had a stroke about 2 weeks ago when he visited Dr. Davies Getting treatment with ceftriaxone for UTI. Most probably he has underlying exacerbation of COPD with hypoxemia, hypercapnia. Maintained on BiPAP Monitor blood pressure I will repeat 2D echo to evaluate pulmonary artery pressure. SUZY WOLF Jan 23, 2023 10:31 RAMIRO CORONA MD Jan 23, 2023 14:30
--- NOTE | 2023-01-23 11:59 | Progress Note - Hospitalist ---
Subjective HPI/CC On Admission Date Seen by Provider: Jan 23, 2023 Soham is a 77 yo M that presented with falls, headache and weakness to the ER yesterday. He has become increasingly confused and has a history of dementia. 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 He lives alone and it is unknown if he had been taking his meds prior. His neighbor reports that he has had increasing w eakness in his leg and has had more difficulty getting in and out of the car the past few days. His neighbor also reports that yesterday morning he had a headche after he had been experiencing falls, not sure of what he fell on or if he lost consciousness. He denies pain, but overall doesn't feel good and feels lightheaded. He denies chest pain and shortness of breath. He denies fever. He denies nausea or vomiting. Subjective/Events-last exam Pt layin n bed. Back on Precedex. Complains of some SOB but no other complaints. Family at bedside. All questions answered. Objective Exam Vital Signs Vital Signs Date Time Temp Pulse Resp B/P (MAP) Pulse Ox O2 Delivery O2 Flow Rate FiO2 01/23/23 12:00 36.7 01/23/23 12:00 133 30 179/93 (121) 100 NIV Bilevel 30.00 01/23/23 04:00 30 Capillary Refill : Less Than 3 Seconds General Appearance: No Apparent Distress, Chronically ill Respiratory: Lungs Clear, No Accessory Muscle Use Cardiovascular: Regular Rate, Rhythm, No Murmur Gastrointestinal: Normal Bowel Sounds, Soft Neurologic/Psychiatric: Alert, Disoriented (knows name) Results/Procedures Lab Laboratory Tests 01/23/23 04:40 01/23/23 06:05 Patient resulted labs reviewed. Imaging: Reviewed Imaging Report Assessment/Plan Assessment and Plan Assess & Plan/Chief Complaint Weakness Confusion/delirium- improving hypokalemia/hypophosphatemia Hypertensive urgency- resolved Back on precedex PT/OT as able Replace electrolytes per protocol CXR and head CT- normal results Urine culture with gram pos mix Ceftriaxone Check RVP- negative Continue risperdal, increase dose Continue home dementia meds DM sliding scale insulin Critical Care Critically Ill Patient ANA PAULA EAGLE MD Jan 23, 2023 11:59
[2023-01-23] MEDS: cefTRIAXone INJECTION 2,000 MG in NS (IVPB) 50 ML 50 ML IV SCH (12:01)
[2023-01-23] MEDS: ENOXAPARIN 40 MG/0.4 ML SYRINGE SC SCH (12:01)
[2023-01-23] MEDS: hydrALAZINE INJECTION 20 MG/ML VIAL IV PRN (12:08)
--- NOTE | 2023-01-23 14:51 | Physician Query-Final Dx ---
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 Please include clinical findings supporting your diagnosis. Padmini Weldon, MSN, NR Clinical Event Organizer [phone] [email or web address] ANA PAULA EAGLE MD 01/26/23 1039: Final Diagnosis Give Final Diagnosis Acute respiratory failure with hypoxia, present on admission PADMINI WELDON Jan 23, 2023 14:51 ANA PAULA EAGLE MD Jan 26, 2023 10:39
--- NOTE | 2023-01-23 16:07 | Physical Therapy Progress Note ---
Therapy Progress Note Attempted treatment am and pm. Pt confused and lethargic, not able to particpate in the am. In the pm patient was on bi-pap and having difficulty with shortness of air. Plan to follow up tomorrow. Will work strenth and out of bed activity as patient tolerates. LINDA SEGAL PT Jan 23, 2023 16:07
[2023-01-23] MEDS: PRAMIPEXOLE 0.125 MG TABLET PO SCH (21:17)
[2023-01-23] MEDS: DONEPEZIL 10 MG TABLET PO SCH (21:17)
[2023-01-23] MEDS: MONTELUKAST 10 MG TABLET PO SCH (21:17)
[2023-01-23] MEDS: TERAZOSIN 5 MG CAPSULE PO SCH (21:18)
[2023-01-23 23:07] VITALS: BP 156/83
[2023-01-24 04:57] LABS: BASOPHILS # (AUTO) 0.1 10^3/uL (0.0-0.1); BASOPHILS % (AUTO) 0 % (0-10); EOSINOPHILS # (AUTO) 0.3 10^3/uL (0.0-0.3); EOSINOPHILS % (AUTO) 2 % (0-10); HEMATOCRIT 41 % (40-54); HEMOGLOBIN 13.5 g/dL (13.3-17.7); LYMPHOCYTES # (AUTO) 1.2 10^3/uL (1.0-4.0); LYMPHOCYTES % (AUTO) 11 % (12-44); MEAN CORPUSCULAR HEMOGLOBIN 29 pg (25-34); MEAN CORPUSCULAR HGB CONC 33 g/dL (32-36); MEAN CORPUSCULAR VOLUME 87 fL (80-99); MEAN PLATELET VOLUME 9.4 fL (9.0-12.2); MONOCYTES # (AUTO) 0.8 10^3/uL (0.0-1.0); MONOCYTES % (AUTO) 7 % (0-12); NEUTROPHILS # (AUTO) 9.2 10^3/uL (1.8-7.8); NEUTROPHILS % (AUTO) 79 % (42-75); PLATELET COUNT 241 10^3/uL (130-400); WHITE BLOOD COUNT 11.6 10^3/uL (4.3-11.0)
[2023-01-24 05:31] LABS: CALCIUM 8.5 MG/DL (8.5-10.1); CREATININE SERUM 0.98 MG/DL (0.60-1.30); MAGNESIUM 1.8 MG/DL (1.6-2.4); PHOSPHORUS 2.6 MG/DL (2.3-4.7); POTASSIUM 3.8 MMOL/L (3.6-5.0)
[2023-01-24] MEDS: POTASSIUM CL 10MEQ/50ML IVPB 50 ML IV SCH ×2 (05:43→06:46)
[2023-01-24] MEDS: MAGNESIUM 1 GM/100 ML IVPB 100 ML IV SCH ×2 (05:43→06:46)
[2023-01-24] MEDS: inSUlin ASPART 1 UNIT/0.01 ML (PER UNIT) SC SCH ×4 (05:44→21:59)
[2023-01-24] MEDS: POTASSIUM CHLORIDE 20 MEQ TABLET PO SCH (05:44)
[2023-01-24] MEDS: DexMEDEtomidine 1,000mcg/250ml 250 ML IV SCH (05:49)
--- NOTE | 2023-01-24 07:29 | Speech Therapy Progress Note ---
Therapy Progress Note Speech pathology attempted the clinical bedside swallowing evaluation at 0725. At this time, the patient remains on BiPap, sleeping. The production shift supervisor RN stated the patient consumed eight pills crushed in pudding and sips of water without s/s of suspected aspiration throughout the evening. At this time, the day shift RN and speech pathologist agree to not interrupt the patient's BiPap and re- attempt the evaluation throughout the afternoon, allowing the patient to wake and the RN to assess his current level of confusion. ST will re-attempt the evaluation throughout the afternoon. ST requested contact with any changes throughout the day. 1 x Visit, No Charge JI HDEZ Jan 24, 2023 07:29
--- NOTE | 2023-01-24 08:46 | Cardiology Progress Note ---
Subjective Date Seen by Provider: Jan 24, 2023 Time Seen by Provider: 08:44 Subjective/Events-last exam Patient was seen at bedside, sedated, on BiPAP Received Precedex Review of Systems General: Fatigue, Malaise Objective-Cardiology Exam Last Set of Vital Signs Vital Signs 01/23/23 01/24/23 01/24/23 12:00 07:00 07:50 Temp 36.7 Pulse 66 Resp 19 B/P (MAP) 143/84 (103) Pulse Ox 94 O2 Delivery NIV Bilevel O2 Flow Rate 30.00 I&O Intake and Output 01/24/23 00:00 Intake Total 2720 ml Output Total 4975 ml Balance -2255 ml Intake Oral 470 ml IV Total 2250 ml Output Urine Total 4975 ml General: Cooperative HEENT: Atraumatic, PERRLA Neck: Supple, No JVD Lungs: Normal Air Movement Heart: Regular Rate, Normal S1, Normal S2 Abdomen: Normal Bowel Sounds Extremities: No Clubbing, No Cyanosis Skin: No Rashes, No Breakdown Results Lab Laboratory Tests 01/24/23 04:42 A/P-Cardiology Admission Diagnosis Weakness/confusion CAD Hypertensive urgency CKD Assessment/Plan Weakness and Confusion/delirium- oriented to person. CXR and CT head WNL Patient is maintained on BiPAP, most probably hypoxemia/hypoventilation syndrome Reported some weakness, seen by primary care physician about 2 weeks ago and there was suspicion of a small CVA Managed by medical team at this point Acute respiratory failure, maintained on BiPAP. Received Precedex We will repeat chest x-ray Hypertensive urgency, history of Malignant HTN, has been maintained on amlodipine 10 mg daily, furosemide 20 mg daily, Toprol-XL 50 mg daily as outpatient. Using IV hydralazine PRN. CT angiogram of the abdomen in July 2012 showed mild plaque along the origin of the renal artery with no significant stenosis. followed by [facility]. Monitor blood pressure UTI, Urine culture with gram pos mix. On Ceftriaxone, management per hospitalist Coronary artery disease Left heart catheterization on January 22, 2018 revealing severe stenosis at the proximal LAD successful primary stenting using Estrella 315mm. Mild to moderate stenosis in the mid LAD at a trifurcation point that will be treated conservatively and monitor closely. Heavily calcified left main with ostial 40- 50 percent stenosis. Mild to moderate disease in the circumflex artery, mild disease in the right coronary artery. -Stress test done October 2021 no significant ischemia SSS 4, SDS 2, EF 69% Maintained on aspirin. Chronic kidney disease stage IV, followed and managed by [facility], losartan was discontinued in the past. Continue to monitor renal function. Left ventricular hypertrophy 2D echo done in April 2022 with mild LVH, ejection fraction 50 to 55%, grade 1 diastolic dysfunction, PA pressure 30 to 35 mmHg. 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 Maintained on Xarelto in the past, currently off of the medication. Bilateral lower extremity venous duplex was negative. No prior history of PE. Mild bilateral carotid stenosis, last ultrasound was done in April 2022, continue to monitor Diabetes mellitus Hyperlipidemia, has been followed by Dr. Gutierrez as outpatient. COPD, obstructive sleep apnea, using C pap. Morbid obesity Peripheral edema, chronic, no change from baseline. Continue to monitor. RAMIRO CRUZ MD Jan 24, 2023 08:46
[2023-01-24] MEDS ORDERED: NON-FORMULARY MEDICATION 1 EA EA (Benazepril HCl 40 MG) PO SCH (09:00)
--- NOTE | 2023-01-24 09:05 | Progress Note - Hospitalist ---
Subjective HPI/CC On Admission Date Seen by Provider: Jan 24, 2023 Soham is a 77 yo M that presented with falls, headache and weakness to the ER yesterday. He has become increasingly confused and has a history of dementia. 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 He lives alone and it is unknown if he had been taking his meds prior. His neighbor reports that he has had increasing w eakness in his leg and has had more difficulty getting in and out of the car the past few days. His neighbor also reports that yesterday morning he had a headche after he had been experiencing falls, not sure of what he fell on or if he lost consciousness. He denies pain, but overall doesn't feel good and feels lightheaded. He denies chest pain and shortness of breath. He denies fever. He denies nausea or vomiting. Subjective/Events-last exam Pt wakes up when spoken to but didn't open eyes. Knows name but not where he is. Family at bedside. Discussed plan with them and RN about trying to wean precedex and allow him to be awake more throughout the day. Objective Exam Vital Signs Vital Signs Date Time Temp Pulse Resp B/P (MAP) Pulse Ox O2 Delivery O2 Flow Rate FiO2 01/24/23 07:50 66 01/24/23 07:00 19 143/84 (103) 94 NIV Bilevel 30.00 01/24/23 04:00 30 01/23/23 12:00 36.7 Capillary Refill : Less Than 3 Seconds General Appearance: No Apparent Distress Respiratory: Lungs Clear, No Accessory Muscle Use, Other (on BiPAP) Cardiovascular: Regular Rate, Rhythm, No Murmur Gastrointestinal: Normal Bowel Sounds, Soft Extremity: Other (right hand with swelling) Neurologic/Psychiatric: Alert, Other (oriented to name only) Results/Procedures Lab Laboratory Tests 01/24/23 04:42 Patient resulted labs reviewed. Imaging: Reviewed Imaging Report Assessment/Plan Assessment and Plan Assess & Plan/Chief Complaint Weakness Confusion/delirium- slow to improve hypokalemia/hypophosphatemia Hypertensive urgency- resolved Back on precedex- try to wean off today PT/OT as able Replace electrolytes per protocol CXR and head CT- normal results Urine culture with gram pos mix Ceftriaxone Negative RVP Continue risperdal Continue home dementia meds DM sliding scale insulin Critical Care Critically Ill Patient ANA PAULA EAGLE MD Jan 24, 2023 09:05
[2023-01-24] MEDS: DOCUSATE SODIUM 100 MG CAPSULE PO SCH ×2 (09:13→22:11)
[2023-01-24 09:35] VITALS: BP 166/85
[2023-01-24 09:45] LABS: ABG BASE EXCESS -2.7 MMOL/L (-2.5-2.5); ABG OXYGEN SATURATION 96 % (94-100); ABG PCO2 37 MMHG (35-45); ABG PH 7.38 (7.37-7.43); ABG PO2 75 MMHG (79-93); ABG TCO2 22.7 MMOL/L (21.0-31.0)
[2023-01-24 09:47] LABS: ALLENS TEST YES-POS; PATIENT TEMP 37; VENTILATOR NO
[2023-01-24] MEDS: risperiDONE 0.25 MG TABLET PO SCH ×2 (09:54→21:59)
[2023-01-24] MEDS: amLODIPine 10 MG TABLET PO SCH (09:54)
[2023-01-24] MEDS: PANTOPRAZOLE 40 MG TABLET PO SCH (09:54)
[2023-01-24] MEDS: LACTATED RINGERS 1,000 ML 1,000 ML IV SCH ×2 (09:55→22:41)
[2023-01-24] MEDS: FLUTICASONE NASAL SPRAY (120 SPRAYS) NS SCH (09:55)
[2023-01-24] MEDS: inSUlin DETERMIR 1 UNIT/0.01 ML (CHARGE PER UNIT) SQ SCH (10:07)
--- NOTE | 2023-01-24 10:33 | Tele-ICU Progress Note ---
Subjective Date Seen by a Provider: Jan 24, 2023 Time Seen by a Provider: 10:33 Subjective/Events-last exam (Tele-ICU Physician , Progress Note ) Service provided via interactive audio and video telecommunications E-CARE system to a patient admitted to ICU bed in [facility]. Patient is seen today due to persistent need of ICU care Available chart/ vitals / labs / Images reviewed Video assessment done using teleICU camera, rest of exam as per RN Discussed with RN Events overnight : Afebrile hemodynamically stable Respiratory - 6L I/O = neg Drips: Pressors- no Hospital course: (01/19) 77y/o M admitted s/p falls with weakness, dehydration, hypomagnesemia & hypertensive urgency. (01/20) Upgraded to ICU for precedex gtt d/t severe agitation- WEANED off precedex 01/21- on CPAP last night , very agitateed again - PRECEDEX resumed 01/22- CPAP for FAUSTINO , NOT ON PRECEDEX A/P Confusion / ? dlirium / ? ( CT head WNL 01/19 - OFF precedex - AAO x2 - dementia w/up pending - neds as per PCP = OFF precedex Weaknes - general deconditions , ? muscular / conmnective - ? = as per PCP , snrt CRP Recent falls - ? arrythmias ? weakness with lytes abnor / ? ortostatic / ? post circulation cva - follow closely , ? need MRI if not improving - PT start to weak with pt WES - resolved - stop IVF Reported h/o COPD / FAUSTINO -on o2 TYPING SECRETARY 2 night , prn day -on CPAP- complains TYPING SECRETARY DM - ISS UTI - rocephin Lines : peripf , (Central Line Necessity Reviewed) Orozco: + OG: Nutrition: po Analgesia: Anxiety/ delirium VTE Prophylaxis: rosalind Stress Ulcer Prophylaxis: Plans in collaboration with bedside consultants and IM MDs. Discussed with RN to reach out if any questions or concerns A total of 20 minutes of critical care time was devoted to this patient today, required to treat and/or prevent further deterioration of critical care condition ( as above ) . I am remotely monitoring this patient from another state. I am unable to do the bedside exam, and history/physical and pertinent information is taken from other notes in the computer and bedside staff. . Sepsis Event Evaluation Height, Weight, BMI Height: 5'7.00" Weight: 248lbs. 0.0oz. [id number]; 41.00 BMI Method: Exam Exam Patient acknowledged, consented, and participated in this virtual visit which was conducted using real time audio/video Vital Signs Date Time Temp Pulse Resp B/P (MAP) Pulse Ox O2 Delivery O2 Flow Rate FiO2 01/24/23 10:17 96 Nasal Cannula 2.50 01/24/23 10:00 93 19 158/91 (113) 98 NIV Bilevel 30.00 01/24/23 09:35 93 20 98 30.00 01/24/23 09:00 97 24 166/85 (112) 95 NIV Bilevel 30.00 01/24/23 08:00 71 25 149/85 (106) 95 NIV Bilevel 30.00 01/24/23 07:50 66 01/24/23 07:00 70 19 143/84 (103) 94 NIV Bilevel 30.00 01/24/23 06:00 72 24 149/86 (107) 93 NIV Bilevel 30.00 01/24/23 05:49 72 150/85 01/24/23 05:04 72 22 96 30.00 01/24/23 05:00 70 25 150/89 (109) 95 NIV Bilevel 30.00 01/24/23 04:00 70 24 149/85 (106) 96 NIV Bilevel 30.00 01/24/23 04:00 97 NIV Bilevel 30 01/24/23 04:00 72 150/85 01/24/23 03:00 69 25 153/85 (107) 94 NIV Bilevel 30.00 01/24/23 02:00 71 25 151/88 (109) 96 NIV Bilevel 30.00 01/24/23 01:00 70 01/24/23 01:00 78 25 155/87 (109) 97 NIV Bilevel 30.00 01/24/23 00:00 78 25 150/85 (106) 96 NIV Bilevel 30.00 01/24/23 00:00 96 NIV Bilevel 30 01/23/23 23:55 77 152/89 01/23/23 23:07 75 14 95 30.00 01/23/23 23:00 79 22 145/84 (104) 94 NIV Bilevel 30.00 01/23/23 22:00 76 18 153/84 (107) 98 NIV Bilevel 30.00 01/23/23 21:30 75 127/77 01/23/23 21:00 79 19 153/87 (109) 97 NIV Bilevel 30.00 01/23/23 20:25 98 NIV Bilevel 30 01/23/23 20:00 73 13 141/83 (102) 96 NIV Bilevel 30.00 01/23/23 19:00 80 01/23/23 19:00 80 14 146/85 (105) 96 NIV Bilevel 30.00 01/23/23 18:00 75 13 127/77 (94) 96 NIV Bilevel 30.00 01/23/23 17:29 90 134/79 01/23/23 17:00 84 13 146/87 (106) 98 NIV Bilevel 30.00 01/23/23 16:00 84 13 146/87 (106) 98 NIV Bilevel 30.00 01/23/23 16:00 96 NIV Bilevel 3.00 01/23/23 15:00 90 20 134/79 (97) 96 NIV Bilevel 30.00 01/23/23 14:00 103 19 143/85 (104) 98 NIV Bilevel 30.00 01/23/23 13:08 107 01/23/23 13:00 112 17 118/75 (89) 99 NIV Bilevel 30.00 01/23/23 12:00 36.7 01/23/23 12:00 133 30 179/93 (121) 100 NIV Bilevel 30.00 01/23/23 12:00 94 Nasal Cannula 3.00 01/23/23 12:00 36.7 122 33 151/109 (123) 97 NIV Bilevel 3.00 3.00 01/23/23 11:00 122 33 151/109 (123) 97 NIV Bilevel 30.00 I & O 01/24/23 07:00 Intake Total 1720 ml Output Total 3375 ml Balance -1655 ml Height & Weight Height: 5'7.00" Weight: 248lbs. 0.0oz. [id number]; 41.00 BMI Method: General Appearance: No Apparent Distress HEENT: PERRL/EOMI, Pharynx Normal Neck: Full Range of Motion, Normal Inspection, Non Tender, Supple Respiratory: Lungs Clear, No Accessory Muscle Use, Other (on BiPAP) Cardiovascular: Regular Rate, Rhythm, No Murmur Capillary Refill: Less Than 3 Seconds Extremity: Other (right hand with swelling) Neurologic/Psychiatric: Alert, Other (oriented to name only) Skin: Normal Color, Warm/Dry Results Lab Laboratory Tests 01/23/23 04:40 01/23/23 06:05 01/24/23 04:42 Assessment/Plan Assessment/Plan 1 LYNNETTE CONLEY MD Jan 24, 2023 10:33
[2023-01-24] MEDS: cefTRIAXone INJECTION 2,000 MG in NS (IVPB) 50 ML 50 ML IV SCH (11:00)
--- NOTE | 2023-01-24 11:16 | Occupational Ther Daily Note ---
OT Current Status-Daily Note Subjective Resting in bed, alert w/ visitors, agrees to OT Mental Status/Objective Patient Orientation: Person, Place Attachments: Orozco Catheter, IV, Oxygen, Telemetry Heavy mouth breathing, elevated HR ADL-Treatment OT performed sponge back washing/rinse and dry while patient sat EOPB. Patient has some confusion in conversation discussing animal vaccines and is re-oriented to hospital. Patient performs oral care w/ sponge while using caution until ST assessment occurs. Patient supplied sudsy wash cloth and rinse towel for face/hands/neck/ears and arms and chest. transfers to recliner from bed 2 persons d/t lines, tubes, FWW and patient unsteadiness Min assist for sit/stand Therapy Code Descriptions/Definitions Functional [place] Measure: 0=Not Assessed/NA 4=Minimal Assistance 1=Total Assistance 5=Supervision or Setup 2=Maximal Assistance 6=Modified [place] 3=Moderate Assistance 7=Complete IndependenceSCALE: Activities may be completed with or without assistive devices. 8-Riipqemwkt-lqhwtpv completes the activity by him/herself with no assistance from a helper. 5-Set-up or Clean-up Assistance-helper sets up or cleans up; patient completes activity. [place] assists only prior to or following the activity. 4-Supervision or Touching Assistance-helper provides verbal cues and/or touching/steadying and/or contact guard assistance as patient completes activity. Assistance may be provided throughout the activity or intermittently. 3-Partial/Moderate Assistance-helper does LESS THAN HALF the effort. [place] lifts, holds or supports trunk or limbs, but provides less than half the effort. 2-Substantial/Maximal Assistance-helper does MORE THAN HALF the effort. [place] lifts or holds trunk or limbs and provides more than half the effort. 8-Starwjpxl-rzogmc does ALL the effort. Patient does none of the effort to complete the activity. Or, the assistance of 2 or more helpers is required for the patient to complete the activity. If activity was not attempted, code reason: 7-Patient Refused. 9-Not Applicable-not attempted and the patient did not perform the activity before the current illness, exacerbation or injury. 10-Not Attempted due to Environmental Limitations-(lack of equipment, weather restraints, etc.). 88-Not Attempted due to Medical Conditions or Safety Concerns. Eating (QC): 88 Oral Hygiene (QC): 4 Bathing Location: L Arm, R Arm, Chest Shower/Bathe Self (QC): 4 Education OT Patient Education: Correct positioning, Modified ADL techniques, Progress toward Goal/Update tx plan, Purpose of tx/functional activities, Reviewed precautions, Rehab process, Safety issues, Transfer techniques, Use of adapted equipment Teaching Recipient: Patient, Family Teaching Methods: Demonstration, Discussion Response to Teaching: Reinforcement Needed OT Senior Care Goals Senior Care Goals Eating (QC): 4 Oral Hygiene (QC): 4 Toileting Hygiene (QC): 4 Shower/Bathe Self (QC): 4 Upper Body Dressing (QC): 4 Lower Body Dressing (QC): 4 On/Off Footwear (QC): 4 1=Demonstrate adherence to instructed precautions during ADL tasks. 2=Patient will verbalize/demonstrate understanding of assistive devices/modifications for ADL. 3=Patient will improve strength/tolerance for activity to enable patient to perform ADL's. OT Education/Plan Problem List/Assessment Assessment: Decreased Activ Tolerance, Decreased Safety Aware, Impaired Cognition, Impaired Coordination, Impaired Funct Balance, Impaired Self-Care Skills Discharge Recommendations Plan/Recommendations: Continue POC Treatment Plan/Plan of Care Treatment,Training & Education: Yes Patient would benefit from OT for education, treatment and training to promote independence in ADL's, mobility, safety and/or upper extremity function for ADL's. Plan of Care: ADL Retraining, Caregiver Training, Concurrent Therapy, Functional Mobility, Group Exercise/Act as Ind, UE Funct Exercise/Act Treatment Duration: Jan 28, 2023 Frequency: 3 times per week (3-5 times /wk) Estimated Hrs Per Day: .25 hour per day Agreement: Yes Rehab Potential: Fair Sitting upright in recliner, family present, all needs met Time Start Time: 10:18 Stop Time: 10:36 DATE: Jan 24, 2023 Total Time Billed (hr/min): 18 Billed Treatment Time ADL 18 min VIVI HELMS OT Jan 24, 2023 11:16
--- NOTE | 2023-01-24 11:56 | Physical Therapy Daily Note ---
PT Daily Note-Current Subjective Patient is more alert and agrees to therapy. Family present. Pain Section J - Health Conditions 1. Rarely or not at all 2. Occasionally 3. Frequently 4. Almost constantly 8. Unable to answer Pain Effect on Sleep: 1 Pain Interference with Therapy: 1 Pain Interference w/Day-to-Day: 1 Mental Status Attachments: Oxygen, Orozco Catheter, IV Transfers SCALE: Activities may be completed with or without assistive devices. 7-Cviwqglebf-ygehetd completes the activity by him/herself with no assistance from a helper. 5-Set-up or Clean-up Assistance-helper sets up or cleans up; patient completes activity. [place] assists only prior to or following the activity. 4-Supervision or Touching Assistance-helper provides verbal cues and/or touching/steadying and/or contact guard assistance as patient completes activity. Assistance may be provided throughout the activity or intermittently. 3-Partial/Moderate Assistance-helper does LESS THAN HALF the effort. [place] lifts, holds or supports trunk or limbs, but provides less than half the effort. 2-Substantial/Maximal Assistance-helper does MORE THAN HALF the effort. [place] lifts or holds trunk or limbs and provides more than half the effort. 6-Ofblktxlc-tbhczx does ALL the effort. Patient does none of the effort to complete the activity. Or, the assistance of 2 or more helpers is required for the patient to complete the activity. If activity was not attempted, code reason: 7-Patient Refused. 9-Not Applicable-not attempted and the patient did not perform the activity before the current illness, exacerbation or injury. 10-Not Attempted due to Environmental Limitations-(lack of equipment, weather restraints, etc.). 88-Not Attempted due to Medical Conditions or Safety Concerns. Lying to Sitting/Side of Bed(Q: 3 Sit to Stand (QC): 2 Chair/Dqt-la-Vgdrp Xfer(QC): 2 Gait Training Distance: 5 steps Gait Assistive Device: FWW unsteady gait/balance Exercises Seated Therapy Exercises: Ankle pumps, Long arc quads Seated Reps: 15 Assessment Patient has noted elevated HR with minimal activity. Patient up in recliner with needs met. HR remains elevated with RN aware. PT [facility] Goals Tumble [place] Turret Lathe Operator Goals PT [facility] Goals Time Frame: Feb 09, 2023 Roll Left & Right (QC): 6 Sit to Lying (QC): 6 Lying-Sitting on Side/Bed(QC): 6 Sit to Stand (QC): 6 Chair/Joh-bk-Wjqhl Xfer(QC): 6 Toilet Transfer (QC): 6 Walk 10 feet (QC): 5 Walk 50ft with 2 Turns (QC): 5 Walk 150 ft (QC): 5 1 Step (curb) (QC): 4 4 Steps (QC): 4 PT Plan Treatment/Plan Treatment Plan: Continue Plan of Care Treatment Plan: Bed Mobility, Education, Functional Activity Yudelka, Functional Strength, Gait, Safety, Therapeutic Exercise, Transfers Treatment Duration: Feb 09, 2023 Frequency: 6 times per week Estimated Hrs Per Day: .25 hour per day Time Time In: 1020 Time Out: 1031 DATE: Jan 24, 2023 Total Billed Treatment Time: 11 Total Billed Treatment 1 visit FA 11 min SHANEKA RODRIGUES PT Jan 24, 2023 11:56
[2023-01-24] MEDS: ENOXAPARIN 40 MG/0.4 ML SYRINGE SC SCH (14:44)
[2023-01-24] MEDS: meTOprolol INJECTION 5 MG/5 ML VIAL IV ONE ×2 (14:53→15:30)
[2023-01-24] MEDS ORDERED: NS IV 500 ML 500 ML IV ONE (15:00)
--- NOTE | 2023-01-24 15:30 | ST Dysphagia Evaluation ---
Speech Evaluation-General Medical Diagnosis Generalized Weakness/HTN Urgency Onset Date: Jan 19, 2023 Therapy Diagnosis Therapy Diagnosis: Mild Oropharyngeal Dysphagia Precautions Precautions: Fall, Pressure Ulcer, Aspiration Precautions/Isolations: Aspiration, Fall Prevention, Standard Precautions, Pressure Ulcer Referral Referring Physician: Dr. Lopez Reason for Referral: Evaluation/Treatment Medical History Pertinent Medical History: COPD, DM, HTN, OA Reviewed History: Yes Social History Current Living Status: Alone Speech PLF/Current-Dysphagia Prior Level of Function The patient's family member stated the patient consumed a regular consistency diet with thin liquids prior to admission. The patient's family member denied swallowing concerns or difficulties. Due to the patient's fluctuating confusion level, the patient did not provide prior level of function information. Subjective The patient was seated upright in his recliner, awake and alert, upon entrance to his room by the clinician. The patient greeted the clinician appropriately and was agreeable to participation in the clinical bedside swallowing evaluation. The patient is hard of hearing and does require elevated volume for communication. Per RN, the patient experienced difficulty swallowing a bite of hamburger during the noon meal. Per patient, "It was dry, that's all it was. It didn't have condiments or nothing." Cognitive Status Patient Orientation: Person Oral Motor Skills Dentition: Natural Current Food Consistancy: Regular, Thin Liquids Ability to Follow Directions: Fair Oral Expression Ability: Moderate Impairment Voice Voice Phonatory-Based Quality: Normal Voice Pitch: Normal Voice Loudness: Normal Face Facial Symmetry: Symmetrical Oral-Facial Assessment Oral-Facial Dentition: Normal Labial Seal Description: Normal Smile: Normal Lingual Protrusion: Normal Lingual ROM: Normal Lingual Strength: Normal Volitional Dry Swallow: Yes Voluntary Cough: Yes Dysphagia Evaluation Consistencies Presented: Regular, Thin Liquid, Pureed The patient displayed prolonged mastication with dry, solid consistencies. The patient independently requested thin liquid to aid in bolus formation of the dry consistency, completing appropriate posterior transfer. Laryngeal elevation was present to palpation. The patient was provided teaspoons of thin liquid, single straw drinks of thin liquid, multiple/large consecutive straw drinks of thin liquid, puree, a mixed consistency and solid. The patient does not display s/s of suspected aspiration with any consistency tested. Dietary Recommendations: Ground (SB6 (soft and bite size)) Liquid Recommendations: Thin Recommendations: - SB6 with thin liquids, as tolerated. - Fully upright and alert for P.O. intake. - Small, single bites and sips. - Provide additional sauces and gravies to dry consistencies. - Assistance with meal set-up, as needed. - Crush medication and place in puree for administration. - Monitor for s/s of suspected aspiration with P.O.consistencies. If demonstrated, please contact speech pathology. The recommendations and safe swallowing precautions were discussed with the patient, the patient's family members, and the RN. The diet consistency was written on the in-room white board. Speech Short Term Goals Short Term Goals Short Term Goals 1. The patient, staff, and caregivers will display safe swallowing precautions with 80% accuracy and mild verbal/visual cueing. Time Frame-STG: Five Days. Speech Senior Living Goals Lining Closer Goals 1. The patient will tolerate the least restrictive diet consistency without s/s of suspected aspiration. Time Frame: One Week. Speech-Plan Treatment Plan Speech Therapy Treatment Plan: Continue Plan of Care Treatment Duration: Jan 30, 2023 Frequency: 3 times per week Estimated Hrs Per Day: .25 hour per day Rehab Potential: Fair Pt/Family Agrees to Plan: Yes Safety Risks/Education Teaching Recipient: Patient, Family Teaching Methods: Discussion Response to Teaching: Reinforcement Needed Education Topics Provided: Results, Recommendations, Plan of Care, Safe Swallowing Precautions Time Speech Therapy Time In: 14:50 Speech Therapy Time Out: 13:15 DATE: Jan 24, 2023 Total Billed Time: 25 Billed Treatment Time 1, QUAN DANIEL [facility] ST Jan 24, 2023 15:30
[2023-01-24] MEDS ORDERED: NS IV 500 ML 500 ML IV SCH ×2 (17:15)
[2023-01-24] MEDS: TERAZOSIN 5 MG CAPSULE PO SCH (21:55)
[2023-01-24] MEDS: PRAMIPEXOLE 0.125 MG TABLET PO SCH (21:55)
[2023-01-24] MEDS: MONTELUKAST 10 MG TABLET PO SCH (21:59)
[2023-01-24] MEDS: DONEPEZIL 10 MG TABLET PO SCH (21:59)
[2023-01-25] MEDS ORDERED: LACTATED RINGERS 1,000 ML 1,000 ML IV SCH (02:45)
[2023-01-25 05:30] LABS: BASOPHILS % (AUTO) 1 % (0-10); EOSINOPHILS # (AUTO) 0.1 10^3/uL (0.0-0.3); EOSINOPHILS % (AUTO) 1 % (0-10); HEMATOCRIT 38 % (40-54); HEMOGLOBIN 12.3 g/dL (13.3-17.7); LYMPHOCYTES # (AUTO) 1.1 10^3/uL (1.0-4.0); LYMPHOCYTES % (AUTO) 13 % (12-44); MEAN CORPUSCULAR HEMOGLOBIN 28 pg (25-34); MEAN CORPUSCULAR HGB CONC 33 g/dL (32-36); MEAN CORPUSCULAR VOLUME 87 fL (80-99); MEAN PLATELET VOLUME 9.6 fL (9.0-12.2); MONOCYTES # (AUTO) 0.9 10^3/uL (0.0-1.0); MONOCYTES % (AUTO) 10 % (0-12); NEUTROPHILS # (AUTO) 6.6 10^3/uL (1.8-7.8); NEUTROPHILS % (AUTO) 74 % (42-75); PLATELET COUNT 256 10^3/uL (130-400); WHITE BLOOD COUNT 8.9 10^3/uL (4.3-11.0)
[2023-01-25 05:35] LABS: POTASSIUM 3.2 MMOL/L (3.6-5.0)
[2023-01-25 05:36] LABS: CALCIUM 8.4 MG/DL (8.5-10.1)
[2023-01-25 05:41] LABS: CREATININE SERUM 1.62 MG/DL (0.60-1.30); PHOSPHORUS 2.4 MG/DL (2.3-4.7)
[2023-01-25 05:43] LABS: MAGNESIUM 2.1 MG/DL (1.6-2.4)
[2023-01-25] MEDS: POTASSIUM CL 10MEQ/50ML IVPB 50 ML IV SCH ×9 (06:20→19:59)
[2023-01-25] MEDS: MAGNESIUM 1 GM/100 ML IVPB 100 ML IV SCH (06:30)
[2023-01-25] MEDS: inSUlin ASPART 1 UNIT/0.01 ML (PER UNIT) SC SCH ×4 (06:30→21:21)
[2023-01-25] MEDS: POTASSIUM CHLORIDE 20 MEQ TABLET PO SCH (06:30)
--- NOTE | 2023-01-25 08:02 | Physical Therapy Daily Note ---
PT Daily Note-Current Subjective Patient states,"That toño is taking some of my food." PT questioned patient and he states, "You don't see him? He's right over there." pointing to the door. Physician notified. Pain Section J - Health Conditions 1. Rarely or not at all 2. Occasionally 3. Frequently 4. Almost constantly 8. Unable to answer Pain Effect on Sleep: 8 Pain Interference with Therapy: 8 Pain Interference w/Day-to-Day: 8 Mental Status Patient Orientation: Confused Attachments: Oxygen, Orozco Catheter, IV Transfers SCALE: Activities may be completed with or without assistive devices. 6-Lsybvmsfsc-inwmxre completes the activity by him/herself with no assistance from a helper. 5-Set-up or Clean-up Assistance-helper sets up or cleans up; patient completes activity. [place] assists only prior to or following the activity. 4-Supervision or Touching Assistance-helper provides verbal cues and/or touching/steadying and/or contact guard assistance as patient completes activity. Assistance may be provided throughout the activity or intermittently. 3-Partial/Moderate Assistance-helper does LESS THAN HALF the effort. [place] lifts, holds or supports trunk or limbs, but provides less than half the effort. 2-Substantial/Maximal Assistance-helper does MORE THAN HALF the effort. [place] lifts or holds trunk or limbs and provides more than half the effort. 7-Ofgyilksz-iojfil does ALL the effort. Patient does none of the effort to complete the activity. Or, the assistance of 2 or more helpers is required for the patient to complete the activity. If activity was not attempted, code reason: 7-Patient Refused. 9-Not Applicable-not attempted and the patient did not perform the activity before the current illness, exacerbation or injury. 10-Not Attempted due to Environmental Limitations-(lack of equipment, weather restraints, etc.). 88-Not Attempted due to Medical Conditions or Safety Concerns. Lying to Sitting/Side of Bed(Q: 2 Sit to Stand (QC): 2 Chair/Qvb-xq-Kkzkx Xfer(QC): 2 Increase difficulty with bed mobility and transfers on this date. Patient incontinent BM requiring PT to perform sit to stand x 4 sets and nursing to cleanse patient. Gait Training unable to take steps on this date Exercises Seated Therapy Exercises: Reaching activity Seated Reps: 5 (bilateral UE) Assessment Noted edema right UE with c/o shoulder pain (unrated). Patient more confused on this date. Patient HR remains elevated at rest and with minimal activity. PT to continue to address functional strength and mobility as tolerated by patient. PT Custodial Goals Custodial Goals PT Custodial Goals Time Frame: Feb 09, 2023 Roll Left & Right (QC): 6 Sit to Lying (QC): 6 Lying-Sitting on Side/Bed(QC): 6 Sit to Stand (QC): 6 Chair/Loa-nx-Dmele Xfer(QC): 6 Toilet Transfer (QC): 6 Walk 10 feet (QC): 5 Walk 50ft with 2 Turns (QC): 5 Walk 150 ft (QC): 5 1 Step (curb) (QC): 4 4 Steps (QC): 4 PT Plan Treatment/Plan Treatment Plan: Continue Plan of Care Treatment Plan: Bed Mobility, Education, Functional Activity Yudelka, Functional Strength, Gait, Safety, Therapeutic Exercise, Transfers Treatment Duration: Feb 09, 2023 Frequency: 6 times per week Estimated Hrs Per Day: .25 hour per day Patient and/or Family Agrees t: Yes Time Time In: 730 Time Out: 754 DATE: Jan 25, 2023 Total Billed Treatment Time: 24 Total Billed Treatment 1 visit FA x 2 24 min SHANEKA RODRIGUES PT Jan 25, 2023 08:02
[2023-01-25] MEDS: amLODIPine 10 MG TABLET PO SCH (08:32)
[2023-01-25] MEDS: risperiDONE 0.25 MG TABLET PO SCH ×2 (08:32→20:10)
[2023-01-25] MEDS: LACTATED RINGERS 1,000 ML 1,000 ML IV SCH ×3 (08:32→20:00)
[2023-01-25] MEDS: DOCUSATE SODIUM 100 MG CAPSULE PO SCH ×2 (08:32→20:10)
[2023-01-25] MEDS: inSUlin DETERMIR 1 UNIT/0.01 ML (CHARGE PER UNIT) SQ SCH (08:32)
[2023-01-25] MEDS: PANTOPRAZOLE 40 MG TABLET PO SCH (08:32)
[2023-01-25] MEDS: FLUTICASONE NASAL SPRAY (120 SPRAYS) NS SCH (08:32)
--- NOTE | 2023-01-25 08:48 | Occupational Ther Daily Note ---
OT Current Status-Daily Note Subjective RUE IV infiltrate issue resolving, decreased vp [employer] for utensils to eat Mental Status/Objective Patient Orientation: Person Attachments: Orozco Catheter, IV, Oxygen ADL-Treatment Built up utensil provided with instruction, blue soft foam block provided for edema control. Patient performs adequate v[employer] to wash face Therapy Code Descriptions/Definitions Functional [place] Measure: 0=Not Assessed/NA 4=Minimal Assistance 1=Total Assistance 5=Supervision or Setup 2=Maximal Assistance 6=Modified [place] 3=Moderate Assistance 7=Complete IndependenceSCALE: Activities may be completed with or without assistive devices. 4-Qctdnpgmic-pftiszh completes the activity by him/herself with no assistance from a helper. 5-Set-up or Clean-up Assistance-helper sets up or cleans up; patient completes activity. [place] assists only prior to or following the activity. 4-Supervision or Touching Assistance-helper provides verbal cues and/or touching/steadying and/or contact guard assistance as patient completes activity. Assistance may be provided throughout the activity or intermittently. 3-Partial/Moderate Assistance-helper does LESS THAN HALF the effort. [place] lifts, holds or supports trunk or limbs, but provides less than half the effort. 2-Substantial/Maximal Assistance-helper does MORE THAN HALF the effort. [place] lifts or holds trunk or limbs and provides more than half the effort. 1-Fsqknitsa-xiatid does ALL the effort. Patient does none of the effort to complete the activity. Or, the assistance of 2 or more helpers is required for the patient to complete the activity. If activity was not attempted, code reason: 7-Patient Refused. 9-Not Applicable-not attempted and the patient did not perform the activity before the current illness, exacerbation or injury. 10-Not Attempted due to Environmental Limitations-(lack of equipment, weather restraints, etc.). 88-Not Attempted due to Medical Conditions or Safety Concerns. Eating (QC): 4 Oral Hygiene (QC): 4 Other Treatment Right hand foam squeeze block for edema Education OT Patient Education: Correct positioning, Exercise program, Instructions to caregiver, Modified ADL techniques, Progress toward Goal/Update tx plan, Purpose of tx/functional activities, Reviewed precautions, Rehab process, Safety issues, Transfer techniques, Use of adapted equipment Teaching Recipient: Patient, Family Teaching Methods: Demonstration, Discussion Response to Teaching: Verbalize Understanding (family reports understanding), Reinforcement Needed (for patient) OT Nursing Home Goals [facility] Goals Eating (QC): 4 Oral Hygiene (QC): 4 Toileting Hygiene (QC): 4 Shower/Bathe Self (QC): 4 Upper Body Dressing (QC): 4 Lower Body Dressing (QC): 4 On/Off Footwear (QC): 4 1=Demonstrate adherence to instructed precautions during ADL tasks. 2=Patient will verbalize/demonstrate understanding of assistive devices/modifications for ADL. 3=Patient will improve strength/tolerance for activity to enable patient to perform ADL's. OT Education/Plan Problem List/Assessment Assessment: Decreased Activ Tolerance, Decreased Safety Aware, Decreased UE Strength, Impaired Cognition, Impaired Coordination, Impaired Self-Care Skills Discharge Recommendations Plan/Recommendations: Continue POC Therapy Discharge Recommendati: Post Acute OT Treatment Plan/Plan of Care Treatment,Training & Education: Yes Patient would benefit from OT for education, treatment and training to promote independence in ADL's, mobility, safety and/or upper extremity function for ADL's. Plan of Care: ADL Retraining, Caregiver Training, Concurrent Therapy, Functio nal Mobility, Group Exercise/Act as Ind, UE Funct Exercise/Act Treatment Duration: Jan 28, 2023 Frequency: 3 times per week (3-5 times /wk) Estimated Hrs Per Day: .25 hour per day Agreement: Yes Rehab Potential: Fair Time Start Time: 08:20 Stop Time: 09:40 DATE: Jan 25, 2023 Total Time Billed (hr/min): 20 Billed Treatment Time ADL 20 min VIVI HELMS OT Jan 25, 2023 08:48
--- NOTE | 2023-01-25 10:54 | Speech Therapy Progress Note ---
Therapy Progress Note Speech pathology attempted skilled dysphagia therapy at 0915. The patient is seated upright in a chair, awake and alert, with two family members at bedside. The patient politely refused P.O. trials stating, "I'll eat again at noon." The clinician discussed the patient's diet consistency and swallowing function with the present family members who have been participating in the patient's care. The patient's family members state the patient "has ate it all" and "done great" with the current diet consistency of SB6. Safe swallowing precautions were reviewed with the family members and the clinician requested contact with any additional concerns or difficulties that may arise. ST to re-attempt skilled treatment as appropriate. 1 VISIT, No Charge JI HDEZ Jan 25, 2023 10:54
--- NOTE | 2023-01-25 11:16 | Tele-ICU Progress Note ---
Subjective Date Seen by a Provider: Jan 25, 2023 Time Seen by a Provider: 11:15 Subjective/Events-last exam (Tele-ICU Physician , Progress Note ) Service provided via interactive audio and video telecommunications E-CARE system to a patient admitted to ICU bed in [facility]. Patient is seen today due to persistent need of ICU care Available chart/ vitals / labs / Images reviewed Video assessment done using teleICU camera, rest of exam as per RN Discussed with RN Events overnight : Afebrile hemodynamically stable Respiratory - 6L I/O = neg Drips: Pressors- no Hospital course: (01/19) 77y/o M admitted s/p falls with weakness, dehydration, hypomagnesemia & hypertensive urgency. (01/20) Upgraded to ICU for precedex gtt d/t severe agitation- WEANED off precedex 01/21- on CPAP last night , very agitateed again - PRECEDEX resumed 01/22- CPAP for FAUSTINO , NOT ON PRECEDEX 01/24- off precedex AAO , SINUS TACH 140s ( not responded to fluiid boluses and metoprolol ) 01/25- off precedex , occasional hallucinations , HR 120s A/P Confusion / ? dlirium / ? sund ( CT head WNL 01/19 - OFF precedex - AAO x2 - dementia w/up pending - neds as per PCP = OFF precedex 01/24- SINUS TACH 140s - ( not responded to fluiid boluses 2 L last 24 h - on home toprol already - as per cards -not changes O2 needs and on proph Lovenox - low suspicios for PE at present time Weaknes - general deconditions , ? muscular / conmnective - ? = as per PCP , - elev CRP Recent falls - ? arrythmias ? weakness with lytes abnor / ? ortostatic / ? post circulation cva - follow closely , ? need MRI if not improving - PT start to weak with pt WES - resolved - but incr CR 01/25 DESPITE 2 L NS revceived last 24 h - to follow on maintance IVF Reported h/o COPD / FAUSTINO -on o2 [employer] 2 night , prn day -on CPAP- complains [employer] DM - ISS UTI - rocephin FINISHED hypoxia 2 l NC -same level of O@ - not worsening with fluid resuscitation Lines : peripf , (Central Line Necessity Reviewed) Orozco: + OG: Nutrition: po Analgesia: Anxiety/ delirium VTE Prophylaxis: rosalind Stress Ulcer Prophylaxis: Plans in collaboration with bedside consultants and IM MDs. Discussed with RN to reach out if any questions or concerns A total of 20 minutes of critical care time was devoted to this patient today, required to treat and/or prevent further deterioration of critical care condition ( as above ) . I am remotely monitoring this patient from another state. I am unable to do the bedside exam, and history/physical and pertinent information is taken from other notes in the computer and bedside staff. . Sepsis Event Evaluation Height, Weight, BMI Height: 5'7.00" Weight: 248lbs. 0.0oz. [id number]; 41.00 BMI Method: Exam Exam Patient acknowledged, consented, and participated in this virtual visit which was conducted using real time audio/video Vital Signs Date Time Temp Pulse Resp B/P (MAP) Pulse Ox O2 Delivery O2 Flow Rate FiO2 01/25/23 10:00 123 24 197/94 (125) 96 Nasal Cannula 2.50 01/25/23 09:00 133 26 188/95 (116) 96 Nasal Cannula 2.50 01/25/23 08:00 141 17 97 Nasal Cannula 2.50 01/25/23 07:57 36.7 01/25/23 07:00 125 01/25/23 07:00 125 23 171/89 (118) 93 Nasal Cannula 2.50 01/25/23 06:00 124 25 181/89 (119) 94 Nasal Cannula 2.50 01/25/23 05:00 123 20 168/87 (114) 94 Nasal Cannula 2.50 01/25/23 04:00 125 24 189/86 (120) 94 Nasal Cannula 2.50 01/25/23 04:00 97 NIV CPAP 01/25/23 03:00 124 21 173/78 (109) 95 Nasal Cannula 2.50 01/25/23 02:00 128 25 178/79 (112) 94 Nasal Cannula 2.50 01/25/23 01:00 134 01/25/23 01:00 131 24 187/84 (118) 93 Nasal Cannula 2.50 01/25/23 00:00 97 NIV CPAP 01/25/23 00:00 128 17 146/77 (100) 94 Nasal Cannula 2.50 01/24/23 23:00 131 17 151/70 (97) 94 Nasal Cannula 2.50 01/24/23 22:00 126 25 159/79 (105) 92 Nasal Cannula 2.50 01/24/23 21:00 126 25 167/80 (109) 92 Nasal Cannula 2.50 01/24/23 20:00 126 25 115/80 (92) 93 Nasal Cannula 2.50 01/24/23 19:57 95 Nasal Cannula 2.50 01/24/23 19:53 37.1 01/24/23 19:00 133 01/24/23 19:00 135 24 122/95 (104) 93 Nasal Cannula 2.50 01/24/23 18:00 130 24 139/96 (110) 92 Nasal Cannula 2.50 01/24/23 17:00 130 26 139/75 (96) 92 Nasal Cannula 2.50 01/24/23 16:00 123 32 153/74 (100) 94 Nasal Cannula 2.50 01/24/23 16:00 97 Nasal Cannula 2.50 01/24/23 15:00 124 23 132/74 (93) 93 Nasal Cannula 2.50 01/24/23 14:00 142 18 104/93 (97) 99 Nasal Cannula 2.50 01/24/23 13:00 142 18 93/70 (78) 100 Nasal Cannula 2.50 01/24/23 12:45 144 01/24/23 12:00 97 Nasal Cannula 2.50 01/24/23 12:00 140 21 103/66 (78) 97 Nasal Cannula 2.50 I & O 01/25/23 07:00 Intake Total 2660 ml Output Total 800 ml Balance 1860 ml Height & Weight Height: 5'7.00" Weight: 248lbs. 0.0oz. [id number]; 41.00 BMI Method: General Appearance: No Apparent Distress HEENT: PERRL/EOMI, Pharynx Normal Neck: Full Range of Motion, Normal Inspection, Non Tender, Supple Respiratory: Lungs Clear, No Accessory Muscle Use, Other (on BiPAP) Cardiovascular: Regular Rate, Rhythm, No Murmur Capillary Refill: Less Than 3 Seconds Extremity: Other (right hand with swelling) Neurologic/Psychiatric: Alert, Other (oriented to name only) Skin: Normal Color, Warm/Dry Results Lab Laboratory Tests 01/24/23 04:42 9/8/23 04:30 Assessment/Plan Assessment/Plan 1 LYNNETTE CONLEY MD Jan 25, 2023 11:16
--- NOTE | 2023-01-25 11:49 | Diagnostic Imaging Report ---
TECHNIQUE: Live grayscale and color Doppler ultrasound of the right upper extremity was performed. REASON FOR EXAM: Right upper extremity pain and swelling. COMPARISON: None. FINDINGS: Duplex Doppler, garcia-scale and color-flow imaging of the right upper extremity veins. The deep veins of the right upper extremity (subclavian, jugular, axillary, and brachial veins) show no evidence of intraluminal thrombosis, with normal compressibility, color flow, and augmentation. The radial and ulnar veins appear patent as well. The superficial veins (basilic and cephalic veins) are patent. IMPRESSION: No deep venous thrombosis seen in the right upper extremity veins. Dictated by: Dictated on workstation # [id number]
--- NOTE | 2023-01-25 12:01 | Progress Note - Hospitalist ---
Subjective HPI/CC On Admission Date Seen by Provider: Jan 25, 2023 Soham is a 77 yo M that presented with falls, headache and weakness to the ER yesterday. He has become increasingly confused and has a history of dementia. 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 He lives alone and it is unknown if he had been taking his meds prior. His neighbor reports that he has had increasing w eakness in his leg and has had more difficulty getting in and out of the car the past few days. His neighbor also reports that yesterday morning he had a headche after he had been experiencing falls, not sure of what he fell on or if he lost consciousness. He denies pain, but overall doesn't feel good and feels lightheaded. He denies chest pain and shortness of breath. He denies fever. He denies nausea or vomiting. Subjective/Events-last exam Pt sitting up in chair eating breakfast. Feeding himself. No complaints. Discussed the [employer] game last night (accurately told me they lost). mentation much improved from yesterday. Family followed me outside of room and we discusse d discharge planning and potential need for SNF upon DC. Objective Exam Vital Signs Vital Signs Date Time Temp Pulse Resp B/P (MAP) Pulse Ox O2 Delivery O2 Flow Rate FiO2 01/25/23 11:48 36.5 01/25/23 11:00 122 21 95 Nasal Cannula 2.50 01/24/23 08:00 30 Capillary Refill : Less Than 3 Seconds General Appearance: No Apparent Distress, Chronically ill, Obese Respiratory: Lungs Clear, No Accessory Muscle Use Cardiovascular: No Murmur, Tachycardia Gastrointestinal: Normal Bowel Sounds, Soft Neurologic/Psychiatric: Alert, Oriented x3 (to major details) Results/Procedures Lab Laboratory Tests 01/25/23 04:30 Patient resulted labs reviewed. Imaging: Reviewed Imaging Report Assessment/Plan Assessment and Plan Assess & Plan/Chief Complaint Weakness Confusion/delirium- slow to improve hypokalemia/hypophosphatemia Hypertensive urgency- resolved Off precedex x24 hours PT/OT Replace electrolytes per protocol CXR and head CT- normal results Urine culture with gram pos mix Ceftriaxone completed course Negative RVP Continue risperdal Continue home dementia meds Sinus tachycardia Cardiology consulted, appreciate recs WES Creatinine up from 0.9 yesterday to 1.6 today UOP adequate but lower yesterday Was bolused overnight and getting IVF now- watch carefully UOP improved this AM DM sliding scale insulin Critical Care Critically Ill Patient ANA PAULA EAGLE MD Jan 25, 2023 12:01
[2023-01-25 12:22] VITALS: BP 197/94
[2023-01-25] MEDS: hydrALAZINE INJECTION 20 MG/ML VIAL IV PRN (15:39)
[2023-01-25] MEDS: ENOXAPARIN 40 MG/0.4 ML SYRINGE SC SCH (15:39)
--- NOTE | 2023-01-25 17:37 | Cardiology Progress Note ---
Cardiology SOAP Progress Note Subjective: Shortness of breath, patient is confused. Objective: I&O/Vital Signs 01/25/23 01/25/23 01/25/23 01/25/23 06:00 07:00 07:00 07:57 Temp 36.7 Pulse 124 125 125 Resp 23 B/P (MAP) 181/89 (119) 171/89 (118) Pulse Ox 94 93 O2 Delivery Nasal Cannula Nasal Cannula O2 Flow Rate 2.50 2.50 01/25/23 01/25/23 01/25/23 01/25/23 08:00 09:00 10:00 11:00 Pulse 141 133 123 122 Resp 17 24 21 B/P (MAP) 188/95 (116) 197/94 (125) Pulse Ox 97 96 96 95 O2 Delivery Nasal Cannula Nasal Cannula Nasal Cannula Nasal Cannula O2 Flow Rate 2.50 2.50 2.50 2.50 01/25/23 01/25/23 01/25/23 01/25/23 11:48 12:00 12:15 12:22 Temp 36.5 36.5 Pulse 124 124 Resp 18 B/P (MAP) Pulse Ox 95 95 95 O2 Delivery Nasal Cannula Nasal Cannula O2 Flow Rate 2.50 2.50 01/25/23 01/25/23 01/25/23 01/25/23 13:00 13:00 14:00 15:00 Pulse 120 118 120 121 Resp 24 24 27 B/P (MAP) 161/93 (131) 181/90 (116) 184/95 (122) Pulse Ox 94 94 95 O2 Delivery Nasal Cannula Nasal Cannula Nasal Cannula O2 Flow Rate 2.50 2.50 2.50 01/25/23 01/25/23 01/25/23 16:00 16:00 17:00 Temp 36.7 Pulse 121 124 Resp 27 B/P (MAP) 170/80 (114) Pulse Ox 95 95 O2 Delivery Nasal Cannula Nasal Cannula O2 Flow Rate 2.50 2.50 01/25/23 00:00 Intake Total 2050 ml Output Total 225 ml Balance 1825 ml Weight (Pounds): 248 Weight (Ounces): 0.0 Weight (Calculated Kilograms): 112.855719 Constitutional: apparent distress Respiratory: respiratory distress Cardiovascular: regular rate-rhythm, tachycardia Neurologic/Psychiatric: alert Results/Procedures: Labs Laboratory Tests 01/24/23 20:47: Glucometer 252H 01/25/23 04:30: White Blood Count 8.9, Red Blood Count 4.34, Hemoglobin 12.3L, Hematocrit 38L, Mean Corpuscular Volume 87, Mean Corpuscular Hemoglobin 28, Mean Corpuscular Hemoglobin Concent 33, Red Cell Distribution Width 15.3H, Platelet Count 256, Mean Platelet Volume 9.6, Immature Granulocyte % (Auto) 1, Neutrophils (%) (Auto) 74, Lymphocytes (%) (Auto) 13, Monocytes (%) (Auto) 10, Eosinophils (%) (Auto) 1, Basophils (%) (Auto) 1, Neutrophils # (Auto) 6.6, Lymphocytes # (Auto) 1.1, Monocytes # (Auto) 0.9, Eosinophils # (Auto) 0.1, Basophils # (Auto) 0.0, Immature Granulocyte # (Auto) 0.1, Sodium Level 136, Potassium Level 3.2L, Chloride Level 105, Carbon Dioxide Level 18L, Anion Gap 13, Blood Urea Nitrogen 27H, Creatinine 1.62H, Estimat Glomerular Filtration Rate 43, BUN/Creatinine Ratio 17, Glucose Level 164H, Calcium Level 8.4L, Phosphorus Level 2.4, Magnesium Level 2.1, C-Reactive Protein High Sensitivity 18.02H 01/25/23 10:42: Glucometer 249H 01/25/23 16:13: Glucometer 186H Microbiology 01/19/23 MRSA Screen - Final, Complete MRSA not isolated 01/19/23 Urine Culture - Final, Complete Gram Pos Mixed Bacterial Ashly See Comments A/P: Assessment/Dx: Weakness/confusion CAD Hypertensive urgency CKD Plan: Weakness and Confusion/delirium- oriented to person. CXR and CT head WNL Patient is maintained on BiPAP, most probably hypoxemia/hypoventilation syndrome Reported some weakness, seen by primary care physician about 2 weeks ago and there was suspicion of a small CVA Managed by medical team at this point Acute respiratory failure, maintained on BiPAP. Received Precedex Hypertensive urgency, history of Malignant HTN, has been maintained on amlodipine 10 mg daily, furosemide 20 mg daily, Toprol-XL 50 mg daily as outpatient. Using IV hydralazine PRN. CT angiogram of the abdomen in July 2012 showed mild plaque along the origin of the renal artery with no significant stenosis. followed by [facility]. Monitor blood pressure UTI, Urine culture with gram pos mix. On Ceftriaxone, management per hospitalist Coronary artery disease Left heart catheterization on January 22, 2018 revealing severe stenosis at the proximal LAD successful primary stenting using Estrella 315mm. Mild to moderate stenosis in the mid LAD at a trifurcation point that will be treated conservativ nikolas and monitor closely. Heavily calcified left main with ostial 40-50 percent stenosis. Mild to moderate disease in the circumflex artery, mild disease in the right coronary artery. -Stress test done October 2021 no significant ischemia SSS 4, SDS 2, EF 69% Maintained on aspirin. Chronic kidney disease stage IV, followed and managed by [facility], losartan was discontinued in the past. Continue to monitor renal function. Left ventricular hypertrophy 2D echo done in April 2022 with mild LVH, ejection fraction 50 to 55%, grade 1 diastolic dysfunction, PA pressure 30 to 35 mmHg. 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 Maintained on Xarelto in the past, currently off of the medication. Bilateral lower extremity venous duplex was negative. No prior history of PE. Mild bilateral carotid stenosis, last ultrasound was done in April 2022, continue to monitor Diabetes mellitus Hyperlipidemia, has been followed by Dr. Gutierrez as outpatient. COPD, obstructive sleep apnea, using C pap. Morbid obesity Peripheral edema, chronic, no change from baseline. Continue to monitor. Cecile BENTON MD Jan 25, 2023 17:37
[2023-01-25] MEDS: TERAZOSIN 5 MG CAPSULE PO SCH (20:09)
[2023-01-25] MEDS: DONEPEZIL 10 MG TABLET PO SCH (20:10)
[2023-01-25] MEDS: PRAMIPEXOLE 0.125 MG TABLET PO SCH (20:10)
[2023-01-25] MEDS: MONTELUKAST 10 MG TABLET PO SCH (20:10)
[2023-01-25] MEDS: RT-Ipratropium/Albuterol NEB 3 ML VIAL INH SCH (21:52)
[2023-01-26] MEDS: ENOXAPARIN 40 MG/0.4 ML SYRINGE SC SCH ×3 (01:51→22:56)
[2023-01-26] MEDS: hydrALAZINE INJECTION 20 MG/ML VIAL IV PRN (05:09)
[2023-01-26] MEDS: LACTATED RINGERS 1,000 ML 1,000 ML IV SCH ×2 (05:17→17:04)
[2023-01-26 06:20] LABS: CALCIUM 8.4 MG/DL (8.5-10.1); CREATININE SERUM 1.25 MG/DL (0.60-1.30); MAGNESIUM 1.8 MG/DL (1.6-2.4); PHOSPHORUS 3.1 MG/DL (2.3-4.7); POTASSIUM 4.9 MMOL/L (3.6-5.0)
[2023-01-26] MEDS: POTASSIUM CL 10MEQ/50ML IVPB 50 ML IV SCH (07:20)
[2023-01-26] MEDS: MAGNESIUM 1 GM/100 ML IVPB 100 ML IV SCH ×3 (07:20→10:51)
[2023-01-26] MEDS: POTASSIUM CHLORIDE 20 MEQ TABLET PO SCH (07:20)
[2023-01-26] MEDS: inSUlin ASPART 1 UNIT/0.01 ML (PER UNIT) SC SCH ×4 (07:21→21:10)
[2023-01-26] MEDS: RT-Ipratropium/Albuterol NEB 3 ML VIAL INH SCH ×2 (07:49→20:27)
[2023-01-26] MEDS: PANTOPRAZOLE 40 MG TABLET PO SCH (08:33)
[2023-01-26] MEDS: amLODIPine 10 MG TABLET PO SCH (08:33)
[2023-01-26] MEDS: risperiDONE 0.25 MG TABLET PO SCH ×3 (08:34→20:12)
[2023-01-26] MEDS: inSUlin DETERMIR 1 UNIT/0.01 ML (CHARGE PER UNIT) SQ SCH (08:34)
--- NOTE | 2023-01-26 09:22 | Progress Note - Hospitalist ---
Subjective HPI/CC On Admission Date Seen by Provider: Jan 26, 2023 Soham is a 77 yo M that presented with falls, headache and weakness to the ER yesterday. He has become increasingly confused and has a history of dementia. Pt is not a reliable head of history due to confusion and not staying awake; but family and neighbor are with him. He lives alone and it is unknown if he had been taking his meds prior. His neighbor reports that he has had increasing w eakness in his leg and has had more difficulty getting in and out of the car the past few days. His neighbor also reports that yesterday morning he had a headche after he had been experiencing falls, not sure of what he fell on or if he lost consciousness. He denies pain, but overall doesn't feel good and feels lightheaded. He denies chest pain and shortness of breath. He denies fever. He denies nausea or vomiting. Subjective/Events-last exam Pt reports "feeling fine" today. Daughter and granddaughter at bedside. He was able to recognize and name both of them today which is much better than previously. 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 Knew he was in a hospital but [place]. Objective Exam Vital Signs Vital Signs Date Time Temp Pulse Resp B/P (MAP) Pulse Ox O2 Delivery O2 Flow Rate FiO2 01/26/23 09:00 131 22 178/86 (117) 93 Nasal Cannula 2.50 01/26/23 07:56 37.0 01/24/23 08:00 30 Capillary Refill : Less Than 3 Seconds General Appearance: No Apparent Distress, Chronically ill, Obese Respiratory: Lungs Clear, No Accessory Muscle Use Cardiovascular: Tachycardia (regular rate) Gastrointestinal: Normal Bowel Sounds, Soft Neurologic/Psychiatric: Alert, Other (oriented to some major details- see HPI, not back to baseline but getting better) Results/Procedures Lab Laboratory Tests 01/26/23 05:49 Patient resulted labs reviewed. Imaging: Reviewed Imaging Report Assessment/Plan Assessment and Plan Assess & Plan/Chief Complaint Weakness Confusion/delirium- slow to improve hypokalemia/hypophosphatemia Hypertensive urgency- resolved Off precedex and doing well, still confused at times but slowly improving PT/OT Replace electrolytes per protocol CXR and head CT- normal results Urine culture with gram pos mix Ceftriaxone completed course Negative RVP Continue risperdal Continue home dementia meds Sinus tachycardia Cardiology consulted, appreciate recs Increased metoprolol today WES Creatinine down to 1.25- continue IVF UOP was low today but has already had 900 out today, trend DM sliding scale insulin Home levemir DVT ppx: Lovenox Critical Care Critically Ill Patient ANA PAULA EAGLE MD Jan 26, 2023 09:22
[2023-01-26] MEDS: DOCUSATE SODIUM 100 MG CAPSULE PO SCH ×2 (10:51→21:10)
[2023-01-26] MEDS: FLUTICASONE NASAL SPRAY (120 SPRAYS) NS SCH (11:07)
--- NOTE | 2023-01-26 11:55 | Physical Therapy Daily Note ---
PT Daily Note-Current Subjective Patient lying supine in bed upon PT arrival, family in the room, agreeable to treatment. Pain Section J - Health Conditions 1. Rarely or not at all 2. Occasionally 3. Frequently 4. Almost constantly 8. Unable to answer Pain Effect on Sleep: 8 Pain Interference with Therapy: 8 Pain Interference w/Day-to-Day: 8 Transfers SCALE: Activities may be completed with or without assistive devices. 4-Mneinvwbno-wgmvkkx completes the activity by him/herself with no assistance from a helper. 5-Set-up or Clean-up Assistance-helper sets up or cleans up; patient completes activity. Hart assists only prior to or following the activity. 4-Supervision or Touching Assistance-helper provides verbal cues and/or t ouching/steadying and/or contact guard assistance as patient completes activity. Assistance may be provided throughout the activity or intermittently. 3-Partial/Moderate Assistance-helper does LESS THAN HALF the effort. Hart lifts, holds or supports trunk or limbs, but provides less than half the effort. 2-Substantial/Maximal Assistance-helper does MORE THAN HALF the effort. Hart lifts or holds trunk or limbs and provides more than half the effort. 1-Armzsxtfa-zvpddh does ALL the effort. Patient does none of the effort to complete the activity. Or, the assistance of 2 or more helpers is required for the patient to complete the activity. If activity was not attempted, code reason: 7-Patient Refused. 9-Not Applicable-not attempted and the patient did not perform the activity before the current illness, exacerbation or injury. 10-Not Attempted due to Environmental Limitations-(lack of equipment, weather restraints, etc.). 88-Not Attempted due to Medical Conditions or Safety Concerns. Roll Left & Right (QC): 2 Sit to Lying (QC): 2 Lying to Sitting/Side of Bed(Q: 2 Sit to Stand (QC): 2 Chair/Uaa-eo-Evolb Xfer(QC): 2 Weight Bearing Right Lower Extremity: Right Full Weight Bearing Left Lower Extremity: Left Full Weight Bearing Gait Training Does the Patient Walk?: No and Walking Goal IS indicated Assessment Current Status: Poor Progress Patient performs all bed mobility and transfers with max A. Patient able to sit at EOB x 5 minutes with SBA to mod A. Patient performs sit to stand and SPT to the chair with max A. Patient in chair post treatment with all needs met, nursing notified, call light in hand and family in the room. 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-Term Goals PT Long-Term Goals Time Frame: Feb 09, 2023 Roll Left & Right (QC): 6 Sit to Lying (QC): 6 Lying-Sitting on Side/Bed(QC): 6 Sit to Stand (QC): 6 Chair/Mlx-ud-Urqcp Xfer(QC): 6 Toilet Transfer (QC): 6 Walk 10 feet (QC): 5 Walk 50ft with 2 Turns (QC): 5 Walk 150 ft (QC): 5 1 Step (curb) (QC): 4 4 Steps (QC): 4 PT Plan Treatment/Plan Treatment Plan: Continue Plan of Care Treatment Plan: Bed Mobility, Education, Functional Activity Yudelka, Functional Strength, Gait, Safety, Therapeutic Exercise, Transfers Treatment Duration: Feb 09, 2023 Frequency: 6 times per week Estimated Hrs Per Day: .25 hour per day Patient and/or Family Agrees t: Yes Safety Risks/Education Patient Education: Transfer Techniques Teaching Recipient: Patient, Family Teaching Methods: Demonstration, Discussion Response to Teaching: Verbalize Understanding, Return Demonstration Time Time In: 1120 Time Out: 1149 DATE: Jan 26, 2023 Total Billed Treatment Time: 29 Total Billed Treatment Visit, FA 2 JEWELL MAYA PT Jan 26, 2023 11:55
--- NOTE | 2023-01-26 15:44 | Diagnostic Imaging Report ---
CLINICAL INDICATION: Patient fell one week ago. Patient has right humerus pain. EXAMS: 1: X-ray of the right humerus, 2 views. 2: X-ray of the right forearm, 2 views. COMPARISON: None. FINDINGS: X-rays of the right forearm and right humerus show no acute fracture or dislocation. Soft tissue swelling adjacent to the forearm and elbow region. There is no soft tissue air or radiodense foreign object. There is chondrocalcinosis involving the triangular fibrocartilage region. There are severely hypertrophic spurs involving the 1st CMC joint region. There are degenerative spurs involving the medial lateral distal humeral epicondyle regions. There is no elbow effusion, as visualized. There is joint space narrowing, sclerosis and hypertrophic spurs involving the right glenohumeral joint. There is spurring of the right AC joint region. IMPRESSION: 1: X-rays of the right forearm and right humerus show no acute fracture or dislocation. 2: There is degenerative disease of the right elbow, right wrist and right shoulder. Dictated by: Dictated on workstation # [id number]
--- NOTE | 2023-01-26 16:46 | Cardiology Progress Note ---
Cardiology SOAP Progress Note Subjective: Complains of knee pain and right upper extremity discomfort. Objective: I&O/Vital Signs 01/26/23 01/26/23 01/26/23 01/26/23 05:00 06:00 07:00 07:00 Pulse 125 128 130 130 Resp 22 23 25 B/P (MAP) 194/95 (128) 193/96 (128) 193/98 (128) Pulse Ox 92 93 93 O2 Delivery Nasal Cannula Nasal Cannula Nasal Cannula O2 Flow Rate 2.50 2.50 2.50 01/26/23 01/26/23 01/26/23 01/26/23 07:49 07:55 07:56 08:00 Temp 37.0 37.0 B/P (MAP) Pulse Ox 92 95 O2 Delivery Nasal Cannula Nasal Cannula O2 Flow Rate 2.50 2.50 01/26/23 01/26/23 01/26/23 01/26/23 08:00 09:00 10:00 11:00 Pulse 126 131 121 124 Resp 26 22 15 34 B/P (MAP) 176/101 (126) 178/86 (117) 157/89 (111) Pulse Ox 94 93 93 91 O2 Delivery Nasal Cannula Nasal Cannula Nasal Cannula Nasal Cannula O2 Flow Rate 2.50 2.50 2.50 2.50 01/26/23 01/26/23 01/26/23 01/26/23 11:48 12:00 12:00 13:00 Temp 37.0 Pulse 120 113 Resp 12 24 B/P (MAP) 176/94 (118) 159/88 (106) Pulse Ox 97 93 96 O2 Delivery NIV CPAP Nasal Cannula Nasal Cannula O2 Flow Rate 2.50 2.50 01/26/23 01/26/23 01/26/23 01/26/23 13:00 14:00 15:00 16:00 Pulse 117 115 121 124 Resp 25 24 17 B/P (MAP) 150/91 (117) 170/95 (131) 130/99 (117) Pulse Ox 94 93 95 O2 Delivery Nasal Cannula Nasal Cannula Nasal Cannula O2 Flow Rate 2.50 2.50 2.50 01/26/23 00:00 Intake Total 1300 ml Output Total 675 ml Balance 625 ml Weight (Pounds): 248 Weight (Ounces): 0.0 Weight (Calculated Kilograms): 112.744485 Constitutional: apparent distress Respiratory: respiratory distress Cardiovascular: regular rate-rhythm, tachycardia Neurologic/Psychiatric: alert Results/Procedures: Labs Laboratory Tests 01/25/23 21:19: Glucometer 156H 01/26/23 05:49: Sodium Level 137, Potassium Level 4.9, Chloride Level 109H, Carbon Dioxide Level 16L, Anion Gap 12, Blood Urea Nitrogen 18, Creatinine 1.25, Estimat Glomerular Filtration Rate 59, BUN/Creatinine Ratio 14, Glucose Level 164H, Calcium Level 8.4L, Phosphorus Level 3.1, Magnesium Level 1.8 01/26/23 10:34: Glucometer 239H 01/26/23 15:39: Glucometer 227H Microbiology 01/19/23 MRSA Screen - Final, Complete MRSA not isolated 01/19/23 Urine Culture - Final, Complete Gram Pos Mixed Bacterial Ashly See Comments A/P: Assessment/Dx: Weakness/confusion CAD Hypertensive urgency CKD Plan: Sinus tachycardia, low-dose beta-blockers. Likely secondary to systemic illnesses. Pain. Weakness and Confusion/delirium- oriented to person. CXR and CT head WNL Patient is maintained on BiPAP, most probably hypoxemia/hypoventilation syndrome Reported some weakness, seen by primary care physician about 2 weeks ago and there was suspicion of a small CVA Managed by medical team at this point Acute respiratory failure, maintained on BiPAP. Received Precedex Hypertensive urgency, history of Malignant HTN, has been maintained on amlodipine 10 mg daily, furosemide 20 mg daily, Toprol-XL 50 mg daily as outpatient. Using IV hydralazine PRN. CT angiogram of the abdomen in July 2012 showed mild plaque along the origin of the renal artery with no significant stenosis. followed by [facility]. Monitor blood pressure UTI, Urine culture with gram pos mix. On Ceftriaxone, management per hospitalist Coronary artery disease Left heart catheterization on January 22, 2018 revealing severe stenosis at the proximal LAD successful primary stenting using Estrella 315mm. Mild to moderate stenosis in the mid LAD at a trifurcation point that will be treated conservatively and monitor closely. Heavily calcified left main with ostial 40- 50 percent stenosis. Mild to moderate disease in the circumflex artery, mild disease in the right coronary artery. -Stress test done October 2021 no significant ischemia SSS 4, SDS 2, EF 69% Maintained on aspirin. Chronic kidney disease stage IV, followed and managed by [facility], losartan was discontinued in the past. Continue to monitor renal function. Left ventricular hypertrophy 2D echo done in April 2022 with mild LVH, ejection fraction 50 to 55%, grade 1 diastolic dysfunction, PA pressure 30 to 35 mmHg. 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 Maintained on Xarelto in the past, currently off of the medication. Bilateral lower extremity venous duplex was negative. No prior history of PE. Mild bilateral carotid stenosis, last ultrasound was done in April 2022, continue to monitor Diabetes mellitus Hyperlipidemia, has been followed by Dr. Gutierrez as outpatient. COPD, obstructive sleep apnea, using C pap. Morbid obesity Peripheral edema, chronic, no change from baseline. Continue to monitor. Cecile BENTON MD Jan 26, 2023 16:46
[2023-01-26] MEDS: PRAMIPEXOLE 0.125 MG TABLET PO SCH (20:12)
[2023-01-26] MEDS: MONTELUKAST 10 MG TABLET PO SCH (20:12)
[2023-01-26] MEDS: DONEPEZIL 10 MG TABLET PO SCH (20:12)
[2023-01-26] MEDS: TERAZOSIN 5 MG CAPSULE PO SCH (20:13)
--- NOTE | 2023-01-27 02:30 | Tele-ICU Progress Note ---
Subjective Date Seen by a Provider: Jan 27, 2023 Time Seen by a Provider: 02:27 Subjective/Events-last exam called for oliguria, 40 mL over 4 hours, bladder scan does not show distended bladder will give fluid bolus of LR 500 mL IV over 30 min and repeat x 1 if UO does not improve Cr 1.25, BUN 18, Last CXR 01/19 showed no acute process Hossein Lino MD Sepsis Event Evaluation Height, Weight, BMI Height: 5'7.00" Weight: 248lbs. 0.0oz. 112.916842ez; 42.00 BMI Method: Exam Exam Patient acknowledged, consented, and participated in this virtual visit which was conducted using real time audio/video Vital Signs Date Time Temp Pulse Resp B/P (MAP) Pulse Ox O2 Delivery O2 Flow Rate FiO2 01/27/23 01:00 113 01/27/23 00:00 93 NIV CPAP 3.00 01/26/23 23:00 112 17 170/89 (116) 93 Nasal Cannula 2.50 01/26/23 22:00 111 19 143/86 (103) 95 Nasal Cannula 2.50 01/26/23 21:00 109 25 117/71 (88) 89 Nasal Cannula 2.50 01/26/23 20:42 NIV CPAP 3.00 01/26/23 20:27 96 Nasal Cannula 2.50 01/26/23 20:00 113 21 178/87 (117) 92 Nasal Cannula 2.50 01/26/23 20:00 95 Nasal Cannula 2.50 01/26/23 20:00 36.8 01/26/23 19:00 116 17 154/116 (135) 92 Nasal Cannula 2.50 01/26/23 19:00 112 01/26/23 18:00 116 27 191/104 (136) 93 Nasal Cannula 2.50 01/26/23 17:00 117 23 187/105 (132) 93 Nasal Cannula 2.50 01/26/23 16:00 36.9 01/26/23 16:00 124 17 130/99 (117) 95 Nasal Cannula 2.50 01/26/23 16:00 97 NIV CPAP 01/26/23 15:00 121 24 170/95 (131) 93 Nasal Cannula 2.50 01/26/23 14:00 115 25 150/91 (117) 94 Nasal Cannula 2.50 01/26/23 13:00 117 01/26/23 13:00 113 24 159/88 (106) 96 Nasal Cannula 2.50 01/26/23 12:00 120 12 176/94 (118) 93 Nasal Cannula 2.50 01/26/23 12:00 97 NIV CPAP 01/26/23 11:48 37.0 01/26/23 11:00 124 34 91 Nasal Cannula 2.50 01/26/23 10:00 121 15 157/89 (111) 93 Nasal Cannula 2.50 01/26/23 09:00 131 22 178/86 (117) 93 Nasal Cannula 2.50 01/26/23 08:00 126 26 176/101 (126) 94 Nasal Cannula 2.50 01/26/23 08:00 95 Nasal Cannula 2.50 01/26/23 07:56 37.0 01/26/23 07:55 37.0 01/26/23 07:49 92 Nasal Cannula 2.50 01/26/23 07:00 130 01/26/23 07:00 130 25 193/98 (128) 93 Nasal Cannula 2.50 01/26/23 06:00 128 23 193/96 (128) 93 Nasal Cannula 2.50 01/26/23 05:00 125 22 194/95 (128) 92 Nasal Cannula 2.50 01/26/23 04:18 93 Nasal Cannula 2.50 01/26/23 04:00 123 22 180/90 (120) 93 Nasal Cannula 2.50 01/26/23 03:00 126 22 155/98 (117) 93 Nasal Cannula 2.50 I & O 01/27/23 07:00 Intake Total 1050 ml Output Total 700 ml Balance 350 ml Height & Weight Height: 5'7.00" Weight: 248lbs. 0.0oz. 112.112531nj; 42.00 BMI Method: General Appearance: No Apparent Distress, Chronically ill, Obese HEENT: PERRL/EOMI, Pharynx Normal Neck: Full Range of Motion, Normal Inspection, Non Tender, Supple Respiratory: Lungs Clear, No Accessory Muscle Use Cardiovascular: Tachycardia (regular rate) Capillary Refill: Less Than 3 Seconds Extremity: Other (right hand with swelling) Neurologic/Psychiatric: Alert, Other (oriented to some major details- see HPI, not back to baseline but getting better) Skin: Normal Color, Warm/Dry Results Lab Laboratory Tests 9/8/23 04:30 01/26/23 05:49 Assessment/Plan Assessment/Plan called for oliguria, 40 mL over 4 hours, bladder scan does not show distended bladder will give fluid bolus of LR 500 mL IV over 30 min and repeat x 1 if UO does not improve Cr 1.25, BUN 18, Last CXR 01/19 showed no acute process Hossein Lino MD Critical Care: Critically Ill Patient Time spent with patient (mins): 20 SCARLETT LINO MD Jan 27, 2023 02:30
[2023-01-27] MEDS ORDERED: LACTATED RINGERS 1,000 ML 1,000 ML IV SCH (02:45)
[2023-01-27] MEDS: LACTATED RINGERS 1,000 ML 1,000 ML IV SCH ×3 (03:00→21:23)
[2023-01-27 05:29] LABS: BASOPHILS # (AUTO) 0.1 10^3/uL (0.0-0.1); BASOPHILS % (AUTO) 1 % (0-10); EOSINOPHILS # (AUTO) 0.3 10^3/uL (0.0-0.3); EOSINOPHILS % (AUTO) 3 % (0-10); HEMATOCRIT 39 % (40-54); HEMOGLOBIN 12.3 g/dL (13.3-17.7); LYMPHOCYTES # (AUTO) 1.5 10^3/uL (1.0-4.0); LYMPHOCYTES % (AUTO) 17 % (12-44); MEAN CORPUSCULAR HEMOGLOBIN 28 pg (25-34); MEAN CORPUSCULAR HGB CONC 31 g/dL (32-36); MEAN CORPUSCULAR VOLUME 90 fL (80-99); MEAN PLATELET VOLUME 9.1 fL (9.0-12.2); MONOCYTES # (AUTO) 0.9 10^3/uL (0.0-1.0); MONOCYTES % (AUTO) 11 % (0-12); NEUTROPHILS # (AUTO) 5.6 10^3/uL (1.8-7.8); NEUTROPHILS % (AUTO) 66 % (42-75); PLATELET COUNT 263 10^3/uL (130-400); WHITE BLOOD COUNT 8.6 10^3/uL (4.3-11.0)
[2023-01-27 05:47] LABS: CALCIUM 8.5 MG/DL (8.5-10.1); CREATININE SERUM 1.22 MG/DL (0.60-1.30); MAGNESIUM 1.8 MG/DL (1.6-2.4); PHOSPHORUS 3.4 MG/DL (2.3-4.7); POTASSIUM 4.1 MMOL/L (3.6-5.0)
[2023-01-27] MEDS: MAGNESIUM 1 GM/100 ML IVPB 100 ML IV SCH ×3 (06:14→06:28)
[2023-01-27] MEDS: POTASSIUM CL 10MEQ/50ML IVPB 50 ML IV SCH (06:14)
[2023-01-27] MEDS: POTASSIUM CHLORIDE 20 MEQ TABLET PO SCH (06:14)
[2023-01-27] MEDS: inSUlin ASPART 1 UNIT/0.01 ML (PER UNIT) SC SCH ×4 (06:15→21:23)
[2023-01-27] MEDS ORDERED: MAGNESIUM 1 GM/100 ML IVPB 200 ML IV ONE (06:20)
--- NOTE | 2023-01-27 09:29 | Progress Note - Hospitalist ---
Subjective HPI/CC On Admission Date Seen by Provider: Jan 27, 2023 Soham is a 77 yo M that presented with falls, headache and weakness to the ER yesterday. He has become increasingly confused and has a history of dementia. 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 He lives alone and it is unknown if he had been taking his meds prior. His neighbor reports that he has had increasing weakness in his leg and has had more difficulty getting in and out of the car the past few days. His neighbor also reports that yesterday morning he had a headche after he had been experiencing falls, not sure of what he fell on or if he lost consciousness. He denies pain, but overall doesn't feel good and feels lightheaded. He denies chest pain and shortness of breath. He denies fever. He denies nausea or vomiting. Subjective/Events-last exam Pt reports doing ok. Would like to go home. No other complaints. Family reports legs are swollen. Objective Exam Vital Signs Vital Signs Date Time Temp Pulse Resp B/P (MAP) Pulse Ox O2 Delivery O2 Flow Rate FiO2 01/27/23 09:00 118 23 159/90 (110) 90 Nasal Cannula 3.00 01/27/23 08:11 36.8 01/24/23 08:00 30 Capillary Refill : Less Than 3 Seconds General Appearance: No Apparent Distress, Obese Respiratory: Lungs Clear, No Accessory Muscle Use Cardiovascular: No Murmur, Tachycardia (regular) Gastrointestinal: Normal Bowel Sounds, Soft Neurologic/Psychiatric: Alert, Other (orientation improving) Results/Procedures Lab Laboratory Tests 01/27/23 05:10 Patient resulted labs reviewed. Imaging: Reviewed Imaging Report Assessment/Plan Assessment and Plan Assess & Plan/Chief Complaint Critical illness myopathy Confusion/delirium- slow to improve Off precedex and doing well- transfer to 4th PT/OT Replace electrolytes per protocol CXR and head CT- normal results Urine culture with gram pos mix Ceftriaxone completed course Negative RVP Continue risperdal Continue home dementia meds Social work consulted, will likely need SNF placement Sinus tachycardia Cardiology consulted, appreciate recs Continue metoprolol WES Creatinine stable UOP was adequate yesterday but dipped overnight, responded to fluid bolus Trial lasix given edema DM sliding scale insulin Home levemir DVT ppx: Lovenox hypokalemia/hypophosphatemia- resolved Hypertensive urgency- resolved Critical Care Critically Ill Patient ANA PAULA EAGLE MD Jan 27, 2023 09:29
[2023-01-27] MEDS ORDERED: FUROSEMIDE INJECTION 40 MG/4 ML VIAL IVP NR (09:30)
[2023-01-27] MEDS: FLUTICASONE NASAL SPRAY (120 SPRAYS) NS SCH (09:40)
[2023-01-27] MEDS: risperiDONE 0.25 MG TABLET PO SCH ×2 (09:41→21:00)
[2023-01-27] MEDS: amLODIPine 10 MG TABLET PO SCH (09:41)
[2023-01-27] MEDS: PANTOPRAZOLE 40 MG TABLET PO SCH (09:41)
[2023-01-27] MEDS: inSUlin DETERMIR 1 UNIT/0.01 ML (CHARGE PER UNIT) SQ SCH (09:41)
[2023-01-27] MEDS: DOCUSATE SODIUM 100 MG CAPSULE PO SCH ×2 (09:42→21:00)
[2023-01-27] MEDS: RT-Ipratropium/Albuterol NEB 3 ML VIAL INH SCH ×2 (10:03→22:11)
[2023-01-27] MEDS: ENOXAPARIN 40 MG/0.4 ML SYRINGE SC SCH ×2 (11:22→21:23)
[2023-01-27] MEDS: HALOPERIDOL INJECTION 5 MG/ML VIAL IM PRN (11:39)
--- NOTE | 2023-01-27 13:50 | Cardiology Progress Note ---
Cardiology SOAP Progress Note Subjective: still confused Objective: I&O/Vital Signs 01/27/23 01/27/23 01/27/23 01/27/23 11:00 11:47 12:00 12:00 Temp 36.6 Pulse 108 113 Resp 25 26 B/P (MAP) 145/94 (113) 174/92 (122) Pulse Ox 92 95 93 O2 Delivery Nasal Cannula Nasal Cannula O2 Flow Rate 3.00 2.50 3.00 01/27/23 01/27/23 01/27/23 01/27/23 12:50 13:00 14:00 15:00 Pulse 118 115 114 113 Resp 26 B/P (MAP) 132/92 (119) 149/89 (113) 159/87 (118) Pulse Ox 92 94 92 O2 Delivery Nasal Cannula Nasal Cannula Nasal Cannula O2 Flow Rate 3.00 3.00 3.00 01/27/23 01/27/23 01/27/23 01/27/23 16:00 16:00 17:00 18:00 Pulse 116 116 117 Resp 27 B/P (MAP) 167/99 (155) 149/82 (102) 124/83 (105) Pulse Ox 95 93 90 93 O2 Delivery Nasal Cannula Nasal Cannula Nasal Cannula Nasal Cannula O2 Flow Rate 2.50 3.00 3.00 3.00 01/27/23 01/27/23 01/27/23 01/27/23 18:54 19:00 19:45 20:00 Pulse 116 112 Resp 30 B/P (MAP) 158/79 (105) Pulse Ox 92 95 94 O2 Delivery NIV CPAP NIV CPAP Nasal Cannula O2 Flow Rate 3.00 3.00 FiO2 32 01/27/23 22:11 Pulse Ox 99 O2 Delivery NIV CPAP O2 Flow Rate 3.00 01/27/23 00:00 Intake Total 750 ml Output Total 500 ml Balance 250 ml Weight (Pounds): 248 Weight (Ounces): 0.0 Weight (Calculated Kilograms): 112.305598 Constitutional: apparent distress Respiratory: respiratory distress Cardiovascular: regular rate-rhythm, tachycardia Neurologic/Psychiatric: alert Results/Procedures: Labs Laboratory Tests 01/27/23 05:10: White Blood Count 8.6, Red Blood Count 4.38, Hemoglobin 12.3L, Hematocrit 39L, Mean Corpuscular Volume 90, Mean Corpuscular Hemoglobin 28, Mean Corpuscular Hemoglobin Concent 31L, Red Cell Distribution Width 15.7H, Platelet Count 263, Mean Platelet Volume 9.1, Immature Granulocyte % (Auto) 2, Neutrophils (%) (Auto) 66, Lymphocytes (%) (Auto) 17, Monocytes (%) (Auto) 11, Eosinophils (%) (Auto) 3, Basophils (%) (Auto) 1, Neutrophils # (Auto) 5.6, Lymphocytes # (Auto) 1.5, Monocytes # (Auto) 0.9, Eosinophils # (Auto) 0.3, Basophils # (Auto) 0.1, Immature Granulocyte # (Auto) 0.2H, Sodium Level 135, Potassium Level 4.1, Chloride Level 105, Carbon Dioxide Level 21, Anion Gap 9, Blood Urea Nitrogen 16, Creatinine 1.22, Estimat Glomerular Filtration Rate 61, BUN/Creatinine Ratio 13, Glucose Level 161H, Calcium Level 8.5, Phosphorus Level 3.4, Magnesium Level 1.8 01/27/23 10:50: Glucometer 202H 01/27/23 16:14: Glucometer 191H 01/27/23 21:21: Glucometer 115H Microbiology 01/19/23 MRSA Screen - Final, Complete MRSA not isolated 01/19/23 Urine Culture - Final, Complete Gram Pos Mixed Bacterial Ashly See Comments A/P: Assessment/Dx: Weakness/confusion CAD Hypertensive urgency CKD Plan: Sinus tachycardia, low-dose beta-blockers. Likely secondary to systemic illnesses. Pain. Weakness and Confusion/delirium- oriented to person. CXR and CT head WNL Patient is maintained on BiPAP, most probably hypoxemia/hypoventilation syndrome Reported some weakness, seen by primary care physician about 2 weeks ago and there was suspicion of a small CVA Managed by medical team at this point Acute respiratory failure, maintained on BiPAP. Received Precedex Hypertensive urgency, history of Malignant HTN, has been maintained on amlodipine 10 mg daily, furosemide 20 mg daily, Toprol-XL 50 mg daily as outpatient. Using IV hydralazine PRN. CT angiogram of the abdomen in July 2012 showed mild plaque along the origin of the renal artery with no significant stenosis. followed by [facility]. Monitor blood pressure UTI, Urine culture with gram pos mix. On Ceftriaxone, management per hospitalist Coronary artery disease Left heart catheterization on January 22, 2018 revealing severe stenosis at the proximal LAD successful primary stenting using Estrella 315mm. Mild to moderate stenosis in the mid LAD at a trifurcation point that will be treated conservatively and monitor closely. Heavily calcified left main with ostial 40- 50 percent stenosis. Mild to moderate disease in the circumflex artery, mild disease in the right coronary artery. -Stress test done October 2021 no significant ischemia SSS 4, SDS 2, EF 69% Maintained on aspirin. Chronic kidney disease stage IV, followed and managed by [facility], losartan was discontinued in the past. Continue to monitor renal function. Left ventricular hypertrophy 2D echo done in April 2022 with mild LVH, ejection fraction 50 to 55%, grade 1 diastolic dysfunction, PA pressure 30 to 35 mmHg. 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 Maintained on Xarelto in the past, currently off of the medication. Bilateral lower extremity venous duplex was negative. No prior history of PE. Mild bilateral carotid stenosis, last ultrasound was done in April 2022, continue to monitor Diabetes mellitus Hyperlipidemia, has been followed by Dr. Gutierrez as outpatient. COPD, obstructive sleep apnea, using C pap. Morbid obesity Peripheral edema, chronic, no change from baseline. Continue to monitor. Cecile BENTON MD Jan 27, 2023 13:50
[2023-01-27] MEDS: MONTELUKAST 10 MG TABLET PO SCH (21:00)
[2023-01-27] MEDS: DONEPEZIL 10 MG TABLET PO SCH (21:00)
[2023-01-27] MEDS: PRAMIPEXOLE 0.125 MG TABLET PO SCH (21:00)
[2023-01-27] MEDS: TERAZOSIN 5 MG CAPSULE PO SCH (21:00)
[2023-01-28] MEDS: hydrALAZINE INJECTION 20 MG/ML VIAL IV PRN (04:16)
[2023-01-28 04:46] LABS: BASOPHILS % (AUTO) 0 % (0-10); EOSINOPHILS # (AUTO) 0.3 10^3/uL (0.0-0.3); EOSINOPHILS % (AUTO) 2 % (0-10); HEMATOCRIT 42 % (40-54); LYMPHOCYTES # (AUTO) 1.5 10^3/uL (1.0-4.0); LYMPHOCYTES % (AUTO) 13 % (12-44); MEAN CORPUSCULAR HEMOGLOBIN 28 pg (25-34); MEAN CORPUSCULAR HGB CONC 31 g/dL (32-36); MEAN CORPUSCULAR VOLUME 88 fL (80-99); MEAN PLATELET VOLUME 9.6 fL (9.0-12.2); MONOCYTES # (AUTO) 1.2 10^3/uL (0.0-1.0); MONOCYTES % (AUTO) 11 % (0-12); NEUTROPHILS # (AUTO) 8.3 10^3/uL (1.8-7.8); NEUTROPHILS % (AUTO) 72 % (42-75); PLATELET COUNT 335 10^3/uL (130-400); WHITE BLOOD COUNT 11.6 10^3/uL (4.3-11.0)
[2023-01-28 05:04] LABS: CALCIUM 8.9 MG/DL (8.5-10.1); CREATININE SERUM 1.19 MG/DL (0.60-1.30); MAGNESIUM 1.7 MG/DL (1.6-2.4); POTASSIUM 4.2 MMOL/L (3.6-5.0)
[2023-01-28] MEDS: inSUlin ASPART 1 UNIT/0.01 ML (PER UNIT) SC SCH ×4 (05:12→20:52)
[2023-01-28] MEDS: LACTATED RINGERS 1,000 ML 1,000 ML IV SCH (07:35)
[2023-01-28] MEDS: FLUTICASONE NASAL SPRAY (120 SPRAYS) NS SCH (08:29)
[2023-01-28] MEDS: amLODIPine 10 MG TABLET PO SCH (08:30)
[2023-01-28] MEDS: risperiDONE 0.25 MG TABLET PO SCH ×2 (08:30→20:46)
[2023-01-28] MEDS: inSUlin DETERMIR 1 UNIT/0.01 ML (CHARGE PER UNIT) SQ SCH (08:30)
[2023-01-28] MEDS: PANTOPRAZOLE 40 MG TABLET PO SCH (08:31)
[2023-01-28] MEDS: DOCUSATE SODIUM 100 MG CAPSULE PO SCH ×2 (08:31→20:46)
--- NOTE | 2023-01-28 08:49 | Cardiology Progress Note ---
Subjective Date Seen by Provider: Jan 28, 2023 Time Seen by Provider: 08:46 Subjective/Events-last exam Patient was seen at bedside, laying down in bed, still having shortness of breath Review of Systems General: No Chills, No Night Sweats; Fatigue; No Malaise, No Appetite, No Other HEENT: No Head Aches, No Visual Changes, No Eye Pain, No Ear Pain, No Dysphasia, No Sinus Congestion, No Post Nasal Drip, No Sore Throat, No Other Pulmonary: Dyspnea; No Cough, No Pleuritic Chest Pain, No Other Cardiovascular: Edema; No: Chest Pain, Palpitations, Orthopnea, Lt Headedness, Other Objective-Cardiology Exam Last Set of Vital Signs Vital Signs 01/27/23 01/28/23 18:54 08:00 Pulse 124 Resp 31 B/P (MAP) 172/99 (123) Pulse Ox 91 O2 Delivery NIV CPAP O2 Flow Rate 2.50 FiO2 32 I&O Intake and Output0 01/28/23 00:00 Intake Total 4900 ml Output Total 4215 ml Balance 685 ml Intake Oral 1700 ml IV Total 3200 ml Output Urine Total 4215 ml General: Cooperative HEENT: Atraumatic, PERRLA Neck: Supple, No JVD Lungs: Normal Air Movement Heart: Regular Rate, Normal S1, Normal S2, Other (Sinus tachycardia) Abdomen: Normal Bowel Sounds Extremities: No Clubbing, No Cyanosis, Other (Peripheral edema) Skin: No Rashes, No Breakdown Results Lab Laboratory Tests 01/28/23 03:25 A/P-Cardiology Admission Diagnosis Weakness/confusion CAD Hypertensive urgency CKD Assessment/Plan Weakness and Confusion/delirium- oriented to person. CXR and CT head WNL Reported some weakness, seen by primary care physician about 2 weeks ago and there was suspicion of a small CVA Managed by medical team at this point Status post acute respiratory failure, was initially on BiPAP Currently on nasal cannula Improving slowly Peripheral edema, worsening recently I will start Lasix 40 mg IV twice daily and monitor tolerance and response Hypertensive urgency, history of Malignant HTN, has been maintained on amlodipine 10 mg daily, furosemide 20 mg daily, Toprol-XL 50 mg daily as outpatient. Using IV hydralazine PRN. CT angiogram of the abdomen in July 2012 showed mild plaque along the origin of the renal artery with no significant stenosis. followed by [facility]. Monitor blood pressure UTI, Urine culture with gram pos mix. Managed by primary care team Coronary artery disease Left heart catheterization on January 22, 2018 revealing severe stenosis at the proximal LAD successful primary stenting using Estrella 315mm. Mild to moderate stenosis in the mid LAD at a trifurcation point that will be treated conservatively and monitor closely. Heavily calcified left main with ostial 40- 50 percent stenosis. Mild to moderate disease in the circumflex artery, mild disease in the right coronary artery. -Stress test done October 2021 no significant ischemia SSS 4, SDS 2, EF 69% Maintained on aspirin. Chronic kidney disease stage IV, followed and managed by [facility], losartan was discontinued in the past. Continue to monitor renal function. Left ventricular hypertrophy 2D echo done in April 2022 with mild LVH, ejection fraction 50 to 55%, grade 1 diastolic dysfunction, PA pressure 30 to 35 mmHg. 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 Maintained on Xarelto in the past, currently off of the medication. Bilateral lower extremity venous duplex was negative. No prior history of PE. Mild bilateral carotid stenosis, last ultrasound was done in April 2022, continue to monitor Diabetes mellitus Hyperlipidemia, has been followed by Dr. Gutierrez as outpatient. COPD, obstructive sleep apnea, using C pap. Morbid obesity Peripheral edema, chronic, no change from baseline. Continue to monitor. RAMIRO CRUZ MD Jan 28, 2023 08:49
[2023-01-28] MEDS: carvediloL 12.5 MG TABLET PO SCH ×2 (09:05→20:46)
[2023-01-28] MEDS: FUROSEMIDE INJECTION 40 MG/4 ML VIAL IVP SCH ×2 (09:05→16:41)
--- NOTE | 2023-01-28 10:10 | Physical Therapy Daily Note ---
PT Daily Note-Current Subjective Patient in bed and displays with noted total edema and SOA with O2 in place. Family present. Pain Section J - Health Conditions 1. Rarely or not at all 2. Occasionally 3. Frequently 4. Almost constantly 8. Unable to answer Pain Effect on Sleep: 8 Pain Interference with Therapy: 8 Pain Interference w/Day-to-Day: 8 Mental Status Patient Orientation: Person Attachments: Oxygen, Orozco Catheter, IV Transfers SCALE: Activities may be completed with or without assistive devices. 9-Tkbetlicvt-himpwkb completes the activity by him/herself with no assistance from a helper. 5-Set-up or Clean-up Assistance-helper sets up or cleans up; patient completes activity. [place] assists only prior to or following the activity. 4-Supervision or Touching Assistance-helper provides verbal cues and/or touching/steadying and/or contact guard assistance as patient completes activity. Assistance may be provided throughout the activity or intermittently. 3-Partial/Moderate Assistance-helper does LESS THAN HALF the effort. [place] lifts, holds or supports trunk or limbs, but provides less than half the effort. 2-Substantial/Maximal Assistance-helper does MORE THAN HALF the effort. [place] lifts or holds trunk or limbs and provides more than half the effort. 2-Ufrfciqul-vcmipo does ALL the effort. Patient does none of the effort to complete the activity. Or, the assistance of 2 or more helpers is required for the patient to complete the activity. If activity was not attempted, code reason: 7-Patient Refused. 9-Not Applicable-not attempted and the patient did not perform the activity before the current illness, exacerbation or injury. 10-Not Attempted due to Environmental Limitations-(lack of equipment, weather restraints, etc.). 88-Not Attempted due to Medical Conditions or Safety Concerns. Roll Left & Right (QC): 1 (x 2) Sit to Lying (QC): 1 (x 2) Lying to Sitting/Side of Bed(Q: 1 (x 2) Weight Bearing Right Lower Extremity: Right Full Weight Bearing Left Lower Extremity: Left Full Weight Bearing Assessment Patient sat EOB max assist to maintain for several minutes with cervical ROM performed by OT as PT addressed sitting balance. Patient is currently not safe for OOB activity due to current medical status. PT Skilled Nursing Goals Plsql Developer Goals PT Skilled Nursing Goals Time Frame: Feb 09, 2023 Roll Left & Right (QC): 6 Sit to Lying (QC): 6 Lying-Sitting on Side/Bed(QC): 6 Sit to Stand (QC): 6 Chair/Ocn-ye-Ongil Xfer(QC): 6 Toilet Transfer (QC): 6 Walk 10 feet (QC): 5 Walk 50ft with 2 Turns (QC): 5 Walk 150 ft (QC): 5 1 Step (curb) (QC): 4 4 Steps (QC): 4 PT Plan Treatment/Plan Treatment Plan: Continue Plan of Care Treatment Plan: Bed Mobility, Education, Functional Activity Yudelka, Functional Strength, Gait, Safety, Therapeutic Exercise, Transfers Treatment Duration: Feb 09, 2023 Frequency: 6 times per week Estimated Hrs Per Day: .25 hour per day Patient and/or Family Agrees t: Yes Time Time In: 825 Time Out: 850 DATE: Jan 28, 2023 Total Billed Treatment Time: 25 Total Billed Treatment 1 visit FA x 2 25 min SHANEKA RODRIGUES PT Jan 28, 2023 10:10
--- NOTE | 2023-01-28 10:17 | Occupational Ther Daily Note ---
OT Current Status-Daily Note Subjective Mumbles conversation, resistive to move self, Mental Status/Objective Patient Orientation: Person, Confused, Place, Eyes Open, Mumbles Attachments: Orozco Catheter, IV, Oxygen, Telemetry ADL-Treatment Patient is limited in performance of self care. Instruction provided to family to set up and encourage oral care after each meal, daily face and grooming set up w/ verbal prompts Therapy Code Descriptions/Definitions Functional [place]att Measure: 0=Not Assessed/NA 4=Minimal Assistance 1=Total Assistance 5=Supervision or Setup 2=Maximal Assistance 6=Modified [place]att 3=Moderate Assistance 7=Complete IndependenceSCALE: Activities may be completed with or without assistive devices. 6-Msgvsqkxya-izddlql completes the activity by him/herself with no assistance from a helper. 5-Set-up or Clean-up Assistance-helper sets up or cleans up; patient completes activity. [place] assists only prior to or following the activity. 4-Supervision or Touching Assistance-helper provides verbal cues and/or touching/steadying and/or contact guard assistance as patient completes activity. Assistance may be provided throughout the activity or intermittently. 3-Partial/Moderate Assistance-helper does LESS THAN HALF the effort. [place] lifts, holds or supports trunk or limbs, but provides less than half the effort. 2-Substantial/Maximal Assistance-helper does MORE THAN HALF the effort. [place] lifts or holds trunk or limbs and provides more than half the effort. 4-Aqwbmzgnq-fhwfqt does ALL the effort. Patient does none of the effort to complete the activity. Or, the assistance of 2 or more helpers is required for the patient to complete the activity. If activity was not attempted, code reason: 7-Patient Refused. 9-Not Applicable-not attempted and the patient did not perform the activity before the current illness, exacerbation or injury. 10-Not Attempted due to Environmental Limitations-(lack of equipment, weather restraints, etc.). 88-Not Attempted due to Medical Conditions or Safety Concerns. Eating (QC): 3 (Built up utensils, requires hand over hand placement and ROM for diredtion to mouth) Oral Hygiene (QC): 4 (sponge swabs) Shower/Bathe Self (QC): 2 (OT performed spnge of back, BUES, hands and arm pits. Patient performed face hygiene while sitting supported by PT EOB. core stabnility poor an dunablet o sit unsupported d/t weakness, cognition ) Upper Body Dressing (QC): 2 Lower Body Dressing (QC): 1 (, rolling R/L for beddding change dependent) On/Off Footwear: 1 Toileting Hygiene (QC): 1 (INCONT of BM, unaware. 2 person hygiene ) Toilet Transfer (QC): 1 Other Treatment Sitting EOB for ADLS and UE ROM functional reach, poor-dependent static sitting balance Education OT Patient Education: Correct positioning, Exercise program, Instructions to caregiver, Modified ADL techniques, Progress toward Goal/Update tx plan, Purpose of tx/functional activities, Reviewed precautions, Rehab process, Safety issues Teaching Recipient: Patient, Family Teaching Methods: Demonstration, Discussion Response to Teaching: Verbalize Understanding, Reinforcement Needed OT Greenhouse Technician Goals Retirement Goals Eating (QC): 4 Oral Hygiene (QC): 4 Toileting Hygiene (QC): 4 Shower/Bathe Self (QC): 4 Upper Body Dressing (QC): 4 Lower Body Dressing (QC): 4 On/Off Footwear (QC): 4 1=Demonstrate adherence to instructed precautions during ADL tasks. 2=Patient will verbalize/demonstrate understanding of assistive devices/modifications for ADL. 3=Patient will improve strength/tolerance for activity to enable patient to perform ADL's. OT Education/Plan Problem List/Assessment Assessment: Decreased Activ Tolerance, Decreased Safety Aware, Decreased UE Strength, Dependent Transfers, Impaired Bed Mobility, Impaired Cognition, Impaired Coordination, Impaired Funct Balance, Impaired I ADL's, Impaired Self- Care Skills, Restricted Funct UE ROM, Visual-Perceptual Deficit EDEMA BUE, positioned w/ pillows in bed in chair position Discharge Recommendations Plan/Recommendations: Continue POC Therapy Discharge Recommendati: Post Acute OT Treatment Plan/Plan of Care Treatment,Training & Education: Yes Patient would benefit from OT for education, treatment and training to promote independence in ADL's, mobility, safety and/or upper extremity function for ADL's. Plan of Care: ADL Retraining, Caregiver Training, Concurrent Therapy, Functional Mobility, Group Exercise/Act as Ind, UE Funct Exercise/Act Treatment Duration: Jan 28, 2023 Frequency: 3 times per week (3-5 times /wk) Estimated Hrs Per Day: .25 hour per day Agreement: Yes Rehab Potential: Fair Time Start Time: 08:26 Stop Time: 08:55 DATE: Jan 28, 2023 Total Time Billed (hr/min): 29 Billed Treatment Time ADL, FA 29 min VIVI HELMS OT Jan 28, 2023 10:17
[2023-01-28] MEDS: RT-Ipratropium/Albuterol NEB 3 ML VIAL INH SCH ×2 (11:06→19:51)
[2023-01-28] MEDS: ENOXAPARIN 40 MG/0.4 ML SYRINGE SC SCH ×2 (12:43→23:15)
[2023-01-28 15:26] VITALS: BP 158/81
--- NOTE | 2023-01-28 18:00 | Progress Note - Hospitalist ---
Subjective HPI/CC On Admission Date Seen by Provider: Jan 28, 2023 Time Seen by Provider: 10:20 Soham is a 77 yo M that presented with falls, headache and weakness to the ER yesterday. He has become increasingly confused and has a history of dementia. 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 He lives alone and it is unknown if he had been taking his meds prior. His neighbor reports that he has had increasing weakness in his leg and has had more difficulty getting in and out of the car the past few days. His neighbor also reports that yesterday morning he had a headche after he had been experiencing falls, not sure of what he fell on or if he lost consciousness. He denies pain, but overall doesn't feel good and feels lightheaded. He denies chest pain and shortness of breath. He denies fever. He denies nausea or vomiting. Subjective/Events-last exam He remains confused. He is able to tell me his name and the year. He denies pain . He has no complaints. Objective Exam Vital Signs Vital Signs Date Time Temp Pulse Resp B/P (MAP) Pulse Ox O2 Delivery O2 Flow Rate FiO2 01/28/23 15:26 37.8 90 17 158/81 (106) 96 Nasal Cannula 2.50 01/27/23 18:54 32 Capillary Refill : Less Than 3 Seconds General Appearance: No Apparent Distress, Obese Respiratory: No Respiratory Distress, Decreased Breath Sounds Cardiovascular: Regular Rate, Rhythm, No Murmur Gastrointestinal: Normal Bowel Sounds, Soft Extremity: Normal Inspection, No Pedal Edema Neurologic/Psychiatric: Alert, Normal Mood/Affect, Disoriented Skin: Normal Color, Warm/Dry Results/Procedures Lab Laboratory Tests 01/28/23 03:25 Patient resulted labs reviewed. Imaging: Reviewed Imaging Report Assessment/Plan Assessment and Plan Assess & Plan/Chief Complaint Critical illness myopathy PT/OT SW consulted, will need SNF on discharge Delirium Dementia Reorient as needed Avoid sedating meds as able Risperdal Haldol as needed Continue home dementia meds Sinus tachycardia HTN Cardiology following, appreciate recs Transition to Coreg Continue Lasix Continue Lisinopril and Terazosin WES Creatinine stable Continue Lasix DM SSI Home levemir DVT ppx: Lovenox hypokalemia/hypophosphatemia- resolved Hypertensive urgency- resolved Diagnosis/Problems Diagnosis/Problems (1) Hypertensive urgency Status: Acute (2) Generalized weakness Status: Acute (3) Hypomagnesemia Status: Acute (4) Hypokalemia Status: Acute (5) Hypophosphatemia Status: Acute (6) UTI (urinary tract infection) Status: Resolved Resolution Date/Time: 01/28/23 @ 18:00 (7) Dementia Status: Chronic Qualifiers: Dementia type: unspecified type Dementia severity: moderate Dementia behavioral or psychological symptom: with agitation Qualified Codes: F03.B11 - Unspecified dementia, moderate, with agitation (8) Delirium due to another medical condition, acute, hyperactive Status: Acute (9) T2DM (type 2 diabetes mellitus) Status: Chronic (10) COPD (chronic obstructive pulmonary disease) Status: Chronic (11) RLS (restless legs syndrome) Status: Chronic (12) HLD (hyperlipidemia) Status: Chronic (13) BPH (benign prostatic hyperplasia) (14) Obesity KATELYN FRYE MD Jan 28, 2023 18:00
[2023-01-28 19:34] VITALS: BP 175/86
[2023-01-28] MEDS: DONEPEZIL 10 MG TABLET PO SCH (20:45)
[2023-01-28] MEDS: PRAMIPEXOLE 0.125 MG TABLET PO SCH (20:45)
[2023-01-28] MEDS: MONTELUKAST 10 MG TABLET PO SCH (20:45)
[2023-01-28] MEDS: TERAZOSIN 5 MG CAPSULE PO SCH (20:46)
[2023-01-28 23:03] VITALS: BP 138/65
[2023-01-29 02:40] VITALS: BP 117/89
[2023-01-29 03:17] VITALS: BP 126/56
[2023-01-29] MEDS: inSUlin ASPART 1 UNIT/0.01 ML (PER UNIT) SC SCH ×4 (05:23→21:23)
[2023-01-29 06:10] LABS: BASOPHILS # (AUTO) 0.1 10^3/uL (0.0-0.1); BASOPHILS % (AUTO) 1 % (0-10); EOSINOPHILS # (AUTO) 0.3 10^3/uL (0.0-0.3); EOSINOPHILS % (AUTO) 3 % (0-10); HEMATOCRIT 39 % (40-54); HEMOGLOBIN 12.4 g/dL (13.3-17.7); LYMPHOCYTES # (AUTO) 1.5 10^3/uL (1.0-4.0); LYMPHOCYTES % (AUTO) 13 % (12-44); MEAN CORPUSCULAR HEMOGLOBIN 28 pg (25-34); MEAN CORPUSCULAR HGB CONC 32 g/dL (32-36); MEAN CORPUSCULAR VOLUME 87 fL (80-99); MEAN PLATELET VOLUME 9.6 fL (9.0-12.2); MONOCYTES # (AUTO) 1.1 10^3/uL (0.0-1.0); MONOCYTES % (AUTO) 10 % (0-12); NEUTROPHILS # (AUTO) 7.8 10^3/uL (1.8-7.8); NEUTROPHILS % (AUTO) 70 % (42-75); PLATELET COUNT 300 10^3/uL (130-400); WHITE BLOOD COUNT 11.1 10^3/uL (4.3-11.0)
[2023-01-29 06:38] LABS: CALCIUM 8.6 MG/DL (8.5-10.1); CREATININE SERUM 1.44 MG/DL (0.60-1.30); POTASSIUM 3.9 MMOL/L (3.6-5.0)
[2023-01-29 07:14] VITALS: BP 154/87
[2023-01-29] MEDS ORDERED: NS IV 1000 ML 1,000 ML IV SCH (07:45)
[2023-01-29] MEDS: RT-Ipratropium/Albuterol NEB 3 ML VIAL INH SCH ×2 (07:49→21:16)
[2023-01-29] MEDS: FLUTICASONE NASAL SPRAY (120 SPRAYS) NS SCH (08:23)
[2023-01-29] MEDS: risperiDONE 0.25 MG TABLET PO SCH ×2 (08:24→21:22)
[2023-01-29] MEDS: amLODIPine 10 MG TABLET PO SCH (08:24)
[2023-01-29] MEDS: PANTOPRAZOLE 40 MG TABLET PO SCH (08:24)
[2023-01-29] MEDS: DOCUSATE SODIUM 100 MG CAPSULE PO SCH ×2 (08:24→21:28)
[2023-01-29] MEDS: carvediloL 12.5 MG TABLET PO SCH ×2 (08:24→21:22)
[2023-01-29] MEDS: inSUlin DETERMIR 1 UNIT/0.01 ML (CHARGE PER UNIT) SQ SCH (08:25)
--- NOTE | 2023-01-29 09:31 | Speech Therapy Daily Note ---
Speech Daily Progress Note Subjective Date Seen by Provider: Jan 29, 2023 Time Seen by Provider: 09:10 The patient recently completed physical and occupational therapy, where the therapists assisted the patient to the chair. The patient is seated upright and is awake for initiation of the skilled dysphagia treatment session. The patient does require verbal encouragement to remained at an appropriate level of alertness for completion. Per patient's family members, "When he first arrived, I said something about him having trouble swallowing so I think they put him on this soft stuff. It really isn't a real problem and we wanted to see if he could go back to normal." The clinician provided education behind the SB6 recommendation on the day of evaluation and the sequencing of today's session to upgrade to a regular consi stency. Objective The patient was provided thin liquid via straw, teaspoons of pudding, and one patience cracker. The clinician fed the patient all consistencies due to upper extremity weakness. The patient attempted to self-feed but was unable to reach his mouth with the consistencies. Overt s/s of suspected aspiration were not demonstrated with any consistency tested. The patient utilized a thin liquid wash to clear solid consistency residue from the oral cavity. The patient's vocal quality remained clear following each swallow. Recommendations: - Regular consistency diet with thin liquids, as tolerated. - Fully upright and alert for P.O. intake. If the patient is not alert, P.O. intake should not occur. - Feeding assistance and meal set-up. - Small, single bites and sips. - Crush medication and place in puree for administration. - Monitor for s/s of suspected aspiration with P.O. intake. If demonstrated, please contact speech pathology. - Speech pathology to follow up x1 for diet tolerance. The results and recommendations were discussed with the family and patient, placed on the in-room white board, and provided to the RN. Assessment Assessment Current Status: Fair Progress Treatment Plan Continue Plan of Care Speech Short Term Goals Short Term Goals Short Term Goals 1. The patient, staff, and caregivers will display safe swallowing precautions with 80% accuracy and mild verbal/visual cueing. Time Frame-STG: Five Days. Speech Shelter Goals Consumer Insight Manager Goals 1. The patient will tolerate the least restrictive diet consistency without s/s of suspected aspiration. Time Frame: One Week. Speech-Plan Treatment Plan Speech Therapy Treatment Plan: Continue Plan of Care Treatment Duration: Jan 30, 2023 Frequency: 1 time per week Estimated Hrs Per Day: .25 hour per day Rehab Potential: Fair Safety Risks/Education Teaching Recipient: Patient, Family Teaching Methods: Discussion Response to Teaching: Unable to Comprehend Education Topics Provided: Results, Recommendations, Plan of Care Time Speech Therapy Time In: 09:10 Speech Therapy Time Out: 09:25 DATE: Jan 29, 2023 Total Billed Time: 15 Billed Treatment Time 1, JI MCCORMACK Jan 29, 2023 09:31
--- NOTE | 2023-01-29 09:31 | Physical Therapy Daily Note ---
PT Daily Note-Current Subjective Patient more alert and talkative on this date. Family present. Pain Section J - Health Conditions 1. Rarely or not at all 2. Occasionally 3. Frequently 4. Almost constantly 8. Unable to answer Pain Effect on Sleep: 8 Pain Interference with Therapy: 8 Pain Interference w/Day-to-Day: 8 Mental Status Patient Orientation: Person, Place Attachments: Oxygen Transfers SCALE: Activities may be completed with or without assistive devices. 4-Xzqikbalhz-vwusahh completes the activity by him/herself with no assistance from a helper. 5-Set-up or Clean-up Assistance-helper sets up or cleans up; patient completes activity. [place] assists only prior to or following the activity. 4-Supervision or Touching Assistance-helper provides verbal cues and/or touching/steadying and/or contact guard assistance as patient completes activity. Assistance may be provided throughout the activity or intermittently. 3-Partial/Moderate Assistance-helper does LESS THAN HALF the effort. [place] lifts, holds or supports trunk or limbs, but provides less than half the effort. 2-Substantial/Maximal Assistance-helper does MORE THAN HALF the effort. [place] lifts or holds trunk or limbs and provides more than half the effort. 0-Yayqukmvs-xqiznp does ALL the effort. Patient does none of the effort to c omplete the activity. Or, the assistance of 2 or more helpers is required for the patient to complete the activity. If activity was not attempted, code reason: 7-Patient Refused. 9-Not Applicable-not attempted and the patient did not perform the activity before the current illness, exacerbation or injury. 10-Not Attempted due to Environmental Limitations-(lack of equipment, weather restraints, etc.). 88-Not Attempted due to Medical Conditions or Safety Concerns. Roll Left & Right (QC): 1 (x 2) Sit to Lying (QC): 1 (x 2) Lying to Sitting/Side of Bed(Q: 1 (x 2) Sit to Stand (QC): 1 (x 2) Chair/Xcm-ah-Olygm Xfer(QC): 1 (x 2) Weight Bearing Right Lower Extremity: Right Full Weight Bearing Left Lower Extremity: Left Full Weight Bearing Assessment Patient incontinent BM and urine during session requiring dependent assist of 2 with all mobility and transfer to cleanse and change patient. Patient is up in recliner with ST present to assess. PT to increase activity as tolerated by patient. PT Education And Training Manager Goals Education And Training Manager Goals PT Education And Training Manager Goals Time Frame: Feb 09, 2023 Roll Left & Right (QC): 6 Sit to Lying (QC): 6 Lying-Sitting on Side/Bed(QC): 6 Sit to Stand (QC): 6 Chair/Uqb-oj-Vbpjk Xfer(QC): 6 Toilet Transfer (QC): 6 Walk 10 feet (QC): 5 Walk 50ft with 2 Turns (QC): 5 Walk 150 ft (QC): 5 1 Step (curb) (QC): 4 4 Steps (QC): 4 PT Plan Treatment/Plan Treatment Plan: Continue Plan of Care Treatment Plan: Bed Mobility, Education, Functional Activity Yudelka, Functional Strength, Gait, Safety, Therapeutic Exercise, Transfers Treatment Duration: Feb 09, 2023 Frequency: 6 times per week Estimated Hrs Per Day: .25 hour per day Patient and/or Family Agrees t: Yes Time Time In: 840 Time Out: 903 DATE: Jan 29, 2023 Total Billed Treatment Time: 23 Total Billed Treatment 1 visit FA x 2 23 min SHANEKA RODRIGUES PT Jan 29, 2023 09:31
--- NOTE | 2023-01-29 09:39 | Cardiology Progress Note ---
Subjective Date Seen by Provider: Jan 29, 2023 Time Seen by Provider: 08:30 Subjective/Events-last exam Patient in bed, appears less confused today. Denies any chest pain. Objective-Cardiology Exam Last Set of Vital Signs Vital Signs 01/27/23 01/29/23 01/29/23 01/29/23 01/29/23 18:54 03:17 07:14 07:28 09:10 Temp 36.8 Pulse 99 Resp 16 B/P (MAP) 154/87 (109) Pulse Ox 91 O2 Delivery NIV CPAP O2 Flow Rate 4.00 4.00 FiO2 32 I&O Intake and Output 01/29/23 00:00 Intake Total 2225 ml Output Total 1775 ml Balance 450 ml Intake Oral 1225 ml IV Total 1000 ml Output Urine Total 1775 ml # Urine Diapers 3 # Bowel Movements 3 General: Cooperative HEENT: Atraumatic, PERRLA Neck: Supple, No JVD Lungs: Normal Air Movement Heart: Regular Rate, Normal S1, Normal S2, Other (Sinus tachycardia) Abdomen: Normal Bowel Sounds Extremities: No Clubbing, No Cyanosis, Other (Peripheral edema) Skin: No Rashes, No Breakdown Results Lab Laboratory Tests 01/29/23 05:37 A/P-Cardiology Admission Diagnosis Weakness/confusion CAD Hypertensive urgency CKD Assessment/Plan Weakness and Confusion/delirium- oriented to person. CXR and CT head WNL Reported some weakness, seen by primary care physician about 2 weeks ago and there was suspicion of a small CVA Managed by medical team at this point Status post acute respiratory failure, was initially on BiPAP Currently on nasal cannula Improving slowly Peripheral edema, continue to diurese and continue to monitor. Hypertensive urgency, history of Malignant HTN, has been maintained on amlodipine 10 mg daily, furosemide 20 mg daily, Toprol-XL 50 mg daily as outpatient. Using IV hydralazine PRN. CT angiogram of the abdomen in July 2012 showed mild plaque along the origin of the renal artery with no significant stenosis. followed by [facility]. Monitor blood pressure UTI, Urine culture with gram pos mix. Managed by primary care team Coronary artery disease Left heart catheterization on January 22, 2018 revealing severe stenosis at the proximal LAD successful primary stenting using Estrella 315mm. Mild to moderate stenosis in the mid LAD at a trifurcation point that will be treated conservatively and monitor closely. Heavily calcified left main with ostial 40- 50 percent stenosis. Mild to moderate disease in the circumflex artery, mild disease in the right coronary artery. -Stress test done October 2021 no significant ischemia SSS 4, SDS 2, EF 69% Maintained on aspirin. Chronic kidney disease stage IV, followed and managed by [facility], losartan was discontinued in the past. Continue to monitor renal function. Left ventricular hypertrophy 2D echo done in April 2022 with mild LVH, ejection fraction 50 to 55%, grade 1 diastolic dysfunction, PA pressure 30 to 35 mmHg. 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 Maintained on Xarelto in the past, currently off of the medication. Bilateral lower extremity venous duplex was negative. No prior history of PE. Mild bilateral carotid stenosis, last ultrasound was done in April 2022, continue to monitor Diabetes mellitus Hyperlipidemia, has been followed by Dr. Gutierrez as outpatient. COPD, obstructive sleep apnea, using C pap. Morbid obesity Peripheral edema, chronic, no change from baseline. Continue to monitor. Supervisory-Addendum Brief Supervisory Addendum Participated in pt care: history, MDM, physical Personally performed: exam, history, MDM Care discussed with: JEN Results interpretation: Verified all documentation Notes: Patient was seen and evaluated with Suzy, examination performed, management plan was discussed, agree with the current scribed note, I made few changes to the note using Italic font Patient was seen at bedside, laying down comfortably, some improvement was noted. Continue with current treatment, monitor blood pressure. Continue with diuresis SUZY WOLF Jan 29, 2023 09:39 RAMIRO CRUZ MD Jan 29, 2023 11:37
--- NOTE | 2023-01-29 09:53 | Occupational Ther Daily Note ---
OT Current Status-Daily Note Subjective Sleepy and semi difficult to arouse, Requires 2-3 person mobility assistance, family in room, ST to re-assess PO intake Mental Status/Objective Patient Orientation: Person, Place ADL-Treatment Cool towel placed on back to arouse patient, wash clothe/towel provided to wash face. INCONT BM x2 during session requiring 3 person assist for mobility, linens, ADLS and transfer to recliner Therapy Code Descriptions/Definitions Functional [place] Measure: 0=Not Assessed/NA 4=Minimal Assistance 1=Total Assistance 5=Supervision or Setup 2=Maximal Assistance 6=Modified [place] 3=Moderate Assistance 7=Complete IndependenceSCALE: Activities may be completed with or without assistive devices. 4-Ryizpofjyl-olsneqq completes the activity by him/herself with no assistance from a helper. 5-Set-up or Clean-up Assistance-helper sets up or cleans up; patient completes activity. [place] assists only prior to or following the activity. 4-Supervision or Touching Assistance-helper provides verbal cues and/or touching/steadying and/or contact guard assistance as patient completes activity. Assistance may be provided throughout the activity or intermittently. 3-Partial/Moderate Assistance-helper does LESS THAN HALF the effort. [place] lifts, holds or supports trunk or limbs, but provides less than half the effort. 2-Substantial/Maximal Assistance-helper does MORE THAN HALF the effort. [place] lifts or holds trunk or limbs and provides more than half the effort. 0-Tgruqedlf-hzsaoj does ALL the effort. Patient does none of the effort to complete the activity. Or, the assistance of 2 or more helpers is required for the patient to complete the activity. If activity was not attempted, code reason: 7-Patient Refused. 9-Not Applicable-not attempted and the patient did not perform the activity bef ore the current illness, exacerbation or injury. 10-Not Attempted due to Environmental Limitations-(lack of equipment, weather r estraints, etc.). 88-Not Attempted due to Medical Conditions or Safety Concerns. Upper Body Dressing (QC): 2 Lower Body Dressing (QC): 1 On/Off Footwear: 1 Toileting Hygiene (QC): 1 Toilet Transfer (QC): 1 Education OT Patient Education: Correct positioning, Exercise program, Instructions to caregiver, Modified ADL techniques, Progress toward Goal/Update tx plan, Purpose of tx/functional activities, Reviewed precautions, Rehab process, Safety issues, Transfer techniques, Use of adapted equipment Teaching Recipient: Patient, Family Teaching Methods: Demonstration, Discussion Response to Teaching: Verbalize Understanding, Reinforcement Needed OT Nursing Home Goals Nursing Home Goals Eating (QC): 4 Oral Hygiene (QC): 4 Toileting Hygiene (QC): 4 Shower/Bathe Self (QC): 4 Upper Body Dressing (QC): 4 Lower Body Dressing (QC): 4 On/Off Footwear (QC): 4 1=Demonstrate adherence to instructed precautions during ADL tasks. 2=Patient will verbalize/demonstrate understanding of assistive devices/modifications for ADL. 3=Patient will improve strength/tolerance for activity to enable patient to perform ADL's. OT Education/Plan Problem List/Assessment Assessment: Decreased Activ Tolerance, Decreased Safety Aware, Decreased UE Strength, Dependent Transfers, Edema, Impaired Bed Mobility, Impaired Cognition, Impaired Coordination, Impaired Funct Balance, Impaired Self-Care Skills, Restricted Funct UE ROM EDEMA BUE, positioned w/ pillows in bed in chair position Discharge Recommendations Plan/Recommendations: Continue POC Treatment Plan/Plan of Care Treatment,Training & Education: Yes Patient would benefit from OT for education, treatment and training to promote independence in ADL's, mobility, safety and/or upper extremity function for ADL's. Plan of Care: ADL Retraining, Caregiver Training, Concurrent Therapy, Functional Mobility, Group Exercise/Act as Ind, UE Funct Exercise/Act Treatment Duration: Jan 28, 2023 Frequency: 3 times per week (3-5 times /wk) Estimated Hrs Per Day: .25 hour per day Agreement: Yes Rehab Potential: Fair Upright in recliner, positioned for ST Time Start Time: 08:39 Stop Time: 09:03 DATE: Jan 29, 2023 Total Time Billed (hr/min): 24 Billed Treatment Time 2 ADL 24 min VIVI HELMS OT Jan 29, 2023 09:53
[2023-01-29] MEDS: ENOXAPARIN 40 MG/0.4 ML SYRINGE SC SCH ×2 (11:32→23:18)
[2023-01-29 11:44] VITALS: BP 145/66
--- NOTE | 2023-01-29 12:43 | Progress Note - Hospitalist ---
Subjective HPI/CC On Admission Date Seen by Provider: Jan 29, 2023 Time Seen by Provider: 11:15 Soham is a 77 yo M that presented with falls, headache and weakness to the ER yesterday. He has become increasingly confused and has a history of dementia. 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 He lives alone and it is unknown if he had been taking his meds prior. His neighbor reports that he has had increasing weakness in his leg and has had more difficulty getting in and out of the car the past few days. His neighbor also reports that yesterday morning he had a headche after he had been experiencing falls, not sure of what he fell on or if he lost consciousness. He denies pain, but overall doesn't feel good and feels lightheaded. He denies chest pain and shortness of breath. He denies fever. He denies nausea or vomiting. Subjective/Events-last exam He is sitting in his chair. He has no complaints. Objective Exam Vital Signs Vital Signs Date Time Temp Pulse Resp B/P (MAP) Pulse Ox O2 Delivery O2 Flow Rate FiO2 01/29/23 11:44 36.0 85 16 145/66 (92) 92 Nasal Cannula 3.50 01/27/23 18:54 32 Capillary Refill : Less Than 3 Seconds General Appearance: No Apparent Distress, Obese Respiratory: Lungs Clear, No Respiratory Distress Cardiovascular: Regular Rate, Rhythm, No Murmur Gastrointestinal: Normal Bowel Sounds, Soft Extremity: Normal Inspection, Pedal Edema Neurologic/Psychiatric: Alert, Other (oriented to person, place, and year) Results/Procedures Lab Laboratory Tests 01/29/23 05:37 Patient resulted labs reviewed. Imaging: Reviewed Imaging Report Assessment/Plan Assessment and Plan Assess & Plan/Chief Complaint Critical illness myopathy PT/OT SW consulted, will need SNF on discharge Delirium Dementia Reorient as needed Avoid sedating meds as able Risperdal Haldol as needed Continue home dementia meds HTN Cardiology following, appreciate recs Continue Coreg Hold Lasix Continue Lisinopril and Terazosin WES Creatinine slightly worse Hold Lasix DM SSI Home levemir DVT ppx: Lovenox hypokalemia/hypophosphatemia- resolved Hypertensive urgency- resolved Sinus tachycardia, resolved Diagnosis/Problems Diagnosis/Problems (1) Hypertensive urgency Status: Acute (2) Generalized weakness Status: Acute (3) Hypomagnesemia Status: Acute (4) Hypokalemia Status: Acute (5) Hypophosphatemia Status: Acute (6) UTI (urinary tract infection) Status: Resolved Resolution Date/Time: 01/28/23 @ 18:00 (7) Dementia Status: Chronic Qualifiers: Dementia type: unspecified type Dementia severity: moderate Dementia behavioral or psychological symptom: with agitation Qualified Codes: F03.B11 - Unspecified dementia, moderate, with agitation (8) Delirium due to another medical condition, acute, hyperactive Status: Acute (9) T2DM (type 2 diabetes mellitus) Status: Chronic (10) COPD (chronic obstructive pulmonary disease) Status: Chronic (11) RLS (restless legs syndrome) Status: Chronic (12) HLD (hyperlipidemia) Status: Chronic (13) BPH (benign prostatic hyperplasia) (14) Obesity KATELYN FRYE MD Jan 29, 2023 12:43
[2023-01-29 16:34] VITALS: BP 138/78
[2023-01-29 20:29] VITALS: BP 167/77
[2023-01-29] MEDS: PRAMIPEXOLE 0.125 MG TABLET PO SCH (21:22)
[2023-01-29] MEDS: MONTELUKAST 10 MG TABLET PO SCH (21:22)
[2023-01-29] MEDS: DONEPEZIL 10 MG TABLET PO SCH (21:22)
[2023-01-29] MEDS: TERAZOSIN 5 MG CAPSULE PO SCH (21:22)
[2023-01-30] VITALS: BP 141/68
[2023-01-30 03:52] VITALS: BP 146/70
[2023-01-30 05:30] LABS: BASOPHILS # (AUTO) 0.1 10^3/uL (0.0-0.1); BASOPHILS % (AUTO) 1 % (0-10); EOSINOPHILS # (AUTO) 0.3 10^3/uL (0.0-0.3); EOSINOPHILS % (AUTO) 3 % (0-10); HEMATOCRIT 38 % (40-54); LYMPHOCYTES # (AUTO) 1.4 10^3/uL (1.0-4.0); LYMPHOCYTES % (AUTO) 13 % (12-44); MEAN CORPUSCULAR HEMOGLOBIN 28 pg (25-34); MEAN CORPUSCULAR HGB CONC 32 g/dL (32-36); MEAN CORPUSCULAR VOLUME 88 fL (80-99); MEAN PLATELET VOLUME 9.5 fL (9.0-12.2); MONOCYTES # (AUTO) 0.9 10^3/uL (0.0-1.0); MONOCYTES % (AUTO) 9 % (0-12); NEUTROPHILS # (AUTO) 7.5 10^3/uL (1.8-7.8); NEUTROPHILS % (AUTO) 72 % (42-75); PLATELET COUNT 334 10^3/uL (130-400); WHITE BLOOD COUNT 10.4 10^3/uL (4.3-11.0)
[2023-01-30 05:43] LABS: POTASSIUM 3.9 MMOL/L (3.6-5.0)
[2023-01-30 05:44] LABS: CALCIUM 8.8 MG/DL (8.5-10.1)
[2023-01-30] MEDS: inSUlin ASPART 1 UNIT/0.01 ML (PER UNIT) SC SCH ×4 (05:47→20:39)
[2023-01-30 05:49] LABS: CREATININE SERUM 1.36 MG/DL (0.60-1.30)
[2023-01-30 07:22] VITALS: BP 169/92
[2023-01-30] MEDS: RT-Ipratropium/Albuterol NEB 3 ML VIAL INH SCH ×2 (08:08→21:52)
[2023-01-30] MEDS: DOCUSATE SODIUM 100 MG CAPSULE PO SCH ×2 (09:50→21:35)
[2023-01-30] MEDS: carvediloL 12.5 MG TABLET PO SCH ×2 (09:50→21:35)
[2023-01-30] MEDS: PANTOPRAZOLE 40 MG TABLET PO SCH (09:50)
[2023-01-30] MEDS: FLUTICASONE NASAL SPRAY (120 SPRAYS) NS SCH (09:50)
[2023-01-30] MEDS: amLODIPine 10 MG TABLET PO SCH (09:50)
[2023-01-30] MEDS: inSUlin DETERMIR 1 UNIT/0.01 ML (CHARGE PER UNIT) SQ SCH (09:51)
[2023-01-30] MEDS: risperiDONE 0.25 MG TABLET PO SCH ×2 (09:56→21:36)
--- NOTE | 2023-01-30 11:05 | Physical Therapy Daily Note ---
PT Daily Note-Current Subjective Pt more alert this session. Agrees to LE exercise and to try and get out of bed. Pain Section J - Health Conditions 1. Rarely or not at all 2. Occasionally 3. Frequently 4. Almost constantly 8. Unable to answer Pain Effect on Sleep: 2 Pain Interference with Therapy: 2 Pain Interference w/Day-to-Day: 2 Mental Status Patient Orientation: Person Transfers SCALE: Activities may be completed with or without assistive devices. 3-Hgywepjkcz-fhiwqbx completes the activity by him/herself with no assistance from a helper. 5-Set-up or Clean-up Assistance-helper sets up or cleans up; patient completes activity. [place] assists only prior to or following the activity. 4-Supervision or Touching Assistance-helper provides verbal cues and/or touching/steadying and/or contact guard assistance as patient completes activity. Assistance may be provided throughout the activity or intermittently. 3-Partial/Moderate Assistance-helper does LESS THAN HALF the effort. [place] lifts, holds or supports trunk or limbs, but provides less than half the effort. 2-Substantial/Maximal Assistance-helper does MORE THAN HALF the effort. [place] lifts or holds trunk or limbs and provides more than half the effort. 3-Oqysbhmkd-xbsvwk does ALL the effort. Patient does none of the effort to complete the activity. Or, the assistance of 2 or more helpers is required for the patient to complete the activity. If activity was not attempted, code reason: 7-Patient Refused. 9-Not Applicable-not attempted and the patient did not perform the activity before the current illness, exacerbation or injury. 10-Not Attempted due to Environmental Limitations-(lack of equipment, weather restraints, etc.). 88-Not Attempted due to Medical Conditions or Safety Concerns. Roll Left & Right (QC): 3 Lying to Sitting/Side of Bed(Q: 3 Sit to Stand (QC): 3 Chair/Pus-fr-Rxgln Xfer(QC): 3 Had 2 people for safety reasons but patient was able to transfer with min to mod assist of 1 person using a FWW. Assist to move the walker and provide verbal/tactile cuing for sequence. Weight Bearing Right Lower Extremity: Right Full Weight Bearing Left Lower Extremity: Left Full Weight Bearing Exercises Supine Ex: Ankle pumps, Quad Set, Heel Slides, Short Arc Quads, Straight leg raise, Hip abd/add Supine Reps: 10 Assessment Current Status: Good Progress Pt demonstrated improved level of alertness. He was able to follow cuing for bed mobility and transfer sequences. Pt did provide physical assist with all mobility. PT Retirement Goals Retirement Goals PT Retirement Goals Time Frame: Feb 09, 2023 Roll Left & Right (QC): 6 Sit to Lying (QC): 6 Lying-Sitting on Side/Bed(QC): 6 Sit to Stand (QC): 6 Chair/Dfw-fc-Wrfus Xfer(QC): 6 Toilet Transfer (QC): 6 Walk 10 feet (QC): 5 Walk 50ft with 2 Turns (QC): 5 Walk 150 ft (QC): 5 1 Step (curb) (QC): 4 4 Steps (QC): 4 PT Plan Treatment/Plan Treatment Plan: Continue Plan of Care Treatment Plan: Bed Mobility, Education, Functional Activity Yud[place], Functional Strength, Gait, Safety, Therapeutic Exercise, Transfers Treatment Duration: Feb 09, 2023 Frequency: 6 times per week Estimated Hrs Per Day: .25 hour per day Patient and/or Family Agrees t: Yes Time Time In: 1000 Time Out: 1030 DATE: Jan 30, 2023 Total Billed Treatment Time: 30 Total Billed Treatment visit, FA 15min, ex 15 min LINDA SEGAL PT Jan 30, 2023 11:05
[2023-01-30 11:22] VITALS: BP 143/75
--- NOTE | 2023-01-30 11:59 | Cardiology Progress Note ---
Subjective Date Seen by Provider: Jan 30, 2023 Time Seen by Provider: 09:00 Subjective/Events-last exam Patient is sitting up in bed, asking to go home. Denies any chest pain or dyspnea. Objective-Cardiology Exam Last Set of Vital Signs Vital Signs 01/27/23 01/30/23 18:54 16:19 Temp 36.7 Pulse 75 Resp 14 B/P (MAP) 148/76 (100) Pulse Ox 93 O2 Delivery Nasal Cannula O2 Flow Rate 3.00 FiO2 32 I&O Intake and Output 01/30/23 00:00 Intake Total 2370 ml Balance 2370 ml Intake Oral 2370 ml # Urine Diapers 9 # Bowel Movements 3 General: Cooperative HEENT: Atraumatic, PERRLA Neck: Supple, No JVD Lungs: Normal Air Movement Heart: Regular Rate, Normal S1, Normal S2, Other (Sinus tachycardia) Abdomen: Normal Bowel Sounds Extremities: No Clubbing, No Cyanosis, Other (Peripheral edema) Skin: No Rashes, No Breakdown Results Lab Laboratory Tests 01/30/23 05:00 A/P-Cardiology Admission Diagnosis Weakness/confusion CAD Hypertensive urgency CKD Assessment/Plan Weakness and Confusion/delirium- oriented to person. CXR and CT head WNL Reported some weakness, seen by primary care physician about 2 weeks ago and there was suspicion of a small CVA Managed by medical team at this point Status post acute respiratory failure, was initially on BiPAP Currently on nasal cannula Improving slowly Peripheral edema, continue to diurese and continue to monitor. Hypertensive urgency, history of Malignant HTN, has been maintained on amlodipine 10 mg daily, furosemide 20 mg daily, Toprol-XL 50 mg daily as outpatient. Using IV hydralazine PRN. CT angiogram of the abdomen in July 2012 showed mild plaque along the origin of the renal artery with no significant stenosis. followed by [facility]. Monitor blood pressure UTI, Urine culture with gram pos mix. Managed by primary care team Coronary artery disease Left heart catheterization on January 22, 2018 revealing severe stenosis at the proximal LAD successful primary stenting using Estrella 315mm. Mild to moderate stenosis in the mid LAD at a trifurcation point that will be treated conservatively and monitor closely. Heavily calcified left main with ostial 40- 50 percent stenosis. Mild to moderate disease in the circumflex artery, mild disease in the right coronary artery. -Stress test done October 2021 no significant ischemia SSS 4, SDS 2, EF 69% Maintained on aspirin. Chronic kidney disease stage IV, followed and managed by [facility], losartan was discontinued in the past. Continue to monitor renal function. Left ventricular hypertrophy 2D echo done in April 2022 with mild LVH, ejection fraction 50 to 55%, grade 1 diastolic dysfunction, PA pressure 30 to 35 mmHg. 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 Maintained on Xarelto in the past, currently off of the medication. Bilateral lower extremity venous duplex was negative. No prior history of PE. Mild bilateral carotid stenosis, last ultrasound was done in April 2022, continue to monitor Diabetes mellitus Hyperlipidemia, has been followed by Dr. Gutierrez as outpatient. COPD, obstructive sleep apnea, using C pap. Morbid obesity Peripheral edema, chronic, no change from baseline. Continue to monitor. Supervisory-Addendum Brief Supervisory Addendum Participated in pt care: history, MDM, physical Personally performed: exam, history, MDM Care discussed with: EJN Results interpretation: Verified all documentation Notes: Patient was seen and evaluated with Suzy, examination performed, management plan was discussed, agree with the current scribed note, I made few changes to the note using Italic font Patient was seen at bedside, sitting comfortably, feeling better Still having generalized weakness but overall better Continue with physical therapy, continue diuretics Monitor electrolytes and blood pressure SUZY WOLF Jan 30, 2023 11:59 RAMIRO CRUZ MD Jan 30, 2023 17:29
--- NOTE | 2023-01-30 12:06 | Occupational Ther Daily Note ---
OT Current Status-Daily Note Subjective Improved alertness and command following Mental Status/Objective Patient Orientation: Person Attachments: IV ADL-Treatment Patient incont of BM prior to therapy entry, Patient transferred to recliner w/ 2 persons for safety and FWW navigation, OT stripped linens d/t soiled. During transfer and standing duration, patient urinated on floor. Patient to sit in re cliner and perform functional alternating leg lifts for improving independence with ADL while OT sanitized floor beneath feet. Therapy Code Descriptions/Definitions Functional [place] Measure: 0=Not Assessed/NA 4=Minimal Assistance 1=Total Assistance 5=Supervision or Setup 2=Maximal Assistance 6=Modified [place] 3=Moderate Assistance 7=Complete IndependenceSCALE: Activities may be completed with or without assistive devices. 3-Xspoacolii-ulkddat completes the activity by him/herself with no assistance from a helper. 5-Set-up or Clean-up Assistance-helper sets up or cleans up; patient completes activity. [place] assists only prior to or following the activity. 4-Supervision or Touching Assistance-helper provides verbal cues and/or touching/steadying and/or contact guard assistance as patient completes activity. Assistance may be provided throughout the activity or intermittently. 3-Partial/Moderate Assistance-helper does LESS THAN HALF the effort. [place] lifts, holds or supports trunk or limbs, but provides less than half the effort. 2-Substantial/Maximal Assistance-helper does MORE THAN HALF the effort. [place] lifts or holds trunk or limbs and provides more than half the effort. 9-Jyuxcvblz-topvfe does ALL the effort. Patient does none of the effort to complete the activity. Or, the assistance of 2 or more helpers is required for the patient to complete the activity. If activity was not attempted, code reason: 7-Patient Refused. 9-Not Applicable-not attempted and the patient did not perform the activity before the current illness, exacerbation or injury. 10-Not Attempted due to Environmental Limitations-(lack of equipment, weather restraints, etc.). 88-Not Attempted due to Medical Conditions or Safety Concerns. 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 2=Patient will verbalize/demonstrate understanding of assistive devices/modifications for ADL. 3=Patient will improve strength/tolerance for activity to enable patient to perform ADL's. OT Education/Plan Problem List/Assessment EDEMA BUE, positioned w/ pillows in bed in chair position Discharge Recommendations Plan/Recommendations: Continue POC Treatment Plan/Plan of Care Patient would benefit from OT for education, treatment and training to promote independence in ADL's, mobility, safety and/or upper extremity function for ADL's. Plan of Care: ADL Retraining, Caregiver Training, Concurrent Therapy, Functional Mobility, Group Exercise/Act as Ind, UE Funct Exercise/Act Treatment Duration: Jan 28, 2023 Frequency: 3 times per week (3-5 times /wk) Estimated Hrs Per Day: .25 hour per day Agreement: Yes Rehab Potential: Fair Time Start Time: 10:30 Stop Time: 10:50 DATE: Jan 30, 2023 Total Time Billed (hr/min): 20 Billed Treatment Time FA 20 min VIVI HELMS OT Jan 30, 2023 12:06
[2023-01-30] MEDS: ENOXAPARIN 40 MG/0.4 ML SYRINGE SC SCH ×2 (13:01→21:34)
[2023-01-30 16:19] VITALS: BP 148/76
--- NOTE | 2023-01-30 17:55 | Progress Note - Hospitalist ---
Subjective HPI/CC On Admission Date Seen by Provider: Jan 30, 2023 Time Seen by Provider: 10:25 Soham is a 77 yo M that presented with falls, headache and weakness to the ER yesterday. He has become increasingly confused and has a history of dementia. 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 He lives alone and it is unknown if he had been taking his meds prior. His neighbor reports that he has had increasing weakness in his leg and has had more difficulty getting in and out of the car the past few days. His neighbor also reports that yesterday morning he had a headche after he had been experiencing falls, not sure of what he fell on or if he lost consciousness. He denies pain, but overall doesn't feel good and feels lightheaded. He denies chest pain and shortness of breath. He denies fever. He denies nausea or vomiting. Subjective/Events-last exam He is moving from his bed to the chair. He is working with therapy. He denies an y complaints. Objective Exam Vital Signs Vital Signs Date Time Temp Pulse Resp B/P (MAP) Pulse Ox O2 Delivery O2 Flow Rate FiO2 01/30/23 16:19 36.7 75 14 148/76 (100) 93 Nasal Cannula 3.00 01/27/23 18:54 32 Capillary Refill : Less Than 3 Seconds General Appearance: No Apparent Distress, Obese Respiratory: Lungs Clear, No Respiratory Distress Cardiovascular: Regular Rate, Rhythm, No Murmur Gastrointestinal: Normal Bowel Sounds, Soft Extremity: Normal Inspection, Pedal Edema Neurologic/Psychiatric: Alert, Normal Mood/Affect Results/Procedures Lab Laboratory Tests 01/30/23 05:00 Patient resulted labs reviewed. Imaging: Reviewed Imaging Report Assessment/Plan Assessment and Plan Assess & Plan/Chief Complaint Critical illness myopathy PT/OT SW consulted, will need SNF on discharge Delirium Dementia Improving Reorient as needed Avoid sedating meds as able Risperdal Haldol as needed Continue home dementia meds HTN Cardiology following, appreciate recs Continue Coreg Holding Lasix Continue Lisinopril and Terazosin WES Creatinine slightly improved Holding Lasix DM SSI Home levemir DVT ppx: Lovenox hypokalemia/hypophosphatemia- resolved Hypertensive urgency- resolved Sinus tachycardia, resolved Diagnosis/Problems Diagnosis/Problems (1) Hypertensive urgency Status: Acute (2) Generalized weakness Status: Acute (3) Hypomagnesemia Status: Acute (4) Hypokalemia Status: Acute (5) Hypophosphatemia Status: Acute (6) UTI (urinary tract infection) Status: Resolved Resolution Date/Time: 01/28/23 @ 18:00 (7) Dementia Status: Chronic Qualifiers: Dementia type: unspecified type Dementia severity: moderate Dementia behavioral or psychological symptom: with agitation Qualified Codes: F03.B11 - Unspecified dementia, moderate, with agitation (8) Delirium due to another medical condition, acute, hyperactive Status: Acute (9) T2DM (type 2 diabetes mellitus) Status: Chronic (10) COPD (chronic obstructive pulmonary disease) Status: Chronic (11) RLS (restless legs syndrome) Status: Chronic (12) HLD (hyperlipidemia) Status: Chronic (13) BPH (benign prostatic hyperplasia) (14) Obesity KATELYN FRYE MD Jan 30, 2023 17:55
[2023-01-30 20:32] VITALS: BP 135/82
[2023-01-30] MEDS: DONEPEZIL 10 MG TABLET PO SCH (21:35)
[2023-01-30] MEDS: MONTELUKAST 10 MG TABLET PO SCH (21:35)
[2023-01-30] MEDS: PRAMIPEXOLE 0.125 MG TABLET PO SCH (21:35)
[2023-01-30] MEDS: TERAZOSIN 5 MG CAPSULE PO SCH (21:35)
[2023-01-31] VITALS: BP 129/75
[2023-01-31 03:30] VITALS: BP 118/70
[2023-01-31] MEDS: inSUlin ASPART 1 UNIT/0.01 ML (PER UNIT) SC SCH ×4 (05:32→20:46)
[2023-01-31 07:20] VITALS: BP 142/79
[2023-01-31] MEDS: RT-Ipratropium/Albuterol NEB 3 ML VIAL INH SCH ×2 (08:06→20:05)
[2023-01-31] MEDS: PANTOPRAZOLE 40 MG TABLET PO SCH (08:56)
[2023-01-31] MEDS: carvediloL 12.5 MG TABLET PO SCH ×2 (08:56→20:45)
[2023-01-31] MEDS: DOCUSATE SODIUM 100 MG CAPSULE PO SCH ×2 (08:56→20:45)
[2023-01-31] MEDS: amLODIPine 10 MG TABLET PO SCH (08:57)
[2023-01-31] MEDS: inSUlin DETERMIR 1 UNIT/0.01 ML (CHARGE PER UNIT) SQ SCH (08:57)
[2023-01-31] MEDS: FLUTICASONE NASAL SPRAY (120 SPRAYS) NS SCH (08:57)
[2023-01-31] MEDS: risperiDONE 0.25 MG TABLET PO SCH ×2 (08:57→20:45)
--- NOTE | 2023-01-31 08:58 | Cardiology Progress Note ---
Subjective Date Seen by Provider: Jan 31, 2023 Time Seen by Provider: 08:30 Subjective/Events-last exam Patient in bed, no new complaints. Still having weakness/myopathy Objective-Cardiology Exam Last Set of Vital Signs Vital Signs 01/27/23 01/31/23 01/31/23 18:54 03:30 07:20 Temp 36.8 Pulse 85 Resp 16 B/P (MAP) 142/79 (100) Pulse Ox 95 O2 Delivery Nasal Cannula O2 Flow Rate 3.00 FiO2 32 I&O Intake and Output 01/31/23 00:00 Intake Total 1200 ml Output Total 405 ml Balance 795 ml Intake Oral 1200 ml Output Urine Total 405 ml # Urine Diapers 6 # Bowel Movements 1 General: Cooperative HEENT: Atraumatic, PERRLA Neck: Supple, No JVD Lungs: Normal Air Movement Heart: Regular Rate, Normal S1, Normal S2, Other (Sinus tachycardia) Abdomen: Normal Bowel Sounds Extremities: No Clubbing, No Cyanosis, Other (Peripheral edema) Skin: No Rashes, No Breakdown A/P-Cardiology Admission Diagnosis Weakness/confusion CAD Hypertensive urgency CKD Assessment/Plan Weakness and Confusion, improving. CXR and CT head WNL Reported some weakness, seen by primary care physician about 2-3 weeks ago and there was suspicion of a small CVA Managed by medical team at this point Status post acute respiratory failure, was initially on BiPAP Currently on nasal cannula Improving Peripheral edema, continue to diurese and continue to monitor. Hypertensive urgency, history of Malignant HTN, has been maintained on amlodipine 10 mg daily, furosemide 20 mg daily, Toprol-XL 50 mg daily as outpatient. Using IV hydralazine PRN. CT angiogram of the abdomen in July 2012 showed mild plaque along the origin of the renal artery with no significant stenosis. followed by [facility]. Monitor blood pressure UTI, Urine culture with gram pos mix. Managed by primary care team Coronary artery disease Left heart catheterization on January 22, 2018 revealing severe stenosis at the proximal LAD successful primary stenting using Estrella 315mm. Mild to moderate stenosis in the mid LAD at a trifurcation point that will be treated conservatively and monitor closely. Heavily calcified left main with ostial 40- 50 percent stenosis. Mild to moderate disease in the circumflex artery, mild disease in the right coronary artery. -Stress test done October 2021 no significant ischemia SSS 4, SDS 2, EF 69% Maintained on aspirin. Chronic kidney disease stage IV, followed and managed by [facility], losartan was discontinued in the past. Continue to monitor renal function. Left ventricular hypertrophy 2D echo done in April 2022 with mild LVH, ejection fraction 50 to 55%, grade 1 diastolic dysfunction, PA pressure 30 to 35 mmHg. 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 Maintained on Xarelto in the past, currently off of the medication. Bilateral lower extremity venous duplex was negative. No prior history of PE. Mild bilateral carotid stenosis, last ultrasound was done in April 2022, continue to monitor Diabetes mellitus Hyperlipidemia, has been followed by Dr. Gutierrez as outpatient. COPD, obstructive sleep apnea, using C pap. Morbid obesity Peripheral edema, chronic, no change from baseline. Continue to monitor. Supervisory-Addendum Brief Supervisory Addendum Participated in pt care: history, MDM, physical Personally performed: exam, history, MDM Care discussed with: JEN Results interpretation: Verified all documentation Notes: Patient was seen and evaluated with Suzy, examination performed, management plan was discussed, agree with the current scribed note, I made few changes to the note using Italic font Patient was seen at bedside, laying down comfortably, still having generalized weakness but overall improvement Discussed possibility of care home placement Continue with diuresis and monitor tolerance and response Continue with physical therapy SUZY WOLF Jan 31, 2023 08:58 RAMIRO CRUZ MD Jan 31, 2023 09:15
--- NOTE | 2023-01-31 10:54 | Physical Therapy Daily Note ---
PT Daily Note-Current Subjective Patient more alert on this date. Very [place]. Pain Section J - Health Conditions 1. Rarely or not at all 2. Occasionally 3. Frequently 4. Almost constantly 8. Unable to answer Pain Effect on Sleep: 1 Pain Interference with Therapy: 1 Pain Interference w/Day-to-Day: 1 Mental Status Attachments: Oxygen Transfers SCALE: Activities may be completed with or without assistive devices. 5-Ozttngdsjl-vzbjbid completes the activity by him/herself with no assistance from a helper. 5-Set-up or Clean-up Assistance-helper sets up or cleans up; patient completes activity. [place] assists only prior to or following the activity. 4-Supervision or Touching Assistance-helper provides verbal cues and/or touching/steadying and/or contact guard assistance as patient completes activity. Assistance may be provided throughout the activity or intermittently. 3-Partial/Moderate Assistance-helper does LESS THAN HALF the effort. [place] lifts, holds or supports trunk or limbs, but provides less than half the effort. 2-Substantial/Maximal Assistance-helper does MORE THAN HALF the effort. [place] lifts or holds trunk or limbs and provides more than half the effort. 4-Mtwebzaye-tnmujn does ALL the effort. Patient does none of the effort to complete the activity. Or, the assistance of 2 or more helpers is required for the patient to complete the activity. If activity was not attempted, code reason: 7-Patient Refused. 9-Not Applicable-not attempted and the patient did not perform the activity before the current illness, exacerbation or injury. 10-Not Attempted due to Environmental Limitations-(lack of equipment, weather restraints, etc.). 88-Not Attempted due to Medical Conditions or Safety Concerns. Sit to Stand (QC): 3 (min assist x 3 sets to FWW) Weight Bearing Right Lower Extremity: Right Full Weight Bearing Left Lower Extremity: Left Full Weight Bearing Gait Training Distance: 75' Walk 10 feet (QC): 3 Walk 50 ft with 2 Turns(QC): 3 Gait Assistive Device: FWW extended UE's with FWW use/shuffle gait sequence Exercises Seated Therapy Exercises: Long arc quads Seated Reps: 15 Assessment Patient improving with treatment plan and remains up in recliner with needs met. PT to continue to increase activity as tolerated by patient. PT Fdc Goals Fdc Goals PT Fdc Goals Time Frame: Feb 09, 2023 Roll Left & Right (QC): 6 Sit to Lying (QC): 6 Lying-Sitting on Side/Bed(QC): 6 Sit to Stand (QC): 6 Chair/Aeo-dw-Aepim Xfer(QC): 6 Toilet Transfer (QC): 6 Walk 10 feet (QC): 5 Walk 50ft with 2 Turns (QC): 5 Walk 150 ft (QC): 5 1 Step (curb) (QC): 4 4 Steps (QC): 4 PT Plan Treatment/Plan Treatment Plan: Continue Plan of Care Treatment Plan: Bed Mobility, Education, Functional Activity Yudelka, Functional Strength, Gait, Safety, Therapeutic Exercise, Transfers Treatment Duration: Feb 09, 2023 Frequency: 6 times per week Estimated Hrs Per Day: .25 hour per day Patient and/or Family Agrees t: Yes Time Time In: 900 Time Out: 920 DATE: Jan 31, 2023 Total Billed Treatment Time: 20 Total Billed Treatment 1 visit GT 20 min SHANEKA RODRIGUES PT Jan 31, 2023 10:54
--- NOTE | 2023-01-31 11:15 | Occupational Ther Daily Note ---
OT Current Status-Daily Note Subjective Sitting up in recliner, eating breakfast w/o adaptive utensil Mental Status/Objective Patient Orientation: Person, Place ADL-Treatment completed 1/2 of upgraded regular consistency diet. Stood Min assit w/ constant one step instruction for hand placement , scooting bottom forward, leaning nose over toes to ambulate and fully saturated brief fell to floor, Patient request urinal use and completed w/ small spilling on floor. Patient stands briefly to perform 2 handed toileting tasks. Ambulates w/ Physical therapy. Occupational assessed hearing aid function with student, replaced batteries and inserted to patient ears. Patient responds appropriately to communication Therapy Code Descriptions/Definitions Functional [place] Measure: 0=Not Assessed/NA 4=Minimal Assistance 1=Total Assistance 5=Supervision or Setup 2=Maximal Assistance 6=Modified [place] 3=Moderate Assistance 7=Complete IndependenceSCALE: Activities may be completed with or without assistive devices. 2-Lktxzlwcfc-xudttis completes the activity by him/herself with no assistance from a helper. 5-Set-up or Clean-up Assistance-helper sets up or cleans up; patient completes activity. [place] assists only prior to or following the activity. 4-Supervision or Touching Assistance-helper provides verbal cues and/or touchi ng/steadying and/or contact guard assistance as patient completes activity. Assistance may be provided throughout the activity or intermittently. 3-Partial/Moderate Assistance-helper does LESS THAN HALF the effort. [place] lifts, holds or supports trunk or limbs, but provides less than half the effort. 2-Substantial/Maximal Assistance-helper does MORE THAN HALF the effort. [place] lifts or holds trunk or limbs and provides more than half the effort. 5-Xwsrgkkch-hujfhv does ALL the effort. Patient does none of the effort to complete the activity. Or, the assistance of 2 or more helpers is required for the patient to complete the activity. If activity was not attempted, code reason: 7-Patient Refused. 9-Not Applicable-not attempted and the patient did not perform the activity before the current illness, exacerbation or injury. 10-Not Attempted due to Environmental Limitations-(lack of equipment, weather restraints, etc.). 88-Not Attempted due to Medical Conditions or Safety Concerns. Eating (QC): 5 Oral Hygiene (QC): 4 Lower Body Dressing (QC): 2 On/Off Footwear: 1 Toileting Hygiene (QC): 3 Toilet Transfer (QC): 4 Patient requires frequent rest periods and requires visual/auditory navigation prompts for FWW Education OT Patient Education: Correct positioning, Exercise program, Modified ADL techniques, Progress toward Goal/Update tx plan, Purpose of tx/functional activities, Reviewed precautions, Rehab process, Safety issues, Transfer techniques Teaching Recipient: Patient, Family Teaching Methods: Demonstration, Audiovisual Response to Teaching: Verbalize Understanding, Reinforcement Needed OT Optical Lathe Operator Goals Optical Lathe Operator Goals Eating (QC): 4 Oral Hygiene (QC): 4 Toileting Hygiene (QC): 4 Shower/Bathe Self (QC): 4 Upper Body Dressing (QC): 4 Lower Body Dressing (QC): 4 On/Off Footwear (QC): 4 1=Demonstrate adherence to instructed precautions during ADL tasks. 2=Patient will verbalize/demonstrate understanding of assistive devices/modifications for ADL. 3=Patient will improve strength/tolerance for activity to enable patient to perform ADL's. OT Education/Plan Problem List/Assessment Assessment: Decreased Activ Tolerance, Decreased Safety Aware, Decreased UE Strength, Impaired Bed Mobility, Impaired Cognition, Impaired Coordination, Impaired Funct Balance, Impaired Self-Care Skills, Restricted Funct UE ROM EDEMA BUE, positioned w/ pillows in bed in chair position Discharge Recommendations Plan/Recommendations: Continue POC Therapy Discharge Recommendati: Post Acute OT Treatment Plan/Plan of Care Treatment,Training & Education: Yes Patient would benefit from OT for education, treatment and training to promote independence in ADL's, mobility, safety and/or upper extremity function for ADL's. Plan of Care: ADL Retraining, Caregiver Training, Concurrent Therapy, Functional Mobility, Group Exercise/Act as Ind, UE Funct Exercise/Act Treatment Duration: Jan 28, 2023 Frequency: 3 times per week (3-5 times /wk) Estimated Hrs Per Day: .25 hour per day Agreement: Yes Rehab Potential: Fair Patient up in chair w/o brief, urinal and call light in reach, family present, all needs met Time Start Time: 09:00 Stop Time: 09:00 DATE: Jan 31, 2023 Total Time Billed (hr/min): 20 Billed Treatment Time ADL 20 min VIVI HELMS OT Jan 31, 2023 11:15
--- NOTE | 2023-01-31 11:51 | Speech Therapy Daily Note ---
Speech Daily Progress Note Subjective Date Seen by Provider: Jan 31, 2023 Time Seen by Provider: 09:30 The patient was seated upright in the recliner, resting. Per patient's family, the patient recently transferred from the bed to the chair and is fatigued. The patient greeted the clinician appropriately and was agreeable to participation in the speech pathology treatment session. Objective Per patient's family, the patient has displayed excellent tolerance of the upgraded diet consistency (regular) and has not displayed s/s of suspected aspiration. The patient politely deferred solid trials on this date, as he recently completed his breakfast. The patient was agreeable to trials of thin liquid via straw. No s/s of suspected aspiration were present with thin liquids. Safe swallowing precautions and s/s of suspected aspiration were reviewed. The patient's family reported comprehension of the material and denied additional questions for the clinician at this time. At this time, the patient has met goals placed by speech pathology and should continue the current plan of care in place (diet consistency and safe swallowing precautions). ST will discharge the patient from skilled services at this time. Please re-consult speech pathology with additional concerns. Assessment Assessment Current Status: Fair Progress Treatment Plan Discontinue ST, Goals Met Speech Short Term Goals Short Term Goals Short Term Goals 1. The patient, staff, and caregivers will display safe swallowing precautions with 80% accuracy and mild verbal/visual cueing. Time Frame-STG: Five Days. Speech Fpc Goals Engineering Research Manager Goals 1. The patient will tolerate the least restrictive diet consistency without s/s of suspected aspiration. Time Frame: One Week. Speech-Plan Treatment Plan Speech Therapy Treatment Plan: Discontinue ST, Goals Met Treatment Duration: Jan 30, 2023 Frequency: 1 time per week Estimated Hrs Per Day: .25 hour per day Rehab Potential: Fair Pt/Family Agrees to Plan: Yes Safety Risks/Education Teaching Recipient: Patient, Family Teaching Methods: Discussion Response to Teaching: Reinforcement Needed (Patient) Education Topics Provided: Results, Recommendations, Plan of Care, Safe Swallowing Precautions Time Speech Therapy Time In: 09:30 Speech Therapy Time Out: 09:45 DATE: Jan 31, 2023 Total Billed Time: 15 Billed Treatment Time 1, QUAN JI HDEZ ST Jan 31, 2023 11:51
[2023-01-31] MEDS: ENOXAPARIN 40 MG/0.4 ML SYRINGE SC SCH ×2 (12:00→20:46)
[2023-01-31 12:13] VITALS: BP 136/76
--- NOTE | 2023-01-31 15:46 | Progress Note - Hospitalist ---
Subjective HPI/CC On Admission Date Seen by Provider: Jan 31, 2023 Time Seen by Provider: 10:20 Soham is a 77 yo M that presented with falls, headache and weakness to the ER yesterday. He has become increasingly confused and has a history of dementia. 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 He lives alone and it is unknown if he had been taking his meds prior. His neighbor reports that he has had increasing weakness in his leg and has had more difficulty getting in and out of the car the past few days. His neighbor also reports that yesterday morning he had a headche after he had been experiencing falls, not sure of what he fell on or if he lost consciousness. He denies pain, but overall doesn't feel good and feels lightheaded. He denies chest pain and shortness of breath. He denies fever. He denies nausea or vomiting. Subjective/Events-last exam He is sitting in his chair. His mentation continues to improve. He has been up in the bello with therapy which is an improvement. He has been eating and drinking. He has no complaints. Objective Exam Vital Signs Vital Signs Date Time Temp Pulse Resp B/P (MAP) Pulse Ox O2 Delivery O2 Flow Rate FiO2 01/31/23 13:00 78 01/31/23 12:13 36.6 18 136/76 (96) 93 Nasal Cannula 3.00 01/27/23 18:54 32 Capillary Refill : Less Than 3 Seconds General Appearance: No Apparent Distress, Obese Respiratory: Lungs Clear, No Respiratory Distress Cardiovascular: Regular Rate, Rhythm, No Murmur Gastrointestinal: Normal Bowel Sounds, Soft Extremity: Normal Inspection, Pedal Edema Neurologic/Psychiatric: Alert, Normal Mood/Affect Results/Procedures Lab Patient resulted labs reviewed. Imaging: Reviewed Imaging Report Assessment/Plan Assessment and Plan Assess & Plan/Chief Complaint Critical illness myopathy PT/OT SW following, referral sent to [facility], awaiting approval Delirium Dementia Improving Reorient as needed Avoid sedating meds as able Risperdal Haldol as needed Continue home dementia meds HTN Cardiology following, appreciate recs Continue Coreg Resume Lasix Continue Lisinopril and Terazosin WES Resume Lasix DM SSI Home levemir DVT ppx: Lovenox hypokalemia/hypophosphatemia- resolved Hypertensive urgency- resolved Sinus tachycardia, resolved Diagnosis/Problems Diagnosis/Problems (1) Hypertensive urgency Status: Acute (2) Generalized weakness Status: Acute (3) Hypomagnesemia Status: Acute (4) Hypokalemia Status: Acute (5) Hypophosphatemia Status: Acute (6) UTI (urinary tract infection) Status: Resolved Resolution Date/Time: 01/28/23 @ 18:00 (7) Dementia Status: Chronic Qualifiers: Dementia type: unspecified type Dementia severity: moderate Dementia behavioral or psychological symptom: with agitation Qualified Codes: F03.B11 - Unspecified dementia, moderate, with agitation (8) Delirium due to another medical condition, acute, hyperactive Status: Acute (9) T2DM (type 2 diabetes mellitus) Status: Chronic (10) COPD (chronic obstructive pulmonary disease) Status: Chronic (11) RLS (restless legs syndrome) Status: Chronic (12) HLD (hyperlipidemia) Status: Chronic (13) BPH (benign prostatic hyperplasia) (14) Obesity KATELYN FRYE MD Jan 31, 2023 15:46
[2023-01-31 15:54] VITALS: BP 151/72
[2023-01-31 19:35] VITALS: BP 168/83
[2023-01-31] MEDS: PRAMIPEXOLE 0.125 MG TABLET PO SCH (20:45)
[2023-01-31] MEDS: DONEPEZIL 10 MG TABLET PO SCH (20:46)
[2023-01-31] MEDS: TERAZOSIN 5 MG CAPSULE PO SCH (20:46)
[2023-01-31] MEDS: MONTELUKAST 10 MG TABLET PO SCH (20:46)
[2023-02-01] VITALS: BP 180/68
[2023-02-01 05:00] VITALS: BP 137/66
[2023-02-01 06:47] LABS: POTASSIUM 4.1 MMOL/L (3.6-5.0)
[2023-02-01 06:48] LABS: CALCIUM 9.1 MG/DL (8.5-10.1)
[2023-02-01] MEDS: RT-Ipratropium/Albuterol NEB 3 ML VIAL INH SCH (06:51)
[2023-02-01 06:52] LABS: CREATININE SERUM 1.27 MG/DL (0.60-1.30)
[2023-02-01] MEDS: inSUlin ASPART 1 UNIT/0.01 ML (PER UNIT) SC SCH ×2 (06:57→12:00)
[2023-02-01 07:49] VITALS: BP 168/90
[2023-02-01] MEDS ORDERED: POTASSIUM CHLORIDE 20 MEQ TABLET PO SCH (08:00)
[2023-02-01] MEDS ORDERED: FUROSEMIDE 40 MG TABLET PO SCH (09:00)
[2023-02-01] MEDS: PANTOPRAZOLE 40 MG TABLET PO SCH (09:28)
[2023-02-01] MEDS: carvediloL 12.5 MG TABLET PO SCH (09:28)
[2023-02-01] MEDS: risperiDONE 0.25 MG TABLET PO SCH (09:28)
[2023-02-01] MEDS: amLODIPine 10 MG TABLET PO SCH (09:29)
[2023-02-01] MEDS: DOCUSATE SODIUM 100 MG CAPSULE PO SCH (09:29)
[2023-02-01] MEDS: inSUlin DETERMIR 1 UNIT/0.01 ML (CHARGE PER UNIT) SQ SCH (09:31)
[2023-02-01] MEDS: FLUTICASONE NASAL SPRAY (120 SPRAYS) NS SCH (09:32)
[2023-02-01 12:13] VITALS: BP 124/75
[2023-02-01] MEDS ORDERED: CLOP75TA28 PO (12:16)
[2023-02-01] MEDS ORDERED: DONE10TA41 PO (12:16)
[2023-02-01] MEDS ORDERED: FURO40TA4 PO (12:16)
[2023-02-01] MEDS ORDERED: INSU100I32 SC (12:16)
[2023-02-01] MEDS ORDERED: ESCI-2 PO (12:16)
[2023-02-01] MEDS ORDERED: PANT40TA52 PO (12:16)
[2023-02-01] MEDS ORDERED: BENA40TA84 PO (12:16)
[2023-02-01] MEDS ORDERED: ANAS1TAB50 PO (12:16)
[2023-02-01] MEDS ORDERED: TERA10CA3 PO (12:16)
[2023-02-01] MEDS ORDERED: AMLO-251 PO (12:16)
[2023-02-01] MEDS ORDERED: MONT-40 PO (12:16)
[2023-02-01] MEDS ORDERED: ATOR40TA70 PO (12:16)
[2023-02-01] MEDS ORDERED: RISP0.253 PO (12:16)
[2023-02-01] MEDS ORDERED: POTA-179 PO (12:16)
[2023-02-01] MEDS ORDERED: CNC1KV INJ (12:16)
[2023-02-01] MEDS ORDERED: PRAM0.128 PO (12:16)
[2023-02-01] MEDS ORDERED: METF-399 PO (12:16)
[2023-02-01] MEDS ORDERED: CARV12.53 PO (12:16)
--- NOTE | 2023-02-01 12:22 | Discharge Inst-Skilled Nursing ---
Discharge Inst-Skilled NF Consult/Follow Up/Orders Follow Up Appt.: Dr. Gutierrez one week Skilled NF Admit to: [facility] Certification (SNF) I certify that SNF services are required to be given on an inpatient basis because of the above named patient's need for senior care care on a continuing basis for the conditions(s) for which he/she was receiving inpatient hospital services prior to his/her transfer to the SNF. Long-Term Facility Order: Nursing Services, [facility] Maker-Evaluate & Treat, Physical Therapy-Evaluate & Treat Oxygen Delivery Method: Nasal Cannula Discharge Diet: ADA Diet Daily Activity as Tolerated: Yes Resuscitation Status: Full Code New & Resume Previous Orders Mary Frye Feb 01, 2023 12:21 MARY FRYE MD Feb 01, 2023 12:22
[2023-02-01 12:50] VITALS: BP 124/75
--- NOTE | 2023-02-01 20:51 | Discharge Summary ---
Discharge Summary Hospital Course Problems/Dx: (1) Hypertensive urgency Status: Acute (2) Generalized weakness Status: Acute (3) Hypomagnesemia Status: Acute (4) Hypokalemia Status: Acute (5) Hypophosphatemia Status: Acute (6) UTI (urinary tract infection) Status: Resolved (7) Dementia Status: Chronic Qualifiers: Qualified Codes: F03.B11 - Unspecified dementia, moderate, with agitation (8) Delirium due to another medical condition, acute, hyperactive Status: Acute (9) T2DM (type 2 diabetes mellitus) Status: Chronic (10) COPD (chronic obstructive pulmonary disease) Status: Chronic (11) RLS (restless legs syndrome) Status: Chronic (12) HLD (hyperlipidemia) Status: Chronic (13) BPH (benign prostatic hyperplasia) (14) Obesity Hospital Course Date of Admission: Jan 19, 2023 at 12:35 Admission Diagnosis : HTN urgency Family Physician/Provider: Alexander Gutierrez DO Date of Discharge: 02/01/23 Discharge Diagnosis: HTN urgency, delirium, critical illness myopathy Hospital Course: Soham Meza is a 77 year old male who presented with weakness and confusion and was admitted with HTN urgency. He had issues with delirium on underlying dementia. His blood pressure improved. He was started on new antihypertensives. His delirium slowly improved. He was very debilitated and made slow improvement. He was discharged to [facility] for skilled therapies. Labs and Pending Lab Test: Laboratory Tests 02/01/23 05:35: Sodium Level 138, Potassium Level 4.1, Chloride Level 103, Carbon Dioxide Level 22, Anion Gap 13, Blood Urea Nitrogen 24H, Creatinine 1.27, Estimat Glomerular Filtration Rate 58, BUN/Creatinine Ratio 19, Glucose Level 185H, Calcium Level 9.1 02/01/23 11:26: Glucometer 180H Microbiology 01/19/23 MRSA Screen - Final, Complete MRSA not isolated 01/19/23 Urine Culture - Final, Complete Gram Pos Mixed Bacterial Ashly See Comments Home Meds Active Furosemide 40 Mg Tablet 40 Mg PO DAILY 30 Days Risperidone 0.25 Mg Tablet 0.25 Mg PO BID 14 Days Carvedilol 12.5 Mg Tablet 25 Mg PO BID 30 Days Pramipexole Dihydrochloride (Pramipexole Di-HCl) 0.125 Mg Tablet 0.125 Mg PO HS 30 Days Tresiba Flextouch U-100 (Insulin Degludec) 100 Unit/Ml (3 Ml) Insuln.pen 15 Units SC DAILY 30 Days Metformin HCl 1,000 Mg Tablet 1,000 Mg PO BID 30 Days Atorvastatin Calcium 40 Mg Tablet 40 Mg PO HS 30 Days Arimidex (Anastrozole) 1 Mg Tablet 0.5 Mg PO MONTHLY 30 Days TAKES 1/2 OF A 1MG TAB Potassium Chloride 20 Meq Tab.er.prt 20 Meq PO DAILY 30 Days Clopidogrel (Clopidogrel Bisulfate) 75 Mg Tablet 75 Mg PO DAILY 30 Days Pantoprazole Sodium 40 Mg Tablet.dr 40 Mg PO DAILY 30 Days Montelukast Sodium 10 Mg Tablet 10 Mg PO DAILY 30 Days Donepezil HCl 10 Mg Tablet 10 Mg PO DAILY 30 Days Amlodipine Besylate 10 Mg Tablet 10 Mg PO DAILY 30 Days Terazosin HCl 10 Mg Capsule 10 Mg PO DAILY 30 Days Benazepril HCl 40 Mg Tab 40 Mg PO DAILY 30 Days Cyanocobalamin Injection (Cyanocobalamin) 1,000 Mcg/Ml Inj 1,000 Mcg INJ MONTHLY 30 Days Escitalopram Oxalate 10 Mg Tablet 10 Mg PO DAILY 30 Days Assessment/Pt Instructions see instructions Discharge Planning: >30 minutes discharge planning Discharge Instructions Discharge Diet: ADA Diet Activity as Tolerated: Yes Discharge Physical Examination Vital Signs Vital Signs Date Time Temp Pulse Resp B/P (MAP) Pulse Ox O2 Delivery O2 Flow Rate FiO2 02/01/23 12:50 36.7 72 16 124/75 92 Nasal Cannula 3.00 01/27/23 18:54 32 Allergies: Coded Allergies: adhesive (Verified Allergy, Unknown, 01/26/16) fish oil (Verified Allergy, Unknown, 01/26/16) telmisartan (Verified Adverse Reaction, Mild, diarrhea, 01/26/16) pravastatin (Verified Adverse Reaction, Unknown, weakness, 01/26/16) Copy Copies To 1: ALEXANDER GUTIERREZ DO Discharge Summary Date of Admission Jan 19, 2023 at 12:35 Date of Discharge Feb 01, 2023 at 12:53 Discharge Date: Feb 01, 2023 Discharge Time: 12:53 Admission Diagnosis HTN urgency Discharge Diagnosis Critical illness myopathy Delirium Dementia HTN WES DM hypokalemia/hypophosphatemia- resolved Hypertensive urgency- resolved Sinus tachycardia, resolved (1) Hypertensive urgency Status: Acute (2) Generalized weakness Status: Acute (3) Hypomagnesemia Status: Acute (4) Hypokalemia Status: Acute (5) Hypophosphatemia Status: Acute (6) UTI (urinary tract infection) Status: Resolved (7) Dementia Status: Chronic Qualifiers: Qualified Codes: F03.B11 - Unspecified dementia, moderate, with agitation (8) Delirium due to another medical condition, acute, hyperactive Status: Acute (9) T2DM (type 2 diabetes mellitus) Status: Chronic (10) COPD (chronic obstructive pulmonary disease) Status: Chronic (11) RLS (restless legs syndrome) Status: Chronic (12) HLD (hyperlipidemia) Status: Chronic (13) BPH (benign prostatic hyperplasia) (14) Obesity KATELYN FRYE MD Feb 01, 2023 20:50
== END 2023-02-01 12:53 | DRG 304 ==
LOC: EDUNIT# 07:08 → ER FS 07:09 → ICU 12:35 → 4TH 01-28 14:34
PROVIDERS: ADMIT Internal Medicine; ATTEND Internal Medicine
PROC: 5A09457 Assistance with Respiratory Ventilation, 24-96 Consecutive Hours, Continuous Positive Airway Pressure (ICD-10-PCS; principal; 2023-01-22)
DX: I16.0 Hypertensive urgency (principal); J96.01 Acute respiratory failure with hypoxia; G93.40 Encephalopathy, unspecified; N17.9 Acute kidney failure, unspecified; N39.0 Urinary tract infection, site not specified; G72.81 Critical illness myopathy; N18.4 Chronic kidney disease, stage 4 (severe); J44.9 Chronic obstructive pulmonary disease, unspecified; Z99.81 Dependence on supplemental oxygen; Z79.82 Long term (current) use of aspirin; Z79.899 Other long term (current) drug therapy; E78.00 Pure hypercholesterolemia, unspecified; E11.40 Type 2 diabetes mellitus with diabetic neuropathy, unspecified; Z86.73 Personal history of transient ischemic attack (TIA), and cerebral infarction without residual deficits; N40.0 Benign prostatic hyperplasia without lower urinary tract symptoms; K21.9 Gastro-esophageal reflux disease without esophagitis; M19.90 Unspecified osteoarthritis, unspecified site; G89.29 Other chronic pain; M54.9 Dorsalgia, unspecified; Z20.822 Contact with and (suspected) exposure to COVID-19; E83.42 Hypomagnesemia; E86.0 Dehydration; E87.6 Hypokalemia; E83.39 Other disorders of phosphorus metabolism; F03.90 Unspecified dementia, unspecified severity, without behavioral disturbance, psychotic disturbance, mood disturbance, and anxiety; G25.81 Restless legs syndrome; Z68.31 Body mass index [BMI] 31.0-31.9, adult; I25.10 Atherosclerotic heart disease of native coronary artery without angina pectoris; I51.7 Cardiomegaly; Z86.711 Personal history of pulmonary embolism; I65.23 Occlusion and stenosis of bilateral carotid arteries; E66.01 Morbid (severe) obesity due to excess calories; I12.9 Hypertensive chronic kidney disease with stage 1 through stage 4 chronic kidney disease, or unspecified chronic kidney disease; E11.22 Type 2 diabetes mellitus with diabetic chronic kidney disease; R60.9 Edema, unspecified
CPT/HCPCS: 36415; 36600; 70450; 71045; 73060; 73090; 80048; 80053; 81000; 82140; 82550; 82607; 82746; 82805; 82947; 83605; 83735; 83880; 84100; 84484; 85025; 85610; 85730; 86141; 87081; 87088; 87632; 87636; 93005; 93306; 94640; 94660; 94760; 96361; 96365; 96372; 96375; 96376